=== PATIENT | male | born 1955 | race Caucasian/White ===

== ENCOUNTER 2017-07-26 21:31 | Inpatient (IN) | payer BC, SELFPAY ==
[2017-07-26] VITALS (9 sets, daily range): BP systolic 98–128; BP diastolic 67–104; PULSE 60–82; RESP 15–20; TEMP 36.9; O2SAT 94–97; BMI 33.7
--- NOTE | 2017-07-26 21:38 | EKG12_ITS ---
Test Reason : CP Blood Pressure : / mmHG Vent. Rate : 153 BPM Atrial Rate : 170 BPM P-R Int : 000 ms QRS Dur : 094 ms QT Int : 322 ms P-R-T Axes : 000 034 013 degrees QTc Int : 514 ms Atrial fibrillation Anterior infarct , age undetermined Abnormal ECG Confirmed by VIVIAN HUTCHISON, SHERITA ([id number]), makeup editor KUMAR QUIÑONEZ ([id number]) on 07/31/2017 2:19:59 PM Referred By: DIAZ/YVON Confirmed By:SHERITA PARK MD
[2017-07-26 21:51] LABS: Absolute Lymphocyte Count 3.01 X10^3/ul (0.83-4.51); Absolute Neutrophil Count 4.2 X10^3/uL (2.0-7.7); Basophil# 0.03 X10^3/uL; Basophil% 0.4 % (0-1); Eosinophils% 1.2 % (0-5); Hemoglobin 14.9 g/dl (13.0-16.5); Lymphocyte # 3.01 X10^3/ul (4.0); Lymphocyte % 36.9 % (19-41); Mean Corp Hgb Conc 33.1 g/gl (32-36); Mean Corpuscular Hgb 29.4 pg (27.0-32.0); Mean Corpuscular Volume 88.9 fL (80-94); Mean Platelet Vol. 10.4 fl (6.2-12.0); Monocyte% 9.8 % (0-10); Neutrophil # 4.21 X10^3/uL (2.7-7.7); Neutrophil % 51.6 % (47-70); Platelet Count 145 K/mm3 (150-450); RBC Distribution Width CV 14.5 % (11.6-14.6); RBC Distribution Width SD 46.8 fl (35.1-43.9); Red Blood Count 5.06 M/mm3 (4.6-6.2); White Blood Count 8.2 K/mm3 (4.4-11.0)
[2017-07-26 21:52] LABS: POSITIVE COUNT NO; POSITIVE DIFFERENTIAL NO; POSITIVE MORPHOLOGY NO
--- NOTE | 2017-07-26 22:05 | RAD_ITS ---
XR Chest 1 View INDICATION: CHEST PAIN COMPARISON: May 22, 2017 TECHNIQUE: Portable chest x-ray FINDINGS: The heart size is at the upper limits of normal. Pulmonary vascularity is within normal limits. Sternotomy wires noted. Mild atelectatic changes are seen at the left lung base, lungs are otherwise clear. Osseous structures are grossly unremarkable. RAD/Chest 1 View (Portable) IMPRESSION: Mild left basilar atelectasis, lungs are otherwise clear. at 2237 Reported and signed by: Taniya Brunson MD Electronically Signed: Taniya Brunson MD at 21:36 EST Tel , Service support ,
--- NOTE | 2017-07-26 22:14 | ED.RN ---
DR. SANZ AWARE OF LAB CALLING CRITICAL OF TROPONIN 4.44
[2017-07-26 22:15] LABS: Anion Gap 8 (5-15); BUN 25 mg/dL (7-18); BUN/Creat Ratio 20.2 RATIO (10-20); Calcium,Total 8.9 mg/dL (8.5-10.1); Chloride 110 mmol/L (98-107); Creatinine, Serum 1.24 mg/dL (0.70-1.30); EST Glomerular Filtration Rate 63 mL/min (>60); Est Glom Filt Rate - Afr Amer 76 mL/min (>60); Estimated Creatinine Clearance 69.81 ml/min; Glucose 122 mg/dL (74-106); Potassium 5.2 mmol/L (3.5-5.1); Sodium Level 143 mmol/L (136-145)
--- NOTE | 2017-07-26 22:20 | EKG12_ITS ---
Test Reason : REPEAT, EKG CHANGES Blood Pressure : / mmHG Vent. Rate : 079 BPM Atrial Rate : 079 BPM P-R Int : 140 ms QRS Dur : 086 ms QT Int : 368 ms P-R-T Axes : 034 -14 046 degrees QTc Int : 421 ms Normal sinus rhythm Anterior infarct , age undetermined Abnormal ECG Confirmed by VIVIAN HUTCHISON, SHERITA ([id number]), fashion editor KUMAR QUIÑONEZ ([id number]) on 07/31/2017 2:59:45 PM Referred By: YVON Confirmed By:SHERITA PARK MD
--- NOTE | 2017-07-26 22:30 | NURSING ---
THIS RN CALLED FOR A SECOND EKG BY RESPIRATORY DUE TO NOTICEABLE CHANGE TO NORMAL SINUS ON THE MONITOR.
[2017-07-26] MEDS: Aspirin 81 MG TAB.CHEW 324 MG PO (22:41)
--- NOTE | 2017-07-26 23:08 | ED.VISSUMM ---
- ER Visit Summary Date of Service: 07/26/17 Chief Complaint: Chest pain History of Present Illness: The patient is a 62 M who presents with chest pain that began today. Patient describes his pain as a tightness across his chest. Patient denies any arm pain but does admit to some paresthesias in his upper arms. Patient admits to some shortness of breath that is worse with any exertion. Patient admits to some palpitations where he felt like he can feel his heart beating. Patient also admits to some lightheadedness. Patient denies any nausea or vomiting. Patient denies any diaphoresis. Patient states this feels somewhat similar to his chest pain he had prior to his 6 vessel bypass but he did not break out into a sweat with this like he did before. Physical Examination: Vital signs are stable. Patient is afebrile. Patient is in no acute distress. Heart was regular rate and rhythm. Lungs are clear and equal bilaterally. There is good respiratory effort noted. Abdomen is soft. Bowel sounds are normal. There is no tenderness. Extremities are intact. There is no calf tenderness or edema. Cranial nerves II through XII are intact. There are no focal motor or sensory deficits noted. The remaining physical exam is within normal limits. Test Results: Initial EKG showed atrial fibrillation with a rapid ventricular response at 153. There were no acute ST or T-wave changes noted. The patient was brought into the room he was noted to be in a normal sinus rhythm on the monitor. Repeat EKG showed normal sinus rhythm with a rate of 79. There are no acute ST or T-wave changes. This EKG is unchanged compared to previous EKG dated May 22, 2017. Potassium was slightly elevated at 5.2. Troponin was elevated at 4.44. Creatinine was normal at 1.24. Emergency Department Course and Treatment: Patient was given aspirin and nitroglycerin here in the emergency department. Patient states his pain is improved but not completely resolved. Case was discussed with Dr. Gallegos. He requested that the patient be discussed with cardiology. Case was discussed with Dr. Taveras. He will see the patient tomorrow in consultation. Patient will be admitted to the PCU. Disposition: Admit to PCU Impression: Non-STEMI This note was generated with [employer] dictation software. It may contain incorrect words, spelling, and punctuation that were not noted in review of the chart prior to signing ED Disposition - Plan for ED Patient: Disposition: Acute Care Hospital [facility] Chief Complaint: Chest Pain Diagnosis: Non-STEMI (non-ST elevated myocardial infarction) Referrals: Mikey Michel III, MD [Primary Care Provider] -
--- NOTE | 2017-07-26 23:30 | PCM.HP.STD ---
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 The patient is a 62 year old M with past medical history as mentioned above presented to the emergency room because of chest pain. His symptoms started today around 4:30 PM with central chest pain, started at rest, described as chest tightness, 4-6 out of 10 in severity, radiates to his left arm, associated with numbness of the left upper arm as well as shortness of breath, no aggravating or relieving factors. He mentioned that he has been having chest and bilateral shoulder discomfort over the last 3 days and today, his pain and discomfort worse and started to last longer. He reports associated shortness of breath. Denied dizziness, lightheadedness, syncope or presyncope. He denied nausea or vomiting. In the emergency room, his vital signs were stable. Initially, he was in A. fib with RVR, EKG revealed A. fib with RVR with heart rate of up to 140s. Repeat EKG revealed normal sinus rhythm. At this time, patient is in sinus rhythm and his blood pressure and heart rate are stable. His routine blood work is remarkable for potassium 5.2 and BUN of 25, otherwise normal. His first EKG revealed A. fib with RVR without acute ST elevation. Repeat EKG revealed normal sinus rhythm without acute ischemic changes. Troponin is 4.44. Chest x-ray showed no evidence of acute infiltrate, consolation or effusion. He is being admitted for non-ST elevation NE as well as mild hyperkalemia. Past Medical History Past Medical History (Chronic Problems): Chronic Problems (Last Reviewed 07/11/17 @ 16:05 by Shanthi Gallego) Status post coronary artery bypass graft (Chronic) Coronary artery disease (Chronic) Left ventricular apical thrombus (Chronic) Paroxysmal atrial fibrillation (Chronic) Hyperlipidemia (Chronic) MCC use of drug (Chronic) Allergies Penicillins Adverse Reaction (Intermediate, Verified 07/26/17 21:32) nosebleeds when took it as a child Home Medications: Ambulatory Orders Medication Instructions Recorded Ascorbic Acid [Vitamin C] 500 mg PO DAILY@0800 10/21/15 Aspirin [Adult Low Dose Aspirin EC] 81 mg PO DAILY 10/21/15 Atorvastatin Calcium [Lipitor] 40 mg PO QHS 10/21/15 Brimonidine Tartrate/Timolol 1 drp EACH EYE BID 10/21/15 [Combigan Eye Drops] Clopidogrel Bisulfate [Plavix] 75 mg PO DAILY 10/21/15 Latanoprost 0.005% [Xalatan 1 drp EACH EYE QHS 10/21/15 Opthalmic] Topiramate [Topamax] 25 mg PO QHS 10/21/15 Vitamin E Acetate [Vitamin E] 800 unit PO DAILY 10/21/15 citalopram 10 mg tablet 10 mg PO QDAY 05/12/17 multivitamin tablet 1 tab PO QAM 05/12/17 Metoprolol Tartrate [Lopressor 25 mg PO BID 05/22/17 (beta padmini)] nitroglycerin 0.4 mg sublingual 0.4 mg SUBLINGUAL Q5M PRN 07/05/17 tablet omeprazole 40 mg capsule,delayed 40 mg PO QDAY 07/11/17 release Surgical History: coronary bypass surgery, - Psychiatric History: No pertinent psych hx Lives: Spouse/ Significant Other Smoking Status: Never smoker Alcohol: None Drugs: None - *Family History Maternal History Items: No pertinent history Paternal History Items: No pertinent history Review of Systems Constitutional: Denies: Anorexia, Chills, Fever, Weakness Eyes: Denies: Blurred vision, Double vision, Drainage, Redness HEENT: Denies: Difficulty Hearing, Ear Pain, Eye Pain, Nasal Congestion, Sore Throat Cardiovascular: Reports: Chest Pain, Chest Pressure, Chest Tightness. Denies: Heaviness, Light Headedness, Orthopnea, Paroxysmal Noc. Dyspnea, Syncope Respiratory: Reports: Shortness of Breath. Denies: Cough, Pleuritic Pain, Sputum production, Wheezing Gastrointestinal: Denies: Abdominal Pain, Constipation, Diarrhea, Nausea, Vomiting Genitourinary: Denies: Dysuria, Frequency, Hematuria Musculoskeletal: Denies: Arm Pain, Back Pain, Foot Pain Skin: Denies: Dryness, Rash Neurological: Denies: Balance problems, Double vision, Change in Speech, Slurred speech, Incoordination, Numbness, Tingling Psychiatric: Denies: Anxiety, Depression Endocrine: Denies: Change in Body Habitus, Polydipsia VTE Information - Inpt Only VTE Present on Admission: No VTE Mechan Device Prophylaxis: None VTE Pharm Prophylaxis ordered?: No Patient Problems: Active and Suspected Problems (Last Reviewed 07/11/17 @ 16:05 by Shanthi Gallego) Non-STEMI (non-ST elevated myocardial infarction) (Acute) - Physical Exam General: Alert, Oriented x3, Cooperative, No apparent distress HEENT: Atraumatic, PERRLA, EOMI Oral: Moist Mucosa, No Gingival or Mucosal Lesions/ Ulcerations Neck: Supple, No JVD, Negative Carotid Bruits, Trachea Midline, Thyroid Normal Size and Texture Lungs: Clear to auscultation, Normal air movement, No rhonchi, No wheeze, No rales Cardiovascular: Regular rate, Regular Rhythm, Normal S1, Normal S2, No murmurs, PMI Normal Abdomen: Bowel Sounds Present, Soft, Non Tender, Non-Distended, No Hepato-splenomegaly Extremities: No clubbing, No cyanosis, No edema Skin: No rashes, No breakdown Lymphatic: No Cervical, Supraclavicular, or Inguinal Adenopathy Neurological: Cranial nerves II-XII grossly intact, Motor Exam 5/5 strength throughout Psych/Mental Status: Normal Affect, Appropriate, Alert and oriented to time, place, person, mood and affect Vital Signs Temp Pulse Resp BP Pulse Ox 98.4 F 81 20 H 128/104 H 96 07/26/17 23:09 07/26/17 23:09 07/26/17 23:09 07/26/17 23:09 07/26/17 23:09 Oxygen Flow Rate (L/min) 2 Oxygen Delivery Method Room Air Weight: 255 lb 15.307 oz Body Mass Index (BMI) 33.7 Laboratory Tests Past 24 Hrs 07/26/17 07/26/17 21:45 21:45 WBC 8.2 RBC 5.06 Hgb 14.9 Hct 45.0 MCV 88.9 MCH 29.4 MCHC 33.1 RDW 14.5 RDW Differential 46.8 H Plt Count 145 L MPV 10.4 Immature Gran % (Auto) 0.100 Neut % (Auto) 51.6 Lymph % (Auto) 36.9 [place] % (Auto) 9.8 Eos % (Auto) 1.2 Baso % (Auto) 0.4 Absolute Neuts (auto) 4.2 Absolute Lymphs (auto) 3.01 Total Counted Not Reportable Sodium 143 Potassium 5.2 H Chloride 110 H Carbon Dioxide 25.0 Anion Gap 8 BUN 25 H Creatinine 1.24 Estim Creat Clear Calc 69.81 Est GFR (MDRD) Af Amer 76 Est GFR (MDRD) Non-Af 63 BUN/Creatinine Ratio 20.2 H Glucose 122 H Calcium 8.9 Troponin I 4.44 H* Clinical Impression(s) from Imaging Studies Chest X-Ray 07/26/17 22:05 IMPRESSION: Mild left basilar atelectasis, lungs are otherwise clear. at 2887 Reported and signed by: Taniya Brunson MD Electronically Signed: Taniya Brunson MD at 21:36 EST Tel , Service support , Assessment/Plan Active and Suspected Problems (Last Reviewed 07/11/17 @ 16:05 by Shanthi Gallego) Non-STEMI (non-ST elevated myocardial infarction) (Acute) This is a 62 years old male patient presented to the emergency room because of chest pain/tightness and he was found to have elevated troponin without acute ischemic changes on EKG consistent with acute non-ST elevation NE and mild hyperkalemia. #1 acute non-ST elevation NE: EKG reviewed, revealed no evidence of acute ischemic changes. First EKG revealed A. fib with RVR and repeat EKG revealed normal sinus rhythm. Troponin is elevated. Chest x-ray showed no acute findings. Plan: Admit to PCU, cardiac monitoring, serial cardiac enzymes, repeat EKG tomorrow morning, start therapeutic Lovenox twice daily, cardiology consult, continue aspirin, statins, Plavix and metoprolol. #2 mild hyperkalemia: Without EKG changes. Potassium 5.2. Plan: IV fluids, repeat BMP tomorrow morning. #3 CAD status post CABG: EKG reviewed as above. Troponin is elevated. Plan as above, serial cardiac enzymes, Lovenox twice daily, cardiology consult, continue aspirin, statins, Plavix and metoprolol. #4 paroxysmal A. fib: Initially, patient was in A. fib with RVR. Repeat EKG revealed normal sinus rhythm. At this time, he remained in sinus rhythm, rate is controlled. Blood pressure stable. Plan to continue metoprolol for rate control and he is not on anticoagulation. But he will be on Lovenox twice daily. #5 hyperlipidemia: Continue statins. #6 DVT prophylaxis: He will be on Lovenox twice daily. This note was generated with [employer] dictation software. It may contain incorrect words, spelling, and punctuation that were not noted in checking the note before signing. Code Visit Inpatient E&M: 39521 Init Hosp L3
--- NOTE | 2017-07-26 23:35 | HP.PCM_ITS ---
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 The patient is a 62 year old M with past medical history as mentioned above presented to the emergency room because of chest pain. His symptoms started today around 4:30 PM with central chest pain, started at rest, described as chest tightness, 4-6 out of 10 in severity, radiates to his left arm, associated with numbness of the left upper arm as well as shortness of breath, no aggravating or relieving factors. He mentioned that he has been having chest and bilateral shoulder discomfort over the last 3 days and today, his pain and discomfort worse and started to last longer. He reports associated shortness of breath. Denied dizziness, lightheadedness, syncope or presyncope. He denied nausea or vomiting. In the emergency room, his vital signs were stable. Initially, he was in A. fib with RVR, EKG revealed A. fib with RVR with heart rate of up to 140s. Repeat EKG revealed normal sinus rhythm. At this time, patient is in sinus rhythm and his blood pressure and heart rate are stable. His routine blood work is remarkable for potassium 5.2 and BUN of 25, otherwise normal. His first EKG revealed A. fib with RVR without acute ST elevation. Repeat EKG revealed normal sinus rhythm without acute ischemic changes. Troponin is 4.44. Chest x-ray showed no evidence of acute infiltrate , consolation or effusion. He is being admitted for non-ST elevation GA as well as mild hyperkalemia. Past Medical History Past Medical History (Chronic Problems): Chronic Problems (Last Reviewed 07/11/17 @ 16:05 by Shanthi Gallego) Status post coronary artery bypass graft (Chronic) Coronary artery disease (Chronic) Left ventricular apical thrombus (Chronic) Paroxysmal atrial fibrillation (Chronic) Hyperlipidemia (Chronic) alf use of drug (Chronic) Allergies Penicillins Adverse Reaction (Intermediate, Verified 07/26/17 21:32) nosebleeds when took it as a child Home Medications: Ambulatory Orders Medication Instructions Recorded Ascorbic Acid [Vitamin C] 500 mg PO DAILY@0800 10/21/15 Aspirin [Adult Low Dose Aspirin EC] 81 mg PO DAILY 10/21/15 Atorvastatin Calcium [Lipitor] 40 mg PO QHS 10/21/15 Brimonidine Tartrate/Timolol 1 drp EACH EYE BID 10/21/15 [Combigan Eye Drops] Clopidogrel Bisulfate [Plavix] 75 mg PO DAILY 10/21/15 Latanoprost 0.005% [Xalatan 1 drp EACH EYE QHS 10/21/15 Opthalmic] Topiramate [Topamax] 25 mg PO QHS 10/21/15 Vitamin E Acetate [Vitamin E] 800 unit PO DAILY 10/21/15 citalopram 10 mg tablet 10 mg PO QDAY 05/12/17 multivitamin tablet 1 tab PO QAM 05/12/17 Metoprolol Tartrate [Lopressor 25 mg PO BID 05/22/17 (beta padmini)] nitroglycerin 0.4 mg sublingual 0.4 mg SUBLINGUAL Q5M PRN 07/05/17 tablet omeprazole 40 mg capsule,delayed 40 mg PO QDAY 07/11/17 release Surgical History: coronary bypass surgery, - Psychiatric History: No pertinent psych hx Lives: Spouse/ Significant Other Smoking Status: Never smoker Alcohol: None Drugs: None - *Family History Maternal History Items: No pertinent history Paternal History Items: No pertinent history Review of Systems Constitutional: Denies: Anorexia, Chills, Fever, Weakness Eyes: Denies: Blurred vision, Double vision, Drainage, Redness HEENT: Denies: Difficulty Hearing, Ear Pain, Eye Pain, Nasal Congestion, Sore Throat Cardiovascular: Reports: Chest Pain, Chest Pressure, Chest Tightness. Denies: Heaviness, Light Headedness, Orthopnea, Paroxysmal Noc. Dyspnea, Syncope Respiratory: Reports: Shortness of Breath. Denies: Cough, Pleuritic Pain, Sputum production, Wheezing Gastrointestinal: Denies: Abdominal Pain, Constipation, Diarrhea, Nausea, Vomiting Genitourinary: Denies: Dysuria, Frequency, Hematuria Musculoskeletal: Denies: Arm Pain, Back Pain, Foot Pain Skin: Denies: Dryness, Rash Neurological: Denies: Balance problems, Double vision, Change in Speech, Slurred speech, Incoordination, Numbness, Tingling Psychiatric: Denies: Anxiety, Depression Endocrine: Denies: Change in Body Habitus, Polydipsia VTE Information - Inpt Only VTE Present on Admission: No VTE Mechan Device Prophylaxis: None VTE Pharm Prophylaxis ordered?: No Patient Problems: Active and Suspected Problems (Last Reviewed 07/11/17 @ 16:05 by Shanthi Gallego) Non-STEMI (non-ST elevated myocardial infarction) (Acute) - Physical Exam General: Alert, Oriented x3, Cooperative, No apparent distress HEENT: Atraumatic, PERRLA, EOMI Oral: Moist Mucosa, No Gingival or Mucosal Lesions/ Ulcerations Neck: Supple, No JVD, Negative Carotid Bruits, Trachea Midline, Thyroid Normal Size and Texture Lungs: Clear to auscultation, Normal air movement, No rhonchi, No wheeze, No rales Cardiovascular: Regular rate, Regular Rhythm, Normal S1, Normal S2, No murmurs, PMI Normal Abdomen: Bowel Sounds Present, Soft, Non Tender, Non-Distended, No Hepato- splenomegaly Extremities: No clubbing, No cyanosis, No edema Skin: No rashes, No breakdown Lymphatic: No Cervical, Supraclavicular, or Inguinal Adenopathy Neurological: Cranial nerves II-XII grossly intact, Motor Exam 5/5 strength throughout Psych/Mental Status: Normal Affect, Appropriate, Alert and oriented to time, place, person, mood and affect Vital Signs Temp Pulse Resp BP Pulse Ox 98.4 F 81 20 H 128/104 H 96 07/26/17 23:09 07/26/17 23:09 07/26/17 23:09 07/26/17 23:09 07/26/17 23:09 Oxygen Flow Rate (L/min) 2 Oxygen Delivery Method Room Air Weight: 255 lb 15.307 oz Body Mass Index (BMI) 33.7 Laboratory Tests Past 24 Hrs 07/26/17 07/26/17 21:45 21:45 WBC 8.2 RBC 5.06 Hgb 14.9 Hct 45.0 MCV 88.9 MCH 29.4 MCHC 33.1 RDW 14.5 RDW Differential 46.8 H Plt Count 145 L MPV 10.4 Immature Gran % (Auto) 0.100 Neut % (Auto) 51.6 Lymph % (Auto) 36.9 [place] % (Auto) 9.8 Eos % (Auto) 1.2 Baso % (Auto) 0.4 Absolute Neuts (auto) 4.2 Absolute Lymphs (auto) 3.01 Total Counted Not Reportable Sodium 143 Potassium 5.2 H Chloride 110 H Carbon Dioxide 25.0 Anion Gap 8 BUN 25 H Creatinine 1.24 Estim Creat Clear Calc 69.81 Est GFR (MDRD) Af Amer 76 Est GFR (MDRD) Non-Af 63 BUN/Creatinine Ratio 20.2 H Glucose 122 H Calcium 8.9 Troponin I 4.44 H* Clinical Impression(s) from Imaging Studies Chest X-Ray 07/26/17 22:05 IMPRESSION: Mild left basilar atelectasis, lungs are otherwise clear. at [id number] Reported and signed by: Taniya Brunson MD Electronically Signed: Taniya Brunson MD at 21:36 EST Tel , Service support , Assessment/Plan Active and Suspected Problems (Last Reviewed 07/11/17 @ 16:05 by Shanthi Gallego) Non-STEMI (non-ST elevated myocardial infarction) (Acute) This is a 62 years old male patient presented to the emergency room because of chest pain/tightness and he was found to have elevated troponin without acute ischemic changes on EKG consistent with acute non-ST elevation GA and mild hyperkalemia. #1 acute non-ST elevation GA: EKG reviewed, revealed no evidence of acute ischemic changes. First EKG revealed A. fib with RVR and repeat EKG revealed normal sinus rhythm. Troponin is elevated. Chest x-ray showed no acute findings. Plan: Admit to PCU, cardiac monitoring, serial cardiac enzymes, repeat EKG tomorrow morning, start therapeutic Lovenox twice daily, cardiology consult, continue aspirin, statins, Plavix and metoprolol. #2 mild hyperkalemia: Without EKG changes. Potassium 5.2. Plan: IV fluids, repeat BMP tomorrow morning. #3 CAD status post CABG: EKG reviewed as above. Troponin is elevated. Plan as above, serial cardiac enzymes, Lovenox twice daily, cardiology consult, continue aspirin, statins, Plavix and metoprolol. #4 paroxysmal A. fib: Initially, patient was in A. fib with RVR. Repeat EKG revealed normal sinus rhythm. At this time, he remained in sinus rhythm, rate is controlled. Blood pressure stable. Plan to continue metoprolol for rate control and he is not on anticoagulation. But he will be on Lovenox twice daily. #5 hyperlipidemia: Continue statins. #6 DVT prophylaxis: He will be on Lovenox twice daily. This note was generated with [employer] dictation software. It may contain incorrect words, spelling, and punctuation that were not noted in checking the note before signing. Code Visit Inpatient E&M: 43908 Init Hosp L3
[2017-07-27] VITALS (21 sets, daily range): BP systolic 107–130; BP diastolic 63–84; PULSE 65–81; RESP 16–18; TEMP 36.3–37.2; O2SAT 95–100; BMI 32.9; BMI 33.8
[2017-07-27] MEDS: 0.9% Normal Saline 1,000 ML 100 ML IV ×3 (00:31→22:49)
--- NOTE | 2017-07-27 05:55 | EKG12_ITS ---
Test Reason : AM EKG Blood Pressure : / mmHG Vent. Rate : 066 BPM Atrial Rate : 066 BPM P-R Int : 148 ms QRS Dur : 096 ms QT Int : 410 ms P-R-T Axes : 040 -01 052 degrees QTc Int : 429 ms Normal sinus rhythm Anterior infarct , age undetermined Abnormal ECG When compared with ECG of 26-JUL-2017 22:20, MANUAL COMPARISON REQUIRED, DATA IS UNCONFIRMED Confirmed by VIVIAN HUTCHISON, SHERITA ([id number]), editorial director KUMAR QUIÑONEZ ([id number]) on 07/31/2017 3:27:30 PM Referred By: DR VEGA Confirmed By:SHERITA PARK MD
[2017-07-27 06:05] LABS: Absolute Lymphocyte Count 2.23 X10^3/ul (0.83-4.51); Absolute Neutrophil Count 2.5 X10^3/uL (2.0-7.7); Basophil# 0.01 X10^3/uL; Basophil% 0.2 % (0-1); Eosinophil# 0.07 X10^3/uL; Eosinophils% 1.3 % (0-5); Hematocrit 39.9 % (40-54); Lymphocyte # 2.23 X10^3/ul (4.0); Lymphocyte % 42.2 % (19-41); Mean Corp Hgb Conc 32.6 g/gl (32-36); Mean Corpuscular Volume 89.1 fL (80-94); Mean Platelet Vol. 9.8 fl (6.2-12.0); Monocyte# 0.48 X10^3/uL; Monocyte% 9.1 % (0-10); Neutrophil % 47.2 % (47-70); Platelet Count 112 K/mm3 (150-450); RBC Distribution Width CV 14.4 % (11.6-14.6); RBC Distribution Width SD 46.9 fl (35.1-43.9); Red Blood Count 4.48 M/mm3 (4.6-6.2); White Blood Count 5.3 K/mm3 (4.4-11.0)
[2017-07-27 06:06] LABS: International Normalized Ratio 1.1; Prothrombin Time (Protime)PT. 13.7 SECONDS (11.7-14.9)
[2017-07-27 06:07] LABS: Partial Thromboplast Time 30.6 Seconds (24.1-36.2)
[2017-07-27 06:24] LABS: POSITIVE COUNT NO; POSITIVE DIFFERENTIAL NO; POSITIVE MORPHOLOGY NO
[2017-07-27 06:25] LABS: Anion Gap 9 (5-15); BUN 25 mg/dL (7-18); BUN/Creat Ratio 26.2 RATIO (10-20); Calcium,Total 8.3 mg/dL (8.5-10.1); Chloride 109 mmol/L (98-107); Creatinine, Serum 0.96 mg/dL (0.70-1.30); EST Glomerular Filtration Rate 85 mL/min (>60); Est Glom Filt Rate - Afr Amer 102 mL/min (>60); Estimated Creatinine Clearance 87.57 ml/min; Glucose 96 mg/dL (74-106); Potassium 4.3 mmol/L (3.5-5.1); Sodium Level 143 mmol/L (136-145)
--- NOTE | 2017-07-27 06:55 | PCM.CONS.C ---
Reason for Consult Date of Consultation: 07/27/17 Reason for Consultation: Chest pain. History of Present Illness: The patient is a 62 year old M with past medical history as mentioned above presented to the emergency room because of chest pain. His symptoms started today around 4:30 PM with central chest pain, started at rest, described as chest tightness, 4-6 out of 10 in severity, radiates to his left arm, associated with numbness of the left upper arm as well as shortness of breath, no aggravating or relieving factors. He mentioned that he has been having chest and bilateral shoulder discomfort over the last 3 days and today, his pain and discomfort worse and started to last longer. He reports associated shortness of breath. He says that this discomfort was similar to when he had his previous myocardial infarction. Denied dizziness, lightheadedness, syncope or presyncope. He denied nausea or vomiting. In the emergency room, his vital signs were stable. Initially, he was in A. fib with RVR, EKG revealed A. fib with RVR with heart rate of up to 140s. Repeat EKG revealed normal sinus rhythm. Currently is doing much better. He was admitted to the progressive care unit and ruled in for a non-ST elevation myocardial infarction. He has persistent mild discomfort. [] Past Medical History Allergies/Adverse Reactions: Allergies Penicillins Adverse Reaction (Intermediate, Verified 07/26/17 21:32) nosebleeds when took it as a child Home Medications: Ambulatory Orders Medication Instructions Recorded Ascorbic Acid [Vitamin C] 500 mg PO DAILY@0800 10/21/15 Aspirin [Adult Low Dose Aspirin EC] 81 mg PO DAILY 10/21/15 Atorvastatin Calcium [Lipitor] 40 mg PO QHS 10/21/15 Brimonidine Tartrate/Timolol 1 drp EACH EYE BID 10/21/15 [Combigan Eye Drops] Clopidogrel Bisulfate [Plavix] 75 mg PO DAILY 10/21/15 Latanoprost 0.005% [Xalatan 1 drp EACH EYE QHS 10/21/15 Opthalmic] Topiramate [Topamax] 25 mg PO QHS 10/21/15 Vitamin E Acetate [Vitamin E] 800 unit PO DAILY 10/21/15 citalopram 10 mg tablet 10 mg PO QDAY 05/12/17 multivitamin tablet 1 tab PO QAM 12/22/17 Metoprolol Tartrate [Lopressor 25 mg PO BID 05/22/17 (beta padmini)] nitroglycerin 0.4 mg sublingual 0.4 mg SUBLINGUAL Q5M PRN 07/05/17 tablet omeprazole 40 mg capsule,delayed 40 mg PO QDAY 07/11/17 release Past Medical History (Chronic Problems): Chronic Problems (Last Reviewed 07/11/17 @ 16:05 by Shanthi Gallego) Status post coronary artery bypass graft (Chronic) Coronary artery disease (Chronic) Left ventricular apical thrombus (Chronic) Paroxysmal atrial fibrillation (Chronic) Hyperlipidemia (Chronic) prison use of drug (Chronic) Surgical History: coronary bypass surgery, - Psychiatric History: No pertinent psych hx - *Family History Maternal Family History: Family History (Last Reviewed 07/11/17 @ 16:05 by Shanthi Gallego) Father CAD (coronary artery disease) Myocardial infarction History Items: No pertinent history Paternal Family History: Family History (Last Reviewed 07/11/17 @ 16:05 by Shanthi Gallego) Father CAD (coronary artery disease) Myocardial infarction History Items: No pertinent history Lives: Spouse/ Significant Other Smoking Status: Never smoker Alcohol: None Drugs: None Review of Systems - Review of Systems General: Denies: Fever, Night Sweats, Fatigue Cardiovascular: Reports: Chest Discomfort, Chest Discomfort at Rest. Denies: Shortness of Breath, Orthopnea, PND, Peripheral Edema, Palpitations, Lightheadedness, Dizziness, Near Syncope, Syncope Respiratory: Denies: Cough, Sputum Production, Hemoptysis Gastrointestinal: Denies: Hematemesis, Hematochezia, Melena Genitourinary: Denies: Dysuria, Hematuria Skin: Denies: Rash Subjectve: Pleasant gentleman in no apparent distress Objective: Vital Signs Temp Pulse Resp BP Pulse Ox 98.6 F 65 16 117/71 98 07/27/17 05:06 07/27/17 05:06 07/27/17 05:06 07/27/17 05:06 07/27/17 05:06 Oxygen Delivery Method Room Air Weight: 248 lb 10.903 oz Body Mass Index (BMI) 32.9 Intake and Output for Last 24 Hours 07/25/17 07/26/17 07/27/17 23:59 23:59 23:59 Intake Total 593 / 593 Balance 593 / 593 General: Awake, Alert, Oriented x 3 HEENT: PERRL, EOMI, Sclera Non Icteric Neck: Supple, Good ROM, No Lymph Node Enlargement Lungs: Clear to auscultation Cardiovascular: Regular Rhythm, Normal S1, Normal S2, No Murmurs, No Rubs, No Gallops Vascular: No Carotid Bruits, Normal Femoral Pulses, Normal Radial Pulses, Normal Dorsalis Pedal Pulse, Normal Posterior Tibial Pulses Abdomen: Bowel Sounds Present, Soft, Non Tender, No HSM, No Organomegaly Extremities: No Cyanosis, No Clubbing, No edema Neurological: No Focal Motor or Sensory Deficit 07/27/17 01:31: Troponin I 6.09 H* 07/27/17 05:25: WBC 5.3, RBC 4.48 L, Hgb 13.0, Hct 39.9 L, MCV 89.1, MCH 29.0, MCHC 32.6, RDW 14.4, RDW Differential 46.9 H, Plt Count 112 L, MPV 9.8, Immature Gran % (Auto) 0.000, Neut % (Auto) 47.2, Lymph % (Auto) 42.2 H, [place] % (Auto) 9.1, Eos % (Auto) 1.3, Baso % (Auto) 0.2, Absolute Neuts (auto) 2.5, Total Counted Not Reportable 07/27/17 05:25: Sodium 143, Potassium 4.3, Chloride 109 H, Carbon Dioxide 25.0, Anion Gap 9, BUN 25 H, Creatinine 0.96, Est GFR (MDRD) Af Amer 102, Est GFR (MDRD) Non-Af 85, BUN/Creatinine Ratio 26.2 H, Glucose 96, Calcium 8.3 L, Troponin I 5.98 H* 07/27/17 05:25: PT 13.7, INR 1.1, APTT 30.6 Rhythm: EKG: Atrial fibrillation with rapid ventricular response rate. Subsequent EKG demonstrates normal sinus rhythm with no acute changes. Assessment/Plan 1. Non-ST elevation myocardial infarction Patient presents with chest discomfort and atrial fibrillation and rules in for a non-ST elevation myocardial infarction. The recommendation at this time would be to continue his aspirin clopidogrel and set him up for a left heart catheterization. The risk benefits and alternatives have been explained to him he understands and agrees to proceed. Depending on the findings further recommendations will be made. 2. Status post coronary bypass surgery. His post coronary bypass surgery. At this time with his symptoms it appears that he may have occluded 1 of his grafts or has evidence of disease progression. My recommendation would be to evaluate him with a cardiac catheterization and then further recommendations will be made. 3. Hypertension His blood pressure appears to be under better control at this time and he will be continued on his same medications for now. 4. Hyperlipidemia He will be continued on high intensity statin. 5. 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 We would order the above and act accordingly afterwards. Thank you for allowing me to participate in the care of your patient. Please don't hesitate to call if any issues arise
--- NOTE | 2017-07-27 07:00 | CDU_ITS ---
Reason For Study: TIA Rt. Velocities/BP Lt. Velocities/BP Prox CCA 72.7/15.2 cm/sec. Prox CCA 94.4/20.5 cm/sec. Mid CCA 74.5/21.1 cm/sec. Mid CCA 114/25.8 cm/sec. Dist CCA 89.7/27.6 cm/sec. Dist CCA 104/27.0 cm/sec. Prox ICA 93.2/19.3 cm/sec. Prox ICA 69.2/24.6 cm/sec. Mid ICA 56.3/21.1 cm/sec. Mid ICA 65.7/24.6 cm/sec. Dist ICA 40.7/19.3 cm/sec. Dist ICA 56.9/23.5 cm/sec. Rt. ICA/CCA = 1.3. Lt. ICA/CCA = .6. Prox ECA 101/17.0 cm/sec. Prox ECA 108/12.6 cm/sec. Rt. Vert. 19.3/6.67 cm/sec. Lt. Vert. 44.0/17.6 cm/sec. Right Extracranial There is intimal thickening but no significant atherosclerotic plaque noted in the right common carotid artery. There is heterogeneous, irregular atherosclerotic plaque noted in the right internal carotid artery. There is heterogeneous, irregular atherosclerotic plaque noted in the right external carotid artery. Antegrade flow is noted in the right vertebral artery. There is heterogeneous, irregular atherosclerotic plaque noted in the right bulb. Left Extracranial There is intimal thickening but no significant atherosclerotic plaque noted in the left common carotid artery. There is intimal thickening but no significant atherosclerotic plaque noted in the left internal carotid artery. There is intimal thickening but no significant atherosclerotic plaque noted in the left external carotid artery. Antegrade flow is noted in the left vertebral artery. There is heterogeneous, irregular atherosclerotic plaque noted in the left bulb. Procedure Carotid Duplex [id number]. The exam was diagnostic. Exam performed portable in patient room. Interpretation Summary Irregular plague at the proximal right internal carotid with <50% stenosis. Normal flow right external carotid Intimal thickening left internal carotid with <50% stenosis. Normal flow left external carotid Patent and antegrade flow bilateral vertebrals. Diminished velocity on the right. Ordering Physician: Michael Olsen Performed By: Alexandr Clifton RVT
[2017-07-27] MEDS: Clopidogrel Bisulfate 75 MG Tablet PO (07:02)
[2017-07-27] MEDS: Aspirin E.C. 81 MG Tablet PO (07:02)
[2017-07-27] MEDS: Metoprolol Tartrate 25 MG Tablet PO ×2 (07:02→22:42)
--- NOTE | 2017-07-27 08:34 | CASEMGMT ---
According to [place] website, the following are in-network tertiary facilities: [facility], [facility], [facility], [facility], [facility], [facility], and . Alexsander HESTER CM
--- NOTE | 2017-07-27 08:41 | PCM.PN.BLA ---
Progress Note The patient underwent cardiac catheterization today which demonstrated the following: Left main coronary artery normal. Left anterior descending artery totally occluded. Left circumflex artery with disease noted in the proximal and mid portions. Right coronary artery which is totally occluded. Saphenous vein graft to the right coronary artery which is patent with distal diffuse disease. Saphenous vein graft to the right coronary artery which gives a branch vessel to the diagonal vessel. The above is patent. Saphenous vein graft to the first obtuse marginal branch which is patent with mild diffuse disease. Saphenous vein graft to the second obtuse marginal branch which is patent Left internal mammary artery to the left anterior descending artery which is patent. Preserved left ventricular systolic function with apical akinesis. Estimated EF 50%. Based on the above angiographic findings I would recommend aggressive medical therapy lipid-lowering and the addition of isosorbide 30 mg a day to his regimen. Would suggest the patient stay overnight.
--- NOTE | 2017-07-27 09:02 | CL.D_ITS ---
Patient Name: HARINDER WRIGHT Study Date: 07/27/2017 Performing: Michael Olsen MD Ht: 72.83 inches 185 cm : 1955 Wt: 249.12 lbs 113 kg Age: 62 Gender: male BSA: 2.36 PROCEDURE(S) PERFORMED [id number]-JIN/COR/LV/CABG CLINICAL PROFILE AND INDICATIONS INDICATIONS: 62-year-old man with a history of non-ST elevation myocardial infarction. Stress/Imaging Stress/Image Study Performed: No CONCLUSIONS Coronary artery disease with severe port gam[place] vessel disease. Coronary artery bypass grafts are all ope n. However there is diffuse disease noted of the circumflex artery.. RECOMMENDATIONS Medical therapy Not clear whether the patient would benefit from angioplasty to the circumflex artery distribution. We will therefore try maximum medical therapy. If patient fails would be brought [facility] for angioplasty of this area. DESCRIPTION OF PROCEDURE The patient arrived to the procedure lab. The risks and benefits of the procedure as well as a full d escription of our services here and current unavailability of surgical backup were fully explained to the patient and/or their significant other prior to the catheterization. The Timeout was completed, verifying the correct patient and procedure. The patient's procedural site was prepped and draped in the usual fashion. Local anesthetic was given subcutaneously to right groin region with Lidocaine 2%. Using a modified Seldinger technique, arterial access was obtained via the right femoral artery, a 5 Fr sheath was inserted. Left Coronary Artery selective angiography was performed in multiple views u sing a 5 Fr. JL 5 catheter. Right Coronary Artery selective angiography was then performed in multipl e views using a 5 Fr. 3DRC (Cam) catheter. Saphenous Vein graft to the LPDA selective angiograph y was performed in multiple views using a 5 Fr. 3DRC (Cam) catheter. Saphenous Vein graft to the RPL selective angiography was performed in multiple views using a 5 Fr. 3DRC (Cam) catheter. Sa phenous Vein graft to the DIAG 2 selective angiography was performed in multiple views using a 5 Fr. 3DRC (Cam) catheter. Saphenous Vein graft to the OM 1 selective angiography was performed in mul tiple views using a 5 Fr. 3DRC (Cam) catheter. Saphenous Vein graft to the OM 2 selective angiog robe was performed in multiple views using a 5 Fr. 3DRC (Cam) catheter. Left internal mammary a rtery graft to the LAD selective angiography was performed in multiple views using a 5 Fr. 3DRC (Peter flores) catheter. Left internal mammary artery graft to the LAD selective angiography was performed in multiple views using a 5 Fr. IM catheter. Saphenous Vein graft to the OM 1 selective angiography was performed in multiple views using a 5 Fr. JR 4 catheter. Saphenous Vein graft to the OM 2 selective a ngiography was performed in multiple views using a 5 Fr. JR 4 catheter. Left Ventriculography was per formed in GONG projection using a 5 Fr. Pigtail catheter. LV to AO pullback pressures were then record ed.Contrast was injected through the sheath and the Right Iliac and Femoral artery were assessed for possible closure device.The arterial sheath was pulled and a Mynx closure device was deployed for hem ostasis CORONARY ANGIOGRAPHY DOMINANCE: Right Dominant LEFT HEART ASSESSMENT Left Ventricular Ejection Fraction: by LV Gram 50 % Apical Akinesis Depressed Left Ventricular systolic function LEFT MAIN: Angiographically normal LEFT ANTERIOR DECENDING ARTERY: PROX LAD: is occluded CIRCUMFLEX ARTERY: PROX CIRC: 80 % Stenosis MID CIRC: Diffuse disease with 80% stenosis present. RIGHT CORONARY ARTERY: PROX RCA: is occluded GRAFTS: GARDINER graft to the Mid LAD is patent Saphenous Vein graft to the 1st OM is patent Saphenous Vein graft to the 2nd OM is patent Sequential graft to the Posterior descending artery as well as the posterolateral vessel and a first diagonal vessel is patent with diffuse distal post graft disease COMPLICATIONS No Complications PROCEDURE MEDICATIONS Versed 1 mg IV Oxygen: 2 L/min via nasal cannula SUMMARY OF HEMODYNAMIC DATA Time AIR REST ECG 07:27:29 AO 109/75 (91) SA 07:35:14 LV 95/7, 11 07:55:38 LV 101/10, 16 07:55:45 LV 105/3, 17 07:57:02 LVp 106/3, 18 07:57:05 AOp 107/65 (82) 07:57:10 Signed By Michael Olsen MD On 07/27/2017 09:02:07 Michael Olsen MD
--- NOTE | 2017-07-27 09:31 | PCM.PN.HOSP ---
Patient Problems: Active and Suspected Problems (Last Reviewed 07/11/17 @ 16:05 by Shanthi Gallego) Non-STEMI (non-ST elevated myocardial infarction) (Acute) Subjective: CC: Chest pain He underwent left heart catheterization today but did not require any stenting, he is recommended optimal medical therapy. He denies any chest pain, shortness of breath, palpitations or dizziness. Vitals/I&O's: Vital Signs Temp Pulse Resp BP Pulse Ox 98.1 F 65 16 126/84 H 99 07/27/17 09:05 07/27/17 09:05 07/27/17 09:05 07/27/17 09:05 07/27/17 09:05 Oxygen Delivery Method Room Air Weight: 112.8 kg Body Mass Index (BMI) 32.9 Intake and Output for Last 24 Hours 07/25/17 07/26/17 07/27/17 23:59 23:59 23:59 Intake Total 593 / 593 Balance 593 / 593 General: Alert, Oriented x3 Oral: Moist Mucosa Neck: Supple, No JVD Lungs: Clear to auscultation, No wheeze, No rales Cardiovascular: Regular rate, Normal S1, Normal S2 Abdomen: Bowel Sounds Present, Soft, Non Tender, Non-Distended, No Hepato-splenomegaly Extremities: No edema Neurological: Cranial nerves II-XII grossly intact, Deep Tendon Reflexes 2+/4 and Symmetrical, Motor Exam 5/5 strength throughout Laboratory Results 07/27/17 01:31: Troponin I 6.09 H* 07/27/17 05:25: WBC 5.3, RBC 4.48 L, Hgb 13.0, Hct 39.9 L, MCV 89.1, MCH 29.0, MCHC 32.6, RDW 14.4, RDW Differential 46.9 H, Plt Count 112 L, MPV 9.8, Immature Gran % (Auto) 0.000, Neut % (Auto) 47.2, Lymph % (Auto) 42.2 H, [place] % (Auto) 9.1, Eos % (Auto) 1.3, Baso % (Auto) 0.2, Absolute Neuts (auto) 2.5, Absolute Lymphs (auto) 2.23, Total Counted Not Reportable 07/27/17 05:25: Sodium 143, Potassium 4.3, Chloride 109 H, Carbon Dioxide 25.0, Anion Gap 9, BUN 25 H, Creatinine 0.96, Estim Creat Clear Calc 87.57, Est GFR (MDRD) Af Amer 102, Est GFR (MDRD) Non-Af 85, BUN/Creatinine Ratio 26.2 H, Glucose 96, Calcium 8.3 L, Troponin I 5.98 H* 07/27/17 05:25: PT 13.7, INR 1.1, APTT 30.6 Current Medications Acetaminophen (Tylenol) 650 mg PO Q6H PRN PRN PRN Reason: Fever, headache, pain [facility] Last Admin: 07/27/17 07:02 Dose: 81 mg Atorvastatin Calcium (Lipitor) 40 mg PO QHS [facility] Brimonidine Tartrate (Brimonidine 0.2% 5ml Bottle) 1 drop EACH EYE BID [facility] Citalopram Hydrobromide (Celexa) 10 mg PO DAILY [facility] Clopidogrel Bisulfate (Plavix) 75 mg PO DAILY [facility] Last Admin: 07/27/17 07:02 Dose: 75 mg Enoxaparin Sodium (Lovenox) 120 mg 1 mg/kg (120 mg) SC Q12@0600,1800 [facility] Last Admin: 07/27/17 06:46 Dose: Not Given Sodium Chloride () 1,000 mls @ 100 mls/hr IV .Q10H [facility] Last Admin: 07/27/17 00:31 Dose: 100 mls/hr Sodium Chloride () 1,000 mls @ 15 mls/hr IV .Q48H [facility] PRN Reason: KVO Last Admin: 07/27/17 08:18 Dose: Not Given Isosorbide Mononitrate (Imdur) 30 mg PO DAILY [facility] Latanoprost (Xalatan Opthalmic) 1 drop EACH EYE QHS [facility] Metoprolol Tartrate (Lopressor (Beta Jackson)) 25 mg PO BID [facility] Last Admin: 07/27/17 07:02 Dose: 25 mg Morphine Sulfate (Morphine) 1 mg IV Q3H PRN PRN PRN Reason: SEVERE PAIN (6-10/10) Ondansetron HCl (Zofran) 4 mg IV Q8H PRN PRN PRN Reason: NAUSEA/VOMITING Pantoprazole Sodium (Protonix) 40 mg PO DAILY [facility] Sodium Chloride () 5 - 30 ml IV UD PRN PRN Reason: SALINE FLUSH Timolol Maleate (Timoptic) 1 drop EACH EYE BID [facility] Topiramate (Topamax) 25 mg PO QHS [facility] Assessment/Plan Active and Suspected Problems (Last Reviewed 07/11/17 @ 16:05 by Shanthi Gallego) Non-STEMI (non-ST elevated myocardial infarction) (Acute) 1 NSTEMI; he is status post left heart catheterization with medical therapy recommended. 2. CAD status post CABG; we will continue guideline directed medical therapy. 3. paroxysmal A. fib; he currently remains in sinus rhythm. 4. Dyslipidemia; he is on a statin. 5.DVT prophylaxis with Lovenox . Code Visit Inpatient E&M: 33934 Subs Hosp L2
[2017-07-27] MEDS: Citalopram 10 MG Tablet PO (10:16)
[2017-07-27] MEDS: Isosorbide Mononitrate 30 MG Tablet PO (10:16)
[2017-07-27] MEDS: Pantoprazole Sodium 40 MG Tablet PO (10:16)
[2017-07-27] MEDS: Timolol 0.5% 5ML OPTH.BTL 1 DRP LEFT EYE ×2 (13:44→22:43)
[2017-07-27] MEDS: BRIMONIDINE 0.2% 5ML BOTTLE 1 DRP LEFT EYE ×2 (13:44→22:42)
[2017-07-27] MEDS: Acetaminophen 325 MG Tablet 650 MG PO ×2 (16:40→22:49)
[2017-07-27] MEDS: Atorvastatin Calcium 40 MG Tablet PO (22:42)
[2017-07-27] MEDS: Topiramate 25 MG Tablet PO (22:43)
[2017-07-27] MEDS: Latanoprost 0.005% 1 Bottle 1 DRP RIGHT EYE (22:44)
[2017-07-28 02:53] VITALS: PULSE 73
[2017-07-28 03:31] VITALS: BP 118/70; PULSE 64; RESP 18; TEMP 36.7; O2SAT 94
[2017-07-28] MEDS: BRIMONIDINE 0.2% 5ML BOTTLE 1 DRP LEFT EYE (05:24)
[2017-07-28] MEDS: Timolol 0.5% 5ML OPTH.BTL 1 DRP LEFT EYE (05:24)
[2017-07-28] MEDS: Enoxaparin 120 MG/0.8 ML Syringe SC (05:26)
[2017-07-28 07:10] VITALS: PULSE 68
[2017-07-28] MEDS: Acetaminophen 325 MG Tablet 650 MG PO (07:43)
[2017-07-28] MEDS: 0.9% Normal Saline 1,000 ML 100 ML IV (08:40)
[2017-07-28] MEDS: Aspirin E.C. 81 MG Tablet PO (08:41)
[2017-07-28] MEDS: Clopidogrel Bisulfate 75 MG Tablet PO (08:41)
[2017-07-28] MEDS: Citalopram 10 MG Tablet PO (08:41)
[2017-07-28 08:50] VITALS: BP 107/62; PULSE 66; RESP 18; TEMP 36.6; O2SAT 96
[2017-07-28 08:51] VITALS: PULSE 62
[2017-07-28] MEDS: Pantoprazole Sodium 40 MG Tablet PO (09:49)
[2017-07-28 09:50] VITALS: BP 105/63; PULSE 70
[2017-07-28] MEDS: Metoprolol Tartrate 25 MG Tablet PO (09:50)
[2017-07-28] MEDS: Isosorbide Mononitrate 30 MG Tablet PO (09:50)
--- NOTE | 2017-07-28 10:09 | PCM.DC ---
- Discharge Diagnoses Current Active Problems: Current Active and Chronic Problems (Last Reviewed 07/11/17 @ 16:05 by Shanthi Gallego) Non-STEMI (non-ST elevated myocardial infarction) (Acute) Status post coronary artery bypass graft (Chronic) Coronary artery disease (Chronic) Allergies/Adverse Reactions: Allergies Penicillins Adverse Reaction (Intermediate, Verified 07/26/17 21:32) nosebleeds when took it as a child Medications to take at Discharge Ascorbic Acid [Vitamin C] 500 mg PO DAILY@0800 10/21/15 Aspirin [Adult Low Dose Aspirin EC] 81 mg PO DAILY 10/21/15 Atorvastatin Calcium [Lipitor] 40 mg PO QHS 10/21/15 Brimonidine Tartrate/Timolol [Combigan Eye Drops] 1 drp LEFT EYE TID 10/21/15 Clopidogrel Bisulfate [Plavix] 75 mg PO DAILY 10/21/15 Latanoprost 0.005% [Xalatan Opthalmic] 1 drp RIGHT EYE QHS 10/21/15 Topiramate [Topamax] 25 mg PO QHS 10/21/15 Vitamin E Acetate [Vitamin E] 800 unit PO DAILY 10/21/15 citalopram 10 mg tablet 10 mg PO QDAY 05/12/17 multivitamin tablet 1 tab PO QAM 05/12/17 Metoprolol Tartrate [Lopressor (beta padmini)] 25 mg PO BID 05/22/17 nitroglycerin 0.4 mg sublingual tablet 0.4 mg SUBLINGUAL Q5M PRN 07/05/17 omeprazole 40 mg capsule,delayed release 40 mg PO QDAY 07/11/17 Isosorbide Mononitrate [Imdur] 30 mg PO DAILY #30 tab 07/28/17 The following prescriptions were given: Isosorbide Mononitrate [Imdur] 30 mg PO DAILY #30 tab Primary Care Physician: Mikey Michel III, MD [Primary Care Provider] - In 1 Week Proposed Discharge Date: 07/28/17
--- NOTE | 2017-07-28 10:10 | DS.PCM_ITS ---
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 he described central chest pain, that started at rest, he also described this as chest tightness, 4-6 out of 10 in severity, radiates to his left arm, associated with numbness of the left upper arm as well as shortness of breath, no aggravating or relieving factors. He mentioned that he has been having chest and bilateral shoulder discomfort over the last 3 days and today, his pain and discomfort worse and started to last longer. He reports associated shortness of breath. He said that this discomfort was similar to when he had his previous myocardial infarction. EKG revealed A. fib with RVR with heart rate of up to 140s. Repeat EKG revealed normal sinus rhythm. Currently is doing much better. He was admitted to the progressive care unit and ruled in for a non-ST elevation myocardial infarction. He has persistent mild discomfort. He underwent left heart catheterization after cardiology was consulted, it showed: Left main coronary artery normal. Left anterior descending artery totally occluded. Left circumflex artery with disease noted in the proximal and mid portions. Right coronary artery which is totally occluded. Saphenous vein graft to the right coronary artery which is patent with distal diffuse disease. Saphenous vein graft to the right coronary artery which gives a branch vessel to the diagonal vessel. The above is patent. Saphenous vein graft to the first obtuse marginal branch which is patent with mild diffuse disease. Saphenous vein graft to the second obtuse marginal branch which is patent Left internal mammary artery to the left anterior descending artery which is patent. Preserved left ventricular systolic function with apical akinesis. Estimated EF 50%. Optimal medical therapy was recommended He was discharged home in a stable condition symptom-free. [ Discharge Diet: No Restrictions Home Medications: Medications to take at Discharge Ascorbic Acid [Vitamin C] 500 mg PO DAILY@0800 10/21/15 Aspirin [Adult Low Dose Aspirin EC] 81 mg PO DAILY 10/21/15 Atorvastatin Calcium [Lipitor] 40 mg PO QHS 10/21/15 Brimonidine Tartrate/Timolol [Combigan Eye Drops] 1 drp LEFT EYE TID 10/21/15 Clopidogrel Bisulfate [Plavix] 75 mg PO DAILY 10/21/15 Latanoprost 0.005% [Xalatan Opthalmic] 1 drp RIGHT EYE QHS 10/21/15 Topiramate [Topamax] 25 mg PO QHS 10/21/15 Vitamin E Acetate [Vitamin E] 800 unit PO DAILY 10/21/15 citalopram 10 mg tablet 10 mg PO QDAY 05/12/17 multivitamin tablet 1 tab PO QAM 05/12/17 Metoprolol Tartrate [Lopressor (beta padmini)] 25 mg PO BID 05/22/17 nitroglycerin 0.4 mg sublingual tablet 0.4 mg SUBLINGUAL Q5M PRN 07/05/17 omeprazole 40 mg capsule,delayed release 40 mg PO QDAY 07/11/17 isosorbide mononitrate ER 30 mg tablet,extended release 24 hr 30 mg PO .COMPLEX #30 tab 07/28/17 Primary Care Physician: Mikey Michel III, MD [Primary Care Provider] - In 1 Week Disposition: Home Patient Condition:: Good Meaningful Use Info Meaningful Use Diagnoses (Choose all that apply): None applicable Code Visit Inpatient E&M: 97799 Disch Hosp
--- NOTE | 2017-07-28 10:29 | CASEMGMT ---
Face to Face with patient for initial transition planning/care coordination assessment. MIR SAPP introduced self and role at [facility], pt voices understanding and consents to assessment at this time. Pt is sitting up in bed in no distress at this time. Pt A/O x4 at this time and answers all questions appropriately at this time. Care providers, pharmacy, and demographics verified. See attached link. Pt voices no further concerns/needs at this time. Advised pt to ask for CM if any further questions/concerns/needs arise, voices understanding. PLAN: [place]IR SAPP
== END 2017-07-28 11:38 | disposition home or self-care (01) | DRG 281 ==
LOC: ED 23:14 → PCU 23:21
PROVIDERS: Admitting Provider Hospitalist; Emergency Provider Emergency Medicine; Family Provider Family Medicine; PCP Family Medicine; Visit Provider Internal Medicine
DX: I21.4 Non-ST elevation (NSTEMI) myocardial infarction (principal); I25.810 Atherosclerosis of coronary artery bypass graft(s) without angina pectoris; Z95.1 Presence of aortocoronary bypass graft; E87.5 Hyperkalemia; E78.5 Hyperlipidemia, unspecified; I10 Essential (primary) hypertension; I48.0 Paroxysmal atrial fibrillation; Z79.02 Long term (current) use of antithrombotics/antiplatelets; I25.2 Old myocardial infarction; Z79.82 Long term (current) use of aspirin; Z79.899 Other long term (current) drug therapy
CPT/HCPCS: 36415; 71045; 80048; 84484; 85025; 85610; 85730; 93005; 93459; 93880; 97802; 99152; 99153; 99283; C1760; J7030; Q9967; C1769

== ENCOUNTER → 2017-09-25 08:10 | Outpatient (CLI) | payer BC, SELFPAY ==
[2017-09-25 08:53] LABS: AST(SGOT) 23 U/L (15-37); Alanine Aminotransfer ALT/SGPT 29 U/L (16-61); Albumin, Serum 3.8 g/dL (3.2-5.0); Alkaline Phosphatase 100 U/L (45-117); Bilirubin, Direct 0.16 mg/dL (0.00-0.30); Cholesterol 129 mg/dL (200); Globulin 3.6 g/dL (2.2-4.2); High Density Lipoprotein 34 mg/dL; Protein, Total 7.4 g/dL (6.4-8.2); Triglycerides 186 mg/dL; Very Low Density Lipoprotein 37 mg/dL (5-40)
== END ==
PROVIDERS: Family Provider Family Medicine; PCP Family Medicine; Visit Provider Physician Assistant Medical
DX: E78.5 Hyperlipidemia, unspecified (principal); Z79.899 Other long term (current) drug therapy
CPT/HCPCS: 36415; 80061; 80076

== ENCOUNTER → 2018-04-02 08:49 | Outpatient (CLI) | payer BC, SELFPAY ==
[2018-04-02 10:27] LABS: AST(SGOT) 25 U/L (15-37); Alanine Aminotransfer ALT/SGPT 31 U/L (16-61); Alkaline Phosphatase 114 U/L (45-117); Cholesterol 128 mg/dL (200); Globulin 3.7 g/dL (2.2-4.2); High Density Lipoprotein 30 mg/dL; Protein, Total 7.7 g/dL (6.4-8.2); Triglycerides 242 mg/dL; Very Low Density Lipoprotein 48 mg/dL (5-40)
== END ==
PROVIDERS: Family Provider Family Medicine; PCP Family Medicine; Referring Provider Physician Assistant Medical; Visit Provider Physician Assistant Medical
DX: E78.5 Hyperlipidemia, unspecified (principal)
CPT/HCPCS: 36415; 80061; 80076

== ENCOUNTER → 2018-10-03 09:01 | Outpatient (CLI) | payer BC, SELFPAY ==
[2018-02-08 15:41] VITALS: BMI 35.2
[2018-10-03 10:08] LABS: AST(SGOT) 20 U/L (15-37); Alanine Aminotransfer ALT/SGPT 25 U/L (16-61); Alkaline Phosphatase 109 U/L (45-117); Bilirubin, Direct 0.18 mg/dL (0.00-0.30); Cholesterol 149 mg/dL (200); Globulin 3.4 g/dL (2.2-4.2); High Density Lipoprotein 37 mg/dL; Protein, Total 7.4 g/dL (6.4-8.2); Triglycerides 230 mg/dL; Very Low Density Lipoprotein 46 mg/dL (5-40)
== END ==
PROVIDERS: Family Provider Family Medicine; PCP Family Medicine; Referring Provider Physician Assistant Medical; Visit Provider Physician Assistant Medical
DX: E78.5 Hyperlipidemia, unspecified (principal)
CPT/HCPCS: 36415; 80061; 80076

== ENCOUNTER → 2018-10-31 07:54 | Outpatient (CLI) | payer BC, SELFPAY ==
--- NOTE | 2018-10-31 10:16 | NEURO ---
NCS and/or EMG Patient Report Ordering Doctor: Mikey Michel III DATE OF SERVICE: 10/31/18 This is a left lower extremity EMG and a bilateral lower extremity nerve conduction study performed on this 63-year-old male with history of numbness in his legs for approximately 7 years relatively symmetrically, progressively worse associated with burning and tingling. No diabetes or back pain. There is a history of possible neuropathy in his grandparents. On examination he has mild hammertoe deformities bilaterally. Bilateral lower extremity sensory and motor nerve conduction studies are performed. The common peroneal and tibial motor conduction velocities are slowed bilaterally and the distal latencies are mildly prolonged. The sural sensory responses are normal. F-wave latencies are mildly symmetrically prolonged and H reflex response amplitudes are reduced bilaterally. Left lower extremity needle electromyography was performed. Muscles evaluate included the extensor digitorum brevis, abductor Alysis, medial gastrocnemius, anterior tibialis, vastus lateralis and vastus medialis muscles. Distal muscles demonstrated large motor units with normal insertional activity. More proximal muscles demonstrated normal insertional activity with absence of pathologic spontaneous activity, normal motor unit recruitment pattern and amplitude was noted. 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 Other potential causes could be screened for with B12 levels, serum and protein urine electrophoresis, and liver function tests.
== END ==
PROVIDERS: Family Provider Family Medicine; PCP Family Medicine; Referring Provider Family Medicine; Visit Provider Family Medicine
DX: G62.9 Polyneuropathy, unspecified (principal)
CPT/HCPCS: 95886; 95910

== ENCOUNTER → 2019-04-08 08:58 | Outpatient (CLI) | payer BC, SELFPAY ==
[2019-02-12 08:40] VITALS: BMI 35.4
[2019-04-08 10:18] LABS: AST(SGOT) 20 U/L (15-37); Alanine Aminotransfer ALT/SGPT 27 U/L (16-61); Albumin, Serum 3.7 g/dL (3.2-5.0); Alkaline Phosphatase 120 U/L (45-117); Bilirubin, Direct 0.14 mg/dL (0.00-0.30); Cholesterol 127 mg/dL (200); Globulin 3.7 g/dL (2.2-4.2); High Density Lipoprotein 33 mg/dL; Protein, Total 7.4 g/dL (6.4-8.2); Triglycerides 162 mg/dL; Very Low Density Lipoprotein 32 mg/dL (5-40)
== END ==
PROVIDERS: Family Provider Family Medicine; PCP Family Medicine; Referring Provider Physician Assistant Medical; Visit Provider Physician Assistant Medical
DX: E78.5 Hyperlipidemia, unspecified (principal)
CPT/HCPCS: 36415; 80061; 80076

== ENCOUNTER → 2019-05-05 10:49 | Outpatient (CLI) | payer BC, SELFPAY ==
[2019-05-05 12:44] VITALS: BMI 35.4
== END ==
PROVIDERS: Family Provider Family Medicine; PCP Family Medicine; Referring Provider Physician Assistant Medical; Visit Provider Physician Assistant Medical
DX: J02.9 Acute pharyngitis, unspecified (principal); R50.9 Fever, unspecified
CPT/HCPCS: 87070; 87186

== ENCOUNTER → 2019-10-08 10:34 | Outpatient (CLI) | payer OTHER, SELFPAY ==
[2019-05-09 06:25] VITALS: BMI 35.4
[2019-10-08 11:27] LABS: AST(SGOT) 19 U/L (15-37); Alanine Aminotransfer ALT/SGPT 26 U/L (16-61); Albumin, Serum 3.7 g/dL (3.2-5.0); Alkaline Phosphatase 154 U/L (45-117); Bilirubin, Direct 0.19 mg/dL (0.00-0.30); Cholesterol 139 mg/dL (200); Globulin 3.8 g/dL (2.2-4.2); High Density Lipoprotein 38 mg/dL; Protein, Total 7.5 g/dL (6.4-8.2); Triglycerides 174 mg/dL; Very Low Density Lipoprotein 35 mg/dL (5-40)
== END ==
PROVIDERS: PCP Family Medicine; Referring Provider Physician Assistant Medical; Visit Provider Physician Assistant Medical
DX: E78.5 Hyperlipidemia, unspecified (principal)
CPT/HCPCS: 36415; 80061; 80076

== ENCOUNTER → 2020-04-06 06:53 | Outpatient (CLI) | payer MEDICARE, OTHER, SELFPAY ==
[2020-02-18 09:49] VITALS: BMI 35.5
[2020-04-06 07:56] LABS: AST(SGOT) 21 U/L (15-37); Alanine Aminotransfer ALT/SGPT 27 U/L (16-61); Albumin, Serum 3.6 g/dL (3.2-5.0); Alkaline Phosphatase 114 U/L (45-117); Bilirubin, Direct 0.18 mg/dL (0.00-0.30); Cholesterol 143 mg/dL (200); Globulin 3.6 g/dL (2.2-4.2); High Density Lipoprotein 37 mg/dL; Protein, Total 7.2 g/dL (6.4-8.2); Triglycerides 180 mg/dL; Very Low Density Lipoprotein 36 mg/dL (5-40)
--- NOTE | 2020-04-06 11:58 | STRESSREP ---
Stress Test Report Exercise myocardial perfusion stress test. 65-year-old man with a history of coronary artery disease status post coronary bypass surgery. Stress protocol: Resting EKG demonstrates normal sinus rhythm with a rate of 59 bpm normal intervals are noted resting blood pressure is 122/82 mmHg. The patient exercised according to regular Russ protocol for a total duration of 6 minutes the maximum heart rate attained was 130 bpm which was 83% of max impacted heart rate the maximum workload was 7 metabolic equivalents. At rest there were no ST or T wave changes noted suggest ischemia at peak exercise upsloping ST changes were noted with no meet the criteria for ischemia. Occasional premature ventricular complexes was noted. No clinical angina was present the test was terminated due to dyspnea and attainment of target heart rate. The peak blood pressure was 170/90 mmHg. Myocardial perfusion protocol. 14.8 mCi of technetium 99m sestamibi was injected at rest. The patient exercised for 6 minutes and at peak exercise 44.4 mCi of technetium 99m sestamibi was injected stress images were obtained stress and rest images were reconstructed and compared in the short axis vertical long horizontal long axis. Gated images were also obtained Perfusion SPECT analysis: Review of the stress images demonstrate normal uptake of tracer noted in all areas of myocardium except for small portion of the apex. The resting images demonstrate a similar pattern. There is minimal improvement around the edges suggestive of mild rosa-infarct ischemia. No obvious ischemia of any significant is noted. Gated SPECT analysis: The gated ejection fraction is 63%. Conclusion: Exercise myocardial perfusion stress test with no evidence of ischemia at a moderate workload. Previous apical infarct noted with minimal rosa-infarct ischemia. Preserved ejection fraction.
== END ==
PROVIDERS: Physician Assistant Medical; PCP Internal Medicine Cardiovascular Disease; Referring Provider Internal Medicine Cardiovascular Disease; Visit Provider Internal Medicine Cardiovascular Disease
DX: I25.10 Atherosclerotic heart disease of native coronary artery without angina pectoris (principal); E78.5 Hyperlipidemia, unspecified; Z95.1 Presence of aortocoronary bypass graft
CPT/HCPCS: 36415; 78452; 80061; 80076; 93017; A9500; A4216

== ENCOUNTER 2020-04-26 08:35 | Emergency (ER) | payer MEDICARE, OTHER, SELFPAY ==
[2020-02-18 09:49] VITALS: BMI 35.5
[2020-04-26 08:35] VITALS: PULSE 78; RESP 16; O2SAT 94
[2020-04-26 08:36] VITALS: BP 146/87; PULSE 83; RESP 18; TEMP 37.3; O2SAT 97; BMI 33.9
[2020-04-26 08:47] VITALS: O2SAT 99
--- NOTE | 2020-04-26 08:47 | RAD_ITS ---
STUDY: X-RAY CHEST REASON FOR EXAM: Male, 65 years old. SINUS CONGESTION FOR A WEEK. CP TECHNIQUE: Single AP portable view of the chest. COMPARISON: 07/26/2017 FINDINGS: Status post median sternotomy. The lungs are clear and expanded. There is no demonstrated pleural abnormality. There is moderate cardiac enlargement. Normal mediastinum and yennifer. Normal visualized pulmonary arteries. Normal visualized aortic arch and descending thoracic aorta. Normal visualized thoracic spine. Normal visualized ribs, clavicles, and shoulders. There is no demonstrated abnormality of the visualized soft tissue structures of the upper abdomen. RAD/Chest 1 View (Portable) IMPRESSION: No active disease. Electronically Signed: Salvador Lund MD at 10:26 EST Tel , Service support ,
--- NOTE | 2020-04-26 08:47 | EKG12_ITS ---
Test Reason : COUGH Blood Pressure : / mmHG Vent. Rate : 079 BPM Atrial Rate : 079 BPM P-R Int : 132 ms QRS Dur : 082 ms QT Int : 360 ms P-R-T Axes : 043 002 099 degrees QTc Int : 412 ms Sinus rhythm with occasional Premature ventricular complexes Possible Left atrial enlargement Septal infarct , age undetermined, cannot be excluded Abnormal ECG Confirmed by JUAN HUTCHISON, FRANKY ([id number]), greeting card editor CLAUDIA SPEAR ([id number]) on 04/28/2020 8:42:49 AM Referred By: BEN Confirmed By:FRANKY MARTINEZ MD
--- NOTE | 2020-04-26 09:23 | ED.VIS.GEN ---
History of Present Illness Chief Complaint: Cough Informant: Patient Onset: Weeks Maximum Severity: Mild Narrative: Patient presents complaining of a runny nose and a cough that is been going on for a week or 2, indicates he has a history of chronic sinus infections he has been treated in the past with 20 days of antibiotics most recently 1 year ago, indicates this all began a few weeks ago with copious rhinorrhea, now has a slight cough he is coughing somewhat she is fatigued and tired he has not had any exposures to coronavirus he thought about going to a coronavirus testing center and instead decided to come to the emergency department. He has history of cardiovascular disease CAD CABG stents all of that is stable he recently saw his clinical trials specialist and his stress test and other work-ups were negative he has no cardiovascular symptoms. He has no documented fevers he is eating and drinking, Past Medical History - Allergies and Home Meds Allergies/Adverse Reactions: Allergies Penicillins Adverse Reaction (Intermediate, Verified 04/26/20 08:36) nosebleeds when took it as a child Primary Care Physician: Mikey Michel III, MD [Primary Care Provider] - Past Medical History: - Surgical History: coronary bypass surgery, - Smoking Status: Never smoker - Family History Maternal Family History: Family History (Last Reviewed 02/18/20 @ 10:[address] Michael Olsen MD) Father CAD (coronary artery disease) Myocardial infarction Family History: Reports: No pertinent history Paternal Family History: Family History (Last Reviewed 02/18/20 @ 10:[address] Michael Olsen MD) Father CAD (coronary artery disease) Myocardial infarction Family History: Reports: No pertinent history Review of Systems ROS: - Cardiovascular disease CABG see above General: Denies: Chills, Fever, Sweats Eyes: Denies: Visual changes - bilaterally, Diplopia ENT: Reports: Rhinorrhea. Denies: Sore throat Cardiovascular: Denies: Chest pain, Palpitations Respiratory: Reports: Cough. Denies: Dyspnea, Dyspnea on exertion Gastrointestinal: Denies: Abdominal pain, Nausea, Vomiting, Diarrhea, Melena, Hematochezia Genitourinary: Denies: Dysuria, Hematuria, Frequency Musculoskeletal: Denies: Back pain, Extremity Pain Skin: Denies: Rash, Wounds Neurological: Denies: Headache, Weakness, Numbness Physical Exam Vital Signs/Narrative: Vital Signs Temp Pulse Resp BP Pulse Ox 04/26/20 08:47 99 04/26/20 08:36 99.1 F 83 18 146/87 H 97 04/26/20 08:35 78 16 94 General: Well nourished, Well developed, No Acute Distress Head: Normocephalic, Atraumatic Eyes: Perrl, EOMI ENT: Moist mucous membranes, No rhinorrhea Neck: Supple, Nontender Cardiovascular: Regular rate, Regular rhythm, No murmurs Respiratory: No distress, CTA bilaterally, Chest nontender Abdomen: Soft, Nontender, Nondistended, Normal bowel sounds Back: Nontender, Normal Inspection Extremities: Nontender, No edema Skin: Normal color, No rash Neurological: Alert, Oriented x3, Cranial nerves II-XII grossly intact, Normal Strength, Normal Sensation Psychological: Normal affect, Normal Mood Diagnostic/Tx/Re-eval - Medical Decision Making Patient clinically looks well his vital signs are all unremarkable his pulse ox is 95% on room air The patient's EKG shows a sinus rhythm no acute injury pattern nonspecific changes When all the above ED screening evaluation coronavirus test Patient's ED screening evaluation is generally unremarkable see those reports, 1 view chest x-ray to my review shows nothing acute heart and lungs generally unremarkable radiology generally concur see those reports The patient's EKG shows sinus rhythm no acute injury nonspecific changes rate 80 ED screening labs are all generally unremarkable see those reports Evaluation he remains very stable here his pulse ox remains in the normal range discussed management he wants to go home he feels if he has a sinus infection was triggers all the above he is asking that the coronavirus rapid test be done he understands this is outpatient result in 2 days based on hospital protocol, he will he has allergies to penicillin he will be started on Levaquin Flonase [id number] he will follow-up with ENT and his outpatient providers return for change in symptoms understands to self quarantine until Covid result is available Disposition Home stable Impression final acute URI with cough, COVID-19 screen ED Disposition - Plan for ED Patient: Diagnosis: URI coronavirus 19 Instructions: ED Upper Resp Infec Abx Tx Prescriptions: Levofloxacin [Levaquin] 750 mg PO DAILY #7 tab Prescription Printed Referrals: Mikey Michel III, MD [Primary Care Provider] -
[2020-04-26 09:29] LABS: Absolute Lymphocyte Count 1.39 X10^3/uL (0.83-4.51); Absolute Neutrophil Count 8.6 X10^3/uL (2.0-7.7); Basophil# 0.03 X10^3/uL; Basophil% 0.3 % (0-1); Eosinophil# 0.02 X10^3/uL; Eosinophils% 0.2 % (0-5); Hematocrit 42.7 % (40-54); Lymphocyte # 1.39 X10^3/ul (4.0); Lymphocyte % 12.8 % (19-41); Mean Corp Hgb Conc 32.8 g/dL (32-36); Mean Corpuscular Hgb 29.2 pg (27.0-32.0); Mean Platelet Vol. 10.3 fl (6.2-12.0); Monocyte# 0.76 X10^3/uL; NRBC Flagged by Analyzer 0 % (0-5); Neutrophil # 8.64 X10^3/uL (2.7-7.7); Neutrophil % 79.2 % (47-70); Platelet Count 134 K/mm3 (150-450); RBC Distribution Width SD 45.4 fl (35.1-43.9); White Blood Count 10.9 K/mm3 (4.4-11.0)
[2020-04-26 09:44] LABS: Anion Gap 7 (5-15); BUN 19 mg/dL (7-18); BUN/Creat Ratio 20.9 RATIO (10-20); Calcium,Total 8.9 mg/dL (8.5-10.1); Chloride 108 mmol/L (98-107); Creatinine, Serum 0.91 mg/dL (0.70-1.30); EST Glomerular Filtration Rate 89 mL/min (>60); Est Glom Filt Rate - Afr Amer 108 mL/min (>60); Estimated Creatinine Clearance 88.83 ml/min; Glucose 123 mg/dL (74-106); Potassium 3.6 mmol/L (3.5-5.1); Sodium Level 140 mmol/L (136-145)
[2020-04-26 10:14] LABS: BNP,B-Type NATRIURETIC PEPTIDE 239.3 pg/mL (0-100)
[2020-04-26 11:02] VITALS: BP 139/93; PULSE 78; RESP 20; O2SAT 96
[2020-04-26] MEDS: levoFLOXacin 750 MG Tablet PO (11:29)
[2020-04-26 11:30] VITALS: BP 139/93; PULSE 84; RESP 16; O2SAT 97
== END 2020-04-26 11:30 | disposition home or self-care (01) ==
LOC: ED 10:11
PROVIDERS: Emergency Provider Emergency Medicine; PCP Family Medicine
DX: J06.9 Acute upper respiratory infection, unspecified (principal); Z20.828 Contact with and (suspected) exposure to other viral communicable diseases; I25.10 Atherosclerotic heart disease of native coronary artery without angina pectoris; Z79.82 Long term (current) use of aspirin; Z79.899 Other long term (current) drug therapy; Z95.1 Presence of aortocoronary bypass graft; Z95.5 Presence of coronary angioplasty implant and graft
CPT/HCPCS: 71045; 80048; 83880; 84484; 85025; 87635; 93005; 99285; J7030; U0003

== ENCOUNTER 2020-06-20 13:01 | Emergency (ER) | payer MEDICARE, OTHER, SELFPAY ==
[2020-06-20 13:02] VITALS: BP 145/78; PULSE 64; RESP 18; TEMP 36.8; O2SAT 98; BMI 35.9
--- NOTE | 2020-06-20 13:28 | EKG12_ITS ---
Test Reason : CP Blood Pressure : / mmHG Vent. Rate : 061 BPM Atrial Rate : 061 BPM P-R Int : 140 ms QRS Dur : 086 ms QT Int : 416 ms P-R-T Axes : 035 001 055 degrees QTc Int : 418 ms Normal sinus rhythm Septal infarct , age undetermined Abnormal ECG Confirmed by RADHA HUTCHISON, RASHAWN ([id number]), proposal editor CLAUDIA SPEAR ([id number]) on 06/22/2020 12:21:52 PM Referred By: Confirmed By:ARMIDA GARCIA MD
[2020-06-20 13:30] VITALS: O2SAT 97
--- NOTE | 2020-06-20 13:30 | CT_ITS ---
STUDY: CTA CHEST REASON FOR EXAM: Male, 65 years old. Chest tightness relieved with NITROGLYCERIN, prior cardiac bypass in 2016 RADIATION DOSAGE (If Supplied By Facility): CTDIvol = ( 15.60 ) mGy, DLP = ( 817.16 ) mGycm TECHNIQUE: The examination was performed with the intravenous administration of IV 100mL Isovue-370. Post-processing of the angiographic images was performed, with multiplanar reformation and 3D reconstruction. Individualized dose optimization techniques were used for this CT. COMPARISON: None. FINDINGS: Examination is technically suboptimal and was not focused on the heart or gated. Assessment of bypass graft patency is limited and not reliable. Please refer to dedicated CT of the heart protocol if diagnostic information regarding stated clinical history of NITROGLYCERIN relieved chest pain is desired. GARDINER is patent. SVG to OM1 is patent with nonvisualization of the anastomosis. SVG to distal RCA is patent with nonvisualization of the anastomosis. [place] coronary arteries are severely diseased, likely near occlusive state. There is no acute or chronic pulmonary embolism. Aorta is normal and intact. Left ventricle is normal in size and shape with suboptimally visualized lateral apical wall, possibly related to prior infarct. There is no intracardiac thrombus. Left atrium is moderately enlarged. Right heart is normal. Pericardium is normal. Lungs are clear. There is no pneumothorax, pulmonary edema or pleural effusions. There is a moderate-sized hiatal hernia. Osseous structures are intact. There is severe intra-abdominal adiposity. This is a benign metabolically adverse condition associated with atherosclerosis and diabetes. CT/CTA Chest W/WO Contrast IMPRESSION: 1. No pulmonary embolism 2. Normal aorta. 3. Incomplete partial information regarding bypass vessel patency status. This can be definitively evaluated with cardiac protocol CT. 4. Clear lungs. Electronically Signed: Krystle Bay MD at 14:26 EST Tel , Service support ,
[2020-06-20] MEDS: Aspirin 81 MG TAB.CHEW 324 MG PO (13:33)
[2020-06-20 13:41] LABS: Absolute Lymphocyte Count 2.74 X10^3/uL (0.83-4.51); Absolute Neutrophil Count 3.9 X10^3/uL (2.0-7.7); Basophil# 0.04 X10^3/uL; Basophil% 0.5 % (0-1); Eosinophil# 0.11 X10^3/uL; Eosinophils% 1.5 % (0-5); Hematocrit 47.8 % (40-54); Hemoglobin 15.4 g/dL (13.0-16.5); Lymphocyte # 2.74 X10^3/ul (4.0); Lymphocyte % 36.5 % (19-41); Mean Corp Hgb Conc 32.2 g/dL (32-36); Mean Corpuscular Hgb 29.4 pg (27.0-32.0); Mean Corpuscular Volume 91.2 fL (80-94); Mean Platelet Vol. 10.7 fl (6.2-12.0); Monocyte# 0.68 X10^3/uL; Monocyte% 9.1 % (0-10); NRBC Flagged by Analyzer 0 % (0-5); Neutrophil # 3.91 X10^3/uL (2.7-7.7); Neutrophil % 52.1 % (47-70); Platelet Count 156 K/mm3 (150-450); RBC Distribution Width CV 13.9 % (11.6-14.6); RBC Distribution Width SD 46.6 fl (35.1-43.9); Red Blood Count 5.24 M/mm3 (4.6-6.2); White Blood Count 7.5 K/mm3 (4.4-11.0)
[2020-06-20 13:53] LABS: Anion Gap 5 (5-15); BUN 29 mg/dL (7-18); BUN/Creat Ratio 28.7 RATIO (10-20); Calcium,Total 8.9 mg/dL (8.5-10.1); Chloride 110 mmol/L (98-107); Creatinine, Serum 1.01 mg/dL (0.70-1.30); EST Glomerular Filtration Rate 79 mL/min (>60); Est Glom Filt Rate - Afr Amer 95 mL/min (>60); Estimated Creatinine Clearance 80.03 ml/min; Glucose 99 mg/dL (74-106); Potassium 3.8 mmol/L (3.5-5.1); Sodium Level 142 mmol/L (136-145)
[2020-06-20 14:01] VITALS: BP 139/107; PULSE 59; RESP 19; O2SAT 97
--- NOTE | 2020-06-20 14:08 | ED.DCSUM_ITS ---
- ER Visit Summary Date of Service: 06/20/20 Chief Complaint: Chest pain History of Present Illness: The patient is a 65 M with history of atrial fibrillation, [place], coronary disease, hyperlipidemia. He takes aspirin. He presents for sudden onset of right side chest pain. It felt like a muscle spasm and it brought tears to his eye. This has subsided. He never had this before. He had sweats and arm numbness with his prior MRI. No history of blood clots or aortic disease. Physical Examination: Afebrile and vital signs unremarkable except for blood pressure 145/78. He appears in no acute distress, sitting comfortably. Heart regular. Lungs clear. Abdomen soft. Extremities nontender with no edema. Good pulses, skin. No rash. Test Results: EKG shows sinus rhythm at a rate of 61 with no signs of ischemia or infarction pattern. CBC normal. BUN 29. Troponin normal. Delta troponin pending. CT pending. Emergency Department Course and Treatment: Patient was treated with aspirin. His work-up so far has been unremarkable. Still awaiting results of the CT. I am also waiting on results of a delta troponin. His story is very atypical. He does have some history of coronary disease, but he had a negative stress test in March of last year with a preserved ejection fraction. We will wait for the rest of his results and reassess. Patient's work-up was unremarkable. Repeat troponin unremarkable. CT showed no PE. Normal aorta. Patient was discussed with cardiology. He is appropriate for outpatient follow-up and will be discharged. Treatment Plan: As above Disposition: Discharge Impression: Atypical chest pain This note was generated with [employer] dictation software. It may contain incorrect words, spelling, and punctuation that were not noted in review of the chart prior to signing ED Disposition - Plan for ED Patient: Referrals: Mikye Michel III, MD [Primary Care Provider] -
[2020-06-20 15:00] VITALS: BP 121/77; PULSE 59; RESP 16; O2SAT 96
[2020-06-20 16:00] VITALS: BP 135/87; PULSE 58; RESP 15; O2SAT 98
--- NOTE | 2020-06-20 16:36 | ED.DEP ---
ED Disposition - Plan for ED Patient: Instructions: ED Chest Pain, Uncertain Cause Referrals: Michael Olsen MD [STAFF PHYSICIAN] -
[2020-06-20 16:38] VITALS: PULSE 56; RESP 18; O2SAT 98
== END 2020-06-20 16:41 | disposition home or self-care (01) ==
LOC: ED 13:38
PROVIDERS: Emergency Provider Emergency Medicine; PCP Family Medicine
DX: R07.89 Other chest pain (principal); I48.91 Unspecified atrial fibrillation; I25.10 Atherosclerotic heart disease of native coronary artery without angina pectoris; E78.5 Hyperlipidemia, unspecified; M62.838 Other muscle spasm; R20.0 Anesthesia of skin; I25.2 Old myocardial infarction; Z79.82 Long term (current) use of aspirin; Z79.899 Other long term (current) drug therapy; Z95.1 Presence of aortocoronary bypass graft
CPT/HCPCS: 71275; 80048; 84484; 85025; 93005; 99285; Q9967; A4216

== ENCOUNTER → 2020-07-03 12:54 | Outpatient (CLI) | payer MEDICARE, OTHER, SELFPAY ==
[2020-06-23 09:31] VITALS: BMI 36.3
--- NOTE | 2020-07-03 12:56 | ECHOCS_ITS ---
Reason For Study: S/P CABG Procedure This was a 2D Doppler, Color Flow transthoracic echocardiogram. Technically difficult study due to patients body habitus. Contrast injection performed. Exam performed in department. Left Ventricle Normal LV size. Left ventricular systolic function is lower limits of normal. Stage 1 diastolic dysfunction. [place] : Akinetic. The rest of the wall segments are normal. Right Ventricle Normal RV size. Normal systolic function. Atria The left atrium is mildly enlarged. The right atrium is mildly enlarged. Mitral Valve Normal mitral valve. Tricuspid Valve Normal tricuspid valve. Aortic Valve The aortic valve is not well visualized. Pulmonic Valve The pulmonic valve is not well visualized. Great Vessels Normal aortic root. The pulmonary artery is normal size. Normal inferior vena cava. Pericardium/Pleural No pericardial effusion. Medication 22 gauge I.V. with prn adaptor inserted into right arm. Diluted definity 5ml given slow IV push to enhance endocardial definition. MMode/2D Measurements & Calculations LVIDd: 4.2 cm IVSd: 1.2 cm Ao root diam: 3.9 cm LVIDs: 3.2 cm LVPWd: 1.3 cm FS: 23.7 % LAV(MOD-bp): 63.7 ml LA A4 area: 22.0 cm2 RA A4 area: 24.7 cm2 LAV(MOD-bp) Indexed: 26.4 ml/m2 LAV(MOD-sp2): 57.1 ml LAV(MOD-sp4): 63.0 ml Time Measurements MV dec time: 0.30 sec Doppler Measurements & Calculations MV E max jaleel: 60.0 cm/sec Lat Peak E' Jaleel: 9.7 cm/sec Med Peak E' Jaleel: 5.9 cm/sec MV A max jaleel: 75.1 cm/sec E/E' lat: 6.2 E/E' med: 10.1 MV E/A: 0.80 MV V2 max: 80.9 cm/sec MV P1/2t max jaleel: 68.6 cm/sec Ao V2 max: 94.5 cm/sec MV max P.6 mmHg MV P1/2t: 61.2 msec Ao max P.6 mmHg MV V2 mean: 38.1 cm/sec MV dec slope: 328.5 cm/sec2 MV mean P.73 mmHg MV V2 VTI: 24.9 cm MVA(P1/2t): 3.6 cm2 LV V1 max: 86.8 cm/sec PA V2 max: 100.2 cm/sec LV V1 max P.0 mmHg Interpretation Summary Normal LV size. Left ventricular systolic function is lower limits of normal. [place] : Akinetic. Stage 1 diastolic dysfunction. Contrast injection was performed. Compared to prior study, there is no significant change. Ordering Physician: Michael Olsen Referring Physician: GALILEA Michel M.D. Performed By: Garry Vallejo RCS
== END ==
PROVIDERS: PCP Family Medicine; Referring Provider Internal Medicine Cardiovascular Disease; Visit Provider Internal Medicine Cardiovascular Disease
DX: I25.10 Atherosclerotic heart disease of native coronary artery without angina pectoris (principal); Z95.1 Presence of aortocoronary bypass graft
CPT/HCPCS: 93306; Q9957; A4216; C8929

== ENCOUNTER 2020-07-28 10:00 | Outpatient (RCR) | payer MEDICARE, OTHER, SELFPAY ==
[2020-06-23 09:31] VITALS: BMI 36.3
[2020-07-28] MEDS: COVID-19 VACC, MRNA(PFIZER)/PF 30 MCG/0.3 ML SYRINGE IM (09:15)
[2020-08-18] MEDS: COVID-19 VACC, MRNA(PFIZER)/PF 30 MCG/0.3 ML SYRINGE IM (09:07)
== END 2020-10-27 23:59 ==
LOC: IMMUN 10:00
PROVIDERS: PCP Family Medicine; Referring Provider Family Medicine; Visit Provider Family Medicine
DX: Z23 Encounter for immunization (principal)
CPT/HCPCS: 0001A; 0002A; 91300

== ENCOUNTER → 2020-10-07 08:17 | Outpatient (CLI) | payer MEDICARE, OTHER, SELFPAY ==
[2020-06-23 09:31] VITALS: BMI 36.3
[2020-10-07 09:18] LABS: AST(SGOT) 21 U/L (15-37); Alanine Aminotransfer ALT/SGPT 28 U/L (16-61); Albumin, Serum 3.8 g/dL (3.2-5.0); Alkaline Phosphatase 119 U/L (45-117); Bilirubin, Direct 0.21 mg/dL (0.00-0.30); Cholesterol 143 mg/dL (200); Globulin 3.6 g/dL (2.2-4.2); High Density Lipoprotein 35 mg/dL; Protein, Total 7.4 g/dL (6.4-8.2); Triglycerides 247 mg/dL; Very Low Density Lipoprotein 49 mg/dL (5-40)
== END ==
PROVIDERS: PCP Family Medicine; Visit Provider Physician Assistant Medical
DX: E78.5 Hyperlipidemia, unspecified (principal)
CPT/HCPCS: 36415; 80061; 80076

== ENCOUNTER → 2021-05-12 08:35 | Outpatient (CLI) | payer MEDICARE, OTHER, SELFPAY ==
[2021-05-12 09:45] LABS: AST(SGOT) 18 U/L (15-37); Alanine Aminotransfer ALT/SGPT 24 U/L (16-61); Albumin, Serum 3.8 g/dL (3.2-5.0); Alkaline Phosphatase 125 U/L (45-117); Bilirubin, Direct 0.16 mg/dL (0.00-0.30); Cholesterol 143 mg/dL (200); High Density Lipoprotein 31 mg/dL; Protein, Total 7.8 g/dL (6.4-8.2); Triglycerides 254 mg/dL; Very Low Density Lipoprotein 51 mg/dL (5-40)
== END ==
PROVIDERS: PCP Family Medicine; Visit Provider Physician Assistant Medical
DX: E78.00 Pure hypercholesterolemia, unspecified (principal); E78.5 Hyperlipidemia, unspecified
CPT/HCPCS: 36415; 80061; 80076

== ENCOUNTER → 2021-11-19 | Outpatient (CLI) | payer MEDICARE, OTHER, SELFPAY ==
[2021-11-19 08:56] LABS: AST(SGOT) 26 U/L (15-37); Alanine Aminotransfer ALT/SGPT 24 U/L (16-61); Albumin, Serum 3.9 g/dL (3.2-5.0); Alkaline Phosphatase 124 U/L (45-117); Bilirubin, Direct 0.26 mg/dL (0.00-0.30); Cholesterol 119 mg/dL (200); Globulin 3.6 g/dL (2.2-4.2); High Density Lipoprotein 29 mg/dL; Protein, Total 7.5 g/dL (6.4-8.2); Triglycerides 176 mg/dL; Very Low Density Lipoprotein 35 mg/dL (5-40)
== END | disposition home or self-care (01) ==
LOC: LAB 07:37
PROVIDERS: PCP Family Medicine; Visit Provider Physician Assistant Medical
DX: E78.00 Pure hypercholesterolemia, unspecified (principal); E78.5 Hyperlipidemia, unspecified
CPT/HCPCS: 36415; 80061; 80076

== ENCOUNTER → 2022-06-30 | Outpatient (CLI) | payer MEDICARE, OTHER, SELFPAY ==
[2022-06-30 11:15] LABS: AST(SGOT) 17 U/L (15-37); Alanine Aminotransfer ALT/SGPT 22 U/L (16-61); Albumin, Serum 3.7 g/dL (3.2-5.0); Alkaline Phosphatase 105 U/L (45-117); Anion Gap 6 (5-15); BUN 24 mg/dL (7-18); BUN/Creat Ratio 24.4 RATIO (10-20); Calcium,Total 8.9 mg/dL (8.5-10.1); Chloride 107 mmol/L (98-107); Cholesterol 144 mg/dL (200); Creatinine, Serum 0.98 mg/dL (0.70-1.30); EST Glomerular Filtration Rate 81 mL/min (>60); Est Glom Filt Rate - Afr Amer 98 mL/min (>60); Globulin 3.7 g/dL (2.2-4.2); Glucose 106 mg/dL (74-106); High Density Lipoprotein 39 mg/dL; Potassium 4.1 mmol/L (3.5-5.1); Protein, Total 7.4 g/dL (6.4-8.2); Sodium Level 142 mmol/L (136-145); Triglycerides 197 mg/dL; Very Low Density Lipoprotein 39 mg/dL (5-40)
== END | disposition home or self-care (01) ==
LOC: LAB 10:08
PROVIDERS: PCP Family Medicine; Referring Provider Internal Medicine Cardiovascular Disease; Visit Provider Internal Medicine Cardiovascular Disease
DX: E78.5 Hyperlipidemia, unspecified (principal); Z95.1 Presence of aortocoronary bypass graft
CPT/HCPCS: 36415; 80048; 80061; 80076

== ENCOUNTER → 2022-07-11 | Outpatient (CLI) | payer MEDICARE, OTHER, SELFPAY ==
--- NOTE | 2022-07-11 17:34 | STRESSREP_ITS ---
Stress Test Report Exercise myocardial perfusion stress test. 67-year-old man with a history of coronary artery disease and preoperative evaluation Stress protocol: Resting EKG demonstrates sinus bradycardia with a rate of 55 bpm resting blood pressure is 124/82 mmHg. The patient exercised according to the regular Russ protocol for a total duration of 6 minutes attaining a maximum heart rate of 121 bpm which was 79% of maximum predicted heart rate; the maximum workload was 7 metabolic equivalents. At rest there were no ST or T wave changes noted to sug gest ischemia and at peak exercise upsloping ST changes only were noted which did not meet the criteria for ischemia. No clinical angina was noted the test was terminated due to the target heart rate being achieved/fatigue. The peak blood pressure was 170/90 mmHg. Rate-pressure product was 19,600. Myocardial perfusion protocol. 14.3 mCi of technetium 99m sestamibi was injected at rest. The patient exercised according to regular Russ protocol for total duration of 6 minutes and at peak exercise 44.1 mCi of technetium 99m sestamibi was injected stress images were obtained stress and rest images were reconstructed in comparing the short axis vertical long and horizontal long axis. Gated images were also obtained. Perfusion SPECT analysis: Review of the stress images demonstrate normal uptake of tracer noted in all areas of the myocardium the apex however is noted to have reduced perfusion. The resting images similarly demonstrate normal uptake of tracer noted in all areas of the myocardium except to the apex. No areas of reversibility are noted to suggest ischemia, but a previous apical infarct is suggested. Gated SPECT analysis: The gated ejection fraction is 65%. Conclusion: Normal exercise myocardial perfusion stress test at a moderate workload Preserved ejection fraction. Previous apical infarct is present.
== END | disposition home or self-care (01) ==
LOC: CVS 05:59
PROVIDERS: PCP Family Medicine; Referring Provider Internal Medicine Cardiovascular Disease; Visit Provider Internal Medicine Cardiovascular Disease
DX: Z95.1 Presence of aortocoronary bypass graft (principal)
CPT/HCPCS: 78452; 93017; A9500; A4216

== ENCOUNTER 2022-10-02 03:33 | Emergency (ER) | payer MEDICARE, OTHER, SELFPAY ==
[2022-10-02 03:35] VITALS: BP 139/87; PULSE 59; RESP 14; TEMP 36.3; O2SAT 98; BMI 33.7
--- NOTE | 2022-10-02 03:52 | EDS_ITS ---
HPI HPI - GI History of Present Illness Chief Complaint: Abd Pain Informant: patient Abdominal Pain/Flank Pain Onset: Days Context: Gradual Onset Timing: Intermittent Quality: Aching Location: LLQ Current Severity: Mild Maximum Severity: Moderate Worsened by: - (Standing.) Relieved by: Nothing Nausea/Vomiting/Emesis GI Symptom: Negative for Nausea or Vomiting Diarrhea/Melena/Hematochezia GI Symptom: Negative for Diarrhea, Melena or Hematochezia Associated Symptoms Associated Symptoms: Negative for Dysuria, Frequency, Hematuria or Urgency Narrative Narrative: 67-year-old male significant cardiac past medical history also history of diverticulitis and kidney stones in the past. Prior cholecystectomy no other abdominal surgeries. States for about a week he has had left lower quadrant abdominal pain. Is been intermittent. Its been worse tonight. Denies nausea, vomiting, diarrhea or fever. Denies dysuria or hematuria. Feels worse standing. Denies any abdominal trauma. 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) Paroxysmal atrial fibrillation Postoperative atrial fibrillation (09/13/15) Severe headache Home Medications ascorbic acid (vitamin C) 500 mg tablet 500 mg PO DAILY@0800 10/21/15 [History Last Taken Unknown] aspirin 81 mg tablet,delayed release 81 mg PO DAILY 10/21/15 [History Last Taken Unknown] latanoprost 0.005 % eye drops 1 drp RIGHT EYE QHS drops 10/21/15 [History Last Taken Unknown] topiramate 25 mg tablet 25 mg PO QHS 10/21/15 [History Last Taken Unknown] vitamin E 268 mg (400 unit) capsule 800 unit PO DAILY 10/21/15 [History Last Taken Unknown] omeprazole 40 mg capsule,delayed release 40 mg PO QDAY 07/11/17 [History Last Taken Unknown] brimonidine 0.2 %-timolol 0.5 % eye drops 1 drp ophthalmic (eye) BID drops 02/18/20 [History Last Taken Unknown] dorzolamide 22.3 mg-timolol 6.8 mg/mL eye drops 1 drp ophthalmic (eye) BID 02/18/20 [History Last Taken Unknown] nitroglycerin 0.4 mg sublingual tablet (Nitrostat) 0.4 mg sublingual Q5-15M PRN chst levine #25 tabs 06/23/20 [Rx Last Taken Unknown] allopurinol 100 mg tablet 200 mg PO DAILY 06/22/21 [History Last Taken Unknown] sucralfate 1 gram tablet 1 g PO BID 06/22/21 [History Last Taken Unknown] atorvastatin 40 mg tablet 40 mg PO QHS #90 tabs 12/02/21 [Rx Last Taken Unknown] hydrochlorothiazide 25 mg tablet 25 mg PO DAILY #90 tabs 07/14/22 [Rx Last Taken Unknown] metoprolol tartrate 25 mg tablet 25 mg PO BID #180 tabs 08/29/22 [Rx Last Taken Unknown] amoxicillin 875 mg-potassium clavulanate 125 mg tablet 1 tab PO BID 14 days #28 tabs 10/02/22 [Rx Last Taken Unknown] Allergy/AdvReac Type Severity Reaction Status Date / Time No Known Allergies Allergy Unverified 06/30/22 10:02 Family History Father CAD (coronary artery disease) Myocardial infarction Surgical History H/O coronary artery bypass surgery (09/11/15) History of left heart catheterization (07/27/17) History of total hip arthroplasty (10/2020) Social History Smoking Status: Never smoker alcohol intake: never substance use type: does not use caffeine: Yes Type: coffee Number of servings: 1 ROS ROS ED ROS Narrative Left lower quadrant abdominal pain. Review of Systems ROS Unobtainable: Denies due to encephalopathy Constitutional Constitutional ED: Denies chills or fever(s) ENT ENT ED: Denies ear pain Cardiovascular Cardiovascular: Denies chest pain Respiratory/Chest Respiratory/Chest: Denies cough or dyspnea Gastrointestinal Gastrointestinal: Reports abdominal pain; Denies constipation, diarrhea, melena, nausea or vomiting Genitourinary Genitourinary ED: Denies dysuria or hematuria Musculoskeletal Musculoskeletal: Denies arthralgias Integumentary Denies abscess Neurologic Neurologic: Denies headache(s) Psychiatric Psychiatric: Denies anxiety Endocrine Endocrinology: Denies polydipsia Hematologic/Lymphatic Hematologic/Lymphatic: Denies easy bleeding Allergic/Immunologic Allergic/Immunologic ED: Denies mouth swelling or tongue swelling EXAM Physical Exam Narrative Exam Narrative: Six 7-year-old male vital signs stable afebrile. No acute distress. H EENT exam unremarkable. Neck nontender. Lungs clear to auscultation. Heart regular rhythm rate about 60 no murmur. Abdomen soft, nondistended, normal bowel sounds without peritoneal signs. Tenderness left lower quadrant. Other quadrants are nontender. Right upper and right lower quadrants are unremarkable. No hernia or mass. No signs of obstruction. No pulsatile mass. Moving all 4 extremities. Nontender no edema. Back nontender. Awake and alert. Const Vital Signs: 10/02/22 03:35 Temperature 97.4 F L Temperature Source Oral Pulse Rate 59 L Respiratory Rate 14 Blood Pressure 139/87 H Blood Pressure Mean 104 Pulse Ox 98 Oxygen Delivery Method Room Air Positive well nourished and well developed; Negative for cachectic, contractures or unkempt General Appearance ED: well developed and NAD; Negative for unkempt, cachectic, contractures or pallor Nutritional Appearance: Negative for cachectic HEENT Reports moist mucous membranes normocephalic and atraumatic; Negative for trauma or tenderness Eyes PERRL and EOMs intact bilaterally General Eye ED: Negative for pale conjunctiva or scleral icterus Neck no lymphadenopathy, supple and no JVD General: Negative for tenderness Carotids: Negative for other Resp normal respiratory effort and clear to auscultation bilaterally Effort and Inspection: Negative for respiratory distress Auscultation: Negative for rales or wheezes Cardio regular rate, regular rhythm, S1 normal heart sound, S2 normal heart sound and no murmurs Rhythm: Negative for abnormal rhythm GI non-distended and no masses; Negative for non-tender GI Narrative: Left lower quadrant tenderness only. Inspection: Negative for abdominal distention Auscultation: normoactive bowel sounds Palpation: soft and tender; Negative for guarding, rigid, hepatomegaly, splenomegaly, hernia, mass, pulsatile mass or rebound tenderness present Back/Spine no CVA tenderness Extremity full ROM General Extremety ED: Negative for edema or tenderness General Extremity: Negative for edema Neuro CN's II-XII intact bilaterally and moves all extremities Sensorium / Orientation: alert, oriented to person, oriented to place and oriented to time Motor Exam: strength 5/5 throughout Psych mental status grossly normal and thought process normal Appearance: Negative for unkempt Attitude: No agitated Mood & Affect: Negative for depressed or anxious Skin no wounds General Skin Exam: Negative for jaundice or pallor Lesions: no lesions Rashes: no rashes Trauma: Negative for abrasion Nails: Negative for discolored MDM MDM MDM Narrative Medical decision making narrative: 67-year-old left lower quadrant abdominal pain. Differential diagnosis would include diverticulitis and kidney stone versus other etiologies. CAT scan and labs being obtained. Treated with morphine for pain and Zofran to prevent nausea. Repeat exam patient doing well at 5 AM. Went over his test results. Radiologist did read the CAT scan as acute diverticulitis and I agree with the read. There is no perforation or abscess. All test results were discussed with the patient. He will be discharged home on Augmentin 875 twice daily for 2 weeks. He believes that the antibiotic that he used successfully before for his diverticulitis. He only will use Tylenol Motrin at home for pain. Follow-up with his doctor if not improving. Return if worse. He will be given his first dose of Augmentin here. History & Record Review Discussion w/independent historian: Patient and Family Lab Data Attestation: I reviewed the patient's lab results. Lab results narrative: CBC shows normal white count 7.9. H&H of 13 and 40. Platelets are slightly low at 112. Electrolytes show potassium of 3.0 gap of 6. BUN 27 creatinine 0.9. Liver enzymes unremarkable. Glucose 119. CT abdomen pelvis looks like left lower quadrant diverticulitis awaiting formal radiologist interpretation. Labs: Laboratory Results - last 24 hr 10/02/22 10/02/22 03:58 03:58 WBC 7.9 RBC 4.59 L Hgb 13.5 Hct 40.7 MCV 88.7 MCH 29.4 MCHC 33.2 RDW Std Deviation 46.2 H RDW Coeff of Sol 14.3 Plt Count 112 L MPV 9.7 Immature Gran % (Auto) 0.400 Neut % (Auto) 58.8 Lymph % (Auto) 30.1 Maverick % (Auto) 8.7 Eos % (Auto) 1.5 Baso % (Auto) 0.5 Absolute Neuts (auto) 4.7 Absolute Lymphs (auto) 2.38 Nucleated RBC % 0 Sodium 141 Potassium 3.0 L Chloride 108 H Carbon Dioxide 27.0 Anion Gap 6 BUN 27 H Creatinine 0.97 Estim Creat Clear Calc 81.11 Est GFR (MDRD) Af Amer 99 Est GFR (MDRD) Non-Af 82 BUN/Creatinine Ratio 27.7 H Glucose 119 H Calcium 8.6 Total Bilirubin 0.80 AST 14 L ALT 19 Alkaline Phosphatase 147 H Total Protein 6.7 Albumin 3.4 Globulin 3.3 Albumin/Globulin Ratio 1.0 Radiography Diagnostic Testing: Clinical Impression(s) from Imaging Studies Abdomen/Pelvis CT 10/02/22 04:31 IMPRESSION: 1. Acute diverticulitis involving the distal descending colon. No complications. 2. Ancillary findings as above. Electronically Signed: Orion Navarro MD at 4:49 EDT , Discharge Plan Triage Chief Complaint: Abd Pain ED Provider: Emigdio Penny Dx/Rx/DC Orders Clinical Impression: Abdominal pain, Diverticulitis, History of heart disease Instructions: ED Diverticulitis Prescriptions: New amoxicillin-pot clavulanate 875-125 mg tablet 1 tab PO BID 14 Days Qty: 28 0RF No Action omeprazole 40 mg capsule,delayed release(DR/EC) 40 mg PO QDAY dorzolamide-timolol 22.3-6.8 mg/mL drops 1 drp OPHTHALMIC BID nitroglycerin [Nitrostat] 0.4 mg tablet, sublingual 0.4 mg SUBLINGUAL Q5-15M PRN (Reason: chst levine) Qty: 25 6RF Rx Instructions: do not not exceed 3 doses at one episode allopurinol 100 mg tablet 200 mg PO DAILY sucralfate 1 gram tablet 1 g PO BID topiramate 25 MG tablet 25 mg PO QHS latanoprost 1 DROP bottle 1 drp RIGHT EYE QHS aspirin 81 MG tablet,delayed release (DR/EC) 81 mg PO DAILY ascorbic acid (vitamin C) 500 MG tablet 500 mg PO DAILY@0800 vitamin E 400 UNIT capsule 800 unit PO DAILY brimonidine-timolol 0.2-0.5 % drops 1 drp OPHTHALMIC BID atorvastatin 40 mg tablet 40 mg PO QHS Qty: 90 3RF hydrochlorothiazide 25 mg tablet 25 mg PO DAILY Qty: 90 3RF metoprolol tartrate 25 mg tablet 25 mg PO BID Qty: 180 4RF Primary Care Provider: Manjit Steele Referrals: Manjit Steele MD [Primary Care Provider] - 3-5 Days if not improving Activity Restrictions/Additional Instructions: Tylenol for pain. Antibiotic as prescribed for 14 days for your diverticulitis. Augmentin 1 pill twice a day. Follow-up with your doctor to ensure you are improving return if feeling a lot worse. Disposition Disposition: Home, Self Care
[2022-10-02 04:00] LABS: Absolute Lymphocyte Count 2.38 X10^3/uL (0.83-4.51); Absolute Neutrophil Count 4.7 X10^3/uL (2.0-7.7); Basophil# 0.04 X10^3/uL; Basophil% 0.5 % (0-1); Eosinophil# 0.12 X10^3/uL; Eosinophils% 1.5 % (0-5); Hematocrit 40.7 % (40-54); Hemoglobin 13.5 g/dL (13.0-16.5); Lymphocyte # 2.38 X10^3/ul (0.83-4.51); Lymphocyte % 30.1 % (19-41); Mean Corp Hgb Conc 33.2 g/dL (32-36); Mean Corpuscular Hgb 29.4 pg (27.0-32.0); Mean Corpuscular Volume 88.7 fL (80-94); Mean Platelet Vol. 9.7 fl (6.2-12.0); Monocyte# 0.69 X10^3/uL; Monocyte% 8.7 % (0-10); NRBC Flagged by Analyzer 0 % (0-5); Neutrophil # 4.66 X10^3/uL (2.7-7.7); Neutrophil % 58.8 % (47-70); Platelet Count 112 K/mm3 (150-450); RBC Distribution Width CV 14.3 % (11.6-14.6); RBC Distribution Width SD 46.2 fl (35.1-43.9); Red Blood Count 4.59 M/mm3 (4.6-6.2); White Blood Count 7.9 K/mm3 (4.4-11.0)
[2022-10-02] MEDS: Morphine 4 MG/ML Syringe 6 MG IV (04:02)
[2022-10-02] MEDS: Ondansetron 4 MG/2 ML Vial IV (04:03)
[2022-10-02 04:18] LABS: AST(SGOT) 14 U/L (15-37); Alanine Aminotransfer ALT/SGPT 19 U/L (16-61); Albumin, Serum 3.4 g/dL (3.2-5.0); Alkaline Phosphatase 147 U/L (45-117); Anion Gap 6 (5-15); BUN 27 mg/dL (7-18); BUN/Creat Ratio 27.7 RATIO (10-20); Calcium,Total 8.6 mg/dL (8.5-10.1); Chloride 108 mmol/L (98-107); Creatinine, Serum 0.97 mg/dL (0.70-1.30); EST Glomerular Filtration Rate 82 mL/min (>60); Est Glom Filt Rate - Afr Amer 99 mL/min (>60); Estimated Creatinine Clearance 81.11 ml/min; Globulin 3.3 g/dL (2.2-4.2); Glucose 119 mg/dL (74-106); Protein, Total 6.7 g/dL (6.4-8.2); Sodium Level 141 mmol/L (136-145)
--- NOTE | 2022-10-02 04:31 | CT_ITS ---
EXAM: CT ABDOMEN AND PELVIS WITH INTRAVENOUS CONTRAST CLINICAL INDICATION: Left lower quadrant abdominal pain TECHNIQUE: Helically acquired images were obtained of the abdomen and pelvis with intravenous contrast. CTDIvol = ( 17.85 ) mGy, DLP = ( 1279.93 ) mGycm This CT exam was performed using one or more of the following dose reduction techniques: automated exposure control, adjustment of the mA and/or kV according to patient size, and/or use of iterative reconstruction technique. CONTRAST: IV 100mL [id number] COMPARISON: June 20, 2020 FINDINGS: LOWER THORAX: Moderate size hiatal hernia. Lung bases are clear. No cardiomegaly. No significant pericardial effusion. ABDOMEN: LIVER: Unremarkable. Homogeneous. No focal mass. GALLBLADDER AND BILE DUCTS: Unremarkable. No calcified gallstones. No gallbladder distention or wall edema. No intra- or extrahepatic biliary ductal dilation. PANCREAS: Unremarkable. No focal cystic or solid mass. SPLEEN: Unremarkable. Normal size without focal cystic or solid mass. ADRENALS: Unremarkable. No nodules. KIDNEYS AND URETERS: Unremarkable. Normal renal size and position. No hydronephrosis. STOMACH AND BOWEL: Acute diverticulitis involving the distal descending colon. No stomach or bowel distention. PELVIS: APPENDIX: No evidence of acute appendicitis. BLADDER: Unremarkable. REPRODUCTIVE: Unremarkable as visualized. No mass. ABDOMEN and PELVIS: INTRAPERITONEAL SPACE: Unremarkable. No phlegmon or abscess. No perforation or free air. BONES/JOINTS: Degenerative changes of the spine at multiple levels. No suspicious lytic or blastic abnormality. SOFT TISSUES: Unremarkable. No discrete abdominal or pelvic wall hernia. VASCULATURE: Unremarkable. Abdominal aorta is non-dilated. LYMPH NODES: Unremarkable. No enlarged lymph nodes. CT/Abdomen/Pelvis W IV Cont ONLY IMPRESSION: 1. Acute diverticulitis involving the distal descending colon. No complications. 2. Ancillary findings as above. Electronically Signed: Orion Navarro MD at 4:49 EDT ,
[2022-10-02 05:03] LABS: Mucous, Urine 0 SEEN /hpf (<or=2+); Red Blood Cells-Urine 0 SEEN /hpf (0-5); Squamous Epithelial Cells - UA 0 SEEN /hpf (0-5)
[2022-10-02 05:06] LABS: Color, Urine Yellow (Yellow); Glucose, Dipstick Normal (Normal); Ketone-Dipstick Negative (Negative); Leukocyte Esterase-Dipstick 25 /ul (Negative); Nitrite-Dipstick Negative (Negative); Occult Blood-Urine 10 /ul (Negative); Protein-Dipstick 30 mg/dl (Negative); Urine Bilirubin Dipstick Negative (Negative); Urine Clarity Clear (Clear); Urine Urobilinogen 1 mg/dl (Normal)
[2022-10-02] MEDS: Amox/Clavulanate 875 MG Tablet PO (05:11)
[2022-10-02] MEDS: Pantoprazole Sodium 40 MG Tablet PO (05:11)
[2022-10-02 05:12] VITALS: BP 112/72; PULSE 55; RESP 16; O2SAT 93
[2022-10-02 05:32] LABS: Bacteria 1+ /hpf (None Seen); White Blood Cells 0-5 SEEN /hpf (0-5)
== END 2022-10-02 05:13 | disposition home or self-care (01) ==
LOC: ED 04:46
PROVIDERS: Emergency Provider Emergency Medicine; PCP Family Medicine; Visit Provider Emergency Medicine
DX: K57.32 Diverticulitis of large intestine without perforation or abscess without bleeding (principal); I50.22 Chronic systolic (congestive) heart failure; I48.0 Paroxysmal atrial fibrillation; E78.5 Hyperlipidemia, unspecified; I25.5 Ischemic cardiomyopathy; I25.10 Atherosclerotic heart disease of native coronary artery without angina pectoris; Z79.82 Long term (current) use of aspirin; Z79.899 Other long term (current) drug therapy; I25.2 Old myocardial infarction; Z95.1 Presence of aortocoronary bypass graft
CPT/HCPCS: 74177; 80053; 81001; 85025; 96374; 96375; 99283; Q9967; A4216; J2405

== ENCOUNTER 2023-07-07 09:09 | Emergency (ER) | payer MEDICARE, OTHER, SELFPAY ==
[2023-07-07 09:10] VITALS: BP 153/90; PULSE 69; RESP 18; TEMP 36.4; O2SAT 99; BMI 33.0
--- NOTE | 2023-07-07 10:05 | EKG12_ITS ---
Test Reason : CP Blood Pressure : / mmHG Vent. Rate : 065 BPM Atrial Rate : 065 BPM P-R Int : 146 ms QRS Dur : 084 ms QT Int : 400 ms P-R-T Axes : 046 -04 062 degrees QTc Int : 416 ms Normal sinus rhythm Anterior infarct , age undetermined Abnormal ECG Confirmed by Venancio Scott ([id number]), fan mail editor CLAUDIA SPEAR ([id number]) on 07/10/2023 9:42:00 AM Referred By: Confirmed By:Venancio Scott
--- NOTE | 2023-07-07 10:06 | RAD_ITS ---
STUDY: X-RAY CHEST REASON FOR EXAM: Male, 68 years old. Chest pain TECHNIQUE: PA and lateral views of the chest. COMPARISON: Comparison is made with prior study dated April 26, 2020. FINDINGS: EKG electrodes are seen. The lungs are clear and expanded. There is no demonstrated pleural abnormality. Sternal cerclage wires and vascular clips are present from a prior sternotomy and coronary artery bypass graft procedure (CABG). EKG electrodes are seen. Normal mediastinum and yennifer. Normal visualized pulmonary arteries. Normal visualized aortic arch and descending thoracic aorta. There are diffuse degenerative changes of the visualized thoracic spine. Normal visualized ribs, clavicles, and shoulders. Findings suggestive of a hiatal hernia. RAD/Chest PA and Lateral IMPRESSION: Findings suggestive of a hiatal hernia. No acute abnormality is seen. Electronically Signed: Kevon Cedillo MD at 10:56 EST ,
[2023-07-07 10:21] LABS: Absolute Lymphocyte Count 1.74 X10^3/uL (0.83-4.51); Absolute Neutrophil Count 4.4 X10^3/uL (2.0-7.7); Basophil# 0.03 X10^3/uL; Basophil% 0.4 % (0-1); Eosinophil# 0.13 X10^3/uL; Eosinophils% 1.9 % (0-5); Hematocrit 46.7 % (40-54); Hemoglobin 15.4 g/dL (13.0-16.5); Lymphocyte # 1.74 X10^3/ul (0.83-4.51); Lymphocyte % 25.7 % (19-41); Mean Corpuscular Hgb 29.6 pg (27.0-32.0); Mean Corpuscular Volume 89.8 fL (80-94); Mean Platelet Vol. 10.7 fl (6.2-12.0); Monocyte# 0.39 X10^3/uL; Monocyte% 5.8 % (0-10); NRBC Flagged by Analyzer 0 % (0-5); Neutrophil # 4.43 X10^3/uL (2.7-7.7); Neutrophil % 65.6 % (47-70); Platelet Count 159 K/mm3 (150-450); RBC Distribution Width CV 14.5 % (11.6-14.6); RBC Distribution Width SD 47.7 fl (35.1-43.9); White Blood Count 6.8 K/mm3 (4.4-11.0)
[2023-07-07 10:31] LABS: Anion Gap 4 (5-15); BUN 24 mg/dL (7-18); BUN/Creat Ratio 21.1 RATIO (10-20); Calcium,Total 9.1 mg/dL (8.5-10.1); Chloride 111 mmol/L (98-107); Creatinine, Serum 1.14 mg/dL (0.70-1.30); EST Glomerular Filtration Rate 68 mL/min (>60); Est Glom Filt Rate - Afr Amer 82 mL/min (>60); Estimated Creatinine Clearance 79.56 ml/min; Glucose 154 mg/dL (74-106); Potassium 3.7 mmol/L (3.5-5.1); Sodium Level 141 mmol/L (136-145); Troponin-I HS 9 pg/mL (3.0-78.0)
--- OUTSIDE RECORDS SUMMARY | 2023-07-07 10:52 | XMS RPT_ITS | CCD ---
Author Name Unknown Address [address] [place] [address] Organization [facility] Care Team Providers Care Dot Compliance Manager Name Role Phone Avni Steele MD Primary Care Provider Raúl, Michael S Unavailable Jaziel Lopez MD Unavailable Jaziel Lopez MD Unavailable Saul PT, Gertrude Unavailable [phone] CINDY BAJWA Referring Unavailable AVNI STEELE Primary Care Unavailab SASKIA Dubose Attending Unavailable Avni Steele MD Primary Care Provider Raúl, Michael S Unavailable Jaziel Lopez MD Unavailable Jaziel Lopez MD Unavailable Saul PINEDO, Gertrude Unavailable [phone] LANI JENKINS Admitting Unavailable LANI JENKINS Attending Unavailable AVNI STEELE Primary Care Unavailab le Raúl, [place] S Unavailable Saul PINEDO, Gertrude Unavailable [phone] Raúl HUTCHISON Michael S Unavailable AVNI STEELE Attending Unavailab AVNI Mares Primary Care Unavailab AVNI Mares Referring Unavailab AVNI Mares Primary Care Unavailab AVNI Mares Attending Unavailab AVNI Mares Primary Care Unavailab AVNI Mares Primary Care Unavailab AVNI Mares Referring AVNI Alex Primary Care AVNI Alex Attending AVNI Alex Primary Care AVNI Alex Referring AVNI Alex Primary Care UnavailLANI Ryan Referring Unavailable Cindy Bajwa Attending Unavailable Allergies Allergy Classification Reported Allergen(s) Allergy Type Date of Onset Reaction(s) Facility (5 sources) Penicillins Propensity to adverse reactions 01-26-2005 Intolerance [facility] Work Phone: (3 sources) Penicillins Propensity to adverse reactions 01-26-2005 Intolerance [facility] Work Phone: Medications Current Medications Medication Drug Class(es) Dates Sig (Normalized) Sig (Original) allopurinol 100 mg oral tablet (20 sources) Xanthine Oxidase Inhibitor Start: 01-16-2023 End: 07-15-2023 take 2 tablets by mouth once daily allopurinol (ZYLOPRIM) 100 mg tablet Indications: Chronic gout without tophus, unspecified cause, unspecified site Take 2 tablets by mouth once daily. For gout. 180 tablet 1 01/16/2023 07/15/2023 Active Completed/Discontinued Medications Medication Drug Class(es) Dates Sig (Normalized) Sig (Original) ascorbic acid 500 mg extended release oral capsule (20 sources) Vitamin C Start: 12-28-2007 ascorbic acid(VITAMIN C 500 MG SR CAP) Take one(1) tablet daily. 0 12/28/2007 Active Problems Active Problems Problem Classification Problem Date Documented Date Episodic/Chronic Abdominal pain (11 sources) Right lower quadrant pain; Translations: [Right lower quadrant pain] Onset: 06-02-2022 Episodic Acute myocardial infarction (20 sources) Myocardial infarction; Translations: [Non-ST elevation (NSTEMI) myocardial infarction] Onset: 10-29-2017 12-08-2017 Chronic Cardiac dysrhythmias (20 sources) Paroxysmal atrial fibrillation; Translations: [Paroxysmal atrial fibrillation] Onset: 09-22-2015 11-13-2020 Chronic Congestive heart failure; nonhypertensive (20 sources) Chronic systolic heart failure; Translations: [Chronic systolic (congestive) heart failure] Onset: 10-29-2020 10-29-2020 Chronic Coronary atherosclerosis and other heart disease (20 sources) History of myocardial infarction; Translations: [Old myocardial infarction] Onset: 09-22-2015 09-22-2015 Chronic Disorders of lipid metabolism (20 sources) Pure hypercholesterolemia; Translations: [Pure hypercholesterolemia, unspecified] Onset: 01-26-2005 10-30-2020 Chronic Diverticulosis and diverticulitis (2 sources) Diverticulitis; Translations: [Diverticulitis of intestine, part unspecified, without perforation or abscess without bleeding] Onset: 10-10-2022 Chronic Esophageal disorders (20 sources) Gastroesophageal reflux disease; Translations: [Gastro-esophageal reflux disease without esophagitis] Onset: 05-11-2009 05-11-2009 Chronic Essential hypertension (20 sources) Hypertensive disorder; Translations: [Essential (primary) hypertension] Onset: 11-13-2020 11-13-2020 Chronic Glaucoma (20 sources) Bilateral pigmentary glaucoma of eyes; Translations: [Pigmentary glaucoma, bilateral, severe stage] Onset: 11-09-2017 11-09-2017 Chronic Gout and other crystal arthropathies (4 sources) Chronic gout without tophus; Translations: [Chronic gout, unspecified, without tophus (tophi)] Chronic Headache; including migraine (20 sources) Migraine with aura; Translations: [Migraine with aura, not intractable, without status migrainosus] Onset: 09-22-2015 09-22-2015 Chronic Hyperplasia of prostate (20 sources) Benign prostatic hypertrophy with outflow obstruction; Translations: [Benign prostatic hyperplasia with lower urinary tract symptoms] Onset: 07-20-2016 07-20-2016 Chronic Immunizations and screening for infectious disease (3 sources) Vaccination needed; Translations: [Encounter for immunization] Episodic Osteoarthritis (20 sources) Osteoarthritis of right hip joint; Translations: [Unilateral primary osteoarthritis, right hip] Onset: 10-30-2020 10-30-2020 Chronic Other and unspecified benign neoplasm (5 sources) History of polyp of colon; Translations: [Personal history of colonic polyps] Episodic Other congenital anomalies (20 sources) Congenital hypertrophy of retinal pigment epithelium ; Translations: [Congenital malformation of retina] Onset: 07-21-2017 12-08-2017 Chronic Other congenital anomalies (1 source) Congenital malformation of retina; 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] Onset: 12-08-2017 Chronic Other connective tissue disease (20 sources) History of repair of hip joint; Translations: [Presence of right artificial hip joint] Onset: 11-11-2020 11-13-2020 Chronic Other eye disorders (20 sources) Bilateral posterior vitreous detachment; Translations: [Vitreous degeneration, bilateral] Onset: 07-21-2017 12-08-2017 Chronic Other eye disorders (9 sources) Ocular fistula causing hypotony of eye; Translations: [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] Onset: 12-11-2017 12-11-2017 Chronic Other eye disorders (19 sources) 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; Translations: [Ocular fistula causing hypotony] Onset: 12-11-2017 12-11-2017 Chronic Other eye disorders (1 source) Vitreous degeneration, bilateral; Translations: [PVD (posterior vitreous detachment), both eyes] Onset: 12-08-2017 Chronic Other liver diseases (1 source) Alkaline phosphatase raised; Translations: [Abnormal levels of other serum enzymes] Episodic Other nervous system disorders (20 sources) Polyneuropathy; Translations: [Hereditary and idiopathic neuropathy, unspecified] Onset: 12-11-2018 12-11-2018 Chronic Other nervous system disorders (1 source) Other acute postprocedural pain; Translations: [Postoperative pain] Onset: 07-14-2022 Episodic Other nutritional; endocrine; and metabolic disorders (20 sources) Obese class II; Translations: [Obesity, unspecified] Onset: 03-08-2021 03-08-2021 Chronic Other nutritional; endocrine; and metabolic disorders (1 source) Obese class I; Translations: [Obesity, unspecified] Chronic Other nutritional; endocrine; and metabolic disorders (1 source) Obesity, unspecified; Translations: [Obesity (BMI 30.0-34.9)] Onset: 03-08-2021 Chronic Other nutritional; endocrine; and metabolic disorders (1 source) Hyperuricemia; Translations: [Hyperuricemia without signs of inflammatory arthritis and tophaceous disease] Episodic Other screening for suspected conditions (not mental disorders or infectious disease) (9 sources) Raised prostate specific antigen; Translations: [Elevated prostate specific antigen [PSA]] Onset: 06-02-2022 Episodic Other skin disorders (1 source) Skin lesion; Translations: [Disorder of the skin and subcutaneous tissue, unspecified] Episodic Other upper respiratory infections (1 source) Bacterial sinusitis; Translations: [Chronic sinusitis, unspecified] Chronic Residual codes; unclassified (20 sources) Obstructive sleep apnea syndrome; Translations: [Obstructive sleep apnea (adult) (pediatric)] Onset: 10-09-2017 10-09-2017 Chronic Residual codes; unclassified (1 source) Obstructive sleep apnea (adult) (pediatric); Translations: [PHIL (obstructive sleep apnea)] Onset: 10-09-2017 Chronic Retinal detachments; defects; vascular occlusion; and retinopathy (20 sources) Hemorrhage of right retina; Translations: [Retinal hemorrhage, right eye] Onset: 07-21-2017 08-02-2017 Chronic Sprains and strains (2 sources) Strain of calf muscle; Translations: [Strain of other muscle(s) and tendon(s) at lower leg level, right leg, initial encounter] Episodic Past or Other Problems Problem Classification Problem Date Documented Da te Episodic/Chronic Acute and unspecified renal failure (20 sources) Acute injury of kidney; Translations: [Acute kidney failure, unspecified] Onset: 11-12-2020 11-13-2020 Episodic Aspiration pneumonitis; food/vomitus (20 sources) Aspiration pneumonia; Translations: [Pneumonitis due to inhalation of food and vomit] Onset: 11-13-2020 11-13-2020 Episodic Biliary tract disease (5 sources) Biliary sludge; Translations: [Other specified diseases of gallbladder] Onset: 07-21-2022 Episodic Coronary atherosclerosis and other heart disease (20 sources) Aortocoronary bypass graft present; Translations: [Presence of aortocoronary bypass graft] Onset: 10-05-2015 12-08-2017 Episodic Diabetes mellitus without complication (20 sources) Impaired fasting glycemia; Translations: [Impaired fasting glucose] Onset: 09-22-2015 09-22-2015 Episodic Fluid and electrolyte disorders (1 source) Hypokalemia; Translations: [Hypokalemia] Onset: 10-10-2022 Episodic Other and unspecified benign neoplasm (2 sources) Personal history of colonic polyps; Translations: [History of colonic polyps] Onset: 06-02-2022 Episodic Other diseases of kidney and ureters (1 source) Other obstructive and reflux uropathy; Translations: [BPH with obstruction/lower urinary tract symptoms] Onset: 07-20-2016 Episodic Other skin disorders (7 sources) Actinic keratosis; Translations: [Actinic keratosis] Onset: 11-05-2022 Episodic Other skin disorders (1 source) Actinic keratosis; Translations: [Actinic keratosis] Onset: 11-05-2022 Episodic Other skin disorders (1 source) Disorder of the skin and subcutaneous tissue, unspecified; Translations: [Skin lesion] Onset: 11-04-2022 Episodic Respiratory failure; insufficiency; arrest (adult) (20 sources) Acute respiratory failure; Translations: [Acute respiratory failure with hypoxia] Onset: 11-11-2020 11-13-2020 Episodic Results Test Name Value Interpretation Reference Range Facil ity Vital Signs Date Time Vital Sign Value Performing Clinician Faci lity 11-04-2022 09:33-0400 Body weight 111.31 kg Avni Steele MD Work Phone: [facility] 11-04-2022 09:33-0400 Diastolic blood pressure 66 mm[Hg] Avni Steele MD Work Phone: [facility] 11-04-2022 09:33-0400 Heart rate 59 /min Avni Steele MD Work Phone: [facility] 11-04-2022 09:33-0400 Respiratory rate 16 /min Avni Steele MD Work Phone: [facility] 11-04-2022 09:33-0400 SaO2% (BldA) [Mass fraction] 98 % Avni Steele MD Work Phone: [facility] 11-04-2022 09:33-0400 Systolic blood pressure 122 mm[Hg] Avni Steele MD Work Phone: [facility] 07-21-2022 10:50-0500 Body height 182.9 cm Cindy Bajwa PA-C Work Phone: [facility] 07-21-2022 10:50-0500 Body temperature 97.7 [degF] Cindy Bajwa PA-C Work Phone: [facility] 07-21-2022 10:50-0500 Body weight 110.22 kg Cindy Bajwa PA-C Work Phone: [facility] 07-21-2022 10:50-0500 Diastolic blood pressure 72 mm[Hg] Cindy Vergennes PA-C Work Phone: [facility] 07-21-2022 10:50-0500 Heart rate 74 /min Cindy Garett PA-C Work Phone: [facility] 07-21-2022 10:50-0500 SaO2% (BldA) [Mass fraction] 96 % Cindy Vergennes PA-C Work Phone: [facility] 07-21-2022 10:50-0500 Systolic blood pressure 118 mm[Hg] Cindy Vergennes PA-C Work Phone: [facility] 06-24-2022 14:17-0500 Body height 182.9 cm Pacc 1 Work Phone: [facility] 06-24-2022 14:17-0500 Body temperature 98.2 [degF] Pacc 1 Work Phone: [facility] 06-24-2022 14:17-0500 Body weight 114.76 kg Pacc 1 Work Phone: [facility] 06-24-2022 14:17-0500 Diastolic blood pressure 72 mm[Hg] Pacc 1 Work Phone: [facility] 06-24-2022 14:17-0500 Heart rate 56 /min Pacc 1 Work Phone: [facility] 06-24-2022 14:17-0500 Respiratory rate 14 /min Pacc 1 Work Phone: [facility] 06-24-2022 14:17-0500 SaO2% (BldA) [Mass fraction] 99 % Pacc 1 Work Phone: [facility] 06-24-2022 14:17-0500 Systolic blood pressure 126 mm[Hg] Pacc 1 Work Phone: [facility] 06-13-2022 10:40-0500 Body height 182.9 cm Lani Jenkins MD Work Phone: [facility] 06-13-2022 10:40-0500 Body temperature 97.59 [degF] Lani Jenkins MD Work Phone: [facility] 06-13-2022 10:40-0500 Body weight 113.85 kg Lani Jenkins MD Work Phone: [facility] 06-13-2022 10:40-0500 Diastolic blood pressure 78 mm[Hg] Lani Jenkins MD Work Phone: [facility] 06-13-2022 10:40-0500 Heart rate 65 /min Lani Jenkins MD Work Phone: [facility] 06-13-2022 10:40-0500 SaO2% (BldA) [Mass fraction] 97 % Lani Jenkins MD Work Phone: [facility] 06-13-2022 10:40-0500 Systolic blood pressure 126 mm[Hg] Lani Jenkins MD Work Phone: [facility] 06-02-2022 09:01-0500 Diastolic blood pressure 71 mm[Hg] Lani Jenkins MD Work Phone: [facility] 06-02-2022 09:01-0500 Heart rate 55 /min Lani Jenkins MD Work Phone: [facility] 06-02-2022 09:01-0500 Respiratory rate 17 /min Lani Jenkins MD Work Phone: [facility] 06-02-2022 09:01-0500 SaO2% (BldA) [Mass fraction] 96 % Lani Jenkins MD Work Phone: [facility] 06-02-2022 09:01-0500 Systolic blood pressure 123 mm[Hg] Lani Jenkins MD Work Phone: [facility] 06-02-2022 08:42-0500 Body temperature 97.3 [degF] Lani Jenkins MD Work Phone: [facility] 05-20-2022 08:41-0500 Body height 182.9 cm Cindy Bajwa PA-C Work Phone: [facility] 05-20-2022 08:41-0500 Body temperature 96.49 [degF] Cindy Garett PA-C Work Phone: [facility] 05-20-2022 08:41-0500 Body weight 113.94 kg Cindy Vergennes PA-C Work Phone: [facility] 05-20-2022 08:41-0500 Diastolic blood pressure 74 mm[Hg] Cindy Vergennes PA-C Work Phone: [facility] 05-20-2022 08:41-0500 Heart rate 64 /min Cindy Garett PA-C Work Phone: [facility] 05-20-2022 08:41-0500 SaO2% (BldA) [Mass fraction] 99 % Cindy Vergennes PA-C Work Phone: [facility] 05-20-2022 08:41-0500 Systolic blood pressure 118 mm[Hg] Cindy Vergennes PA-C Work Phone: [facility] 05-06-2022 10:45-0500 Body weight 111.49 kg Avni Steele MD Work Phone: [facility] 05-06-2022 10:45-0500 Diastolic blood pressure 72 mm[Hg] Avni Steele MD Work Phone: [facility] 05-06-2022 10:45-0500 Heart rate 62 /min Avni Steele MD Work Phone: [facility] 05-06-2022 10:45-0500 Respiratory rate 16 /min Avni Steele MD Work Phone: [facility] 05-06-2022 10:45-0500 SaO2% (BldA) [Mass fraction] 96 % Avni Steele MD Work Phone: [facility] 05-06-2022 10:45-0500 Systolic blood pressure 110 mm[Hg] Avni Steele MD Work Phone: [facility] 03-31-2022 14:43-0500 Body temperature 98.2 [degF] Avni Steele MD Work Phone: [facility] 03-31-2022 14:43-0500 Diastolic blood pressure 74 mm[Hg] Avni Steele MD Work Phone: [facility] 03-31-2022 14:43-0500 Heart rate 71 /min Avni Steele MD Work Phone: [facility] 03-31-2022 14:43-0500 Respiratory rate 18 /min Avni Steele MD Work Phone: [facility] 03-31-2022 14:43-0500 SaO2% (BldA) [Mass fraction] 94 % Avni Steele MD Work Phone: [facility] 03-31-2022 14:43-0500 Systolic blood pressure 128 mm[Hg] Avni Steele MD Work Phone: [facility] 11-01-2021 10:50-0400 Body weight 117.3 kg Avni Steele MD Work Phone: [facility] 11-01-2021 10:50-0400 Diastolic blood pressure 76 mm[Hg] Avni Steele MD Work Phone: [facility] 11-01-2021 10:50-0400 Heart rate 64 /min Avni Steele MD Work Phone: [facility] 11-01-2021 10:50-0400 Respiratory rate 16 /min Avni Steele MD Work Phone: [facility] 11-01-2021 10:50-0400 SaO2% (BldA) [Mass fraction] 96 % Avni Steele MD Work Phone: [facility] 11-01-2021 10:50-0400 Systolic blood pressure 122 mm[Hg] Avni Steele MD Work Phone: [facility] 10-04-2021 14:48-0400 Body temperature 98.91 [degF] Max Olivo APRN.CNP Work Phone: [facility] 10-04-2021 14:48-0400 Body weight 117.48 kg Max Olivo PERFUME MAKER.LINE CREW SUPERVISOR Work Phone: [facility] 10-04-2021 14:48-0400 Diastolic blood pressure 76 mm[Hg] Max Olivo PERFUME MAKER.LINE CREW SUPERVISOR Work Phone: [facility] 10-04-2021 14:48-0400 Heart rate 74 /min Max Olivo PERFUME MAKER.LINE CREW SUPERVISOR Work Phone: [facility] 10-04-2021 14:48-0400 Respiratory rate 16 /min Max Olivo PERFUME MAKER.LINE CREW SUPERVISOR Work Phone: [facility] 10-04-2021 14:48-0400 SaO2% (BldA) [Mass fraction] 95 % Max Olivo PERFUME MAKER.LINE CREW SUPERVISOR Work Phone: [facility] 10-04-2021 14:48-0400 Systolic blood pressure 142 mm[Hg] Max Olivo PERFUME MAKER.LINE CREW SUPERVISOR Work Phone: [facility] Encounters Encounter Date Encounter Type Care Provider Facility Start: 06-29-2023 Telephone encounter Jaziel jimenez MD Work Phone: [facility] [place] Start: 05-09-2023 Telephone encounter Manjit Steele MD Work Phone: [facility] [place] Procedures Date Procedure Procedure Detail Performing Clinician Start: 05-08-2023 Lipid 1996 panel - S tay or Plasma Avni Steele MD Work Phone: Start: 06-02-2022 Colonoscopy Lani Jenkins MD Work Phone: Start: 05-09-2022 Us abdominal real ti me w/image limited Avni Steele MD Work Phone: Start: 05-06-2022 PFIZER-BIONTArk COVI D-19 BIVALENT BOOSTER VACCINE, AGE 12+ YR Avni Steele MD Work Phone: Start: 04-28-2022 Lipid 1996 panel - S tay or Plasma Avni Steele MD Work Phone: Start: 03-31-2022 INFLUENZA SEASONAL QUADRIVALENT HIGH DOSE AGE 65+ Avni Steele MD Work Phone: Start: 11-09-2021 Ct abdomen & pelvis w/contrast material Avni Steele MD Work Phone: Start: 11-01-2021 PFIZER-BIONTECH COVI D-19 VACCINE, AGE 12+ YR (CONRAD TOP) Avni Steele MD Work Phone: Start: 08-31-2020 Adult depression screening assessment Max Olivo APRN.LINE CREW SUPERVISOR Work Phone: Start: 07-27-2017 History of coronary artery bypass grafting Status post coronary artery bypass graft Max Olivo APRN.LINE CREW SUPERVISOR Work Phone: Start: 07-10-2017 Colonoscopy Max camacho PERFUME MAKER.LINE CREW SUPERVISOR Work Phone: History of coronary artery bypass grafting Status post coronary artery bypass graft Avni Steele MD Work Phone: Plan of Treatment Date Care Activity Detail Author Start: 05-08-2028 Lipid panel Lipid Screening [facility] Start: 05-08-2028 Prostate specific an tigen measurement Prostate Cancer Screening Discussion [facility] Start: 06-02-2027 Colonoscopy COLONOSCOPY [facility] Start: 06-02-2027 COLORECTAL CANCER SCREENING COLORECTAL CANCER SCREENING [facility] Start: 06-02-2027 Screening for malign ant neoplasm of colon [facility] Start: 05-06-2027 PROSTATE CANCER SCRE ENING DISCUSSION PROSTATE CANCER SCREENING DISCUSSION [facility] Start: 04-28-2027 Lipid 1996 panel - S tay or Plasma Lipid Screening [facility] Start: 04-28-2027 LIPID SCREEN LIPID SCREEN [facility] Start: 11-02-2026 Urine microalbumin profile [facility] Start: 05-12-2026 LIPID SCREEN LIPID SCREEN [facility] Start: 05-08-2026 Diabetes Screening Diabetes Screenin g [facility] Start: 11-04-2025 DIABETES SCREEN DIABETES SCREEN [facility] Start: 11-04-2025 Diabetes Screening Diabetes Screenin g [facility] Start: 09-07-2025 PROSTATE CANCER SCRE ENING DISCUSSION PROSTATE CANCER SCREENING DISCUSSION [facility] Start: 06-24-2025 DIABETES SCREEN DIABETES SCREEN [facility] Start: 04-28-2025 DIABETES SCREEN DIABETES SCREEN [facility] Start: 11-01-2024 DIABETES SCREEN DIABETES SCREEN [facility] Start: 05-08-2024 Annual PCP Team Zoning Engineer antonio Disease Visit Annual PCP Team Chronic Disease Visit [facility] Start: 05-08-2024 BP Controlled (<130/80) BP Controlle d (<130/80) [facility] Start: 05-08-2024 Hepatitis B surface antibody level LDL Cholesterol [facility] Start: 05-08-2024 RSV Vaccine (1 - 1-d ose 60+ series) RSV Vaccine (1 - 1-dose 60+ series) [facility] Immunizations Immunization Date Immunization Notes Care Provider Fa tod 03-28-2023 COVID-19 vaccine, ag e 12+ yr, season (MODERNA) Avni Steele MD Work Phone: [facility] 02-23-2023 influenza (HD-IIV4) vaccine, age 65+ yr, high dose, quadrivalent, PF (FLUZONE HIGH-DOSE) Avni Steele MD Work Phone: [facility] 02-23-2023 influenza virus vaccine, unspecified formulation Avni Steele MD Work Phone: [facility] 12-23-2022 zoster vaccine recombinant Avni Steele MD Work Phone: [facility] 05-06-2022 COVID-19 booster vaccine, age 12+ yr, bivalent (PFIZER-BIONTArk) Avni Steele MD Work Phone: [facility] 05-06-2022 pneumococcal (PCV20) vaccine, 20 valent (PREVNAR 20) Avni Steele MD Work Phone: [facility] 05-06-2022 pneumococcal Conjuga te, unspecified formulation Avni Steele MD Work Phone: [facility] Work Phone: 03-31-2022 influenza, high-dose , quadrivalent vaccine (FLUZONE HIGH DOSE QUADRIVALENT) Avni Steele MD Work Phone: [facility] 11-01-2021 COVID-19 vaccine, ag e 12+ yr (PFIZER-BIONTECH - CONRAD TOP) Avni Steele MD Work Phone: [facility] 03-18-2021 COVID-19 original vaccine, age 12+ yr, monovalent (PFIZER-BIONTECH - PURPLE TOP) Avni Steele MD Work Phone: [facility] 03-03-2021 influenza, high-dose , quadrivalent vaccine (FLUZONE HIGH DOSE QUADRIVALENT) Max Olivo PERFUME MAKER.LINE CREW SUPERVISOR Work Phone: [facility] 10-29-2020 pneumococcal polysaccharide vaccine, 23 valent Max Olivo PERFUME MAKER.LINE CREW SUPERVISOR Work Phone: [facility] 08-18-2020 COVID-19 vaccine, ag e 12+ yr (PFIZER-BIONTECH - PURPLE TOP) Max Olivo PERFUME MAKER.LINE CREW SUPERVISOR Work Phone: [facility] 07-28-2020 COVID-19 vaccine, ag e 12+ yr (PFIZER-BIONTECH - PURPLE TOP) Max Olivo PERFUME MAKER.LINE CREW SUPERVISOR Work Phone: [facility] 03-03-2020 influenza, seasonal, injectable Max Geovani PERFUME MAKER.LINE CREW SUPERVISOR Work Phone: [facility] 03-03-2020 Seasonal, quadrivale nt, recombinant, injectable influenza vaccine, preservative free Max Geovani PERFUME MAKER.LINE CREW SUPERVISOR Work Phone: [facility] Work Phone: 02-16-2019 influenza, injectabl e, quadrivalent, preservative free Max Geovani PERFUME MAKER.LINE CREW SUPERVISOR Work Phone: [facility] Work Phone: 02-16-2019 influenza, seasonal, injectable Max Geovani PERFUME MAKER.LINE CREW SUPERVISOR Work Phone: [facility] 03-21-2018 influenza, injectabl e, quadrivalent, preservative free Max Geovani PERFUME MAKER.LINE CREW SUPERVISOR Work Phone: [facility] Work Phone: 11-02-2016 tetanus toxoid, redu trevon diphtheria toxoid, and acellular pertussis vaccine, adsorbed Max Geovani PERFUME MAKER.LINE CREW SUPERVISOR Work Phone: [facility] 05-26-2016 influenza, injectabl e, quadrivalent, contains preservative Max Geovani PERFUME MAKER.LINE CREW SUPERVISOR Work Phone: [facility] 04-16-2014 influenza, seasonal, injectable Max Geovani PERFUME MAKER.LINE CREW SUPERVISOR Work Phone: [facility] 04-05-2011 influenza virus vaccine, unspecified formulation Max Geovani PERFUME MAKER.LINE CREW SUPERVISOR Work Phone: [facility] Payers Date Payer Category Payer Medicare MEDICARE MEDICAR E A AND B [id number] 2020-Present [phone] [place] [address] Medicare [id number] 2020 Medicare MEDICARE MEDICAR E A AND B [id number] 2020-Present [phone] [place] [address] Medicare [id number] 2020 Medicare [id number] 2020 Medicare [id number] 2020 Unknown MMO MMO MEDICARE SUPPLEMENT [id number] 2020-Present [phone] [address] [place] [address] Indemnity [id number] 2020 Unknown MMO MMO MEDICARE SUPPLEMENT [id number] 2020-Present [phone] [address] [place] [address] Indemnity [id number] Social History Date Type Detail Facility Start: 04-05-2011 End: 03-31-2022 Tobacco smoking status NHIS Never smoked tobacco [facility] Work Phone: Start: 10-04-2021 End: 05-08-2023 Alcohol intake Current non-drinker of alcohol (finding) [facility] Start: 03-05-2018 History SDOH Alcohol Comment rarely [facility] Start: 1955 Sex Assigned At Not on file C [facility] Start: 09-24-2021 End: 03-31-2022 Exposure to SARS-CoV-2 (event) Not sure [facility] Work Phone: Start: 04-05-2011 End: 03-31-2022 Tobacco use and exposure Smokeless tobacco non-user [facility] Start: 10-10-2022 End: 11-04-2022 History of Social function [facility] Start: 10-10-2022 End: 11-04-2022 Tobacco use panel [facility] Adult Depression Scr eening Assessment 0 [facility] Has the [employer], or [employer] threatened to shut off services in your home in past 12Mo No [facility] Do you belong to any clubs or organizations such as alevism groups, unions, fraternal or athletic groups, or school groups? Yes [facility] Are you now , , , , never or living with a partner? [facility] How often to you hav e a drink containing alcohol? Monthly or less [facility] Work Phone: How many standard dr inks containing alcohol do you have on a typical day? 1 or 2 [facility] Work Phone: How often do you hav e 6 or more drinks on 1 occasion? Never [facility] Work Phone: How hard is it for y ou to pay for the very basics like food, housing, medical care, and heating Not very hard [facility] Do you feel stress - tense, restless, nervous, or anxious, or unable to sleep at night because your mind is troubled all the time - these days [OSQ] To some extent [facility] (I/We) worried wheth er (my/our) food would run out before (I/we) got money to buy more. Never true [facility] Medical Equipment Procedure Code Equipment Code Equipment Origin al Text Equipment Identifier Dates Imp Cornea Lamel lar 9mm1/2moon - [id number] Start: 03-08-2018 Imp Cornea Lamel lar 9mm1/2moon - [id number] Start: 04-26-2018 Drain Baerveldt Silicone Glaucoma Imnplant Anterior Chamber - [id number] Start: 03-08-2018 Drain Baerveldt Silicone Glaucoma Imnplant Anterior Chamber - [id number] Start: 04-26-2018 Kgb-Uz-R-Kind Implant - [id number] Start: 11-11-2020 Lens Acrysof Iq +10.5 Diopter Natural 0 D Biconvex Acrylic 13mm Iol 1 Piece - [id number] Start: 03-08-2018 Lens Acrysof Iq +10 Diopter 0 D Biconvex Acrylic 13mm Iol 1 Piece Foldable - [id number] Start: 04-26-2018 Head V40 36mm 0m m Offset Taper Biolox Delta Femoral Hip - [id number] Start: 11-11-2020 Shell Trident Ii 60mm G Tritanium Acetabular 5 Screw Hole Cluster Sterile - [id number] Start: 11-11-2020 Stem Accolade Ii 7 127d Femoral - [id number] Start: 11-11-2020 Screw Trident Ii 6.5mm 20mm Bone Low Profile Hexagonal Sterile - [id number] Start: 11-11-2020 Clinical Notes 11-11-2020 to 06-30-2023 Telephone Encounter - Shayla Yadav RN - 06/30/2023 8:55 AM ESTTelephone Encounter - Sunshine Colin PA-C - 06/29/2023 3:57 PM ESTTelephone Encounter - Chanell Garcia - 06/29/2023 1:26 PM EST Note Date & Type Note Facility 06-30-2023 Miscellaneous Notes Faxed to [facility] Amoxicillin, 2 g, 1 hour prior to dental procedures and/or cleanings. Please fax recommendation for any pre-meds for dental cleanings or procedures to [facility]: [phone]. They would like it to be on fill for the patient. Patient had a DANIEL 11/11/2020. Phone number: [phone] Please send requirements for dental procedure regarding pre-med. Please fax to: [phone] documented in this encounter [facility] 05-09-2023 Miscellaneous Notes TC to patient who verbalized understanding of providers message below. No questions at this time. YOSHI Doe ----- Message from Avni Steele MD sent at 05/09/2023 8:13 AM EST ----- Normal labs aside from PSA slightly above 4. Current level is normal for age and similar to 2 years ago. Without change in urinary symptoms, would not work this up further. documented in this encounter [facility] 05-08-2023 Note HNO ID: [id number] Author: Avni Steele MD Service: ? Author Type: Physician Type: Progress Notes Filed: 05/08/2023 1:49 PM Note Text: Harinder Reaves is a 68 year old male here for a Medicare wellness visit. Has been in good health recently without hospitalizations or ER visits. Medicare Health Risk Assessment General Health Very good Exercise: Minutes/Day 20 min Exercise: Days/Week 7 days Alcohol: Daily Use Monthly or less Alcohol: Drinks/Day 1 or 2 Alcohol: 6 or more drinks Never Feel off balance No Concerns: Teeth/Dentures No Concerns: Sexual function No Troubled by feelings None of the above Frequency: Eating healthy diet Several days ADLs requiring help None of the above Safety precautions in home/vehicle Yes Smoke, vape, chews tobacco No Difficulty hearing No Difficulty seeing No Current Providers Specialists: Current care team: Patient Care Team: Avni Steele MD as PCP - General (Family Medicine) Michael Olsen MD as Physician (Cardiology) [facility]. Medical/Family history review Reviewed and updated problem list, medical/surgical/family/social history, medications, and allergies. Opioid use review Opioid Medications (last 90 days) Some values may be hidden. Unless noted otherwise, only the newest values recorded on each date are displayed. Opioid Medications No data to display. Depression screening Depression Screening PHQ-2 Score PHQ-9 Score 08/31/2020 0 0 PHQ-2 / Depression screen He in the past two weeks denies having felt down, depressed, hopeless or with little interest or pleasure in doing things. Depression screening tool completed and reviewed. Based on score and interview, patient is not at risk for depression. Screening tool discussed with patient, and I recommended no further intervention at this time. Cognitive screening Cognitive screening reviewed and no further action needed (score 3-5) Functional Observation Was the patient's timed Up AND Go test unsteady or ? 12 seconds? No Advance Care Planning Surrogate decision maker and/or advance care plan documented Measurements BP 104/64 Pulse 60 Resp 16 Wt 245 lb (111.1kg) SpO2 97% Additional screenings: Vision Screening Right eye - Without correction: With correction: 20/30 Left eye - Without correction: With correction: 20/30 Both eyes - Without correction: With correction: 20/30 Component Latest Ref Rng AND Units 04/28/2022 05/06/2022 10/12/2022 11/04/2022 WBC 3.70 - 11.00 k/uL 8.56 7.65 RBC 4.20 - 6.00 m/uL 5.21 5.05 Hemoglobin 13.0 - 17.0 g/dL 15.4 15.1 Hematocrit 39.0 - 51.0 % 46.4 45.3 MCV 80.0 - 100.0 fL 89.1 89.7 MCH 26.0 - 34.0 pg 29.6 29.9 MCHC 30.5 - 36.0 g/dL 33.2 33.3 RDW-CV 11.5 - 15.0 % 14.8 14.0 Platelet Count 150 - 400 k/uL 168 271 MPV 9.0 - 12.7 fL 11.1 10.0 Neut% % 55.4 53.1 Abs Neut (ANC) 1.45 - 7.50 k/uL 4.74 4.07 Lymph% % 33.9 37.3 Abs Lymph 1.00 - 4.00 k/uL 2.90 2.85 Lasalle% % 8.2 6.8 Abs Lasalle <0.87 k/uL 0.70 0.52 Eosin% % 1.6 1.6 Abs Eosin <0.46 k/uL 0.14 0.12 Baso% % 0.7 0.8 Abs Baso <0.11 k/uL 0.06 0.06 Immature Gran % % 0.2 0.4 IMMATURE GRANS (ABS) <0.10 k/uL <0.03 0.03 NRBC /100 WBC 0.0 0.0 Absolute nRBC <0.01 k/uL <0.01 <0.01 DTYPE Auto Auto Protein, Total 6.3 - 8.0 g/dL 7.3 7.6 Albumin 3.9 - 4.9 g/dL 4.4 4.2 Calcium 8.5 - 10.2 mg/dL 9.6 9.8 Bilirubin, Total 0.2 - 1.3 mg/dL 0.8 0.4 Alkaline Phosphatase 38 - 113 U/L 118 (H) 141 (H) AST 14 - 40 U/L 22 29 ALT 10 - 54 U/L 17 25 Glucose 74 - 99 mg/dL 131 (H) 119 (H) BUN 9 - 24 mg/dL 22 24 Creatinine 0.73 - 1.22 mg/dL 1.14 1.03 Sodium 136 - 144 mmol/L 140 141 Potassium 3.7 - 5.1 mmol/L 3.5 (L) 3.8 Chloride 97 - 105 mmol/L 104 104 CO2 22 - 30 mmol/L 23 22 Anion Gap 9 - 18 mmol/L 13 15 eGFR >=60 mL/min/1.73mA? 70 80 Total Cholesterol, Nonfasting <200 mg/dL 134 Triglycerides, Nonfasting <150 mg/dL 268 (H) HDL Cholesterol, Nonfasting >39 mg/dL 29 (L) LDL Cholesterol, Nonfasting <100 mg/dL 51 Non HDL Cholesterol, Nonfasting <130 mg/dL 105 VLDL Cholesterol, Nonfasting <30 mg/dL 54 (H) Total Chol/HDL Ratio, Nonfasting <5.10 mg/dL 4.62 LDL/HDL Ratio, Nonfasting <2.54 mg/dL 1.76 Hemoglobin A1C 4.3 - 5.6 % 5.8 (H) 5.5 Estimated Average Glucose mg/dL 120 111 Lipase 16 - 61 U/L 54 PSA <2.60 ng/mL 3.57 (H) Assessment/Plan ASSESSMENT/PLAN: 1. Medicare annual wellness visit, subsequent - ICD9: V70.0, ICD10: Z00.00 (primary diagnosis) - Counseled on healthy diet and regular exercise - Fall avoidance information provided - Personalized prevention plan provided - Discussed need for and benefit of weight loss. BMI 33.23 kg/(m2) - CBC + DIFF - COMP METABOLIC PANEL - LIPID PANEL, NONFASTING - PSA/PROSTSPECAG SCRN 2. Primary hypertension - ICD9: 401.9, ICD10: I10 - Controlled - Continue current medications - Recommend home blood pressure monitoring, to bring res (more content not included)... [facility] 02-23-2023 Miscellaneous Notes Last office visit: 11/04/22 F/u scheduled: 05/08/23 Taryn Pavon Ma Patient has been identified by name and date of : Yes Requested Prescriptions Pending Prescriptions Disp Refills omeprazole (PRILOSEC) 40 mg capsule 30 capsule 5 Sig: Take 1 capsule by mouth once daily. topiramate (TOPAMAX) 25 mg tablet 30 tablet 5 Sig: Take 1 tablet by mouth daily at bedtime. RX INSTRUCTIONS: Patient aware RX will be sent to pharmacy. No need to notify patient. Rekha Randolph documented in this encounter [facility] 01-16-2023 Miscellaneous Notes Rx sent. Pharmacy verified in [address] in [place] Patient has been identified by name and date of : Yes Patient requesting a call when RX is approved and sent to the pharmacy. Please call patient at: [phone] Patient phones for refill(s): Disp Refills Start End allopurinol (ZYLOPRIM) 100 mg tablet 180 tablet 1 07/13/2022 01/09/2023 Sig: Take 2 tablets by mouth once daily. For gout. Sent to pharmacy as: allopurinol (ZYLOPRIM) 100 mg tablet Class: Normal Route: ORAL Date of last office visit : 11/04/2022 Date of next office visit : 05/08/2023 Last 2 Encounter Wt Readings: Date: Wt: 11/04/2022 111.3 kg (245 lb 6.4 oz) 10/10/2022 110 kg (242 lb 9.6 oz) Not applicable Please advise. Tania Randolph documented in this encounter [facility] 11-08-2022 Miscellaneous Notes Pt called and requested to have referral for Derm and last OV from pcp to be faxed to Dr. Merrill's office. FAX: [phone]. Done. Kaitlin Schofield LPN documented in this encounter [facility] 11-04-2022 Note HNO ID: [id number] Author: Avni Steele MD Service: ? Author Type: Physician Type: Progress Notes Filed: 11/05/2022 11:43 AM Note Text: Chief Complaint Patient presents with: Follow Up: 6 month HPI Harinder Reaves is a 67 year old male who presents here today for Above Complaints. Diverticulitis symptoms from last month resolved with Augmentin. No complaints today. Has crusting lesion on his face and dark spot on his right shoulder he would like checked today. Face lesion present for about a year. Shoulder lesion 2 years. Shoulder lesion increasing in size. Has been using hydrocortisone cream on his face which does not improve his spot. BP well controlled. Patient denies recent flare up of gout symptoms on allopurinol. Predibetes: patient states that he attempts to follow low carb diet. Denies polyuria, polyphagia, polydipsia, neuropathy. Due for A1c. GERD: controlled with Prilosec 40 mg daily. Takes OTC famotidine every once in a while when he does get heartburn and symptoms improve. Still refusing CPAP for PHIL due to poor eyesight and difficulty caring for his equipment. Discussed long-term risks of untreated PHIL. Following up with optho every 3 months. Notes nocturia 2 times per night which is his norm. Denies weak stream, straining, dysuria, hematuria, incomplete emptying. PSA <4 on last check. Colonoscopy completed 06/02/2022 with <1 cm tubular adenoma. Repeat colonoscopy in 5 years recommended. CAD: reviewed OV with Dr. Olsen. No changes to regimen. Stress test in June normal. F/u in 1 year. Past medical history, appointments, medications, allergies reviewed. Previous Medical History PAST MEDICAL HISTORY Diagnosis Date ASHD (arteriosclerotic heart disease) 09/18/2015 CABG 6 BPH with obstruction/lower urinary tract symptoms 07/20/2016 Carotid artery disease (HCC) 07/27/2017 [facility] Cataracts, both eyes right>left Central retinal vein occlusion with macular edema of right eye 2018 [facility] Chronic systolic congestive heart failure (HCC) Class 2 severe obesity due to excess calories with serious comorbidity and body mass index (BMI) of 36.0 to 36.9 in adult ([facility]) Combined forms of age-related cataract of both eyes 2018 Congenital hypertrophy of retinal pigment epithelium 2018 [facility] Coronary artery disease 2018 with severe [place] vessel disease Diverticulitis of colon (without mention of hemorrhage)(562.11) Diverticulosis 04/16/2014 GERD (gastroesophageal reflux disease) Gout Hiatal hernia 11/09/2021 High myopia, bilateral Hyperlipidemia Hypertension Impaired fasting glucose 09/22/2015 Ischemic cardiomyopathy Migraine Non-ST elevation myocardial infarction (NSTEMI) (HCC) 07/27/2017 [facility] PHIL (obstructive sleep apnea) Paroxysmal atrial fibrillation (HCC) Pigmentary glaucoma of both eyes, moderate stage 2017 [facility] Posterior vitreous detachment of both eyes PVD (posterior vitreous detachment), both eyes 2018 Situational depression 07/20/2016 Status post coronary artery bypass graft 07/27/2017 [facility] Previous Surgical History PAST SURGICAL HISTORY Procedure Laterality Date CABG (3) VEIN GRAFTS AND ARTERIAL GRAFT(S) 09/18/2015 actually 6 vessel CATARACT EXTRACTION W/ INTRAOCULAR LENS IMPLANT HX Left 04/26/2018 COLONOSCOPY 2018 repeat in 5 years COLONOSCOPY 06/02/2022 repeat in 5 years COLONOSCOPY FLX DX W/COLLJ SPEC WHEN PFRMD 10/20/1999 Colonoscopy EGD 06/02/2022 FSTLJ SCLERA GLAUCOMA TRABECULECT AB EXTERNO 09/05/2007 Trabeculecomy 5FU OD INCISION OF EYE, TRABECULECTOMY 2007 LAPAROSCOPIC CHOLECYSTECTOMY 07/14/2022 LASER TRABECULOPLASTY 03/2017 S BARVELDT GLAUCOMA IMPLANT Left 04/26/2018 TOTAL HIP REPLACEMENT Right 11/11/2020 Right DANIEL TRABECULOPLASTY BY LASER SURGERY 2001,2002,2004 Alt, ou Family History FAMILY HISTORY Problem Relation Age of Onset Heart Father Hypertension Mother Cataract Mother other (Other) Mother spot on lung Cataract Maternal Grandmother Diabetes Paternal Uncle Diabetes Paternal Uncle Patient Allergies ALLERGIES No Known Allergies Current Medications Current Outpatient Medications on File Prior to Visit Medication Sig omeprazole (PRILOSEC) 40 mg capsule Take 1 capsule by mouth once daily. topiramate (TOPAMAX) 25 mg tablet Take 1 tablet by mouth daily at bedtime. allopurinol (ZYLOPRIM) 100 mg tablet Take 2 tablets by mouth once daily. For gout. sucralfate (CARAFATE) 1 gram tablet Take 1 tablet by mouth before meals and at bedtime. atorvastatin (LIPITOR) 40 mg tablet Take 40 mg by mouth once daily. latanoprost (XALATAN) 0.005 % ophthalmic solution 1 Drop daily at bedtime. timoloL maleate (TIMOPTIC) 0.5 % ophthalmic solution Use 1 Drop in both eyes twice daily. hydroCHLOROthiazide (HYDRODIURIL, ESIDRIX) 25 mg tablet Take 25 mg by mouth once daily. nitroglycerin sublingual (NITROQUICK) 0 (more content not included)... [facility] 11-04-2022 History of Present illness Narrative Chief Complaint Patient presents with: Follow Up: 6 month HPI Harinder Reaves is a 67 year old male who presents here today for Above Complaints. Diverticulitis symptoms from last month resolved with Augmentin. No complaints today. Has crusting lesion on his face and dark spot on his right shoulder he would like checked today. Face lesion present for about a year. Shoulder lesion 2 years. Shoulder lesion increasing in size. Has been using hydrocortisone cream on his face which does not improve his spot. BP well controlled. Patient denies recent flare up of gout symptoms on allopurinol. Predibetes: patient states that he attempts to follow low carb diet. Denies polyuria, polyphagia, polydipsia, neuropathy. Due for A1c. GERD: controlled with Prilosec 40 mg daily. Takes OTC famotidine every once in a while when he does get heartburn and symptoms improve. Still refusing CPAP for PHIL due to poor eyesight and difficulty caring for his equipment. Discussed long-term risks of untreated PHIL. Following up with optho every 3 months. Notes nocturia 2 times per night which is his norm. Denies weak stream, straining, dysuria, hematuria, incomplete emptying. PSA <4 on last check. Colonoscopy completed 06/02/2022 with <1 cm tubular adenoma. Repeat colonoscopy in 5 years recommended. CAD: reviewed OV with Dr. Olsen. No changes to regimen. Stress test in June normal. F/u in 1 year. Past medical history, appointments, medications, allergies reviewed. Previous Medical History PAST MEDICAL HISTORY Diagnosis Date ASHD (arteriosclerotic heart disease) 09/18/2015 CABG 6 BPH with obstruction/lower urinary tract symptoms 07/20/2016 Carotid artery disease (HCC) 07/27/2017 [facility] Cataracts, both eyes right>left Central retinal vein occlusion with macular edema of right eye 2018 [facility] Chronic systolic congestive heart failure (HCC) Class 2 severe obesity due to excess calories with serious comorbidity and body mass index (BMI) of 36.0 to 36.9 in adult (HCC) Combined forms of age-related cataract of both eyes 2017 Congenital hypertrophy of retinal pigment epithelium 2017 [facility] Coronary artery disease 2018 with severe [place] vessel disease Diverticulitis of colon (without mention of hemorrhage)(562.11) Diverticulosis 04/16/2014 GERD (gastroesophageal reflux disease) Gout Hiatal hernia 11/09/2021 High myopia, bilateral Hyperlipidemia Hypertension Impaired fasting glucose 09/22/2015 Ischemic cardiomyopathy Migraine Non-ST elevation myocardial infarction (NSTEMI) (HCC) 07/27/2017 [facility] PHIL (obstructive sleep apnea) Paroxysmal atrial fibrillation ([facility]) Pigmentary glaucoma of both eyes, moderate stage 2017 [facility] Posterior vitreous detachment of both eyes PVD (posterior vitreous detachment), both eyes 2018 Situational depression 07/20/2016 Status post coronary artery bypass graft 07/27/2017 [facility] Previous Surgical History PAST SURGICAL HISTORY Procedure Laterality Date CABG (3) VEIN GRAFTS & ARTERIAL GRAFT(S) 09/18/2015 actually 6 vessel CATARACT EXTRACTION W/ INTRAOCULAR LENS IMPLANT HX Left 04/26/2018 COLONOSCOPY 2018 repeat in 5 years COLONOSCOPY 06/02/2022 repeat in 5 years COLONOSCOPY FLX DX W/COLLJ SPEC WHEN PFRMD 10/20/1999 Colonoscopy EGD 06/02/2022 FSTLJ SCLERA GLAUCOMA TRABECULECT AB EXTERNO 09/05/2007 Trabeculecomy 5FU OD INCISION OF EYE, TRABECULECTOMY 2007 LAPAROSCOPIC CHOLECYSTECTOMY 07/14/2022 LASER TRABECULOPLASTY 03/2017 S BARVELDT GLAUCOMA IMPLANT Left 04/26/2018 TOTAL HIP REPLACEMENT Right 11/11/2020 Right DANIEL TRABECULOPLASTY BY LASER SURGERY 2001,2002,2004 Alt, ou Family History FAMILY HISTORY Problem Relation Age of Onset Heart Father Hypertension Mother Cataract Mother other (Other) Mother spot on lung Cataract Maternal Grandmother Diabetes Paternal Uncle Diabetes Paternal Uncle Patient Allergies ALLERGIES No Known Allergies Current Medications Current Outpatient Medications on File Prior to Visit Medication Sig omeprazole (PRILOSEC) 40 mg capsule Take 1 capsule by mouth once daily. topiramate (TOPAMAX) 25 mg tablet Take 1 tablet by mouth daily at bedtime. allopurinol (ZYLOPRIM) 100 mg tablet Take 2 tablets by mouth once daily. For gout. sucralfate (CARAFATE) 1 gram tablet Take 1 tablet by mouth before meals and at bedtime. atorvastatin (LIPITOR) 40 mg tablet Take 40 mg by mouth once daily. latanoprost (XALATAN) 0.005 % ophthalmic solution 1 Drop daily at bedtime. timoloL maleate (TIMOPTIC) 0.5 % ophthalmic solution Use 1 Drop in both eyes twice daily. hydroCHLOROthiazide (HYDRODIURIL, ESIDRIX) 25 mg tablet Take 25 mg by mouth once daily. nitroglycerin sublingual (NITROQUICK) 0.4 mg SL tablet Q5M brimonidine (ALPHAGAN) 0.2 % ophthalmic solution Use 1 Drop in both eyes every 12 hours. aspirin, enteric coated (ASPIRIN, ENTERIC COATED) 81 mg EC tablet Take 1 tablet by mouth once daily. metoprolol tartrate, short acting, (LOPRESSOR) 25 mg tablet Take 1 tablet by mouth twice daily. vitamin e 1,000 unit ORAL capsule Take 1 capsule by mouth once daily. ascorbic acid(VITAMIN C 500 MG SR CAP) Take one(1) tablet daily. No current facility-administered medications on file prior to visit. Social History Social History Tobacco Use Smoking status: Never Smokeless tobacco: Never Vaping Use Vaping Use: Never used Substance Use Topics Alcohol use: No Comment: rarely Drug use: No Review of Symptoms REVIEW OF SYSTEMS GENERAL: No weight loss, malaise or fevers RESPIRATORY: Negative for cough, hemoptysis, wheezing, COPD, dyspnea or shortness of breath CARDIOVASCULAR: Negative for chest pain, leg swelling, hypertension, CHF or palpitations GI: No nausea, vomiting, or diarrhea SKIN: Negative for lesions, rash, and itching EXAM: BP 122/66 Pulse (!) 59 Resp 16 Wt 111.3 kg (245 lb 6.4 oz) SpO2 98% BMI 33.28 kg/m General Appearance: Well appearing, alert, in no acute distress, well-hydrated, well nourished.. Skin: AK lateral to left eyebrow. Atypical mole or flat SK on left shoulder >0.5 cm with irregular border and coloration. Lungs: Lungs clear to auscultation. No wheezing, rhonchi, rales.. Heart: RRR without murmur, gallop, or rubs. No ectopy. Abdomen: Normal abdominal exam, Abdomen soft, non-tender. Bowel sounds normal. No masses, organomegaly. Extremities: No deformities, edema, skin discoloration, clubbing or cyanosis. Good capillary refill. . Health Maintenance List ADVANCE DIRECTIVE DISCUSSION Never done DEPRESSION ASSESSMENT Never done SHINGRIX VACCINE(1 of 2) due on 05/06/2023 LDL CHOLESTEROL due on 04/28/2023 ANNUAL PCP TEAM CHRONIC DISEASE VISIT due on 10/11/2023 BP CONTROLLED (<130/80) due on 10/11/2023 DIABETES SCREEN due on 10/12/2025 DTAP,TDAP,TD(2 - Td or Tdap) due on 11/02/2026 LIPID SCREEN due on 04/28/2027 PROSTATE CANCER SCREENING DISCUSSION due on 05/06/2027 COLORECTAL CANCER SCREENING due on 06/02/2027 INFLUENZA Completed COVID-19 VACCINE Completed PNEUMOCOCCAL: 65+ Completed HEPATITIS C SCREENING Discontinued Data reviewed Component Latest Ref Rng & Units 04/28/2022 05/06/2022 10/12/2022 WBC 3.70 - 11.00 k/uL 8.56 7.65 RBC 4.20 - 6.00 m/uL 5.21 5.05 Hemoglobin 13.0 - 17.0 g/dL 15.4 15.1 Hematocrit 39.0 - 51.0 % 46.4 45.3 MCV 80.0 - 100.0 fL 89.1 89.7 MCH 26.0 - 34.0 pg 29.6 29.9 MCHC 30.5 - 36.0 g/dL 33.2 33.3 RDW-CV 11.5 - 15.0 % 14.8 14.0 Platelet Count 150 - 400 k/uL 168 271 MPV 9.0 - 12.7 fL 11.1 10.0 Neut% % 55.4 53.1 Abs Neut (ANC) 1.45 - 7.50 k/uL 4.74 4.07 Lymph% % 33.9 37.3 Abs Lymph 1.00 - 4.00 k/uL 2.90 2.85 Lasalle% % 8.2 6.8 Abs Lasalle <0.87 k/uL 0.70 0.52 Eosin% % 1.6 1.6 Abs Eosin <0.46 k/uL 0.14 0.12 Baso% % 0.7 0.8 Abs Baso <0.11 k/uL 0.06 0.06 Immature Gran % % 0.2 0.4 IMMATURE GRANS (ABS) <0.10 k/uL <0.03 0.03 NRBC /100 WBC 0.0 0.0 Absolute nRBC <0.01 k/uL <0.01 <0.01 DTYPE Auto Auto Protein, Total 6.3 - 8.0 g/dL 7.3 7.6 Albumin 3.9 - 4.9 g/dL 4.4 4.2 Calcium 8.5 - 10.2 mg/dL 9.6 9.8 Bilirubin, Total 0.2 - 1.3 mg/dL 0.8 0.4 Alkaline Phosphatase 38 - 113 U/L 118 (H) 141 (H) AST 14 - 40 U/L 22 29 ALT 10 - 54 U/L 17 25 Glucose 74 - 99 mg/dL 131 (H) 119 (H) BUN 9 - 24 mg/dL 22 24 Creatinine 0.73 - 1.22 mg/dL 1.14 1.03 Sodium 136 - 144 mmol/L 140 141 Potassium 3.7 - 5.1 mmol/L 3.5 (L) 3.8 Chloride 97 - 105 mmol/L 104 104 CO2 22 - 30 mmol/L 23 22 Anion Gap 9 - 18 mmol/L 13 15 eGFR >=60 mL/min/1.73m 70 80 Total Cholesterol, Nonfasting <200 mg/dL 134 Triglycerides, Nonfasting <150 mg/dL 268 (H) HDL Cholesterol, Nonfasting >39 mg/dL 29 (L) LDL Cholesterol, Nonfasting <100 mg/dL 51 Non HDL Cholesterol, Nonfasting <130 mg/dL 105 VLDL Cholesterol, Nonfasting <30 mg/dL 54 (H) Total Chol/HDL Ratio, Nonfasting <5.10 mg/dL 4.62 LDL/HDL Ratio, Nonfasting <2.54 mg/dL 1.76 Hemoglobin A1C 4.3 - 5.6 % 5.8 (H) Estimated Average Glucose mg/dL 120 Lipase 16 - 61 U/L 54 PSA <2.60 ng/mL 3.57 (H) ASSESSMENT/PLAN: 1. Actinic keratosis - ICD9: 702.0, ICD10: L57.0 (primary diagnosis) Referral to dermatology for treatment. - CONSULT TO DERMATOLOGY 2. Skin lesion - ICD9: 709.9, ICD10: L98.9 Possible atypical mole vs flat SK. Will refer to derm for biopsy. - CONSULT TO DERMATOLOGY 3. Prediabetes - ICD9: 790.29, ICD10: R73.03 Recheck A1c. Discussed low carb diet, exercise, weight loss. - HGB A1C 4. Diverticulitis - ICD9: 562.11, ICD10: K57.92 Resolved. 5. Primary hypertension - ICD9: 401.9, ICD10: I10 - Controlled - Continue current medications - Recommend home blood pressure monitoring, to bring results to next visit - Encouraged sodium restriction, DASH or Mediterranean diet - Recommend regular aerobic exercise 6. Obesity (BMI 30.0-34.9) - ICD9: 278.00, ICD10: E66.9 Stable - Behavioral intervention 7. PHIL (obstructive sleep apnea) - ICD9: 327.23, ICD10: G47.33 Refusing CPAP. Discussed weight loss, side sleeping. 8. Gastroesophageal reflux disease, unspecified whether esophagitis present - ICD9: 530.81, ICD10: K21.9 - Continue treatment with Prilosec 40 mg QD 9. History of colonic polyps - ICD9: V12.72, ICD10: Z86.010 F/u with general surgery for repeat scope as recommended. 10. Paroxysmal atrial fibrillation (HCC) - ICD9: 427.31, ICD10: I48.0 Rate controlled on current regimen. Asympotmatic. F/u cardiology recommendations. 11. Ischemic cardiomyopathy - ICD9: 414.8, ICD10: I25.5 Asymptomatic on medical management. F/u cardiology recommendations. 12. Chronic systolic congestive heart failure (HCC) - ICD9: 428.22, 428.0, ICD10: I50.22 Asymptomatic on medical management. F/u cardiology recommendations. 13. Status post coronary artery bypass graft - ICD9: V45.81, ICD10: Z95.1 Asymptomatic on medical management. F/u cardiology recommendations. 14. BPH with obstruction/lower urinary tract symptoms - ICD9: 600.01, 599.69, ICD10: N40.1, N13.8 Stable nocturia. Refusing rx. Will monitor. 15. Pigmentary glaucoma of both eyes, severe stage - ICD9: 365.13, 365.73, ICD10: H40.1333 Stable. Recommendations per optho 16. PVD (posterior vitreous detachment), both eyes - ICD9: 379.21, ICD10: H43.813 Stable. Recommendations per optho 17. Congenital hypertrophy of retinal pigment epithelium - ICD9: 743.56, ICD10: Q14.1 Stable. Recommendations per optho Avni Steele MD documented in this encounter [facility] 10-10-2022 Note HNO ID: [id number] Author: Avni Steele MD Service: ? Author Type: Physician Type: Progress Notes Filed: 10/10/2022 10:14 AM Note Text: Chief Complaint Patient presents with: ER F/U HPI Harinder Reaves is a 67 year old male who presents here today for ER Follow Up.. Patient evaluated at [facility] ED on 10/02 for c/o abdominal pain which started about a week prior. Denied nausea, vomiting, diarrhea. Workup in the ED showed acute diverticulitis on CT scan and was discharged home with rx for Augmentin for 2 weeks. Recommended f/u with our office. Noted normal CBC. CMP significant for hypokalemia at 3, but otherwise normal. Since discharge, patient has been taking abx as prescribed without side effects. States that he was still having LLQ abdominal pain until yesterday when symptoms started to improve. States that he still does get some abdominal pain after eating. Notes tomato sauce seems to exacerbate his symptoms. Not adhering to soft or low residue diet. Admits to intermittent diarrhea which has been chronic. Denies fever/chills, nausea, vomiting, constipation, hematochezia, melena. Past medical history, appointments, medications, allergies reviewed. Previous Medical History PAST MEDICAL HISTORY Diagnosis Date ASHD (arteriosclerotic heart disease) 09/18/2015 CABG 6 BPH with obstruction/lower urinary tract symptoms 07/20/2016 Carotid artery disease (HCC) 07/27/2017 Ra[place]l Cataracts, both eyes right>left Central retinal vein occlusion with macular edema of right eye 2018 [facility] Chronic systolic congestive heart failure (HCC) Class 2 severe obesity due to excess calories with serious comorbidity and body mass index (BMI) of 36.0 to 36.9 in adult ([facility]) Combined forms of age-related cataract of both eyes 2018 Congenital hypertrophy of retinal pigment epithelium 2018 [facility] Coronary artery disease 2018 with severe [place] vessel disease Diverticulitis of colon (without mention of hemorrhage)(562.11) Diverticulosis 04/16/2014 GERD (gastroesophageal reflux disease) Gout Hiatal hernia 11/09/2021 High myopia, bilateral Hyperlipidemia Hypertension Impaired fasting glucose 09/22/2015 Ischemic cardiomyopathy Migraine Non-ST elevation myocardial infarction (NSTEMI) (HCC) 07/27/2017 [place]ú PHIL (obstructive sleep apnea) Paroxysmal atrial fibrillation (HCC) Pigmentary glaucoma of both eyes, moderate stage 2017 [facility] Posterior vitreous detachment of both eyes PVD (posterior vitreous detachment), both eyes 2018 Situational depression 07/20/2016 Status post coronary artery bypass graft 07/27/2017 Raúl Previous Surgical History PAST SURGICAL HISTORY Procedure Laterality Date CABG (3) VEIN GRAFTS AND ARTERIAL GRAFT(S) 09/18/2015 actually 6 vessel CATARACT EXTRACTION W/ INTRAOCULAR LENS IMPLANT HX Left 04/26/2018 COLONOSCOPY 2018 repeat in 5 years COLONOSCOPY 06/02/2022 repeat in 5 years COLONOSCOPY FLX DX W/COLLJ SPEC WHEN PFRMD 10/20/1999 Colonoscopy EGD 06/02/2022 FSTLJ SCLERA GLAUCOMA TRABECULECT AB EXTERNO 09/05/2007 Trabeculecomy 5FU OD INCISION OF EYE, TRABECULECTOMY 2007 LAPAROSCOPIC CHOLECYSTECTOMY 07/14/2022 LASER TRABECULOPLASTY 03/2017 S BARVELDT GLAUCOMA IMPLANT Left 04/26/2018 TOTAL HIP REPLACEMENT Right 11/11/2020 Right DANIEL TRABECULOPLASTY BY LASER SURGERY 2001,2002,2004 Alt, ou Family History FAMILY HISTORY Problem Relation Age of Onset Heart Father Hypertension Mother Cataract Mother other (Other) Mother spot on lung Cataract Maternal Grandmother Diabetes Paternal Uncle Diabetes Paternal Uncle Patient Allergies ALLERGIES No Known Allergies Current Medications Current Outpatient Medications on File Prior to Visit Medication Sig omeprazole (PRILOSEC) 40 mg capsule Take 1 capsule by mouth once daily. topiramate (TOPAMAX) 25 mg tablet Take 1 tablet by mouth daily at bedtime. allopurinol (ZYLOPRIM) 100 mg tablet Take 2 tablets by mouth once daily. For gout. sucralfate (CARAFATE) 1 gram tablet Take 1 tablet by mouth before meals and at bedtime. atorvastatin (LIPITOR) 40 mg tablet Take 40 mg by mouth once daily. latanoprost (XALATAN) 0.005 % ophthalmic solution 1 Drop daily at bedtime. timoloL maleate (TIMOPTIC) 0.5 % ophthalmic solution Use 1 Drop in both eyes twice daily. hydroCHLOROthiazide (HYDRODIURIL, ESIDRIX) 25 mg tablet Take 25 mg by mouth once daily. nitroglycerin sublingual (NITROQUICK) 0.4 mg SL tablet Q5M brimonidine (ALPHAGAN) 0.2 % ophthalmic solution Use 1 Drop in both eyes every 12 hours. aspirin, enteric coated (ASPIRIN, ENTERIC COATED) 81 mg EC tablet Take 1 tablet by mouth once daily. metoprolol tartrate, short acting, (LOPRESSOR) 25 mg tablet Take 1 tablet by mouth twice daily. vitamin e 1,000 unit ORAL capsule Take 1 capsule by mouth once daily. ascorbic acid(VITAMIN C 500 MG SR CAP) Take one(1) tablet d (more content not included)... [facility] 08-29-2022 Miscellaneous Notes The following approved medication requests have been transmitted electronically. Requested Prescriptions Pending Prescriptions Disp Refills omeprazole (PRILOSEC) 40 mg capsule 30 capsule 5 Sig: Take 1 capsule by mouth once daily. topiramate (TOPAMAX) 25 mg tablet 30 tablet 5 Sig: Take 1 tablet by mouth daily at bedtime. Nimesh Medrano APRN.KANDY Pharmacy verified in [facility] Patient has been identified by name and date of : Yes Patient aware RX will be sent to pharmacy. No need to notify patient. Patient phones for refill(s): Requested Prescriptions Pending Prescriptions Disp Refills omeprazole (PRILOSEC) 40 mg capsule 30 capsule 5 Sig: Take 1 capsule by mouth once daily. topiramate (TOPAMAX) 25 mg tablet 30 tablet 5 Sig: Take 1 tablet by mouth daily at bedtime. Date of last office visit : 05/06/2022 Labs-11/04/21 Date of next office visit : 11/04/2022 med filled 03/01/22 Last 2 Encounter Wt Readings: Date: Wt: 07/21/2022 110.2 kg (243 lb) 06/24/2022 114.8 kg (253 lb) Please advise. Tania Nur Pss documented in this encounter [facility] 07-21-2022 Note HNO ID: [id number] Author: Cindy Bajwa PA-C Service: ? Author Type: Physician Survey And Mapping Technician Type: Progress Notes Filed: 07/29/2022 3:32 PM Note Text: FOLLOW UP VISIT - CHOLECYSTECTOMY NAME: Harinder Reaves [facility] NO.: [id number] DATE OF SERVICE: 07/21/2022 : 1955 REFERRING PHYSICIAN: Avni Steele MD Harinder is a patient I am following for a complaint of right upper quadrant pain. Dr. Jenkins performed a laparoscopic cholecystectomy on 07/14/22. Pathology showed: FINAL DIAGNOSIS A. Gallbladder, cholecystectomy: - Chronic follicular cholecystitis with cholelithiasis. The patient currently notes no major complaints. his appetite has been good. he denies fever, chills or abdominal pain. he does note some mild incisional discomfort. VITALS: Blood pressure 118/72, pulse 74, temperature 36.5 ?C (97.7 ?F), height 182.9 cm (6'), weight 110.2 kg (243 lb), SpO2 96 %. On examination, the abdomen is benign. The incisions are healing well without signs of infection or inflammation. Assessment IMPRESSION: status post laparoscopic cholecystectomy PLAN: If the patient notes any problems, he should contact me immediately. he may return to his regular activities as tolerated, with the exception of no lifting greater than 25 pounds for the next 2 weeks. The patient is to contact me immediately is he experiences any of his preoperative symptoms. We discussed that occasional right up quadrant symptoms similar to the preoperative complaints can occur in the first couple of weeks post operatively. If this persists beyond the first 2-3 weeks, they should contact our office. Diagnoses: (K81.1) Chronic cholecystitis (primary encounter diagnosis) (K80.10) Calculus of gallbladder with chronic cholecystitis without obstruction Return to Clinic: The patient is instructed to follow-up with me as needed. Cindy Bajwa PA-C [facility] 07-21-2022 Instructions Cindy Bajwa PA-C - 07/21/2022 11:08 AM EST The following instructions are important for you related to your office visit today with the [facility] General Surgeons. INSTRUCTIONS FOLLOWING YOU RECENT GALLBLADDER SURGERY You should be returning to your regular diet, If you have having persistent issues with tolerating your diet, please contact our office It is not unusual to have pain similar to your gallbladder symptoms for the first 1-2 weeks following surgery. If this persists beyond 2 weeks, contact the office. It is not unusual to have loose stools following surgery. This is usually self limited and related to the antibiotics that were given during your surgical procedure. Fiber supplementation and yogurt with active cultures may help you return to regular bowel activity. If you note loose stools persisting for over 2 weeks, or significant cramping or loose bloody stools, contact the office immediately. You may remove the steri-strips in 5 days if they have not fallen off by that time. You may return to your regular activities. You may drive if you are no longer taking narcotic pain medication. You should perform no lifting greater than 25lbs for the next 2 weeks. Contact the office immediately if any of your incisions become increasingly tender, red or have drainage. Again, if you have any difficulties or concerns, contact our office immediately. If you note any additional difficulties, questions, or concerns, you should contact our office immediately @ [phone] and ask to be transferred to the General Surgery department. documented in this encounter [facility] 07-21-2022 History of Present illness Narrative FOLLOW UP VISIT - CHOLECYSTECTOMY NAME: Harinder Pinzon [facility] NO.: [id number] DATE OF SERVICE: 07/21/2022 : 1955 REFERRING PHYSICIAN: Avni Steele MD Harinder is a patient I am following for a complaint of right upper quadrant pain. Dr. Jenkins performed a laparoscopic cholecystectomy on 07/14/22. Pathology showed: FINAL DIAGNOSIS A. Gallbladder, cholecystectomy: - Chronic follicular cholecystitis with cholelithiasis. The patient currently notes no major complaints. his appetite has been good. he denies fever, chills or abdominal pain. he does note some mild incisional discomfort. VITALS: Blood pressure 118/72, pulse 74, temperature 36.5 C (97.7 F), height 182.9 cm (6'), weight 110.2 kg (243 lb), SpO2 96 %. On examination, the abdomen is benign. The incisions are healing well without signs of infection or inflammation. Assessment IMPRESSION: status post laparoscopic cholecystectomy PLAN: If the patient notes any problems, he should contact me immediately. he may return to his regular activities as tolerated, with the exception of no lifting greater than 25 pounds for the next 2 weeks. The patient is to contact me immediately is he experiences any of his preoperative symptoms. We discussed that occasional right up quadrant symptoms similar to the preoperative complaints can occur in the first couple of weeks post operatively. If this persists beyond the first 2-3 weeks, they should contact our office. Diagnoses: (K81.1) Chronic cholecystitis (primary encounter diagnosis) (K80.10) Calculus of gallbladder with chronic cholecystitis without obstruction Return to Clinic: The patient is instructed to follow-up with me as needed. Cindy Bajwa PA-C documented in this encounter [facility] 07-14-2022 Note HNO ID: [id number] Author: Feroz Moore APRN.HIGH SCHOOL MUSIC INSTRUCTOR Service: Anesthesiology Author Type: Nurse [employer] Firer Type: Anesthesia Procedure Notes Filed: 07/14/2022 11:51 AM Note Text: ANESTHESIOLOGY PROCEDURE NOTE Airway General Information Procedure Start Time/Medication Administration: 07/14/2022 11:36 AM Procedure End Time: 07/14/2022 11:39 AM Patient location during procedure: OR Timeout Performed Pre-procedure: timeout performed Consent Obtained: Yes Patient identity confirmed: arm band and patient Staffing HIGH SCHOOL MUSIC INSTRUCTOR: Feroz Moore APRN.HIGH SCHOOL MUSIC INSTRUCTOR Indications and Patient Condition Indications for airway management: anesthesia Preoxygenated: yes anesthesia circuit Patient position: sniffing Method: asleep Cricoid Pressure: Yes Manual In-Line Stabilization: Yes Difficult Mask: No Final Airway Details Final airway type: endotracheal airway Final Endotracheal Airway: ETT Cuffed: yes Successful intubation technique: direct laryngoscopy Endotracheal tube insertion site: oral Blade: Alex Blade size: #4 ETT size (mm): 7.5 Measured from: lips Measurement (cm): 24 Placement verified by: capnometry Cormack-Lehane Classification: grade III - view of epiglottis only Number of attempts at approach: 1 Failed airway: no Unrecognized esophageal intubation: no Airway not difficult Comments anterior airway. stylette tube. SIGNATURE: Feroz Moore APRN.HIGH SCHOOL MUSIC INSTRUCTOR PATIENT NAME: Harinder Raeves DATE: July 14, 2022 TIME: 11:50 AM CSN: [id number] [facility] 07-13-2022 Miscellaneous Notes Patient notified, verbalizes understanding of instructions. Sowmya Taylor LPN Rx sent as requested. Patient last visit with PCP 05/06/22 Follow up appointment scheduled 11/04/22 Kiera Gonzalez Ma Harinder Reaves is calling Avni Steele MD today to request Medication Request, medication not on his current list, please send to [facility]: allopurinol (ZYLOPRIM) 100 mg tablet 60 tablet 5 01/10/2022 07/09/2022 Sig: Take 2 tablets by mouth once daily. For gout. Sent to pharmacy as: allopurinol (ZYLOPRIM) 100 mg tablet Class: Normal Route: ORAL Order: [id number] E-Prescribing Status: Receipt confirmed by pharmacy (01/10/2022 11:06 AM EDT) Patient has been identified by name and birthdate. Duration of symptoms: N/A Person calling: self Call patient at: on cell [phone] (home) [phone] (cell) Was an appointment scheduled: No Closing statement: Results or non-symptom based questions: Thank you for calling [facility], your call will be returned within the next business day. Candace Silveira Pss documented in this encounter [facility] 06-24-2022 Instructions Anais Gallardo APRN.LINE CREW SUPERVISOR - 06/24/2022 2:36 PM EST PATIENT PREOPERATIVE INSTRUCTIONS Lani Jenkins MD has scheduled you for your procedure at this surgery center: [facility]: [phone] -- [address] [address]. Please read below carefully for your personalized instructions. Dietary Restrictions: - No solid food after midnight or liquids after midnight except for sips of water with approved medications below Medications: Unless instructed differently below, stay on all of your medications until your surgery. Approved medications to take the morning of surgery with a sip of water: atorvastatin (LIPITOR), metoprolol tartrate, (LOPRESSOR), omeprazole (PRILOSEC), topiramate (TOPAMAX) Do not take Hydrochlorothiazide the morning and/or evening prior surgery If you take any medications for erectile dysfunction-Cialis (Tadalafil), Levitra, Staxyn (Vardenafil) Viagra (Sildenenafil please do not take these for 48 hours before surgery. If you start any new medications after today's visit, please contact the surgeon's office. Blood Thinning Medications: - Stop NSAIDS (Ibuprofen, Advil, Aleve, Motrin, Celebrex, Mobic, etc.) 7 days before surgery, as directed by your surgeon. - Stop Aspirin 7 days before surgery, as directed by your surgeon. - Stop Vitamin E, ALL multi-vitamins, herbals and dietary supplements 7 days before surgery. - You may take Tylenol (Acetaminophen) or any of your pain medications that do not contain aspirin or NSAIDS as needed. Important Reminders: - Candy, mints, and tobacco products are NOT permitted the morning of surgery. - Hearing aids, dentures and glasses may be worn the morning of surgery. - NO jewelry, body piercings, makeup, hairpins or contacts are to be worn the day of surgery. If you develop symptoms such as a fever, cold, or flu, or have other changes to your health within TWO DAYS of scheduled surgery or the morning of surgery, please contact the surgery center above. Personal Belongings: -Please have photo ID and insurance cards. -If you do not have a copy of advance directives on file with us, please bring a copy with you on the day of surgery. - Leave ALL valuables and money at home or with family members. For Outpatient Procedures: - YOU MUST HAVE A RESPONSIBLE BAG MAKING MACHINE TENDER TAKE YOU HOME. A WELT SLASHER OR BASE WAD OPERATOR ADJUSTER CANNOT BE MADE A RESPONSIBLE BAG MAKING MACHINE TENDER. - We recommend that a responsible person stays with you overnight to take care of you. - You cannot stay in a hotel alone after outpatient surgery. You will not be permitted to have your surgery, if you do not have someone to take care of you. Arrival Time for Surgery: - The Surgery Center or hospital where you are having surgery will call the afternoon before surgery (or Monday for Monday surgery) with a scheduled arrival time. - If you have not heard by 4 pm, please contact the surgery center above. Please be aware that emergency situations arise, which may delay or change your surgical time. If this happens, we will notify you as soon as possible and regret any inconvenience. If you already have an Advance Directive, please fax a copy to [phone] or email to for it to be added to your chart. If you do not have an Advance Directive, you can find the appropriate form and more information at [email or web address]. We recommend that you complete the Advance Directive form found on the website and bring it with you the day of your surgery. It can be witnessed and scanned into your chart that day. Anais Gallardo APRN.CNP documented in this encounter [facility] 06-24-2022 History and physical note Images from the original note were not included. HISTORY AND PHYSICAL EXAMINATION SERVICE DATE: 06/24/2022 SERVICE TIME: 3:42 PM PRIMARY CARE PHYSICIAN: Avni Steele MD REASON FOR VISIT: Harinder Reaves is a 67 year old male who is scheduled for Procedure(s): LAPAROSCOPIC CHOLECYSTECTOMY (N/A) at the request of Dr. Lani Jenkins for consultation. My final recommendation will be communicated back to the requesting physician by way of shared medical record or letter. Subjective The patient has the following: ACTIVE PROBLEM LIST Pure Hypercholesterolemia Gerd (Gastroesophageal Reflux Disease) History of Myocardial Infarction Paroxysmal Atrial Fibrillation (Hcc) Impaired Fasting Glucose Migraine With Aura and Without Status Migrainosus, Not Intractable Bph With Obstruction/Lower Urinary Tract Symptoms Retinal Hemorrhage of Right Eye Phil (Obstructive Sleep Apnea) Pigmentary Glaucoma of Both Eyes, Severe Stage Central Retinal Vein Occlusion With Macular Edema of Right Eye Congenital Hypertrophy of Retinal Pigment Epithelium Presence of Aortocoronary Bypass Graft Non-St Elevation (Nstemi) Myocardial Infarction (Hcc) Ischemic Cardiomyopathy Pvd (Posterior Vitreous Detachment), Both Eyes 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, 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, Severe Stage Status Post Coronary Artery Bypass Graft Idiopathic Polyneuropathy Chronic Systolic Congestive Heart Failure (Hcc) Hypertension Primary Osteoarthritis of Right Hip Acute Respiratory Failure With Hypoxia (Hcc) S/P Hip Replacement, Right Charlie (Acute Kidney Injury) (Hcc) Aspiration Pneumonia (Hcc) Obesity, Class II, Bmi 35-39.9 COVID-19 Immunization Status COVID-19 VACCINE (Series Information) Completed 05/06/2022 Imm Admin: COVID-19 booster vaccine, age 12+ yr, bivalent (PFIZER-BIONTECH) 11/01/2021 Imm Admin: COVID-19 original vaccine, age 12+ yr, monovalent (PFIZER-BIONTECH - CONRAD TOP) 03/18/2021 Imm Admin: COVID-19 original vaccine, age 12+ yr, monovalent (PFIZER-BIONTECH - PURPLE TOP) Only the first 3 history entries have been loaded, but more history exists. CHIEF COMPLAINT: Pre-op exam HPI: Harinder Reaves is a 67 year old seen for PAC due to scheduled above surgery because RUQ pain, chronic. 06/13/2022, Dr. Jenkins HPI: The patient is a 67 year old male who notes RUQ abdominal pain for 5 years He states that it has been worsening for the past year Recent US RUQ abdomen 05/09/2022 reveals gallbladder sludge and hepatic steatosis. He recently underwent EGD/colonoscopy 06/02/2022. No major pathology noted on EGD, he was found to have a < 1 cm tubular adenoma of the sigmoid colon. He wishes to undergo laparoscopic cholecystectomy REVIEW OF SYSTEMS: General: No weight loss, malaise or fevers. Neurological: Positive for: headaches (+migraines, on rx) and peripheral neuropathy. Negative for: cerebral palsy, ALLERGY AND IMMUNOLOGY CHIEF tumor, dementia, multiple sclerosis, paraplegia, Parkinson's disease, seizures, TIA and strokes. Respiratory: Positive for: obstructive sleep apnea and CPAP/BiPAP noncompliant. Negative for: asthma, COPD, pneumonia within 6 weeks, tobacco use and URI < 2 weeks. Cardiovascular: Positive for: anticoagulation therapy (ASA), atrial fibrillation (paroxymal post-op knee surgery), CAD, CHF (hx cardiomyopathy), hyperlipidemia (on rx) and hypertension (on rx) Patient's last office visit with hat presser, [facility], was 06/2020. The following tests and/or procedures were not performed: cardiac stents. Negative for: arrhythmia, chest pain, congenital heart defect, DVT/PE, recent PA, murmur/valvular heart disease, open heart surgery and valve surgery. GI: Positive for: GERD (on rx) Negative for: abdominal pain, dysphagia, esophageal stricture, hepatitis, irritable bowel syndrome, inflammatory bowel disease, liver disease, nausea, pancreatitis, vomiting and ETOH >2 drinks/day. : No history of dysuria, frequency or incontinence, stones or chronic kidney disease. No difficulty urinating, nocturia > 1 time per night or hematuria. Endocrine: No history of diabetes. Has not taken steroids within the past 30 days. No history of endocrinological symptoms or problems. Hematology: Positive for: chronic anti-coagulation/platelet meds. Patient is on anti-coagulation/platelet medication(s): Aspirin. Negative for: anemia, bruises/bleeds easily and transfusion of at least 4 units within 72 hours prior to surgery. Oncology: No history of CA metastasis, chemo within 30 days, or radiotherapy within 90 days. No history of oncological symptoms or problems. Psych: No history of psychiatric symptoms or problems. Musculoskeletal: See HPI. Skin: Negative for lesions, rash and itching. PAST MEDICAL HISTORY Diagnosis Date ASHD (arteriosclerotic heart disease) 09/18/2015 CABG 6 BPH with obstruction/lower urinary tract symptoms 07/20/2016 Carotid artery disease (HCC) 07/27/2017 Ra[facility]l Cataracts, both eyes right>left Central retinal vein occlusion with macular edema of right eye 2017 [facility] Chronic systolic congestive heart failure (HCC) Class 2 severe obesity due to excess calories with serious comorbidity and body mass index (BMI) of 36.0 to 36.9 in adult ([facility]) Combined forms of age-related cataract of both eyes 2018 Congenital hypertrophy of retinal pigment epithelium 2017 [facility] Coronary artery disease 2018 with severe [place] vessel disease Diverticulitis of colon (without mention of hemorrhage)(562.11) Diverticulosis 04/16/2014 GERD (gastroesophageal reflux disease) Gout Hiatal hernia 11/09/2021 High myopia, bilateral Hyperlipidemia Hypertension Impaired fasting glucose 09/22/2015 Ischemic cardiomyopathy Migraine Non-ST elevation myocardial infarction (NSTEMI) ([facility]) 07/27/2017 [facility] PHIL (obstructive sleep apnea) Paroxysmal atrial fibrillation ([facility]) Pigmentary glaucoma of both eyes, moderate stage 2018 [facility] Posterior vitreous detachment of both eyes PVD (posterior vitreous detachment), both eyes 2018 Situational depression 07/20/2016 Status post coronary artery bypass graft 07/27/2017 Raúl PAST SURGICAL HISTORY Procedure Laterality Date CABG (3) VEIN GRAFTS & ARTERIAL GRAFT(S) 09/18/2015 actually 6 vessel CATARACT EXTRACTION W/ INTRAOCULAR LENS IMPLANT HX Left 04/26/2018 COLONOSCOPY 2018 repeat in 5 years COLONOSCOPY 06/02/2022 repeat in 5 years COLONOSCOPY FLX DX W/COLLJ SPEC WHEN PFRMD 10/20/1999 Colonoscopy EGD 06/02/2022 FSTLJ SCLERA GLAUCOMA TRABECULECT AB EXTERNO 09/05/2007 Trabeculecomy 5FU OD INCISION OF EYE, TRABECULECTOMY 2007 LASER TRABECULOPLASTY 03/2017 S BARVELDT GLAUCOMA IMPLANT Left 04/26/2018 TOTAL HIP REPLACEMENT Right 11/11/2020 Right DANIEL TRABECULOPLASTY BY LASER SURGERY 2001,2002,2004 Alt, ou FAMILY HISTORY Problem Relation Age of Onset Heart Father Hypertension Mother Cataract Mother other (Other) Mother spot on lung Cataract Maternal Grandmother Diabetes Paternal Uncle Diabetes Paternal Uncle Social History Tobacco Use Smoking status: Never Smokeless tobacco: Never Vaping Use Vaping Use: Never used Substance Use Topics Alcohol use: No Comment: rarely Drug use: No Prior to Admission medications as of 06/24/22 1436 Medication Sig Last Dose Taking topiramate (TOPAMAX) 25 mg tablet Take 1 tablet by mouth daily at bedtime. Taking Yes omeprazole (PRILOSEC) 40 mg capsule Take 1 capsule by mouth once daily. Taking Yes allopurinol (ZYLOPRIM) 100 mg tablet Take 2 tablets by mouth once daily. For gout. Taking Yes sucralfate (CARAFATE) 1 gram tablet Take 1 tablet by mouth before meals and at bedtime. Taking Yes atorvastatin (LIPITOR) 40 mg tablet Take 40 mg by mouth once daily. Taking Yes latanoprost (XALATAN) 0.005 % ophthalmic solution 1 Drop daily at bedtime. Taking Yes timoloL maleate (TIMOPTIC) 0.5 % ophthalmic solution Use 1 Drop in both eyes twice daily. Taking Yes hydroCHLOROthiazide (HYDRODIURIL, ESIDRIX) 25 mg tablet Take 25 mg by mouth once daily. Taking Yes nitroglycerin sublingual (NITROQUICK) 0.4 mg SL tablet Q5M Taking Yes brimonidine (ALPHAGAN) 0.2 % ophthalmic solution Use 1 Drop in both eyes every 12 hours. Taking Yes aspirin, enteric coated (ASPIRIN, ENTERIC COATED) 81 mg EC tablet Take 1 tablet by mouth once daily. Taking Yes metoprolol tartrate, short acting, (LOPRESSOR) 25 mg tablet Take 1 tablet by mouth twice daily. Taking Yes vitamin e 1,000 unit ORAL capsule Take 1 capsule by mouth once daily. Taking Yes ascorbic acid(VITAMIN C 500 MG SR CAP) Take one(1) tablet daily. Taking Yes No medication comments found. ALLERGIES No Known Allergies Objective PHYSICAL EXAM: General: alert and oriented (x3), healthy appearance and obese. Pertinent negatives noted - not distressed. Skin: normal color, no rash or lesions. HEENT: EOM intact and pupils equal round. Pertinent negatives noted - no carotid bruit. Cardiovascular: regular rate and rhythm, normal S1 and S2, no rub, murmurs, or gallop. Respiratory: normal breath sounds, no wheezes or crackles. No chest wall deformity or tenderness. Abdomen: soft. Pertinent negatives noted - not tender. Extremities: no deformity, no edema or tenderness, no joint swelling or clubbing. Neurological: normal cognition and motor skills. Gait normal. No weakness or sensory deficit. PAIN ASSESSMENT: VITALS: BP 126/72 Pulse 56 Temp (Src) 98.2 (Temporal) Resp 14 Ht 6' 0 (1.83m) Wt 253 lb (114.8kg) SpO2 99% BMI 34.31 kg/(m^2). Diagnostic tests reviewed for today's visit: Lab Value Units Date High Low HB 15.4 g/dL 05/06/2022 17.0 13.0 HCT 46.4 % 05/06/2022 51.0 39.0 WBC 8.56 k/uL 05/06/2022 11.00 3.70 PLT 168 k/uL 05/06/2022 400 150 NA 140 mmol/L 04/28/2022 144 136 K 3.5 mmol/L 04/28/2022 5.1 3.7 GLUC 131 mg/dL 04/28/2022 99 74 BUN 22 mg/dL 04/28/2022 24 9 CREAT 1.14 mg/dL 04/28/2022 1.22 0.73 PTSEC No results within date range. INR No results within date range. APTT No results within date range. ALT 17 U/L 04/28/2022 54 10 AST 22 U/L 04/28/2022 40 14 TBILI 0.8 mg/dL 04/28/2022 1.3 0.2 TSH No results within date range. Lab Value Units Date High Low HCGQT No results within date range. UHCG No results within date range. HCG, BODY* No results within date range. Lab Value Units Date High Low ABORHD No results within date range. ABSCREEN No results within date range. Hemoglobin A1C (%) Date Value 04/28/2022 5.8 11/01/2021 5.9 05/03/2021 6.0 08/27/2020 5.8 10/03/2018 5.5 03/28/2016 6.0 09/22/2015 6.1 No results found for this or any previous visit (from the past 8760 hour(s)). No results found for this or any previous visit (from the past 18792 hour(s)). Assessment Aspiration pneumonia (HCC) Assessment: hx of bilious aspiration in surgery 2020 for hip replacement, intubated at the time, ICU stay with acute respiratory failure and acute kidney injury 11/11/2020 Dr. Easton, Anesthesia Post Anesthesia Patient Status Patient Evaluation: ICU. PACU/ICU Patient Condition: stable. Anticipated Disposition: ICU unplanned admission. Neurological Status: sedated. Pulmonary Status: on mechanical ventilation (invasive ventilation) Airway Control: intubated on mechanical ventilation. Cardiovascular Status: stable. Pain Management: clinically adequate Postoperative Hydration: acceptable. Intraoperative Events: (Aspiration) Post Operative Nausea/Vomiting Status: no significant post operative nausea or vomiting Anesthetic Observations: Recommendation: further care per PACU/ICU/floor team. BPH with obstruction/lower urinary tract symptoms Assessment: no tx currently Chronic systolic congestive heart failure (HCC) Assessment: stable, [facility] has upcoming yearly appt next prior to upcoming surgery. Clearance letter faxed GERD (Gastroesophageal Reflux Disease) Assessment: controlled on rx, hx bilious aspiration pneumonia Hypertension Assessment: controlled on rx Last 14 BP Last 14 Encounter BP Readings: Date: BP: 06/24/2022 126/72 06/13/2022 126/78 06/02/2022 97/57 06/02/2022 123/71 05/20/2022 118/74 05/06/2022 110/72 03/31/2022 128/74 11/01/2021 122/76 10/11/2021 132/82 10/04/2021 142/76 05/03/2021 118/78 03/08/2021 140/82 12/09/2020 142/84 12/07/2020 128/82 Idiopathic polyneuropathy Assessment: hx Ischemic cardiomyopathy Assessment: hx 06/2020 Echo scanned into epic Migraine with aura and without status migrainosus, not intractable Assessment: controlled on rx PHIL (obstructive sleep apnea) Assessment: non-compliant with CPAP Paroxysmal atrial fibrillation (HCC) Assessment: post-op hip surgery, remote hx, no recurrence, daily ASA therapy, following [facility] Dr. Raúl Jones Primary open angle glaucoma (POAG) of right eye, severe stage Assessment: on rx Primary osteoarthritis of right hip Assessment: s/p R DANIEL 10/2020 PURE HYPERCHOLESTEROLEM Assessment: c/w statin [place] Activity Status Index: METS: Climb a flight of stairs or walk up a hill (5.50 METs) DASI Score: 5.5 Patient denies any chest pain or undue shortness of breath with the above physical activity. Clinical Frailty Scale: 3. Well, with treated comorbid disease STOP-Bang Score: Snores loudly Has been observed to stop breathing or choking/gasping during sleep Has or is being treated for high blood pressure Patient over 50 years old Has a large neck Male patient Denies feeling tired, fatigued, or sleepy during the daytime BMI less than or equal to 35 kg/m^2 STOP-Bang Score: 6 [id number] Score: Age: 65-74 Sex: male CHF history: No Hypertension history: Yes Stroke/TIA/thromboembolism history: No Vascular disease history: Yes Diabetes history: No [id number] Score: 3 ARISCAT Score: Age: 51-80 Preoperative SpO2: >=96% Respiratory infection in the last month: No Preoperative anemia: No Surgical incision: upper abdominal Duration of surgery: <2 hrs Emergency procedure: No ARISCAT Score: 18 ASA Class: 3 ANESTHESIA FINDINGS: Intubation History: No history of difficult intubation Significant Anesthesia Considerations: hx bilious aspiration pneumonia during 10/2020 hip replacement surgery, ICU/respiratory failture postop Airway History: No history of difficult airway I - PHYSICAL EVALUATION AIRWAY Patient intubated: No. Tracheostomy tube not present Mallampati: II. TM distance: >3 FB. Neck ROM: full ROM without neurological symptoms. Mouth opening: adequate. Short neck: no. Thick neck: yes [place] present: no DENTAL Dental findings: teeth intact. Dentures, upper: partial. II - ANESTHESIA PLAN ASA Score: 3 Anesthetic Plan: other Anesthetic plan additional comments: *PACC/TCI - anesthesia choice. Beta Jackson Monitoring Plan Post Procedure Analgesic Plan Informed Consent Anesthetic risks, benefits, alternatives, personnel and consent discussed: yes. Patient / Responsible Libertarian agrees to proceed: yes Patient / Surrogate agrees to blood products: blood products not planned Prepared for Surgery: optimally prepared for surgery, pending [see comment]. CONSULTS: Patient does not require consults for optimization at this time Planned Anesthetic: other anesthesia choice The Following Tests/Procedures Have Been Initiated: Orders Placed This Encounter >BMP Standing Status: Future Number of Occurrences: 1 Standing Expiration Date: 08/24/2022 Instructions Given to Patient: Instructions located in the after visit summary. Patient given verbal and written preop instructions and voices comprehension and compliance. SIGNATURE: Anais Gallardo APRN.CNP PATIENT NAME: Harinder Reaves DATE: June 24, 2022 TIME: 2:34 PM PAGER/CONTACT #: documented in this encounter [facility] 06-13-2022 History of Present illness Narrative HISTORY AND PHYSICAL Harinder Reaves 1955 REFERRING PHYSICIAN: Lani Jenkins MD CHIEF COMPLAINT: Follow Up (Colon & EGD) HPI: The patient is a 67 year old male who notes RUQ abdominal pain for 5 years He states that it has been worsening for the past year Recent US RUQ abdomen 05/09/2022 reveals gallbladder sludge and hepatic steatosis. He recently underwent EGD/colonoscopy 06/02/2022. No major pathology noted on EGD, he was found to have a < 1 cm tubular adenoma of the sigmoid colon. He wishes to undergo laparoscopic cholecystectomy PAST MEDICAL HISTORY Diagnosis Date ASHD (arteriosclerotic heart disease) 09/18/2015 CABG 6 BPH with obstruction/lower urinary tract symptoms 07/20/2016 Carotid artery disease (HCC) 07/27/2017 Ra[facility]l Cataracts, both eyes right>left Central retinal vein occlusion with macular edema of right eye 2018 [facility] Chronic systolic congestive heart failure (HCC) Class 2 severe obesity due to excess calories with serious comorbidity and body mass index (BMI) of 36.0 to 36.9 in adult ([facility]) Combined forms of age-related cataract of both eyes 2018 Congenital hypertrophy of retinal pigment epithelium 2018 [facility] Coronary artery disease 2018 with severe [place] vessel disease Diverticulitis of colon (without mention of hemorrhage)(562.11) Diverticulosis 04/16/2014 GERD (gastroesophageal reflux disease) Gout Hiatal hernia 11/09/2021 High myopia, bilateral Hyperlipidemia Hypertension Impaired fasting glucose 09/22/2015 Ischemic cardiomyopathy Migraine Non-ST elevation myocardial infarction (NSTEMI) ([facility]) 07/27/2017 [facility] PHIL (obstructive sleep apnea) Paroxysmal atrial fibrillation ([facility]) Pigmentary glaucoma of both eyes, moderate stage 2018 [facility] Posterior vitreous detachment of both eyes PVD (posterior vitreous detachment), both eyes 2018 Situational depression 07/20/2016 Status post coronary artery bypass graft 07/27/2017 Ra[facility]l PAST SURGICAL HISTORY Procedure Laterality Date CABG (3) VEIN GRAFTS & ARTERIAL GRAFT(S) 09/18/2015 actually 6 vessel CATARACT EXTRACTION W/ INTRAOCULAR LENS IMPLANT HX Left 04/26/2018 COLONOSCOPY 2018 repeat in 5 years COLONOSCOPY 06/02/2022 COLONOSCOPY FLX DX W/COLLJ SPEC WHEN PFRMD 10/20/1999 Colonoscopy EGD 06/02/2022 FSTLJ SCLERA GLAUCOMA TRABECULECT AB EXTERNO 09/05/2007 Trabeculecomy 5FU OD INCISION OF EYE, TRABECULECTOMY 2007 LASER TRABECULOPLASTY 03/2017 S BARVELDT GLAUCOMA IMPLANT Left 04/26/2018 TOTAL HIP REPLACEMENT Right 11/11/2020 Right DANIEL TRABECULOPLASTY BY LASER SURGERY 2001,2002,2004 Alt, ou Current Outpatient Medications Medication Sig topiramate (TOPAMAX) 25 mg tablet Take 1 tablet by mouth daily at bedtime. omeprazole (PRILOSEC) 40 mg capsule Take 1 capsule by mouth once daily. allopurinol (ZYLOPRIM) 100 mg tablet Take 2 tablets by mouth once daily. For gout. sucralfate (CARAFATE) 1 gram tablet Take 1 tablet by mouth before meals and at bedtime. atorvastatin (LIPITOR) 40 mg tablet Take 40 mg by mouth once daily. latanoprost (XALATAN) 0.005 % ophthalmic solution 1 Drop daily at bedtime. timoloL maleate (TIMOPTIC) 0.5 % ophthalmic solution Use 1 Drop in both eyes twice daily. hydroCHLOROthiazide (HYDRODIURIL, ESIDRIX) 25 mg tablet Take 25 mg by mouth once daily. nitroglycerin sublingual (NITROQUICK) 0.4 mg SL tablet Q5M brimonidine (ALPHAGAN) 0.2 % ophthalmic solution Use 1 Drop in both eyes every 12 hours. aspirin, enteric coated (ASPIRIN, ENTERIC COATED) 81 mg EC tablet Take 1 tablet by mouth once daily. metoprolol tartrate, short acting, (LOPRESSOR) 25 mg tablet Take 1 tablet by mouth twice daily. vitamin e 1,000 unit ORAL capsule Take 1 capsule by mouth once daily. ascorbic acid(VITAMIN C 500 MG SR CAP) Take one(1) tablet daily. ALLERGIES: Patient has no known allergies. PERSONAL HISTORY: Social History Tobacco Use Smoking status: Never Smokeless tobacco: Never Vaping Use Vaping Use: Never used Substance Use Topics Alcohol use: No Comment: rarely Drug use: No FAMILY HISTORY Problem Relation Age of Onset Heart Father Hypertension Mother Cataract Mother other (Other) Mother spot on lung Cataract Maternal Grandmother Diabetes Paternal Uncle Diabetes Paternal Uncle REVIEW OF SYMPTOMS: The review of systems data was entered by the nurse and reviewed by me There are no exam notes on file for this visit. PHYSICAL EXAMINATION: General: The patient is 67 year old male, well nourished, well hydrated in no acute distress. The patient is oriented to time, place, and person. VITALS: Blood pressure 126/78, pulse 65, temperature 36.4 C (97.6 F), height 182.9 cm (6'), weight 113.9 kg (251 lb), SpO2 97 %. Body mass index is 34.04 kg/m . Head: Normal cephalic, atraumatic Eyes: pupils are equally round, sclera are clear/anicteric Neck is supple with no tracheal deviation Respiratory: Normal respiratory excursion and pattern. Abdominal exam: benign Extremities: no clubbing, cyanosis or edema. Neuro: non focal Psych: normal mood Assessment IMPRESSION: RUQ abdominal pain, abnormal ultrasound of gallbladder, history of colon polyps PLAN: I have discussed the above with the patient. I have offered laparoscopic cholecystectomy, possible cholangiograms. I have explained the procedure to the patient. I have counseled the patient as to the risks of the procedure, including but not limited to: infection, bleeding, injury to any blood vessels/nerves, scar tissue, injury to any intrabdominal organs, injury to bowel/bladder, injury to the common bile duct/biliary tree, bile leakage, intraabdominal abscess/bleeding, hernias at incisional sites, wound infections, complications of anesthesia, etc. - the patient understands. The patient wishes to proceed. I have answered all questions to the patient s satisfaction and the patient has no further questions. I have confirmed and edited as necessary, the PFSH and ROS obtained by others. . Diagnoses: (R10.11) RUQ abdominal pain (primary encounter diagnosis) (R93.2) Abnormal ultrasound of gallbladder (Z86.010) History of colonic polyps Return to Clinic: The patient will be scheduled for laparoscopic cholecystectomy, possible cholangiograms at [facility] and recall letter generated for surveillance colonoscopy in 5 years. I spent a total of 27 minutes on the date of the service which included preparing to see the patient with review of any pertinent laboratory studies/radiological imaging/medical records, [id number] patient care, obtaining oral medical history from the patient in this encounter, performing a medically appropriate examination, counseling and educating the patient/family/caregiver, and ordering and/or scheduling of medications/tests/procedures, and completing appropriate medical documentation. Lani Jenkins MD documented in this encounter [facility] 06-02-2022 Nurse Note Discharge instructions were reviewed patient and daughter Tiki. Patient and daughter verbalized understanding. No questions or concerns were voiced at this ti\hi. Pt received to pacu asleep. Aroused easily. All treatments and procedures were explained. Pt verbalized understanding. No questions or concerns were voiced at this time. documented in this encounter [facility] 06-02-2022 History and physical note UPDATED HISTORY AND PHYSICAL EXAMINATION SERVICE DATE: 06/02/2022 SERVICE TIME: 7:45 PHYSICAL EXAM MUST BE COMPLETED ON ADMISSION The History and Physical (completed in the past 30 days) has been reviewed and the patient has been examined. The contents accurately reflect the patient's condition with the following additions or revisions since the H&P was completed. Examination indicates no changes. This H&P can be found in the Electronic Medical Record . SIGNATURE: Lani Jenkins MD PATIENT NAME: Harinder Reaves DATE: June 02, 2022 TIME: 7:45 AM Source Note - Lani Jenkins MD - 06/02/2022 8:00 AM EST Images from the original note were not included. HISTORY AND PHYSICAL Harinder Reaves 1955 REFERRING PHYSICIAN: Avni Steele,* CHIEF COMPLAINT: Consult (colonoscopy) HPI: The patient is a 67 year old male referred for endoscopy. Harinder notes a history of colon polyps and is due for surveillance colonoscopy. Patient denies any change in bowel habits, weight changes, blood in stools, black tarry stools or abdominal pain. Denies family history of colon issues. Harinder has undergone prior endoscopy. Most recent colonoscopy 07/05/[address] Jenkins under conscious sedation with removal of two adenomatous polyps, 5 year follow-up recommended. Patient concerned about having conscious sedation again as states his glaucoma seemed to flare up after previous procedure done under conscious sedation. Patient states was told by PCP office to also discuss gallbladder removal at this appointment. Has noted complaints of right-sided abdominal pain over the last couple months, first in lower abdomen but more recently under right ribcage. He denies any particular aggravating or alleviating factors including eating. Pain occasionally occurs when first lying down and is sometimes sharp, sometimes cramping in nature, usually lasts briefly. Patient had right upper quadrant ultrasound performed 05/09/22 which showed gallbladder sludge and mild dilation of the common bile duct. PAST MEDICAL HISTORY Diagnosis Date ASHD (arteriosclerotic heart disease) 09/18/2015 CABG 6 BPH with obstruction/lower urinary tract symptoms 07/20/2016 Carotid artery disease (HCC) 07/27/2017 [facility] Cataracts, both eyes right>left Central retinal vein occlusion with macular edema of right eye 2018 [facility] Chronic systolic congestive heart failure ([facility]) Class 2 severe obesity due to excess calories with serious comorbidity and body mass index (BMI) of 36.0 to 36.9 in adult ([facility]) Combined forms of age-related cataract of both eyes 2018 Congenital hypertrophy of retinal pigment epithelium 2018 [facility] Coronary artery disease 2018 with severe [place] vessel disease Diverticulitis of colon (without mention of hemorrhage)(562.11) Diverticulosis 04/16/2014 GERD (gastroesophageal reflux disease) Gout Hiatal hernia 11/09/2021 High myopia, bilateral Hyperlipidemia Hypertension Impaired fasting glucose 09/22/2015 Ischemic cardiomyopathy Migraine Non-ST elevation myocardial infarction (NSTEMI) ([facility]) 07/27/2017 [facility] PHIL (obstructive sleep apnea) Paroxysmal atrial fibrillation ([facility]) Pigmentary glaucoma of both eyes, moderate stage 2018 [facility] Posterior vitreous detachment of both eyes PVD (posterior vitreous detachment), both eyes 2018 Situational depression 07/20/2016 Status post coronary artery bypass graft 07/27/2017 [facility] PAST SURGICAL HISTORY Procedure Laterality Date CABG (3) VEIN GRAFTS & ARTERIAL GRAFT(S) 09/18/2015 actually 6 vessel CATARACT EXTRACTION W/ INTRAOCULAR LENS IMPLANT HX Left 04/26/2018 COLONOSCOPY 2018 repeat in 5 years COLONOSCOPY FLX DX W/COLLJ SPEC WHEN PFRMD 10/20/1999 Colonoscopy FSTLJ SCLERA GLAUCOMA TRABECULECT AB EXTERNO 09/05/2007 Trabeculecomy 5FU OD INCISION OF EYE, TRABECULECTOMY 2007 LASER TRABECULOPLASTY 03/2017 S BARVELDT GLAUCOMA IMPLANT Left 04/26/2018 TOTAL HIP REPLACEMENT Right 11/11/2020 Right DANIEL TRABECULOPLASTY BY LASER SURGERY 2001,2002,2004 Alt, ou Current Outpatient Medications Medication Sig topiramate (TOPAMAX) 25 mg tablet Take 1 tablet by mouth daily at bedtime. omeprazole (PRILOSEC) 40 mg capsule Take 1 capsule by mouth once daily. allopurinol (ZYLOPRIM) 100 mg tablet Take 2 tablets by mouth once daily. For gout. sucralfate (CARAFATE) 1 gram tablet Take 1 tablet by mouth before meals and at bedtime. atorvastatin (LIPITOR) 40 mg tablet Take 40 mg by mouth once daily. latanoprost (XALATAN) 0.005 % ophthalmic solution 1 Drop daily at bedtime. timoloL maleate (TIMOPTIC) 0.5 % ophthalmic solution Use 1 Drop in both eyes twice daily. hydroCHLOROthiazide (HYDRODIURIL, ESIDRIX) 25 mg tablet Take 25 mg by mouth once daily. nitroglycerin sublingual (NITROQUICK) 0.4 mg SL tablet Q5M brimonidine (ALPHAGAN) 0.2 % ophthalmic solution Use 1 Drop in both eyes every 12 hours. aspirin, enteric coated (ASPIRIN, ENTERIC COATED) 81 mg EC tablet Take 1 tablet by mouth once daily. metoprolol tartrate, short acting, (LOPRESSOR) 25 mg tablet Take 1 tablet by mouth twice daily. vitamin e 1,000 unit ORAL capsule Take 1 capsule by mouth once daily. ascorbic acid(VITAMIN C 500 MG SR CAP) Take one(1) tablet daily. No current facility-administered medications for this visit. ALLERGIES: Patient has no active allergies. PERSONAL HISTORY: Social History Tobacco Use Smoking status: Never Smokeless tobacco: Never Vaping Use Vaping Use: Never used Substance Use Topics Alcohol use: No Comment: rarely Drug use: No FAMILY HISTORY: FAMILY HISTORY Problem Relation Age of Onset Heart Father Hypertension Mother Cataract Mother other (Other) Mother spot on lung Cataract Maternal Grandmother Diabetes Paternal Uncle Diabetes Paternal Uncle REVIEW OF SYMPTOMS: The review of systems data was entered by the nurse and reviewed by hi Nursing Notes: Barb Hartmann RN 05/20/2022 8:41 AM Signed REVIEW OF SYSTEMS: General: The patient denies fatigue, denies weight loss, denies weight gain, denies feeling hot, and denies feelings of cold. Eyes: The patient NOTES glaucoma, NOTES eye injury/surgery, wears glasses or contacts. Ear/Nose/Throat: The patient denies allergies, denies hayfever, denies ear infections, and denies bloody noses. Cardiovascular: The patient denies chest pain, NOTES heart disease, NOTES high blood pressure,denies cardiac stent, NOTES prior heart attack, denies irregular heart beat, denies high cholesterol, denies poor circulation, denies heart failure, other cardiac issues, denies claudication, denies cold feet, denies peripheral arterial stent. Respiratory: The patient denies tuberculosis, denies pneumonia, denies frequent cough, denies pulmonary embolism, denies shortness of breath, and denies coughing up blood. Gastrointestinal: The patient denies difficulty swallowing, NOTES acid reflux, denies ulcers, denies vomiting, denies jaundice/hepatitis, denies gallbladder problems, denies black or tarry stools, denies hemorrhoids, denies bleeding from rectum, denies diverticulitis, denies constipation, denies diarrhea, denies loss of stool control, and denies hernias. Kidney/Bladder: The patient denies kidney stones, denies urine infections, and denies bloody urine. Skin: The patient denies a history of skin cancer, denies bleeding/changing moles, and denies a history of skin rash. Neurologic: The patient denies a history of epilepsy/convulsions, denies headaches, denies head/spinal injuries, and denies stroke/TIA. Psychiatric: The patient denies psychiatric medications, denies depression, and denies voices, denies substance abuse. Endocrine: The patient denies thyroid disorders, denies diabetes, and denies hormonal problems. Hematologic: The patient denies a history of bruising, denies bleeding, and denies anemia, denies blood clots. Infections: The patient denies a history of measles and mumps, denies rheumatic fever, and denies sexually transmitted diseases. Musculoskeletal: The patient denies back pain/injury, denies back problems, denies sciatica, denies knee/foot trouble, denies arthritis, or NOTES gout. When was patient's last Mammogram screening? N/A Last Colonoscopy: 06/2017 Barb Hartmann RN I have confirmed and edited as necessary, the PFSH and ROS obtained by others. Cindy Bajwa PA-C PHYSICAL EXAMINATION: General: The patient is 67 year old male, well nourished, well hydrated in no acute distress. The patient is oriented to time, place, and person. VITALS: Blood pressure 118/74, pulse 64, temperature (!) 35.8 C (96.5 F), height 182.9 cm (6'), weight 113.9 kg (251 lb 3.2 oz), SpO2 99 %. There is no height or weight on file to calculate BMI. HEENT: Normal cephalic, ataumatic, pupils are equally round, sclera are anicteric, mucous membranes are moist, oropharynx is clear. Neck has no masses, asymmetry or lymphadenopathy. Respiratory: Clear to auscultation and percussion. Normal respiratory excursion and pattern. Cardiac: Examination is regular rate and rhythm. Normal S1/S2 Abdominal exam: Soft, +mild TTP RUQ without rebound or guarding, with no palpable masses. No hepatosplenomegaly. No palpable hernias. Extremities: no clubbing, cyanosis or edema. No adenopathy. LABORATORY VALUES: As Noted RADIOLOGIC STUDIES: As Noted Assessment IMPRESSION: history of colon polyps. Upper abdominal and RUQ discomfort. Gallbladder sludge on ultrasound PLAN: I have reviewed my findings with the surgeon. Will plan for upper and lower endoscopy. We discussed the risks and benefits of the planned endoscopy. I have informed the patient that complications can occur including failure to complete the endoscopy and perforation. The patient had the opportunity to ask questions concerning the planned endoscopy. My staff has also explained the procedure to the patient in understandable terms and has given the patient printed material concerning the procedure. The patient freely consents to surgery. The patient was offered a surgery/procedure at a [facility] facility. I have counseled the patient regarding the risk of exposure to and/or potential harm posed by the COVID-19 virus with having a surgery/procedure at this time versus the risk of delaying the surgery/procedure. It is not possible to know either the risk of delaying the surgery or procedure or chance of getting an infection with perfect accuracy, but a joint decision was made between the patient and myself to proceed at this time with endoscopy. I plan to use Golytely bowel preparation We will plan for Monitored Anesthetic Care. Will plan for patient to have follow-up visit with surgeon 1 week after endoscopy to review findings/pathology from those procedures as well as to further discuss with surgeon risks and benefits of possible laparoscopic cholecystectomy at that time Patient verbalized understanding of all above and agreed with the plan. Diagnoses: (Z86.010) History of colonic polyps (primary encounter diagnosis) (R10.11) RUQ abdominal pain (Z12.11) Screening for colon cancer (R10.11) Abdominal discomfort in right upper quadrant (K82.8) Gallbladder sludge Consultation requested by Dr. Steele for an opinion regarding colonoscopy and abdominal pain. My final recommendations will be communicated back to the requesting physician by way of shared Medical record or letter to requesting physician via US mail. Cindy Bajwa PA-C Images from the original note were not included. HISTORY AND PHYSICAL Harinder Reaves 1955 REFERRING PHYSICIAN: Avni Steele,* CHIEF COMPLAINT: Consult (colonoscopy) HPI: The patient is a 67 year old male referred for endoscopy. Harinder notes a history of colon polyps and is due for surveillance colonoscopy. Patient denies any change in bowel habits, weight changes, blood in stools, black tarry stools or abdominal pain. Denies family history of colon issues. Harinder has undergone prior endoscopy. Most recent colonoscopy 07/05/[address] Jenkins under conscious sedation with removal of two adenomatous polyps, 5 year follow-up recommended. Patient concerned about having conscious sedation again as states his glaucoma seemed to flare up after previous procedure done under conscious sedation. Patient states was told by PCP office to also discuss gallbladder removal at this appointment. Has noted complaints of right-sided abdominal pain over the last couple months, first in lower abdomen but more recently under right ribcage. He denies any particular aggravating or alleviating factors including eating. Pain occasionally occurs when first lying down and is sometimes sharp, sometimes cramping in nature, usually lasts briefly. Patient had right upper quadrant ultrasound performed 05/09/22 which showed gallbladder sludge and mild dilation of the common bile duct. PAST MEDICAL HISTORY Diagnosis Date ASHD (arteriosclerotic heart disease) 09/18/2015 CABG 6 BPH with obstruction/lower urinary tract symptoms 07/20/2016 Carotid artery disease (HCC) 07/27/2017 [facility] Cataracts, both eyes right>left Central retinal vein occlusion with macular edema of right eye 2018 [facility] Chronic systolic congestive heart failure (HCC) Class 2 severe obesity due to excess calories with serious comorbidity and body mass index (BMI) of 36.0 to 36.9 in adult ([facility]) Combined forms of age-related cataract of both eyes 2018 Congenital hypertrophy of retinal pigment epithelium 2018 [facility] Coronary artery disease 2018 with severe [place] vessel disease Diverticulitis of colon (without mention of hemorrhage)(562.11) Diverticulosis 04/16/2014 GERD (gastroesophageal reflux disease) Gout Hiatal hernia 11/09/2021 High myopia, bilateral Hyperlipidemia Hypertension Impaired fasting glucose 09/22/2015 Ischemic cardiomyopathy Migraine Non-ST elevation myocardial infarction (NSTEMI) ([facility]) 07/27/2017 [facility] PHIL (obstructive sleep apnea) Paroxysmal atrial fibrillation ([facility]) Pigmentary glaucoma of both eyes, moderate stage 2018 [facility] Posterior vitreous detachment of both eyes PVD (posterior vitreous detachment), both eyes 2018 Situational depression 07/20/2016 Status post coronary artery bypass graft 07/27/2017 [facility] PAST SURGICAL HISTORY Procedure Laterality Date CABG (3) VEIN GRAFTS & ARTERIAL GRAFT(S) 09/18/2015 actually 6 vessel CATARACT EXTRACTION W/ INTRAOCULAR LENS IMPLANT HX Left 04/26/2018 COLONOSCOPY 2018 repeat in 5 years COLONOSCOPY FLX DX W/COLLJ SPEC WHEN PFRMD 10/20/1999 Colonoscopy FSTLJ SCLERA GLAUCOMA TRABECULECT AB EXTERNO 09/05/2007 Trabeculecomy 5FU OD INCISION OF EYE, TRABECULECTOMY 2007 LASER TRABECULOPLASTY 03/2017 S BARVELDT GLAUCOMA IMPLANT Left 04/26/2018 TOTAL HIP REPLACEMENT Right 11/11/2020 Right DANIEL TRABECULOPLASTY BY LASER SURGERY 2001,2002,2004 Alt, ou Current Outpatient Medications Medication Sig topiramate (TOPAMAX) 25 mg tablet Take 1 tablet by mouth daily at bedtime. omeprazole (PRILOSEC) 40 mg capsule Take 1 capsule by mouth once daily. allopurinol (ZYLOPRIM) 100 mg tablet Take 2 tablets by mouth once daily. For gout. sucralfate (CARAFATE) 1 gram tablet Take 1 tablet by mouth before meals and at bedtime. atorvastatin (LIPITOR) 40 mg tablet Take 40 mg by mouth once daily. latanoprost (XALATAN) 0.005 % ophthalmic solution 1 Drop daily at bedtime. timoloL maleate (TIMOPTIC) 0.5 % ophthalmic solution Use 1 Drop in both eyes twice daily. hydroCHLOROthiazide (HYDRODIURIL, ESIDRIX) 25 mg tablet Take 25 mg by mouth once daily. nitroglycerin sublingual (NITROQUICK) 0.4 mg SL tablet Q5M brimonidine (ALPHAGAN) 0.2 % ophthalmic solution Use 1 Drop in both eyes every 12 hours. aspirin, enteric coated (ASPIRIN, ENTERIC COATED) 81 mg EC tablet Take 1 tablet by mouth once daily. metoprolol tartrate, short acting, (LOPRESSOR) 25 mg tablet Take 1 tablet by mouth twice daily. vitamin e 1,000 unit ORAL capsule Take 1 capsule by mouth once daily. ascorbic acid(VITAMIN C 500 MG SR CAP) Take one(1) tablet daily. No current facility-administered medications for this visit. ALLERGIES: Patient has no active allergies. PERSONAL HISTORY: Social History Tobacco Use Smoking status: Never Smokeless tobacco: Never Vaping Use Vaping Use: Never used Substance Use Topics Alcohol use: No Comment: rarely Drug use: No FAMILY HISTORY: FAMILY HISTORY Problem Relation Age of Onset Heart Father Hypertension Mother Cataract Mother other (Other) Mother spot on lung Cataract Maternal Grandmother Diabetes Paternal Uncle Diabetes Paternal Uncle REVIEW OF SYMPTOMS: The review of systems data was entered by the nurse and reviewed by hi Nursing Notes: Barb Hartmann RN 05/20/2022 8:41 AM Signed REVIEW OF SYSTEMS: General: The patient denies fatigue, denies weight loss, denies weight gain, denies feeling hot, and denies feelings of cold. Eyes: The patient NOTES glaucoma, NOTES eye injury/surgery, wears glasses or contacts. Ear/Nose/Throat: The patient denies allergies, denies hayfever, denies ear infections, and denies bloody noses. Cardiovascular: The patient denies chest pain, NOTES heart disease, NOTES high blood pressure,denies cardiac stent, NOTES prior heart attack, denies irregular heart beat, denies high cholesterol, denies poor circulation, denies heart failure, other cardiac issues, denies claudication, denies cold feet, denies peripheral arterial stent. Respiratory: The patient denies tuberculosis, denies pneumonia, denies frequent cough, denies pulmonary embolism, denies shortness of breath, and denies coughing up blood. Gastrointestinal: The patient denies difficulty swallowing, NOTES acid reflux, denies ulcers, denies vomiting, denies jaundice/hepatitis, denies gallbladder problems, denies black or tarry stools, denies hemorrhoids, denies bleeding from rectum, denies diverticulitis, denies constipation, denies diarrhea, denies loss of stool control, and denies hernias. Kidney/Bladder: The patient denies kidney stones, denies urine infections, and denies bloody urine. Skin: The patient denies a history of skin cancer, denies bleeding/changing moles, and denies a history of skin rash. Neurologic: The patient denies a history of epilepsy/convulsions, denies headaches, denies head/spinal injuries, and denies stroke/TIA. Psychiatric: The patient denies psychiatric medications, denies depression, and denies voices, denies substance abuse. Endocrine: The patient denies thyroid disorders, denies diabetes, and denies hormonal problems. Hematologic: The patient denies a history of bruising, denies bleeding, and denies anemia, denies blood clots. Infections: The patient denies a history of measles and mumps, denies rheumatic fever, and denies sexually transmitted diseases. Musculoskeletal: The patient denies back pain/injury, denies back problems, denies sciatica, denies knee/foot trouble, denies arthritis, or NOTES gout. When was patient's last Mammogram screening? N/A Last Colonoscopy: 06/2017 Barb Hartmann RN I have confirmed and edited as necessary, the PFSH and ROS obtained by others. Cindy Bajwa PA-C PHYSICAL EXAMINATION: General: The patient is 67 year old male, well nourished, well hydrated in no acute distress. The patient is oriented to time, place, and person. VITALS: Blood pressure 118/74, pulse 64, temperature (!) 35.8 C (96.5 F), height 182.9 cm (6'), weight 113.9 kg (251 lb 3.2 oz), SpO2 99 %. There is no height or weight on file to calculate BMI. HEENT: Normal cephalic, ataumatic, pupils are equally round, sclera are anicteric, mucous membranes are moist, oropharynx is clear. Neck has no masses, asymmetry or lymphadenopathy. Respiratory: Clear to auscultation and percussion. Normal respiratory excursion and pattern. Cardiac: Examination is regular rate and rhythm. Normal S1/S2 Abdominal exam: Soft, +mild TTP RUQ without rebound or guarding, with no palpable masses. No hepatosplenomegaly. No palpable hernias. Extremities: no clubbing, cyanosis or edema. No adenopathy. LABORATORY VALUES: As Noted RADIOLOGIC STUDIES: As Noted Assessment IMPRESSION: history of colon polyps. Upper abdominal and RUQ discomfort. Gallbladder sludge on ultrasound PLAN: I have reviewed my findings with the surgeon. Will plan for upper and lower endoscopy. We discussed the risks and benefits of the planned endoscopy. I have informed the patient that complications can occur including failure to complete the endoscopy and perforation. The patient had the opportunity to ask questions concerning the planned endoscopy. My staff has also explained the procedure to the patient in understandable terms and has given the patient printed material concerning the procedure. The patient freely consents to surgery. The patient was offered a surgery/procedure at a [facility] facility. I have counseled the patient regarding the risk of exposure to and/or potential harm posed by the COVID-19 virus with having a surgery/procedure at this time versus the risk of delaying the surgery/procedure. It is not possible to know either the risk of delaying the surgery or procedure or chance of getting an infection with perfect accuracy, but a joint decision was made between the patient and myself to proceed at this time with endoscopy. I plan to use Golytely bowel preparation We will plan for Monitored Anesthetic Care. Will plan for patient to have follow-up visit with surgeon 1 week after endoscopy to review findings/pathology from those procedures as well as to further discuss with surgeon risks and benefits of possible laparoscopic cholecystectomy at that time Patient verbalized understanding of all above and agreed with the plan. Diagnoses: (Z86.010) History of colonic polyps (primary encounter diagnosis) (R10.11) RUQ abdominal pain (Z12.11) Screening for colon cancer (R10.11) Abdominal discomfort in right upper quadrant (K82.8) Gallbladder sludge Consultation requested by Dr. Steele for an opinion regarding colonoscopy and abdominal pain. My final recommendations will be communicated back to the requesting physician by way of shared Medical record or letter to requesting physician via [place] mail. Cindy Bajwa PA-C documented in this encounter [facility] 06-02-2022 Surgical operation note BRIEF OPERATIVE NOTE SURGERY DATE: 06/02/2022 Incision/Procedure Start Time: 7:54 cecal intubation time: 8:10 Incision Close/Procedure End Time: 8:38 Surgeon(s)/Proceduralist(s) and Survey And Mapping Technician(s): Gregory Procedures: EGD with biopsies Colonoscopy with cold snare polypectomies Anesthesia: MAC Findings: diverticulosis, hemorrhoids, three sessile colon polyps - < 1 cm - sigmoid colon, poor colon cleansing preparation, hiatal hernia small to medium with sliding component Estimated Blood Loss: minimal Specimens: antral mucosal biopsies of stomach, GE junction biopsy of mucosa, sigmoid polypx Complications: None Preop Diagnosis: history of colon polyps, upper abdominal pain, last colonoscopy 2018 Postop Diagnosis: see findings aboveA SIGNATURE: Lani Jenkins MD PATIENT NAME: Harinder Reaves DATE: June 02, 2022 TIME: 8:40 AM Axcct: [id number] documented in this encounter [facility] 05-20-2022 Miscellaneous Notes 06/02/22 colon/egd lodi Per Cindy schedule patient for 1 week follow up in office with Dr. Jenkins to discuss results and go over possible Lap Rosi. Desiree Antunez Software Project Engineer documented in this encounter [facility] 05-20-2022 History of Present illness Narrative HISTORY AND PHYSICAL Harinder Reaves 1955 REFERRING PHYSICIAN: Avni Steele,* CHIEF COMPLAINT: Consult (colonoscopy) HPI: The patient is a 67 year old male referred for endoscopy. Harinder notes a history of colon polyps and is due for surveillance colonoscopy. Patient denies any change in bowel habits, weight changes, blood in stools, black tarry stools or abdominal pain. Denies family history of colon issues. Harinder has undergone prior endoscopy. Most recent colonoscopy 07/05/[address] Jenkins under conscious sedation with removal of two adenomatous polyps, 5 year follow-up recommended. Patient concerned about having conscious sedation again as states his glaucoma seemed to flare up after previous procedure done under conscious sedation. Patient states was told by PCP office to also discuss gallbladder removal at this appointment. Has noted complaints of right-sided abdominal pain over the last couple months, first in lower abdomen but more recently under right ribcage. He denies any particular aggravating or alleviating factors including eating. Pain occasionally occurs when first lying down and is sometimes sharp, sometimes cramping in nature, usually lasts briefly. Patient had right upper quadrant ultrasound performed 05/09/22 which showed gallbladder sludge and mild dilation of the common bile duct. PAST MEDICAL HISTORY Diagnosis Date ASHD (arteriosclerotic heart disease) 09/18/2015 CABG 6 BPH with obstruction/lower urinary tract symptoms 07/20/2016 Carotid artery disease (HCC) 07/27/2017 [facility] Cataracts, both eyes right>left Central retinal vein occlusion with macular edema of right eye 2018 [facility] Chronic systolic congestive heart failure (HCC) Class 2 severe obesity due to excess calories with serious comorbidity and body mass index (BMI) of 36.0 to 36.9 in adult (HCC) Combined forms of age-related cataract of both eyes 2018 Congenital hypertrophy of retinal pigment epithelium 2018 [facility] Coronary artery disease 2018 with severe [place] vessel disease Diverticulitis of colon (without mention of hemorrhage)(562.11) Diverticulosis 04/16/2014 GERD (gastroesophageal reflux disease) Gout Hiatal hernia 11/09/2021 High myopia, bilateral Hyperlipidemia Hypertension Impaired fasting glucose 09/22/2015 Ischemic cardiomyopathy Migraine Non-ST elevation myocardial infarction (NSTEMI) ([facility]) 07/27/2017 [facility] PHIL (obstructive sleep apnea) Paroxysmal atrial fibrillation ([facility]) Pigmentary glaucoma of both eyes, moderate stage 2017 [facility] Posterior vitreous detachment of both eyes PVD (posterior vitreous detachment), both eyes 2018 Situational depression 07/20/2016 Status post coronary artery bypass graft 07/27/2017 [facility] PAST SURGICAL HISTORY Procedure Laterality Date CABG (3) VEIN GRAFTS & ARTERIAL GRAFT(S) 09/18/2015 actually 6 vessel CATARACT EXTRACTION W/ INTRAOCULAR LENS IMPLANT HX Left 04/26/2018 COLONOSCOPY 2018 repeat in 5 years COLONOSCOPY FLX DX W/COLLJ SPEC WHEN PFRMD 10/20/1999 Colonoscopy FSTLJ SCLERA GLAUCOMA TRABECULECT AB EXTERNO 09/05/2007 Trabeculecomy 5FU OD INCISION OF EYE, TRABECULECTOMY 2007 LASER TRABECULOPLASTY 03/2017 S BARVELDT GLAUCOMA IMPLANT Left 04/26/2018 TOTAL HIP REPLACEMENT Right 11/11/2020 Right DANIEL TRABECULOPLASTY BY LASER SURGERY 2001,2002,2004 Alt, ou Current Outpatient Medications Medication Sig topiramate (TOPAMAX) 25 mg tablet Take 1 tablet by mouth daily at bedtime. omeprazole (PRILOSEC) 40 mg capsule Take 1 capsule by mouth once daily. allopurinol (ZYLOPRIM) 100 mg tablet Take 2 tablets by mouth once daily. For gout. sucralfate (CARAFATE) 1 gram tablet Take 1 tablet by mouth before meals and at bedtime. atorvastatin (LIPITOR) 40 mg tablet Take 40 mg by mouth once daily. latanoprost (XALATAN) 0.005 % ophthalmic solution 1 Drop daily at bedtime. timoloL maleate (TIMOPTIC) 0.5 % ophthalmic solution Use 1 Drop in both eyes twice daily. hydroCHLOROthiazide (HYDRODIURIL, ESIDRIX) 25 mg tablet Take 25 mg by mouth once daily. nitroglycerin sublingual (NITROQUICK) 0.4 mg SL tablet Q5M brimonidine (ALPHAGAN) 0.2 % ophthalmic solution Use 1 Drop in both eyes every 12 hours. aspirin, enteric coated (ASPIRIN, ENTERIC COATED) 81 mg EC tablet Take 1 tablet by mouth once daily. metoprolol tartrate, short acting, (LOPRESSOR) 25 mg tablet Take 1 tablet by mouth twice daily. vitamin e 1,000 unit ORAL capsule Take 1 capsule by mouth once daily. ascorbic acid(VITAMIN C 500 MG SR CAP) Take one(1) tablet daily. No current facility-administered medications for this visit. ALLERGIES: Patient has no active allergies. PERSONAL HISTORY: Social History Tobacco Use Smoking status: Never Smokeless tobacco: Never Vaping Use Vaping Use: Never used Substance Use Topics Alcohol use: No Comment: rarely Drug use: No FAMILY HISTORY: FAMILY HISTORY Problem Relation Age of Onset Heart Father Hypertension Mother Cataract Mother other (Other) Mother spot on lung Cataract Maternal Grandmother Diabetes Paternal Uncle Diabetes Paternal Uncle REVIEW OF SYMPTOMS: The review of systems data was entered by the nurse and reviewed by hi Nursing Notes: Barb Hartmann RN 05/20/2022 8:41 AM Signed REVIEW OF SYSTEMS: General: The patient denies fatigue, denies weight loss, denies weight gain, denies feeling hot, and denies feelings of cold. Eyes: The patient NOTES glaucoma, NOTES eye injury/surgery, wears glasses or contacts. Ear/Nose/Throat: The patient denies allergies, denies hayfever, denies ear infections, and denies bloody noses. Cardiovascular: The patient denies chest pain, NOTES heart disease, NOTES high blood pressure,denies cardiac stent, NOTES prior heart attack, denies irregular heart beat, denies high cholesterol, denies poor circulation, denies heart failure, other cardiac issues, denies claudication, denies cold feet, denies peripheral arterial stent. Respiratory: The patient denies tuberculosis, denies pneumonia, denies frequent cough, denies pulmonary embolism, denies shortness of breath, and denies coughing up blood. Gastrointestinal: The patient denies difficulty swallowing, NOTES acid reflux, denies ulcers, denies vomiting, denies jaundice/hepatitis, denies gallbladder problems, denies black or tarry stools, denies hemorrhoids, denies bleeding from rectum, denies diverticulitis, denies constipation, denies diarrhea, denies loss of stool control, and denies hernias. Kidney/Bladder: The patient denies kidney stones, denies urine infections, and denies bloody urine. Skin: The patient denies a history of skin cancer, denies bleeding/changing moles, and denies a history of skin rash. Neurologic: The patient denies a history of epilepsy/convulsions, denies headaches, denies head/spinal injuries, and denies stroke/TIA. Psychiatric: The patient denies psychiatric medications, denies depression, and denies voices, denies substance abuse. Endocrine: The patient denies thyroid disorders, denies diabetes, and denies hormonal problems. Hematologic: The patient denies a history of bruising, denies bleeding, and denies anemia, denies blood clots. Infections: The patient denies a history of measles and mumps, denies rheumatic fever, and denies sexually transmitted diseases. Musculoskeletal: The patient denies back pain/injury, denies back problems, denies sciatica, denies knee/foot trouble, denies arthritis, or NOTES gout. When was patient's last Mammogram screening? N/A Last Colonoscopy: 06/2017 Barb Hartmann RN I have confirmed and edited as necessary, the PFSH and ROS obtained by others. Cindy Bajwa PA-C PHYSICAL EXAMINATION: General: The patient is 67 year old male, well nourished, well hydrated in no acute distress. The patient is oriented to time, place, and person. VITALS: Blood pressure 118/74, pulse 64, temperature (!) 35.8 C (96.5 F), height 182.9 cm (6'), weight 113.9 kg (251 lb 3.2 oz), SpO2 99 %. There is no height or weight on file to calculate BMI. HEENT: Normal cephalic, ataumatic, pupils are equally round, sclera are anicteric, mucous membranes are moist, oropharynx is clear. Neck has no masses, asymmetry or lymphadenopathy. Respiratory: Clear to auscultation and percussion. Normal respiratory excursion and pattern. Cardiac: Examination is regular rate and rhythm. Normal S1/S2 Abdominal exam: Soft, +mild TTP RUQ without rebound or guarding, with no palpable masses. No hepatosplenomegaly. No palpable hernias. Extremities: no clubbing, cyanosis or edema. No adenopathy. LABORATORY VALUES: As Noted RADIOLOGIC STUDIES: As Noted Assessment IMPRESSION: history of colon polyps. Upper abdominal and RUQ discomfort. Gallbladder sludge on ultrasound PLAN: I have reviewed my findings with the surgeon. Will plan for upper and lower endoscopy. We discussed the risks and benefits of the planned endoscopy. I have informed the patient that complications can occur including failure to complete the endoscopy and perforation. The patient had the opportunity to ask questions concerning the planned endoscopy. My staff has also explained the procedure to the patient in understandable terms and has given the patient printed material concerning the procedure. The patient freely consents to surgery. The patient was offered a surgery/procedure at a [facility] facility. I have counseled the patient regarding the risk of exposure to and/or potential harm posed by the COVID-19 virus with having a surgery/procedure at this time versus the risk of delaying the surgery/procedure. It is not possible to know either the risk of delaying the surgery or procedure or chance of getting an infection with perfect accuracy, but a joint decision was made between the patient and myself to proceed at this time with endoscopy. I plan to use Golytely bowel preparation We will plan for Monitored Anesthetic Care. Will plan for patient to have follow-up visit with surgeon 1 week after endoscopy to review findings/pathology from those procedures as well as to further discuss with surgeon risks and benefits of possible laparoscopic cholecystectomy at that time Patient verbalized understanding of all above and agreed with the plan. Diagnoses: (Z86.010) History of colonic polyps (primary encounter diagnosis) (R10.11) RUQ abdominal pain (Z12.11) Screening for colon cancer (R10.11) Abdominal discomfort in right upper quadrant (K82.8) Gallbladder sludge Consultation requested by Dr. Steele for an opinion regarding colonoscopy and abdominal pain. My final recommendations will be communicated back to the requesting physician by way of shared Medical record or letter to requesting physician via US mail. Cindy Bajwa PA-C documented in this encounter [facility] 05-20-2022 Nurse Note REVIEW OF SYSTEMS: General: The patient denies fatigue, denies weight loss, denies weight gain, denies feeling hot, and denies feelings of cold. Eyes: The patient NOTES glaucoma, NOTES eye injury/surgery, wears glasses or contacts. Ear/Nose/Throat: The patient denies allergies, denies hayfever, denies ear infections, and denies bloody noses. Cardiovascular: The patient denies chest pain, NOTES heart disease, NOTES high blood pressure,denies cardiac stent, NOTES prior heart attack, denies irregular heart beat, denies high cholesterol, denies poor circulation, denies heart failure, other cardiac issues, denies claudication, denies cold feet, denies peripheral arterial stent. Respiratory: The patient denies tuberculosis, denies pneumonia, denies frequent cough, denies pulmonary embolism, denies shortness of breath, and denies coughing up blood. Gastrointestinal: The patient denies difficulty swallowing, NOTES acid reflux, denies ulcers, denies vomiting, denies jaundice/hepatitis, denies gallbladder problems, denies black or tarry stools, denies hemorrhoids, denies bleeding from rectum, denies diverticulitis, denies constipation, denies diarrhea, denies loss of stool control, and denies hernias. Kidney/Bladder: The patient denies kidney stones, denies urine infections, and denies bloody urine. Skin: The patient denies a history of skin cancer, denies bleeding/changing moles, and denies a history of skin rash. Neurologic: The patient denies a history of epilepsy/convulsions, denies headaches, denies head/spinal injuries, and denies stroke/TIA. Psychiatric: The patient denies psychiatric medications, denies depression, and denies voices, denies substance abuse. Endocrine: The patient denies thyroid disorders, denies diabetes, and denies hormonal problems. Hematologic: The patient denies a history of bruising, denies bleeding, and denies anemia, denies blood clots. Infections: The patient denies a history of measles and mumps, denies rheumatic fever, and denies sexually transmitted diseases. Musculoskeletal: The patient denies back pain/injury, denies back problems, denies sciatica, denies knee/foot trouble, denies arthritis, or NOTES gout. When was patient's last Mammogram screening? N/A Last Colonoscopy: 06/2017 Barb Hartmann RN documented in this encounter [facility] 05-09-2022 Miscellaneous Notes Phoned patient and updated him that he should be able to get referral scheduled now. Patient voiced understanding and will call scheduling. Updated. Patient calls and states referral was placed for general surgery. Appointment was unable to be scheduled due to order not having a diagnosis. Patient asking provider to update referral so that he can get this scheduled. Massiel Aguilar RN documented in this encounter [facility] 05-09-2022 History of Present illness Narrative Radiology Service Progress Note PATIENT NAME: Harinder Reaves DATE OF SERVICE: May 09, 2022 TIME: 1:53 PM PATIENT IDENTITY VERIFICATION COMPLETED USING TWO (2) IDENTIFIERS: Name and Date of confirmed by patient verbally. FALL SCREENING: Has the patient had 2 falls in the last year or 1 fall with injury or currently using an Ambulatory Assistive Device (Walker, Cane, Wheelchair, Crutches, etc.)? No PATIENT GENDER DATA: Male PATIENT RELEVANT IMPLANT DATA REVIEWED: Not Applicable RADIOLOGY DEPARTMENT: Ultrasound PERIPHERAL IV DATA: Not applicable SIGNED BY: Sybil Castaneda RDMS RVT May 09, 2022 1:53 PM documented in this encounter [facility] 05-06-2022 History of Present illness Narrative Chief Complaint Patient presents with: Follow Up: 6 month HPI Harinder Reaves is a 67 year old male who presents here today for Above Complaints. Patient still complaining of intermittent RLQ abdominal pain which we discussed in October. From last HPI: Complaining of pain in his RLQ abdomen which started about 6 weeks ago. Described as intermittent sharp pain without radiation, currently 3/10. Exacerbated with lying flat and palpation. Treating with OTC tylenol which reduces his pain. Denies fever/chills, nausea, vomiting, diarrhea, constipation, hematochezia, melena, fall/injury, urinary symptoms. Still has his appendix. Symptoms have not changed since last OV, but states pain is now in RUQ, just below his ribcage. CT scan in October negative for acute cause of his pain. Recommended f/u with surgery for colonoscopy which he is due for in June anyway. Still improved with tylenol. Had Xray at an UC in March which showed constipation. Does not have increased pain with eating fatty foods or fried foods. Does not drink much alcohol. BP well controlled. Patient denies recent flare up of gout symptoms on allopurinol. GERD: controlled with Prilosec 40 mg daily. Takes OTC famotidine every once in a while when he does get heartburn and symptoms improve. Still refusing CPAP for PHIL due to poor eyesight and difficulty caring for his equipment. Notes nocturia 2 times per night which is his norm. Denies weak stream, straining, dysuria, hematuria, incomplete emptying. PSA 1 year ago was 4.5. requesting recheck. Due for colon cancer screening in 2022 Past medical history, appointments, medications, allergies reviewed. Previous Medical History PAST MEDICAL HISTORY Diagnosis Date ASHD (arteriosclerotic heart disease) 09/18/2015 CABG 6 BPH with obstruction/lower urinary tract symptoms 07/20/2016 Carotid artery disease (HCC) 07/27/2017 [facility] Cataracts, both eyes right>left Central retinal vein occlusion with macular edema of right eye 2017 [facility] Chronic systolic congestive heart failure (HCC) Class 2 severe obesity due to excess calories with serious comorbidity and body mass index (BMI) of 36.0 to 36.9 in adult ([facility]) Combined forms of age-related cataract of both eyes 2018 Congenital hypertrophy of retinal pigment epithelium 2018 [facility] Coronary artery disease 2018 with severe [place] vessel disease Diverticulitis of colon (without mention of hemorrhage)(562.11) Diverticulosis 04/16/2014 GERD (gastroesophageal reflux disease) Gout Hiatal hernia 11/09/2021 High myopia, bilateral Hyperlipidemia Hypertension Impaired fasting glucose 09/22/2015 Ischemic cardiomyopathy Migraine Non-ST elevation myocardial infarction (NSTEMI) ([facility]) 07/27/2017 [facility] PHIL (obstructive sleep apnea) Paroxysmal atrial fibrillation ([facility]) Pigmentary glaucoma of both eyes, moderate stage 2017 [facility] Posterior vitreous detachment of both eyes PVD (posterior vitreous detachment), both eyes 2017 Situational depression 07/20/2016 Status post coronary artery bypass graft 07/27/2017 [facility] Previous Surgical History PAST SURGICAL HISTORY Procedure Laterality Date CABG (3) VEIN GRAFTS & ARTERIAL GRAFT(S) 09/18/2015 actually 6 vessel CATARACT EXTRACTION W/ INTRAOCULAR LENS IMPLANT HX Left 04/26/2018 COLONOSCOPY 2018 repeat in 5 years COLONOSCOPY FLX DX W/COLLJ SPEC WHEN PFRMD 10/20/1999 Colonoscopy FSTLJ SCLERA GLAUCOMA TRABECULECT AB EXTERNO 09/05/2007 Trabeculecomy 5FU OD INCISION OF EYE, TRABECULECTOMY 2007 LASER TRABECULOPLASTY 03/2017 S BARVELDT GLAUCOMA IMPLANT Left 04/26/2018 TOTAL HIP REPLACEMENT Right 11/11/2020 Right DANIEL TRABECULOPLASTY BY LASER SURGERY 2001,2002,2004 [place] Family History FAMILY HISTORY Problem Relation Age of Onset Heart Father Hypertension Mother Cataract Mother other (Other) Mother spot on lung Cataract Maternal Grandmother Diabetes Paternal Uncle Diabetes Paternal Uncle Patient Allergies ALLERGIES No Active Allergies Current Medications Current Outpatient Medications on File Prior to Visit Medication Sig topiramate (TOPAMAX) 25 mg tablet Take 1 tablet by mouth daily at bedtime. omeprazole (PRILOSEC) 40 mg capsule Take 1 capsule by mouth once daily. allopurinol (ZYLOPRIM) 100 mg tablet Take 2 tablets by mouth once daily. For gout. sucralfate (CARAFATE) 1 gram tablet Take 1 tablet by mouth before meals and at bedtime. atorvastatin (LIPITOR) 40 mg tablet Take 40 mg by mouth once daily. latanoprost (XALATAN) 0.005 % ophthalmic solution 1 Drop daily at bedtime. timoloL maleate (TIMOPTIC) 0.5 % ophthalmic solution Use 1 Drop in both eyes twice daily. hydroCHLOROthiazide (HYDRODIURIL, ESIDRIX) 25 mg tablet Take 25 mg by mouth once daily. nitroglycerin sublingual (NITROQUICK) 0.4 mg SL tablet Q5M brimonidine (ALPHAGAN) 0.2 % ophthalmic solution Use 1 Drop in both eyes every 12 hours. aspirin, enteric coated (ASPIRIN, ENTERIC COATED) 81 mg EC tablet Take 1 tablet by mouth once daily. metoprolol tartrate, short acting, (LOPRESSOR) 25 mg tablet Take 1 tablet by mouth twice daily. vitamin e 1,000 unit ORAL capsule Take 1 capsule by mouth once daily. ascorbic acid(VITAMIN C 500 MG SR CAP) Take one(1) tablet daily. Benzonatate 200 mg capsule Take 1 capsule by mouth three times daily as needed. No current facility-administered medications on file prior to visit. Social History Social History Tobacco Use Smoking status: Never Smokeless tobacco: Never Vaping Use Vaping Use: Never used Substance Use Topics Alcohol use: No Comment: rarely Drug use: No Review of Symptoms REVIEW OF SYSTEMS GENERAL: No weight loss, malaise or fevers RESPIRATORY: Negative for cough, hemoptysis, wheezing, COPD, dyspnea or shortness of breath CARDIOVASCULAR: Negative for chest pain, leg swelling, hypertension, CHF or palpitations GI: See HPI SKIN: Negative for lesions, rash, and itching EXAM: BP 110/72 Pulse 62 Resp 16 Wt 111.5 kg (245 lb 12.8 oz) SpO2 96% BMI 34.28 kg/m General Appearance: Well appearing, alert, in no acute distress, well-hydrated, well nourished.. Skin: Skin color, texture, turgor normal, no suspicious rashes or lesions. Lungs: Lungs clear to auscultation. No wheezing, rhonchi, rales.. Heart: RRR without murmur, gallop, or rubs. No ectopy. Abdomen: Abdomen soft. Bowel sounds normal. No masses, organomegaly, Negative CVA tenderness, Positive findings: tenderness mild RUQ. Extremities: No deformities, edema, skin discoloration, clubbing or cyanosis. Good capillary refill. . Health Maintenance List SHINGRIX VACCINE(1 of 2) Never done ADVANCE DIRECTIVE DISCUSSION Never done DEPRESSION ASSESSMENT Never done PNEUMOCOCCAL: 65+(2 - PCV) due on 10/29/2021 COVID-19 VACCINE(5 - Booster for Pfizer series) due on 12/27/2021 COLORECTAL CANCER SCREENING due on 07/10/2022 ANNUAL PCP TEAM CHRONIC DISEASE VISIT due on 03/31/2023 BP CONTROLLED (<130/80) due on 03/31/2023 LDL CHOLESTEROL due on 04/28/2023 DIABETES SCREEN due on 04/28/2025 PROSTATE CANCER SCREENING DISCUSSION due on 09/07/2025 DTAP,TDAP,TD(2 - Td or Tdap) due on 11/02/2026 LIPID SCREEN due on 04/28/2027 INFLUENZA Completed HEPATITIS C SCREENING Discontinued Data reviewed Component Latest Ref Rng & Units 04/28/2022 Protein, Total 6.3 - 8.0 g/dL 7.3 Albumin 3.9 - 4.9 g/dL 4.4 Calcium 8.5 - 10.2 mg/dL 9.6 Bilirubin, Total 0.2 - 1.3 mg/dL 0.8 Alkaline Phosphatase 38 - 113 U/L 118 (H) AST 14 - 40 U/L 22 ALT 10 - 54 U/L 17 Glucose 74 - 99 mg/dL 131 (H) BUN 9 - 24 mg/dL 22 Creatinine 0.73 - 1.22 mg/dL 1.14 Sodium 136 - 144 mmol/L 140 Potassium 3.7 - 5.1 mmol/L 3.5 (L) Chloride 97 - 105 mmol/L 104 CO2 22 - 30 mmol/L 23 Anion Gap 9 - 18 mmol/L 13 eGFR >=60 mL/min/1.73m 70 Total Cholesterol, Nonfasting <200 mg/dL 134 Triglycerides, Nonfasting <150 mg/dL 268 (H) HDL Cholesterol, Nonfasting >39 mg/dL 29 (L) LDL Cholesterol, Nonfasting <100 mg/dL 51 Non HDL Cholesterol, Nonfasting <130 mg/dL 105 VLDL Cholesterol, Nonfasting <30 mg/dL 54 (H) Total Chol/HDL Ratio, Nonfasting <5.10 mg/dL 4.62 LDL/HDL Ratio, Nonfasting <2.54 mg/dL 1.76 Hemoglobin A1C 4.3 - 5.6 % 5.8 (H) Estimated Average Glucose mg/dL 120 ASSESSMENT/PLAN: 1. RUQ abdominal pain - ICD9: 789.01, ICD10: R10.11 (primary diagnosis) Patient with persistent pain which is now in RUQ instead of RLQ. Obtain labs and imaging and will refer for colonoscopy for persistent pain. - CONSULT TO GENERAL SURGERY - CBC + DIFF - LIPASE BLD - US ABD RT UPPER QUADRANT 2. Essential hypertension - ICD9: 401.9, ICD10: I10 - good control - Continue current medication(s) - Encouraged dietary sodium restriction/DASH diet - Recommended regular aerobic exercise. - Reviewed risks of HTN and principles of treatment - Goal of BP <130/80 3. Pure hypercholesterolemia - ICD9: 272.0, ICD10: E78.00 Good control 4. Chronic gout without tophus, unspecified cause, unspecified site - ICD9: 274.02, ICD10: [id number].9XX0 Controlled. 5. PHIL (obstructive sleep apnea) - ICD9: 327.23, ICD10: G47.33 Refusing CPAP. Discussed risks and benefits. 6. Prediabetes - ICD9: 790.29, ICD10: R73.03 Improving. Continue to work on low carb diet and exercise. 7. Gastroesophageal reflux disease, unspecified whether esophagitis present - ICD9: 530.81, ICD10: K21.9 - Continue treatment with [id number] mg QD 8. Encounter for immunization - ICD9: V03.89, ICD10: Z23 - PFIZER[employer] COVID-19 BIVALENT BOOSTER VACCINE, AGE 12+ YR - PNEUMOCOCCAL VACCINE (PREVNAR 20) 9. Elevated PSA - ICD9: 790.93, ICD10: R97.20 - PSA/PROSTSPECAG DIAG 10. Screening for colon cancer - ICD9: V76.51, ICD10: Z12.11 - CONSULT TO GENERAL SURGERY Avni Steele MD documented in this encounter [facility] 04-28-2022 Miscellaneous Notes Patient notified of lab orders, verbalizes understanding of instructions. Laura Ibarra LPN Non fasting labs ordered. Pt came in to get lab work done. Said he spoke about doing them before his next appointment when he was seen in March. Orders are not in. If he could be called regarding lab orders at [phone]. documented in this encounter [facility] 03-31-2022 History of Present illness Narrative Chief Complaint Patient presents with: Nasal Congestion: With drainage occasional cough x 10days HPI Harinder Reaves is a 67 year old male who presents here today for Above Complaints. Patient complaining of sinus infection symptoms which started about 10 days ago with productive cough, post nasal drip, nasal congestion, rhinorrhea, frontal sinus pressure bilaterally. In the last couple of days has had some blood with blowing his nose. Treating with tylenol, vicks, OTC cold and flu medication before bed which helps him fall asleep. Denies fever/chills, SOB, wheezing, chest pain, chest congestion, sore throat, ear pain, lymphadenopathy, new loss of taste/smell, nausea, vomiting, myalgias, fatigue. Admits to recent sick contacts. Past medical history, appointments, medications, allergies reviewed. Previous Medical History PAST MEDICAL HISTORY Diagnosis Date ASHD (arteriosclerotic heart disease) 09/18/2015 CABG 6 BPH with obstruction/lower urinary tract symptoms 07/20/2016 Carotid artery disease (HCC) 07/27/2017 [facility] Cataracts, both eyes right>left Central retinal vein occlusion with macular edema of right eye 2018 [facility] Chronic systolic congestive heart failure (HCC) Class 2 severe obesity due to excess calories with serious comorbidity and body mass index (BMI) of 36.0 to 36.9 in adult ([facility]) Combined forms of age-related cataract of both eyes 2018 Congenital hypertrophy of retinal pigment epithelium 2018 [facility] Coronary artery disease 2018 with severe [place] vessel disease Diverticulitis of colon (without mention of hemorrhage)(562.11) Diverticulosis 04/16/2014 GERD (gastroesophageal reflux disease) Gout Hiatal hernia 11/09/2021 High myopia, bilateral Hyperlipidemia Hypertension Impaired fasting glucose 09/22/2015 Ischemic cardiomyopathy Migraine Non-ST elevation myocardial infarction (NSTEMI) ([facility]) 07/27/2017 [facility] PHIL (obstructive sleep apnea) Paroxysmal atrial fibrillation ([facility]) Pigmentary glaucoma of both eyes, moderate stage 2018 [facility] Posterior vitreous detachment of both eyes PVD (posterior vitreous detachment), both eyes 2018 Situational depression 07/20/2016 Status post coronary artery bypass graft 07/27/2017 [facility] Previous Surgical History PAST SURGICAL HISTORY Procedure Laterality Date CABG (3) VEIN GRAFTS & ARTERIAL GRAFT(S) 09/18/2015 actually 6 vessel CATARACT EXTRACTION W/ INTRAOCULAR LENS IMPLANT HX Left 04/26/2018 COLONOSCOPY 2018 repeat in 5 years COLONOSCOPY FLX DX W/COLLJ SPEC WHEN PFRMD 10/20/1999 Colonoscopy FSTLJ SCLERA GLAUCOMA TRABECULECT AB EXTERNO 09/05/2007 Trabeculecomy 5FU OD INCISION OF EYE, TRABECULECTOMY 2007 LASER TRABECULOPLASTY 03/2017 S BARVELDT GLAUCOMA IMPLANT Left 04/26/2018 TOTAL HIP REPLACEMENT Right 11/11/2020 Right DANIEL TRABECULOPLASTY BY LASER SURGERY 2001,2002,2004 [place] Family History FAMILY HISTORY Problem Relation Age of Onset Heart Father Hypertension Mother Cataract Mother other (Other) Mother spot on lung Cataract Maternal Grandmother Diabetes Paternal Uncle Diabetes Paternal Uncle Patient Allergies ALLERGIES Allergen Reactions Penicillins Intolerance PT HAD NOSEBLEED WITH IT CHILD. HAS TAKEN SINCE WITHOUT PROBLEM. Current Medications Current Outpatient Medications on File Prior to Visit Medication Sig topiramate (TOPAMAX) 25 mg tablet Take 1 tablet by mouth daily at bedtime. omeprazole (PRILOSEC) 40 mg capsule Take 1 capsule by mouth once daily. allopurinol (ZYLOPRIM) 100 mg tablet Take 2 tablets by mouth once daily. For gout. sucralfate (CARAFATE) 1 gram tablet Take 1 tablet by mouth before meals and at bedtime. Benzonatate 200 mg capsule Take 1 capsule by mouth three times daily as needed. atorvastatin (LIPITOR) 40 mg tablet Take 40 mg by mouth once daily. latanoprost (XALATAN) 0.005 % ophthalmic solution 1 Drop daily at bedtime. timoloL maleate (TIMOPTIC) 0.5 % ophthalmic solution Use 1 Drop in both eyes twice daily. hydroCHLOROthiazide (HYDRODIURIL, ESIDRIX) 25 mg tablet Take 25 mg by mouth once daily. nitroglycerin sublingual (NITROQUICK) 0.4 mg SL tablet Q5M brimonidine (ALPHAGAN) 0.2 % ophthalmic solution Use 1 Drop in both eyes every 12 hours. aspirin, enteric coated (ASPIRIN, ENTERIC COATED) 81 mg EC tablet Take 1 tablet by mouth once daily. metoprolol tartrate, short acting, (LOPRESSOR) 25 mg tablet Take 1 tablet by mouth twice daily. vitamin e 1,000 unit ORAL capsule Take 1 capsule by mouth once daily. ascorbic acid(VITAMIN C 500 MG SR CAP) Take one(1) tablet daily. No current facility-administered medications on file prior to visit. Social History Social History Tobacco Use Smoking status: Never Smokeless tobacco: Never Vaping Use Vaping Use: Never used Substance Use Topics Alcohol use: No Comment: rarely Drug use: No Review of Symptoms REVIEW OF SYSTEMS See HPI EXAM: BP 128/74 Pulse 71 Temp 36.8 C (98.2 F) Resp 18 SpO2 94% General Appearance: Well appearing, alert, in no acute distress, well-hydrated, well nourished.. Skin: Skin color, texture, turgor normal, no suspicious rashes or lesions. Head: Normocephalic, no masses, lesions, tenderness or abnormalities. Eyes: Anicteric sclera. Pupils are equally round and reactive to light. Extraocular movements are intact. . Ears: External ears normal, canals clear. Nose/Sinuses: Positive findings: sinuses TTP. Neck: Supple, no adenopathy; thyroid symmetric, normal size, no bruits. Lungs: Lungs clear to auscultation. No wheezing, rhonchi, rales.. Heart: RRR without murmur, gallop, or rubs. No ectopy. Health Maintenance List SHINGRIX VACCINE(1 of 2) Never done ADVANCE DIRECTIVE DISCUSSION Never done DEPRESSION ASSESSMENT Never done LDL CHOLESTEROL due on 08/27/2021 PNEUMOCOCCAL: 65+(2 - PCV) due on 10/29/2021 COVID-19 VACCINE(5 - Booster for Pfizer series) due on 12/27/2021 INFLUENZA(1) due on 01/20/2022 COLORECTAL CANCER SCREENING due on 07/10/2022 ANNUAL PCP TEAM CHRONIC DISEASE VISIT due on 11/01/2022 BP CONTROLLED (<130/80) due on 11/01/2022 DIABETES SCREEN due on 11/01/2024 PROSTATE CANCER SCREENING DISCUSSION due on 09/07/2025 LIPID SCREEN due on 05/12/2026 DTAP,TDAP,TD(2 - Td or Tdap) due on 11/02/2026 HEPATITIS C SCREENING Discontinued ASSESSMENT/PLAN: 1. Bacterial sinusitis - ICD9: 473.9, 041.9, ICD10: J32.9, B96.89 (primary diagnosis) - Will begin treatment with Augmentin 875 mg PO BID for 10 days - Supportive care with plenty of fluids, rest, and analgesia prn. - Follow up in one week if symptoms persist or worsen. - AMOXICILLIN 875 MG-POTASSIUM CLAVULANATE 125 MG TABLET 2. Need for influenza vaccination - ICD9: V04.81, ICD10: Z23 - INFLUENZA SEASONAL QUADRIVALENT HIGH DOSE AGE 65+ Avni Steele MD documented in this encounter [facility] 03-31-2022 Miscellaneous Notes Keep appointment today. Patient contacted for further triage. Pt reports his cold symptoms began about a week and a half ago. He had nasal congestion and a cough. He reports his cold symptoms have improved and his cough has lessened and is sparse , but his sinuses have pressure and there is some blood in his nasal drainage when he blows his nose. Some pressure around eyes at times. Does bring up some mucus with his cough at times. States throat feels irritated at times due to sinus drainage. Denies fever, SOB, chest discomfort, body aches, nausea vomiting or diarrhea. He reports he has not been tested for covid. States he is unable to do VV due to poor eye sight and difficulty seeing the buttons on his phone. Appt still scheduled for in-office today-please advise. Informed patient that PCP office would contact him if other advise is recommended, otherwise no call back needed to pt. Thank you. Patient has appointment at 2:40 today with possible COVID symptoms. Needs triaged and if may need switched to virtual if he has not tested for COVID or with symptoms <10 days. documented in this encounter [facility] 03-01-2022 Miscellaneous Notes Patient has been identified by name and date of : Yes Patient phones for refill(s): Requested Prescriptions Pending Prescriptions Disp Refills topiramate (TOPAMAX) 25 mg tablet 30 tablet 5 Sig: Take 1 tablet by mouth daily at bedtime. omeprazole (PRILOSEC) 40 mg capsule 30 capsule 5 Sig: Take 1 capsule by mouth once daily. Date of last office visit in primary care: Last 2 Encounter Wt Readings: Date: Wt: 11/01/2021 117.3 kg (258 lb 9.6 oz) 10/11/2021 118 kg (260 lb 3.2 oz) Previous labs/tests for medication: Not applicable Please advise. Patient only needs called if problem with refilling medication Thank you. Fransisca Mata RN documented in this encounter [facility] 01-10-2022 Miscellaneous Notes Phoned patient and advised RX sent to [facility] sent as requested. Harinder Reaves is calling Avni Steele MD today he is calling because the Allopurinol medication was increased to: Take 2 tablets daily. However, the prescription was not updated and he needs this tomorrow. Please correct and submit the new prescription to [facility]. Patient has been identified by name and birthdate. Duration of symptoms: N/A Person calling: self Call patient at: on cell [phone] (home) [phone] (cell) Was an appointment scheduled: No Closing statement: Results or non-symptom based questions: Thank you for calling [facility], your call will be returned within the next business day. Candace Randolph documented in this encounter [facility] 12-02-2021 Miscellaneous Notes Patient has been identified by name and date of : Yes Pending Prescriptions Disp Refills SUCRALFATE 1 GRAM TABLET 120 tablet 11 Sig: Take 1 tablet by mouth before meals and at bedtime. FRANSICO: No ELENI-11/01/21 Labs-11/01/21 NOV-05/06/22 Med filled 08/31/20 RX INSTRUCTIONS: Please send today, has one left. Patient aware RX will be sent to pharmacy. No need to notify patient. Candace Silveira Pss documented in this encounter [facility] 11-09-2021 History of Present illness Narrative Radiology Service Progress Note DATE OF SERVICE: November 09, 2021 TIME: 1:27 PM PATIENT IDENTITY VERIFICATION COMPLETED USING TWO (2) STANDARD IDENTIFIERS: Name and Date of confirmed by patient verbally. FALL SCREENING: Has the patient had 2 falls in the last year or 1 fall with injury or currently using an Ambulatory Assistive Device (Walker, Cane, Wheelchair, Crutches, etc.)? No PATIENT GENDER DATA: Male PATIENT RELEVANT IMPLANT DATA REVIEWED: Yes ALLERGIES: Reviewed and unchanged CONTRAST ALLERGY: NO. EXAM: CT -CONTRAST INDUCED NEPHROPATHY RISK FACTORS: Patient age > 60 years CREATININE: Creatinine Date Value Ref Range Status 11/01/2021 1.03 0.73 - 1.22 mg/dL Final 05/03/2021 0.99 0.73 - 1.22 mg/dL Final 11/15/2020 0.95 0.73 - 1.22 mg/dL Final Estimated Glomerular Filtration Rate Date Value Ref Range Status 11/01/2021 80 >=60 mL/min/1.73m Final Comment: Estimated Glomerular Filtration Rate (eGFR) is calculated using the 2020 CKD-EPI creatinine equation. This equation utilizes serum creatinine, sex, and age as parameters. The creatinine assay has traceable calibration to isotope dilution-mass spectrometry. Refer to KDIGO guidelines for clinical interpretation. In patients with unstable renal function, e.g. those with acute kidney injury, the eGFR may not accurately reflect actual GFR. eGFR- Date Value Ref Range Status 05/03/2021 >60 Final P.O.C.T. RESULTS: POC done: Yes, See Lab Tab November 09, 2021 TREATMENT: N/A PERIPHERAL IV DATA: Ambulatory: A peripheral IV was started in the Left antecubital site with a Angio cath: 22 gauge. RADIOLOGY DEPARTMENT: CT; Exam(s) Completed: Abdomen/Pelvis SIGNATURE: RT Mirella(R) PATIENT NAME: Harinder Reaves DATE: November 09, 2021 TIME: 1:27 PM documented in this encounter [facility] 11-03-2021 Miscellaneous Notes Patient active MyChart. Patient notified via Kony message. Jelly Kaiser MA Recommend recheck in 3 months and should fast prior. Chantale Miller APRN.KANDY Patient telephoned and made aware of message below. States he was fasting for 15 hours. Fransisca Marsh LPN Please call patient and let him know his A1c has decreased to 5.9% which is good. Continue healthy balanced diet and exercise. Platelets improved but remain decreased and are stable. Alkaline phos mildly elevated- please check and see if patient was fasting. Uric acid in good range- continue the allopurinol. Thanks, Chantale Miller APRN.KANDY documented in this encounter [facility] 11-01-2021 History of Present illness Narrative Chief Complaint Patient presents with: Follow Up: 6 month HPI Harinder Reaves is a 66 year old male who presents here today for Above Complaints. Complaining of pain in his RLQ abdomen which started about 6 weeks ago. Described as intermittent sharp pain without radiation, currently 3/10. Exacerbated with lying flat and palpation. Treating with OTC tylenol which reduces his pain. Denies fever/chills, nausea, vomiting, diarrhea, constipation, hematochezia, melena, fall/injury, urinary symptoms. Still has his appendix. Patient notes that his right calf strain has been waxing and waning since his appointment with David on 10/11. Notes that it flares up after walking long distances or using stairs frequently. Flared up again from stairs this weekend. Has follow up appointment with cardiology in June for history of CAD, a fib, and chronic CHF. Remains asymptomatic on medical management. Has not required nitro since his last OV. Cardiology will consider stress testing at their next OV in 1 year. BP well controlled. Patient denies recent flare up of gout symptoms. Still refusing CPAP for PHIL due to poor eyesight and difficulty caring for his equipment. Past medical history, appointments, medications, allergies reviewed. Previous Medical History PAST MEDICAL HISTORY Diagnosis Date ASHD (arteriosclerotic heart disease) 09/18/2015 CABG 6 BPH with obstruction/lower urinary tract symptoms 07/20/2016 Carotid artery disease (HCC) 07/27/2017 [facility] Cataracts, both eyes right>left Central retinal vein occlusion with macular edema of right eye 2018 [facility] Chronic systolic congestive heart failure (HCC) Class 2 severe obesity due to excess calories with serious comorbidity and body mass index (BMI) of 36.0 to 36.9 in adult ([facility]) Combined forms of age-related cataract of both eyes 2018 Congenital hypertrophy of retinal pigment epithelium 2018 [facility] Coronary artery disease 2018 with severe [place] vessel disease Diverticulitis of colon (without mention of hemorrhage)(562.11) Diverticulosis 04/16/2014 GERD (gastroesophageal reflux disease) Gout High myopia, bilateral Hyperlipidemia Hypertension Impaired fasting glucose 09/22/2015 Ischemic cardiomyopathy Migraine Non-ST elevation myocardial infarction (NSTEMI) ([facility]) 07/27/2017 [facility] PHIL (obstructive sleep apnea) Paroxysmal atrial fibrillation ([facility]) Pigmentary glaucoma of both eyes, moderate stage 2018 [facility] Posterior vitreous detachment of both eyes PVD (posterior vitreous detachment), both eyes 2018 Situational depression 07/20/2016 Status post coronary artery bypass graft 07/27/2017 [facility] Previous Surgical History PAST SURGICAL HISTORY Procedure Laterality Date CABG (3) VEIN GRAFTS & ARTERIAL GRAFT(S) 09/18/2015 actually 6 vessel CATARACT EXTRACTION W/ INTRAOCULAR LENS IMPLANT HX Left 04/26/2018 COLONOSCOPY 2018 repeat in 5 years COLONOSCOPY FLX DX W/COLLJ SPEC WHEN PFRMD 10/20/1999 Colonoscopy FSTLJ SCLERA GLAUCOMA TRABECULECT AB EXTERNO 09/05/2007 Trabeculecomy 5FU OD INCISION OF EYE, TRABECULECTOMY 2007 LASER TRABECULOPLASTY 03/2017 S PIPPAVELDT GLAUCOMA IMPLANT Left 04/26/2018 TOTAL HIP REPLACEMENT Right 11/11/2020 Right DANIEL TRABECULOPLASTY BY LASER SURGERY 2001,2002,2004 Alt, ou Family History FAMILY HISTORY Problem Relation Age of Onset Heart Father Hypertension Mother Cataract Mother other (Other) Mother spot on lung Cataract Maternal Grandmother Diabetes Paternal Uncle Diabetes Paternal Uncle Patient Allergies ALLERGIES Allergen Reactions Penicillins Intolerance PT HAD NOSEBLEED WITH IT CHILD. HAS TAKEN SINCE WITHOUT PROBLEM. Current Medications Current Outpatient Medications on File Prior to Visit Medication Sig Benzonatate 200 mg capsule Take 1 capsule by mouth three times daily as needed. topiramate (TOPAMAX) 25 mg tablet Take 1 tablet by mouth daily at bedtime. omeprazole (PRILOSEC) 40 mg capsule Take 1 capsule by mouth once daily. allopurinol (ZYLOPRIM) 100 mg tablet Take 2 tablets by mouth once daily. For gout. atorvastatin (LIPITOR) 40 mg tablet Take 40 mg by mouth once daily. latanoprost (XALATAN) 0.005 % ophthalmic solution 1 Drop daily at bedtime. timoloL maleate (TIMOPTIC) 0.5 % ophthalmic solution Use 1 Drop in both eyes twice daily. hydroCHLOROthiazide (HYDRODIURIL, ESIDRIX) 25 mg tablet Take 25 mg by mouth once daily. sucralfate (CARAFATE) 1 gram tablet Take 1 tablet by mouth before meals and at bedtime. (Patient taking differently: Take 1 g by mouth before meals and at bedtime. Taking one only at bedtime ) nitroglycerin sublingual (NITROQUICK) 0.4 mg SL tablet Q5M brimonidine (ALPHAGAN) 0.2 % ophthalmic solution Use 1 Drop in both eyes every 12 hours. aspirin, enteric coated (ADULT LOW DOSE ASPIRIN) 81 mg EC tablet Take 1 tablet by mouth once daily. metoprolol tartrate, short acting, (LOPRESSOR) 25 mg tablet Take 1 tablet by mouth twice daily. vitamin e 1,000 unit ORAL capsule Take 1 capsule by mouth once daily. ascorbic acid(VITAMIN C 500 MG SR CAP) Take one(1) tablet daily. No current facility-administered medications on file prior to visit. Social History Social History Tobacco Use Smoking status: Never Smoker Smokeless tobacco: Never Used Vaping Use Vaping Use: Never used Substance Use Topics Alcohol use: No Comment: rarely Drug use: No Review of Symptoms REVIEW OF SYSTEMS GENERAL: No weight loss, malaise or fevers RESPIRATORY: Negative for cough, hemoptysis, wheezing, COPD, dyspnea or shortness of breath CARDIOVASCULAR: Negative for chest pain, leg swelling, hypertension, CHF or palpitations GI: See HPI SKIN: Negative for lesions, rash, and itching EXAM: BP 122/76 Pulse 64 Resp 16 Wt 117.3 kg (258 lb 9.6 oz) SpO2 96% BMI 36.07 kg/m General Appearance: Well appearing, alert, in no acute distress, well-hydrated, well nourished.. Skin: Skin color, texture, turgor normal, no suspicious rashes or lesions. Lungs: Lungs clear to auscultation. No wheezing, rhonchi, rales.. Heart: RRR without murmur, gallop, or rubs. No ectopy. Abdomen: Abdomen soft. Bowel sounds normal. No masses, organomegaly, Negative CVA tenderness, Positive findings: tenderness mild RLQ without guarding or rebound. Extremities: No deformities, edema, skin discoloration, clubbing or cyanosis. Good capillary refill. Musculoskeletal: no TTP over calves bilaterally. Health Maintenance List SHINGRIX VACCINE(1 of 2) Never done BP CONTROLLED (<130/80) due on 10/17/2019 ADVANCE DIRECTIVE DISCUSSION Never done COVID-19 VACCINE(4 - Booster for Pfizer series) due on 07/19/2021 LDL CHOLESTEROL due on 08/27/2021 DEPRESSION SCREENING due on 08/31/2021 PNEUMOCOCCAL: 65+(2 - PCV) due on 10/29/2021 COLORECTAL CANCER SCREENING due on 07/10/2022 ANNUAL PCP TEAM CHRONIC DISEASE VISIT due on 10/11/2022 DIABETES SCREEN due on 05/03/2024 PROSTATE CANCER SCREENING DISCUSSION due on 09/07/2025 LIPID SCREEN due on 05/12/2026 DTAP,TDAP,TD(2 - Td or Tdap) due on 11/02/2026 INFLUENZA Completed HEPATITIS C SCREENING Discontinued Data reviewed Component Latest Ref Rng & Units 05/03/2021 05/12/2021 05/20/2021 WBC 3.70 - 11.00 k/uL 5.65 RBC 4.20 - 6.00 m/uL 5.42 Hemoglobin 13.0 - 17.0 g/dL 15.1 Hematocrit 39.0 - 51.0 % 45.9 MCV 80.0 - 100.0 fL 84.7 MCH 26.0 - 34.0 pG 27.9 MCHC 30.5 - 36.0 g/dL 32.9 RDW-CV 11.5 - 15.0 % 15.8 (H) Platelet Count 150 - 400 k/uL 132 (L) MPV 9.0 - 12.7 fL 11.1 Neut% % 51.7 Abs Neut (ANC) 1.45 - 7.50 k/uL 2.91 Lymph% % 38.6 Abs Lymph 1.00 - 4.00 k/uL 2.18 [place]% % 7.3 Abs [place] <0.87 k/uL 0.41 Eosin% % 1.9 Abs Eosin <0.46 k/uL 0.11 Baso% % 0.5 Abs Baso <0.11 k/uL 0.03 Nucleated Reds 0 /100 WBC 0.0 Absolute nRBC <0.01 k/uL <0.01 Diff Type Auto Diff Protein, Total 6.3 - 8.0 g/dL 7.5 Albumin 3.9 - 4.9 g/dL 4.4 Calcium 8.5 - 10.2 mg/dL 9.6 Bilirubin, Total 0.2 - 1.3 mg/dL 0.8 Alkaline Phosphatase 38 - 113 U/L 126 (H) AST 14 - 40 U/L 20 Glucose 74 - 99 mg/dL 125 (H) BUN 9 - 24 mg/dL 23 Creatinine 0.73 - 1.22 mg/dL 0.99 Sodium 136 - 144 mmol/L 138 Potassium 3.7 - 5.1 mmol/L 3.5 (L) Chloride 97 - 105 mmol/L 102 CO2 22 - 30 mmol/L 23 Anion Gap 9 - 18 mmol/L 13 ALT 10 - 54 U/L 14 eGFR- >60 eGFR-All Other Races . >60 Triglyceride 149 mg/dL 254 (A) Cholesterol, Total 0 - 200 MG/DL 143 HDC-L 41 mg/dL 31 LDL Chol, calculated 130 MG/DL 61 Hemoglobin A1C 4.3 - 5.6 % 6.0 (H) Estimated Average Glucose mg/dL 126 Uric Acid 4.0 - 8.1 mg/dL 7.2 6.5 ASSESSMENT/PLAN: 1. Right lower quadrant abdominal pain - ICD9: 789.03, ICD10: R10.31 (primary diagnosis) Obtain labs and imaging for further workup. Discussed use of OTC analgesics for pain and bland diet. Red flags for re-assessment reviewed with patient in detail. - CBC + DIFF - COMP METABOLIC PANEL - CT ABD/PEL W IVCON - IV CONTRAST (RADIOLOGY PROCEDURE) - ENTERIC CONTRAST (RADIOLOGY PROCEDURE) 2. Strain of calf muscle, right, subsequent encounter - ICD9: V58.89, 844.8, ICD10: S86.811D Intermittent pain persists. Discussed resting leg for 1-2 weeks along with OTC analgesics, ice/heat. If persistent or worsening, will have him call to schedule OV. 3. ASHD (arteriosclerotic heart disease) - ICD9: 414.00, ICD10: I25.10 Asymptomatic on current regimen. Continue recommendations per cardiology and f/u in 1 year. 4. Paroxysmal atrial fibrillation (HCC) - ICD9: 427.31, ICD10: I48.0 Rate controlled. Continue ASA. F/u with cardiology. 5. Essential hypertension - ICD9: 401.9, ICD10: I10 - good control - Continue current medication(s) - Encouraged dietary sodium restriction/DASH diet - Recommended regular aerobic exercise. - Reviewed risks of HTN and principles of treatment - Goal of BP <140/90 6. Pure hypercholesterolemia - ICD9: 272.0, ICD10: E78.00 In good range with LDL <70. Continue current regimen. 7. PHIL (obstructive sleep apnea) - ICD9: 327.23, ICD10: G47.33 Refusing CPAP. Work on weight loss. 8. Prediabetes - ICD9: 790.29, ICD10: R73.03 Recheck labs and continue work on healthy diet and exercise. - HGB A1C 9. Hyperuricemia - ICD9: 790.6, ICD10: E79.0 No recent gout flares. Recheck uric acid level. - URIC ACID BLOOD 10. Need for COVID-19 vaccine - ICD9: V04.89, ICD10: Z23 - [employer] COVID-19 VACCINE, AGE 12+ YR ([facility]) Avni Steele MD documented in this encounter [facility] 10-04-2021 History of Present illness Narrative Images from the original note were not included. 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 Has tried nothing for relief. Symptoms are worsened by walking. Denies numbness/tingling of right lower extremity. Denies cp/sob. .Patient presents with: Calf Pain: right, tightness and swelling x couple days, snapped today going down steps PAST MEDICAL HISTORY Diagnosis Date ASHD (arteriosclerotic heart disease) 09/18/2015 CABG 6 BPH with obstruction/lower urinary tract symptoms 07/20/2016 Carotid artery disease (HCC) 07/27/2017 [facility] Cataracts, both eyes right>left Central retinal vein occlusion with macular edema of right eye 2018 [facility] Chronic systolic congestive heart failure (HCC) Class 2 severe obesity due to excess calories with serious comorbidity and body mass index (BMI) of 36.0 to 36.9 in adult ([facility]) Combined forms of age-related cataract of both eyes 2018 Congenital hypertrophy of retinal pigment epithelium 2018 [facility] Coronary artery disease 2018 with severe [place] vessel disease Diverticulitis of colon (without mention of hemorrhage)(562.11) Diverticulosis 04/16/2014 GERD (gastroesophageal reflux disease) Gout High myopia, bilateral Hyperlipidemia Hypertension Impaired fasting glucose 09/22/2015 Ischemic cardiomyopathy Migraine Non-ST elevation myocardial infarction (NSTEMI) ([facility]) 07/27/2017 [facility] PHIL (obstructive sleep apnea) Paroxysmal atrial fibrillation ([facility]) Pigmentary glaucoma of both eyes, moderate stage 2018 [facility] Posterior vitreous detachment of both eyes PVD (posterior vitreous detachment), both eyes 2018 Situational depression 07/20/2016 Status post coronary artery bypass graft 07/27/2017 [facility] PAST SURGICAL HISTORY Procedure Laterality Date CABG (3) VEIN GRAFTS & ARTERIAL GRAFT(S) 09/18/2015 actually 6 vessel CATARACT EXTRACTION W/ INTRAOCULAR LENS IMPLANT HX Left 04/26/2018 COLONOSCOPY 2018 repeat in 5 years COLONOSCOPY FLX DX W/COLLJ SPEC WHEN PFRMD 10/20/1999 Colonoscopy FSTLJ SCLERA GLAUCOMA TRABECULECT AB EXTERNO 09/05/2007 Trabeculecomy 5FU OD INCISION OF EYE, TRABECULECTOMY 2007 LASER TRABECULOPLASTY 03/2017 S ALFREDODT GLAUCOMA IMPLANT Left 04/26/2018 TOTAL HIP REPLACEMENT Right 11/11/2020 Right DANIEL TRABECULOPLASTY BY LASER SURGERY 2001,2002,2004 Alt, ou ALLERGIES Penicillins MEDICATIONS topiramate (TOPAMAX) 25 mg tablet Take 1 tablet by mouth daily at bedtime. omeprazole (PRILOSEC) 40 mg capsule Take 1 capsule by mouth once daily. allopurinol (ZYLOPRIM) 100 mg tablet Take 2 tablets by mouth once daily. For gout. Benzonatate 200 mg capsule Take 200 mg by mouth three times daily as needed. atorvastatin (LIPITOR) 40 mg tablet Take 40 mg by mouth once daily. latanoprost (XALATAN) 0.005 % ophthalmic solution 1 Drop daily at bedtime. timoloL maleate (TIMOPTIC) 0.5 % ophthalmic solution Use 1 Drop in both eyes twice daily. hydroCHLOROthiazide (HYDRODIURIL, ESIDRIX) 25 mg tablet Take 25 mg by mouth once daily. sucralfate (CARAFATE) 1 gram tablet Take 1 tablet by mouth before meals and at bedtime. nitroglycerin sublingual (NITROQUICK) 0.4 mg SL tablet Q5M brimonidine (ALPHAGAN) 0.2 % ophthalmic solution Use 1 Drop in both eyes every 12 hours. aspirin, enteric coated (ADULT LOW DOSE ASPIRIN) 81 mg EC tablet Take 1 tablet by mouth once daily. metoprolol tartrate, short acting, (LOPRESSOR) 25 mg tablet Take 1 tablet by mouth twice daily. vitamin e 1,000 unit ORAL capsule Take 1 capsule by mouth once daily. ascorbic acid(VITAMIN C 500 MG SR CAP) Take one(1) tablet daily. FAMILY HISTORY Problem Relation Age of Onset Heart Father Hypertension Mother Cataract Mother other (Other) Mother spot on lung Cataract Maternal Grandmother Diabetes Paternal Uncle Diabetes Paternal Uncle Social History Tobacco Use Smoking status: Never Smoker Smokeless tobacco: Never Used Vaping Use Vaping Use: Never used Substance Use Topics Alcohol use: No Comment: rarely Drug use: No ROS Objective Blood pressure 142/76, pulse 74, temperature 37.2 C (98.9 F), resp. rate 16, weight 117.5 kg (259 lb), SpO2 95 %. Physical Exam Constitutional: General: He is not in acute distress. Appearance: He is not toxic-appearing or diaphoretic. HENT: Head: Normocephalic and atraumatic. Cardiovascular: Pulses: Dorsalis pedis pulses are 2+ on the right side. Posterior tibial pulses are 2+ on the right side. Pulmonary: Effort: Pulmonary effort is normal. No accessory muscle usage or respiratory distress. Musculoskeletal: Right knee: Normal. Right lower leg: Tenderness present. No swelling, deformity, lacerations or bony tenderness. No edema. Right ankle: Normal. Legs: Neurological: Mental Status: He is alert and oriented to person, place, and time. ASSESSMENT/PLAN: 1. Strain of calf muscle, right, initial encounter - ICD9: 844.8, ICD10: S86.811A Compression applied Discussed use of tinoco or crutches Will schedule recheck with pcp. Urgent f/u for worsening s/s. Agrees to plan Max Olivo APRN.[employer] documented in this encounter [facility] documented as of this encounter (statuses as of 10/04/2021) [facility]06-23-2021 History of Past illness Narrative* Problem Noted Date Resolved Date Aspiration into airway 11/11/2020 1 Non-compliant patient 10/29/2020 10/29/2020 Medication monitoring encounter 05/18/2018 10/30/2020 Primary open angle glaucoma (POAG) of left eye, severe stage 2018 04/26/2018 Overview: Added automatically from request for surgery [id number] Senile nuclear cataract, left 2018 Overview: Added automatically from request for surgery [id number] Nuclear sclerosis, right 02/14/2018 018 Overview: Added automatically from request for surgery [id number] Left ventricular thrombus 12/08/20172017 Combined forms of age-related cataract of both e yes 07/21/2017 07/04/2018 Bronchitis 05/22/2017 12/08/2017 Situational depression 07/20/2016 8 Thrombus 01/06/2016 12/08/2017 Coronary artery disease invo lving coronary bypass graft of [place] heart without angina pectoris 09/22/2015 11/13/2020 Last Assessment & Plan: Assessment: - History of CABG 2016 -Home atorvastatin 40 mg tablet, ASA 81 mg Plan: - Continue home atorvastatin and ASA 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 12/08/2017 Other specified gastritis 01/26/20052013 documented as of this encounter (statuses as of 11/01/2021) [facility]21 History of Past illness Narrative* Problem Noted Date Resolved Date Aspiration into airway 11/11/2020 Non-compliant patient 10/29/2020 10/29/2020 Medication monitoring encounter 05/18/2018 10/30/2020 Primary open angle glaucoma (POAG) of left eye, severe stage 2018 04/26/2018 Overview: Added automatically from request for surgery [id number] Senile nuclear cataract, left 2018 Overview: Added automatically from request for surgery [id number] Nuclear sclerosis, right 02/14/2018 018 Overview: Added automatically from request for surgery [id number] Left ventricular thrombus 12/08/20172017 Combined forms of age-related cataract of both e yes 07/21/2017 07/04/2018 Bronchitis 05/22/2017 12/08/2017 Situational depression 07/20/2016 8 Thrombus 01/06/2016 12/08/2017 Coronary artery disease invo lving coronary bypass graft of [place] without angina pectoris 09/22/2015 11/13/2020 Last Assessment & Plan: Assessment: - History of CABG 2016 -Home atorvastatin 40 mg tablet, ASA 81 mg Plan: - Continue home atorvastatin and ASA 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 12/08/2017 Other specified gastritis 01/26/20052013 documented as of this encounter (statuses as of 11/03/2021) [facility] History of Past illness Narrative* Problem Noted Date Resolved Date Aspiration into airway 11/11/2020 1 Non-compliant patient 10/29/2020 10/29/2020 Medication monitoring encounter 05/18/2018 10/30/2020 Primary open angle glaucoma (POAG) of left eye, severe stage 2018 04/26/2018 Overview: Added automatically from request for surgery [id number] Senile nuclear cataract, left 2018 Overview: Added automatically from request for surgery [id number] Nuclear sclerosis, right 02/14/201803/08/ 018 Overview: Added automatically from request for surgery [id number] Left ventricular thrombus 12/08/20172017 Combined forms of age-related cataract of both e yes 07/21/2017 07/04/2018 Bronchitis 05/22/2017 12/08/2017 Situational depression 07/20/2016 8 Thrombus 01/06/2016 12/08/2017 Coronary artery disease invo lving coronary bypass graft of [place] without angina pectoris 09/22/2015 11/13/2020 Last Assessment & Plan: Assessment: - History of CABG 2016 -Home atorvastatin 40 mg tablet, ASA 81 mg Plan: - Continue home atorvastatin and ASA 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 12/08/2017 Other specified gastritis 01/26/20052013 documented as of this encounter (statuses as of 11/10/2021) [facility] History of Past illness Narrative* Problem Noted Date Resolved Date Aspiration into airway 11/11/2020 1 Non-compliant patient 10/29/2020 10/29/2020 Medication monitoring encounter 05/18/2018 10/30/2020 Primary open angle glaucoma (POAG) of left eye, severe stage 2018 04/26/2018 Overview: Added automatically from request for surgery [id number] Senile nuclear cataract, left 2018 Overview: Added automatically from request for surgery [id number] Nuclear sclerosis, right 02/14/2018 018 Overview: Added automatically from request for surgery [id number] Left ventricular thrombus 12/08/20172017 Combined forms of age-related cataract of both e yes 07/21/2017 07/04/2018 Bronchitis 05/22/2017 12/08/2017 Situational depression 07/20/2016 8 Thrombus 01/06/2016 12/08/2017 Coronary artery disease invo lving coronary bypass graft of [place] without angina pectoris 09/22/2015 11/13/2020 Last Assessment & Plan: Assessment: - History of CABG 2016 -Home atorvastatin 40 mg tablet, ASA 81 mg Plan: - Continue home atorvastatin and ASA 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 12/08/2017 Other specified gastritis 01/26/20052013 documented as of this encounter (statuses as of 11/10/2021) [facility] History of Past illness Narrative* Problem Noted Date Resolved Date Aspiration into airway 11/11/2020 Non-compliant patient 10/29/2020 10/29/2020 Medication monitoring encounter 05/18/2018 10/30/2020 Primary open angle glaucoma (POAG) of left eye, severe stage 2018 04/26/2018 Overview: Added automatically from request for surgery [id number] Senile nuclear cataract, left 2018 Overview: Added automatically from request for surgery [id number] Nuclear sclerosis, right 02/14/2018 018 Overview: Added automatically from request for surgery [id number] Left ventricular thrombus 12/08/20172017 Combined forms of age-related cataract of both e yes 07/21/2017 07/04/2018 Bronchitis 05/22/2017 12/08/2017 Situational depression 07/20/2016 8 Thrombus 01/06/2016 12/08/2017 Coronary artery disease invo lving coronary bypass graft of [place] without angina pectoris 09/22/2015 11/13/2020 Last Assessment & Plan: Assessment: - History of CABG 2016 -Home atorvastatin 40 mg tablet, ASA 81 mg Plan: - Continue home atorvastatin and ASA 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 12/08/2017 Other specified gastritis 01/26/20052013 documented as of this encounter (statuses as of 12/30/2021) [facility] History of Past illness Narrative* Problem Noted Date Resolved Date Aspiration into airway 11/11/2020 Non-compliant patient 10/29/2020 10/29/2020 Medication monitoring encounter 05/18/2018 10/30/2020 Primary open angle glaucoma (POAG) of left eye, severe stage 2018 04/26/2018 Overview: Added automatically from request for surgery [id number] Senile nuclear cataract, left 2018 Overview: Added automatically from request for surgery [id number] Nuclear sclerosis, right 02/14/201803/08/ 018 Overview: Added automatically from request for surgery [id number] Left ventricular thrombus 12/08/20172017 Combined forms of age-related cataract of both e yes 07/21/2017 07/04/2018 Bronchitis 05/22/2017 12/08/2017 Situational depression 07/20/2016 03/201 8 Thrombus 01/06/2016 12/08/2017 Coronary artery disease invo lving coronary bypass graft of [place] without angina pectoris 09/22/2015 11/13/2020 Last Assessment & Plan: Assessment: - History of CABG 2016 -Home atorvastatin 40 mg tablet, ASA 81 mg Plan: - Continue home atorvastatin and ASA 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 12/08/2017 Other specified gastritis 01/26/20052013 documented as of this encounter (statuses as of 01/29/2022) [facility] History of Past illness Narrative* Problem Noted Date Resolved Date Aspiration into airway 11/11/2020 1 Non-compliant patient 10/29/2020 10/29/2020 Medication monitoring encounter 05/18/2018 10/30/2020 Primary open angle glaucoma (POAG) of left eye, severe stage 2018 04/26/2018 Overview: Added automatically from request for surgery [id number] Senile nuclear cataract, left 2018 Overview: Added automatically from request for surgery [id number] Nuclear sclerosis, right 02/14/2018 018 Overview: Added automatically from request for surgery [id number] Left ventricular thrombus 12/08/20172017 Combined forms of age-related cataract of both e yes 07/21/2017 07/04/2018 Bronchitis 05/22/2017 12/08/2017 Situational depression 07/20/2016 8 Thrombus 01/06/2016 12/08/2017 Coronary artery disease invo lving coronary bypass graft of [place] without angina pectoris 09/22/2015 11/13/2020 Last Assessment & Plan: Assessment: - History of CABG 2015 -Home atorvastatin 40 mg tablet, ASA 81 mg Plan: - Continue home atorvastatin and ASA 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 12/08/2017 Other specified gastritis 01/26/20052013 documented as of this encounter (statuses as of 03/01/2022) [facility] History of Past illness Narrative* Problem Noted Date Resolved Date Aspiration into airway 11/11/2020 1 Non-compliant patient 10/29/2020 10/29/2020 Medication monitoring encounter 05/18/2018 10/30/2020 Primary open angle glaucoma (POAG) of left eye, severe stage 2018 04/26/2018 Overview: Added automatically from request for surgery [id number] Senile nuclear cataract, left 2018 Overview: Added automatically from request for surgery [id number] Nuclear sclerosis, right 02/14/2018 018 Overview: Added automatically from request for surgery [id number] Left ventricular thrombus 12/08/20172017 Combined forms of age-related cataract of both e yes 07/21/2017 07/04/2018 Bronchitis 05/22/2017 12/08/2017 Situational depression 07/20/2016 8 Thrombus 01/06/2016 12/08/2017 Coronary artery disease invo lving coronary bypass graft of [place] without angina pectoris 09/22/2015 11/13/2020 Last Assessment & Plan: Assessment: - History of CABG 2016 -Home atorvastatin 40 mg tablet, ASA 81 mg Plan: - Continue home atorvastatin and ASA 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 12/08/2017 Other specified gastritis 01/26/20052013 documented as of this encounter (statuses as of 04/02/2022) [facility] History of Past illness Narrative* Problem Noted Date Resolved Date Aspiration into airway 11/11/2020 1 Non-compliant patient 10/29/2020 10/29/2020 Medication monitoring encounter 05/18/2018 10/30/2020 Primary open angle glaucoma (POAG) of left eye, severe stage 2018 04/26/2018 Overview: Added automatically from request for surgery [id number] Senile nuclear cataract, left 2018 Overview: Added automatically from request for surgery [id number] Nuclear sclerosis, right 02/14/2018 018 Overview: Added automatically from request for surgery [id number] Left ventricular thrombus 12/08/20172017 Combined forms of age-related cataract of both e yes 07/21/2017 07/04/2018 Bronchitis 05/22/2017 12/08/2017 Situational depression 07/20/2016 8 Thrombus 01/06/2016 12/08/2017 Coronary artery disease invo lving coronary bypass graft of [place] without angina pectoris 09/22/2015 11/13/2020 Last Assessment & Plan: Assessment: - History of CABG 2016 -Home atorvastatin 40 mg tablet, ASA 81 mg Plan: - Continue home atorvastatin and ASA 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 12/08/2017 Other specified gastritis 01/26/20052013 documented as of this encounter (statuses as of 05/07/2022) [facility] History of Past illness Narrative* Problem Noted Date Resolved Date Aspiration into airway 11/11/2020 1 Non-compliant patient 10/29/2020 10/29/2020 Medication monitoring encounter 05/18/2018 10/30/2020 Primary open angle glaucoma (POAG) of left eye, severe stage 2018 04/26/2018 Overview: Added automatically from request for surgery [id number] Senile nuclear cataract, left 2018 Overview: Added automatically from request for surgery [id number] Nuclear sclerosis, right 02/14/2018 018 Overview: Added automatically from request for surgery [id number] Left ventricular thrombus 12/08/20172017 Combined forms of age-related cataract of both e yes 07/21/2017 07/04/2018 Bronchitis 05/22/2017 12/08/2017 Situational depression 07/20/2016 8 Thrombus 01/06/2016 12/08/2017 Coronary artery disease invo lving coronary bypass graft of [place] without angina pectoris 09/22/2015 11/13/2020 Last Assessment & Plan: Assessment: - History of CABG 2016 -Home atorvastatin 40 mg tablet, ASA 81 mg Plan: - Continue home atorvastatin and ASA 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 12/08/2017 Other specified gastritis 01/26/20052013 documented as of this encounter (statuses as of 05/09/2022) [facility] History of Past illness Narrative* Problem Noted Date Resolved Date Aspiration into airway 11/11/2020 1 Non-compliant patient 10/29/2020 10/29/2020 Medication monitoring encounter 05/18/2018 10/30/2020 Primary open angle glaucoma (POAG) of left eye, severe stage 2018 04/26/2018 Overview: Added automatically from request for surgery [id number] Senile nuclear cataract, left 2018 Overview: Added automatically from request for surgery [id number] Nuclear sclerosis, right 02/14/2018 018 Overview: Added automatically from request for surgery [id number] Left ventricular thrombus 12/08/20172017 Combined forms of age-related cataract of both e yes 07/21/2017 07/04/2018 Bronchitis 05/22/2017 12/08/2017 Situational depression 07/20/2016 8 Thrombus 01/06/2016 12/08/2017 Coronary artery disease invo lving coronary bypass graft of [place] without angina pectoris 09/22/2015 11/13/2020 Last Assessment & Plan: Assessment: - History of CABG 2016 -Home atorvastatin 40 mg tablet, ASA 81 mg Plan: - Continue home atorvastatin and ASA 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 12/08/2017 Other specified gastritis 01/26/20052013 documented as of this encounter (statuses as of 05/09/2022) [facility] History of Past illness Narrative* Problem Noted Date Resolved Date Aspiration into airway 11/11/2020 1 Non-compliant patient 10/29/2020 10/29/2020 Medication monitoring encounter 05/18/2018 10/30/2020 Primary open angle glaucoma (POAG) of left eye, severe stage 2018 04/26/2018 Overview: Added automatically from request for surgery [id number] Senile nuclear cataract, left 2018 Overview: Added automatically from request for surgery [id number] Nuclear sclerosis, right 02/14/2018 018 Overview: Added automatically from request for surgery [id number] Left ventricular thrombus 12/08/20172017 Combined forms of age-related cataract of both e yes 07/21/2017 07/04/2018 Bronchitis 05/22/2017 12/08/2017 Situational depression 07/20/2016 8 Thrombus 01/06/2016 12/08/2017 Coronary artery disease invo lving coronary bypass graft of [place] without angina pectoris 09/22/2015 11/13/2020 Last Assessment & Plan: Assessment: - History of CABG 2016 -Home atorvastatin 40 mg tablet, ASA 81 mg Plan: - Continue home atorvastatin and ASA 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 12/08/2017 Other specified gastritis 01/26/20052013 documented as of this encounter (statuses as of 05/25/2022) [facility] History of Past illness Narrative* Problem Noted Date Resolved Date Aspiration into airway 11/11/2020 1 Non-compliant patient 10/29/2020 10/29/2020 Medication monitoring encounter 05/18/2018 10/30/2020 Primary open angle glaucoma (POAG) of left eye, severe stage 2018 04/26/2018 Overview: Added automatically from request for surgery [id number] Senile nuclear cataract, left 2018 Overview: Added automatically from request for surgery [id number] Nuclear sclerosis, right 02/14/2018 018 Overview: Added automatically from request for surgery [id number] Left ventricular thrombus 12/08/20172017 Combined forms of age-related cataract of both e yes 07/21/2017 07/04/2018 Bronchitis 05/22/2017 12/08/2017 Situational depression 07/20/2016 8 Thrombus 01/06/2016 12/08/2017 Coronary artery disease invo lving coronary bypass graft of [place] without angina pectoris 09/22/2015 11/13/2020 Last Assessment & Plan: Assessment: - History of CABG 2016 -Home atorvastatin 40 mg tablet, ASA 81 mg Plan: - Continue home atorvastatin and ASA 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 12/08/2017 Other specified gastritis 01/26/20052013 documented as of this encounter (statuses as of 06/03/2022) [facility] History of Past illness Narrative* Problem Noted Date Resolved Date Aspiration into airway 11/11/2020 1 Non-compliant patient 10/29/2020 10/29/2020 Medication monitoring encounter 05/18/2018 10/30/2020 Primary open angle glaucoma (POAG) of left eye, severe stage 2018 04/26/2018 Overview: Added automatically from request for surgery [id number] Senile nuclear cataract, left 2018 Overview: Added automatically from request for surgery [id number] Nuclear sclerosis, right 02/14/2018 018 Overview: Added automatically from request for surgery [id number] Left ventricular thrombus 12/08/20172017 Combined forms of age-related cataract of both e yes 07/21/2017 07/04/2018 Bronchitis 05/22/2017 12/08/2017 Situational depression 07/20/2016 03/ 8 Thrombus 01/06/2016 12/08/2017 Coronary artery disease invo lving coronary bypass graft of [place] without angina pectoris 09/22/2015 11/13/2020 Last Assessment & Plan: Assessment: - History of CABG 2016 -Home atorvastatin 40 mg tablet, ASA 81 mg Plan: - Continue home atorvastatin and ASA 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 12/08/2017 Other specified gastritis 01/26/20052013 documented as of this encounter (statuses as of 06/13/2022) [facility] History of Past illness Narrative* Problem Noted Date Resolved Date Aspiration into airway 11/11/2020 1 Non-compliant patient 10/29/2020 10/29/2020 Medication monitoring encounter 05/18/2018 10/30/2020 Primary open angle glaucoma (POAG) of left eye, severe stage 2018 04/26/2018 Overview: Added automatically from request for surgery [id number] Senile nuclear cataract, left 2018 Overview: Added automatically from request for surgery [id number] Nuclear sclerosis, right 02/14/2018 018 Overview: Added automatically from request for surgery [id number] Left ventricular thrombus 12/08/20172017 Combined forms of age-related cataract of both e yes 07/21/2017 07/04/2018 Bronchitis 05/22/2017 12/08/2017 Situational depression 07/20/2016 8 Thrombus 01/06/2016 12/08/2017 Coronary artery disease invo lving coronary bypass graft of [place] without angina pectoris 09/22/2015 11/13/2020 Last Assessment & Plan: Assessment: - History of CABG 2016 -Home atorvastatin 40 mg tablet, ASA 81 mg Plan: - Continue home atorvastatin and ASA 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 12/08/2017 Other specified gastritis 01/26/20052013 documented as of this encounter (statuses as of 06/14/2022) [facility] History of Past illness Narrative* Problem Noted Date Resolved Date Aspiration into airway 11/11/2020 Non-compliant patient 10/29/2020 10/29/2020 Medication monitoring encounter 05/18/2018 10/30/2020 Primary open angle glaucoma (POAG) of left eye, severe stage 2018 04/26/2018 Overview: Added automatically from request for surgery [id number] Senile nuclear cataract, left 2018 Overview: Added automatically from request for surgery [id number] Nuclear sclerosis, right 02/14/2018 018 Overview: Added automatically from request for surgery [id number] Left ventricular thrombus 12/08/20172017 Combined forms of age-related cataract of both e yes 07/21/2017 07/04/2018 Bronchitis 05/22/2017 12/08/2017 Situational depression 07/20/2016 8 Thrombus 01/06/2016 12/08/2017 Coronary artery disease invo lving coronary bypass graft of [place] without angina pectoris 09/22/2015 11/13/2020 Last Assessment & Plan: Assessment: - History of CABG 2016 -Home atorvastatin 40 mg tablet, ASA 81 mg Plan: - Continue home atorvastatin and ASA 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 12/08/2017 Other specified gastritis 01/26/20052013 documented as of this encounter (statuses as of 06/15/2022) [facility] History of Past illness Narrative* Problem Noted Date Resolved Date Aspiration into airway 11/11/2020 Non-compliant patient 10/29/2020 10/29/2020 Medication monitoring encounter 05/18/2018 10/30/2020 Primary open angle glaucoma (POAG) of left eye, severe stage 2018 04/26/2018 Overview: Added automatically from request for surgery [id number] Senile nuclear cataract, left 2018 Overview: Added automatically from request for surgery [id number] Nuclear sclerosis, right 02/14/2018 018 Overview: Added automatically from request for surgery [id number] Left ventricular thrombus 12/08/20172017 Combined forms of age-related cataract of both e yes 07/21/2017 07/04/2018 Bronchitis 05/22/2017 12/08/2017 Situational depression 07/20/2016 8 Thrombus 01/06/2016 12/08/2017 Coronary artery disease invo lving coronary bypass graft of [place] without angina pectoris 09/22/2015 11/13/2020 Last Assessment & Plan: Assessment: - History of CABG 2016 -Home atorvastatin 40 mg tablet, ASA 81 mg Plan: - Continue home atorvastatin and ASA 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 12/08/2017 Other specified gastritis 01/26/20052013 documented as of this encounter (statuses as of 06/24/2022) [facility] History of Past illness Narrative* Problem Noted Date Resolved Date Aspiration into airway 11/11/2020 1 Non-compliant patient 10/29/2020 10/29/2020 Medication monitoring encounter 05/18/2018 10/30/2020 Primary open angle glaucoma (POAG) of left eye, severe stage 2018 04/26/2018 Overview: Added automatically from request for surgery [id number] Senile nuclear cataract, left 2018 Overview: Added automatically from request for surgery [id number] Nuclear sclerosis, right 02/14/2018 018 Overview: Added automatically from request for surgery [id number] Left ventricular thrombus 12/08/20172017 Combined forms of age-related cataract of both e yes 07/21/2017 07/04/2018 Bronchitis 05/22/2017 12/08/2017 Situational depression 07/20/2016 8 Thrombus 01/06/2016 12/08/2017 Coronary artery disease invo lving coronary bypass graft of [place] without angina pectoris 09/22/2015 11/13/2020 Last Assessment & Plan: Assessment: - History of CABG 2016 -Home atorvastatin 40 mg tablet, ASA 81 mg Plan: - Continue home atorvastatin and ASA 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 12/08/2017 Other specified gastritis 01/26/20052013 documented as of this encounter (statuses as of 07/13/2022) [facility] History of Past illness Narrative* Problem Noted Date Resolved Date Aspiration into airway 11/11/2020 1 Non-compliant patient 10/29/2020 10/29/2020 Medication monitoring encounter 05/18/2018 10/30/2020 Primary open angle glaucoma (POAG) of left eye, severe stage 2018 04/26/2018 Overview: Added automatically from request for surgery [id number] Senile nuclear cataract, left 2018 Overview: Added automatically from request for surgery [id number] Nuclear sclerosis, right 02/14/2018 018 Overview: Added automatically from request for surgery [id number] Left ventricular thrombus 12/08/20172017 Combined forms of age-related cataract of both e yes 07/21/2017 07/04/2018 Bronchitis 05/22/2017 12/08/2017 Situational depression 07/20/2016 8 Thrombus 01/06/2016 12/08/2017 Coronary artery disease invo lving coronary bypass graft of [place] without angina pectoris 09/22/2015 11/13/2020 Last Assessment & Plan: Assessment: - History of CABG 2015 -Home atorvastatin 40 mg tablet, ASA 81 mg Plan: - Continue home atorvastatin and ASA 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 12/08/2017 Other specified gastritis 01/26/20052013 documented as of this encounter (statuses as of 07/29/2022) [facility] History of Past illness Narrative* Problem Noted Date Resolved Date Aspiration into airway 11/11/2020 Non-compliant patient 10/29/2020 10/29/2020 Medication monitoring encounter 05/18/2018 10/30/2020 Primary open angle glaucoma (POAG) of left eye, severe stage 2018 04/26/2018 Overview: Added automatically from request for surgery [id number] Senile nuclear cataract, left 2018 Overview: Added automatically from request for surgery [id number] Nuclear sclerosis, right 02/14/2018 018 Overview: Added automatically from request for surgery [id number] Left ventricular thrombus 12/08/20172017 Combined forms of age-related cataract of both e yes 07/21/2017 07/04/2018 Bronchitis 05/22/2017 12/08/2017 Situational depression 07/20/2016 8 Thrombus 01/06/2016 12/08/2017 Coronary artery disease invo lving coronary bypass graft of [place] without angina pectoris 09/22/2015 11/13/2020 Last Assessment & Plan: Assessment: - History of CABG 2016 -Home atorvastatin 40 mg tablet, ASA 81 mg Plan: - Continue home atorvastatin and ASA 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 Intubated at that time -Extubated yesterday 11/12 -CXR 11/11 Multifocal airspace opacities throughout the LEFT lung likely secondary to combination of pneumonia/aspiration and atelectasis -CXR 11/12 showed improvement. -WBC trending down, currently 8.25 - Procalcitonin 0.21 - Afebrile - Denies SOB, endorses dry cough -Currently maintaining saturations on RA - Left Upper and lower lobe rhonchi throughout Plan: -Continue Unasyn for Aspiration PNA - Incentive Spirometry ordered -Yfnon Connie PRN TID -Trend labs - Continuous SpO2 monitoring - Supplemental O2 PRN Non-compliant patient 10/29/2020 10/29/2020 Medication monitoring encounter 05/18/2018 10/30/2020 Primary open angle glaucoma (POAG) of left eye, severe stage 2018 04/26/2018 Overview: Added automatically from request for surgery [id number] Senile nuclear cataract, left 2018 Overview: Added automatically from request for surgery [id number] Nuclear sclerosis, right 02/14/2018 018 Overview: Added automatically from request for surgery [id number] Left ventricular thrombus 12/08/20172017 Combined forms of age-related cataract of both e yes 07/21/2017 07/04/2018 Bronchitis 05/22/2017 12/08/2017 Situational depression 07/20/2016 8 Thrombus 01/06/2016 12/08/2017 Coronary artery disease invo lving coronary bypass graft of [place] heart without angina pectoris 09/22/2015 11/13/2020 Last Assessment & Plan: Assessment: - History of CABG 2015 -Home atorvastatin 40 mg tablet, ASA 81 mg Plan: - Continue home atorvastatin and ASA 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 Intubated at that time -Extubated yesterday 11/12 -CXR 11/11 Multifocal airspace opacities throughout the LEFT lung likely secondary to combination of pneumonia/aspiration and atelectasis -CXR 11/12 showed improvement. -WBC trending down, currently 8.25 - Procalcitonin 0.21 - Afebrile - Denies SOB, endorses dry cough -Currently maintaining saturations on RA - Left Upper and lower lobe rhonchi throughout Plan: -Continue Unasyn for Aspiration PNA - Incentive Spirometry ordered -Tessalon Perles PRN TID -Trend labs - Continuous SpO2 monitoring - Supplemental O2 PRN Non-compliant patient 10/29/2020 10/29/2020 Medication monitoring encounter 05/18/2018 10/30/2020 Primary open angle glaucoma (POAG) of left eye, severe stage 2018 04/26/2018 Overview: Added automatically from request for surgery [id number] Senile nuclear cataract, left 2018 Overview: Added automatically from request for surgery [id number] Nuclear sclerosis, right 02/14/201803/08/ 018 Overview: Added automatically from request for surgery [id number] Left ventricular thrombus 12/08/20172017 Combined forms of age-related cataract of both e yes 07/21/2017 07/04/2018 Bronchitis 05/22/2017 12/08/2017 Situational depression 07/20/2016 8 Thrombus 01/06/2016 12/08/2017 Coronary artery disease invo lving coronary bypass graft of [place] heart without angina pectoris 09/22/2015 11/13/2020 Last Assessment & Plan: Assessment: - History of CABG 2015 -Home atorvastatin 40 mg tablet, ASA 81 mg Plan: - Continue home atorvastatin and ASA 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 Intubated at that time -Extubated yesterday 11/12 -CXR 11/11 Multifocal airspace opacities throughout the LEFT lung likely secondary to combination of pneumonia/aspiration and atelectasis -CXR 11/12 showed improvement. -WBC trending down, currently 8.25 - Procalcitonin 0.21 - Afebrile - Denies SOB, endorses dry cough -Currently maintaining saturations on RA - Left Upper and lower lobe rhonchi throughout Plan: -Continue Unasyn for Aspiration PNA - Incentive Spirometry ordered -Yfnon [place] PRN TID -Trend labs - Continuous SpO2 monitoring - Supplemental O2 PRN Non-compliant patient 10/29/20202020 Medication monitoring encounter 05/18/2018 10/30/2020 Primary open angle glaucoma (POAG) of left eye, severe stage 2018 04/26/2018 Overview: Added automatically from request for surgery [id number] Senile nuclear cataract, left 2018 04/26/2018 Overview: Added automatically from request for surgery [id number] Nuclear sclerosis, right 02/14/2018 Overview: Added automatically from request for surgery [id number] Left ventricular thrombus 12/08/2017 Combined forms of age-relate d cataract of both eyes 07/21/2017 07/04/2018 Bronchitis 05/22/2017 12/08/2017 Situational depression 07/20/201608/02 Thrombus 01/06/2016 12/08/2017 Coronary artery disease invo lving coronary bypass graft of [place] heart without angina pectoris 09/22/2015 11/13/2020 Last Assessment & Plan: Assessment: - History of CABG 2015 -Home atorvastatin 40 mg tablet, ASA 81 mg Plan: - Continue home atorvastatin and ASA 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 Intubated at that time -Extubated yesterday 11/12 -CXR 11/11 Multifocal airspace opacities throughout the LEFT lung likely secondary to combination of pneumonia/aspiration and atelectasis -CXR 11/12 showed improvement. -WBC trending down, currently 8.25 - Procalcitonin 0.21 - Afebrile - Denies SOB, endorses dry cough -Currently maintaining saturations on RA - Left Upper and lower lobe rhonchi throughout Plan: -Continue Unasyn for Aspiration PNA - Incentive Spirometry ordered -Donald Rosales PRN TID -Trend labs - Continuous SpO2 monitoring - Supplemental O2 PRN Non-compliant patient 10/29/20202020 Medication monitoring encounter 05/18/2018 10/30/2020 Primary open angle glaucoma (POAG) of left eye, severe stage 2018 04/26/2018 Overview: Added automatically from request for surgery [id number] Senile nuclear cataract, left 2018 04/26/2018 Overview: Added automatically from request for surgery [id number] Nuclear sclerosis, right 02/14/2018 Overview: Added automatically from request for surgery [id number] Left ventricular thrombus 12/08/2017 Combined forms of age-relate d cataract of both eyes 07/21/2017 07/04/2018 Bronchitis 05/22/2017 12/08/2017 Situational depression 07/20/201608/02 Thrombus 01/06/2016 12/08/2017 Coronary artery disease invo lving coronary bypass graft of [place] heart without angina pectoris 09/22/2015 11/13/2020 Last Assessment & Plan: Assessment: - History of CABG 2015 -Home atorvastatin 40 mg tablet, ASA 81 mg Plan: - Continue home atorvastatin and ASA 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 Intubated at that time -Extubated yesterday 6/24 -CXR 11/11 Multifocal airspace opacities throughout the LEFT lung likely secondary to combination of pneumonia/aspiration and atelectasis -CXR 11/12 showed improvement. -WBC trending down, currently 8.25 - Procalcitonin 0.21 - Afebrile - Denies SOB, endorses dry cough -Currently maintaining saturations on RA - Left Upper and lower lobe rhonchi throughout Plan: -Continue Unasyn for Aspiration PNA - Incentive Spirometry ordered -Tessalon Per[place] PRN TID -Trend labs - Continuous SpO2 monitoring - Supplemental O2 PRN Non-compliant patient 10/29/20202020 Medication monitoring encounter 05/18/2018 10/30/2020 Primary open angle glaucoma (POAG) of left eye, severe stage 2018 04/26/2018 Overview: Added automatically from request for surgery [id number] Senile nuclear cataract, left 2018 04/26/2018 Overview: Added automatically from request for surgery [id number] Nuclear sclerosis, right 02/14/2018 Overview: Added automatically from request for surgery [id number] Left ventricular thrombus 12/08/2017 Combined forms of age-relate d cataract of both eyes 07/21/2017 07/04/2018 Bronchitis 05/22/2017 12/08/2017 Situational depression 07/20/201608/02 Thrombus 01/06/2016 12/08/2017 Coronary artery disease invo lving coronary bypass graft of [place] heart without angina pectoris 09/22/2015 11/13/2020 Last Assessment & Plan: Assessment: - History of CABG 2016 -Home atorvastatin 40 mg tablet, ASA 81 mg Plan: - Continue home atorvastatin and ASA 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 Intubated at that time -Extubated yesterday 11/12 -CXR 11/11 Multifocal airspace opacities throughout the LEFT lung likely secondary to combination of pneumonia/aspiration and atelectasis -CXR 11/12 showed improvement. -WBC trending down, currently 8.25 - Procalcitonin 0.21 - Afebrile - Denies SOB, endorses dry cough -Currently maintaining saturations on RA - Left Upper and lower lobe rhonchi throughout Plan: -Continue Unasyn for Aspiration PNA - Incentive Spirometry ordered -Tessalon Perles PRN TID -Trend labs - Continuous SpO2 monitoring - Supplemental O2 PRN Non-compliant patient 10/29/20202020 Medication monitoring encounter 05/18/2018 10/30/2020 Primary open angle glaucoma (POAG) of left eye, severe stage 2018 04/26/2018 Overview: Added automatically from request for surgery [id number] Senile nuclear cataract, left 2018 04/26/2018 Overview: Added automatically from request for surgery [id number] Nuclear sclerosis, right 02/14/2018 Overview: Added automatically from request for surgery [id number] Left ventricular thrombus 12/08/2017 Combined forms of age-relate d cataract of both eyes 07/21/2017 07/04/2018 Bronchitis 05/22/2017 12/08/2017 Situational depression 07/20/201608/02 Thrombus 01/06/2016 12/08/2017 Coronary artery disease invo lving coronary bypass graft of [place] heart without angina pectoris 09/22/2015 11/13/2020 Last Assessment & Plan: Assessment: - History of CABG 2016 -Home atorvastatin 40 mg tablet, ASA 81 mg Plan: - Continue home atorvastatin and ASA 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 Intubated at that time -Extubated yesterday 11/12 -CXR 11/11 Multifocal airspace opacities throughout the LEFT lung likely secondary to combination of pneumonia/aspiration and atelectasis -CXR 11/12 showed improvement. -WBC trending down, currently 8.25 - Procalcitonin 0.21 - Afebrile - Denies SOB, endorses dry cough -Currently maintaining saturations on RA - Left Upper and lower lobe rhonchi throughout Plan: -Continue Unasyn for Aspiration PNA - Incentive Spirometry ordered -Tessalon Perles PRN TID -Trend labs - Continuous SpO2 monitoring - Supplemental O2 PRN Non-compliant patient 10/29/20202020 Medication monitoring encounter 05/18/2018 10/30/2020 Primary open angle glaucoma (POAG) of left eye, severe stage 2018 04/26/2018 Overview: Added automatically from request for surgery [id number] Senile nuclear cataract, left 2018 04/26/2018 Overview: Added automatically from request for surgery [id number] Nuclear sclerosis, right 02/14/2018 Overview: Added automatically from request for surgery [id number] Left ventricular thrombus 12/08/2017 Combined forms of age-relate d cataract of both eyes 07/21/2017 07/04/2018 Bronchitis 05/22/2017 12/08/2017 Situational depression 07/20/201608/02 Thrombus 01/06/2016 12/08/2017 Coronary artery disease invo lving coronary bypass graft of [place] heart without angina pectoris 09/22/2015 11/13/2020 Last Assessment & Plan: Assessment: - History of CABG 2016 -Home atorvastatin 40 mg tablet, ASA 81 mg Plan: - Continue home atorvastatin and ASA 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 8 Other specified gastritis 01/26/2005 documented as of this encounter (statuses as of 06/30/2023) [facility] Diagnosis Strain of calf muscle, right, initial encounter- Primary documented in this encounter [facility]* Diagnosis Right lower quadrant abdominal pain- Primary Abdominal pain, right lower quadrant Strain of calf muscle, right, subsequent encounter ASHD (arteriosclerotic heart disease) Coronary atherosclerosis of unspecified type of vessel, [place] or graft Paroxysmal atrial fibrillation (HCC) Atrial fibrillation Essential hypertension Unspecified essential hypertension Pure hypercholesterolemia PHIL (obstructive sleep apnea) Obstructive sleep apnea (adult) (pediatric) Prediabetes Other abnormal glucose Hyperuricemia Other abnormal blood chemistry Need for COVID-19 vaccine documented in this encounter [facility]* Diagnosis Elevated alkaline phosphatase level- Primary Other nonspecific abnormal serum enzyme levels documented in this encounter [facility]* Diagnosis Right lower quadrant abdominal pain Abdominal pain, right lower quadrant documented in this encounter [facility]* Diagnosis Chronic gout without tophus, unspecified cause, unspecified site documented in this encounter [facility]* Diagnosis Migraine with aura and without status migrainosus, not intractable Migraine with aura, without mention of intractable migraine without mention of status migrainosus [facility]* Diagnosis Bacterial sinusitis- Primary Unspecified sinusitis (chronic) Need for influenza vaccination Need for prophylactic vaccination and inoculation against influenza documented in this encounter [facility]* Diagnosis RUQ abdominal pain- Primary Abdominal pain, right upper quadrant Essential hypertension Unspecified essential hypertension Pure hypercholesterolemia Chronic gout without tophus, unspecified cause, unspecified site PHIL (obstructive sleep apnea) Obstructive sleep apnea (adult) (pediatric) Prediabetes Other abnormal glucose Gastroesophageal reflux disease, unspecified whether esophagitis present Encounter for immunization Need for other specified prophylactic vaccination against single bacterial disease Elevated PSA Elevated prostate specific antigen (PSA) Screening for colon cancer Special screening for malignant neoplasms, colon documented in this encounter [facility]* Diagnosis Impaired fasting glucose- Primary Pure hypercholesterolemia documented in this encounter [facility]* Diagnosis History of colonic polyps- Primary Personal history of colonic polyps RUQ abdominal pain Abdominal pain, right upper quadrant Screening for colon cancer Special screening for malignant neoplasms, colon Abdominal discomfort in right upper quadrant Abdominal pain, right upper quadrant Gallbladder sludge Other specified disorder of gallbladder documented [facility] this encounter [facility] Diagnosis Screening for colon cancer- Primary Special screening for malignant neoplasms, colon History of colonic polyps Personal history of colonic polyps Upper abdominal pain Abdominal pain, other specified site documented in this encounter [facility] Diagnosis History of colonic polyps- Primary Personal history of colonic polyps Upper abdominal pain Abdominal pain, other specified site RUQ abdominal pain Abdominal pain, right upper quadrant Abnormal ultrasound of gallbladder Nonspecific (abnormal) findings on radiological and other examination of biliary tract documented in this encounter [facility] Diagnosis RUQ abdominal pain- Primary Abdominal pain, right upper quadrant Abnormal ultrasound of gallbladder Nonspecific (abnormal) findings on radiological and other examination of biliary tract History of colonic polyps Personal history of colonic polyps RUQ abdominal pain Abdominal pain, right upper quadrant Abnormal ultrasound of gallbladder Nonspecific (abnormal) findings on radiological and other examination of biliary tract documented [facility] this encounter [facility]* Diagnosis Pre-operative examination- Primary Preoperative examination, unspecified Aspiration pneumonia, unspecified aspiration pneumonia type, unspecified laterality, unspecified part of lung (HCC) BPH with obstruction/lower urinary tract symptoms Hypertrophy of prostate with urinary obstruction and other lower urinary tract symptoms (LUTS) Chronic systolic congestive heart failure (HCC) Chronic systolic heart failure Gastroesophageal reflux disease, unspecified whether esophagitis present Primary hypertension Unspecified essential hypertension Idiopathic polyneuropathy Unspecified hereditary and idiopathic peripheral neuropathy Ischemic cardiomyopathy Other specified forms of chronic ischemic heart disease Migraine with aura and without status migrainosus, not intractable Migraine with aura, without mention of intractable migraine without mention of status migrainosus PHIL (obstructive sleep apnea) Obstructive sleep apnea (adult) (pediatric) Paroxysmal atrial fibrillation (HCC) Atrial fibrillation Primary open angle glaucoma (POAG) of right eye, severe stage Primary osteoarthritis of right hip Primary localized osteoarthrosis, pelvic region and thigh Pure hypercholesterolemia RUQ abdominal pain Abdominal pain, right upper quadrant Abnormal ultrasound of gallbladder Nonspecific (abnormal) findings on radiological and other examination of biliary tract documented in this encounter [facility] Diagnosis Chronic gout without tophus, unspecified cause, unspecified site RUQ abdominal pain Abdominal pain, right upper quadrant Abnormal ultrasound of gallbladder Nonspecific (abnormal) findings on radiological and other examination of biliary tract documented in this encounter [facility]* Diagnosis Chronic cholecystitis- Primary Calculus of gallbladder with chronic cholecystitis without obstruction Calculus of gallbladder with other cholecystitis, without mention of obstruction documented in this encounter [facility]* Diagnosis Migraine with aura and without status migrainosus, not intractable Migraine with aura, without mention of intractable migraine without mention of status migrainosus documented in this encounter [facility]* Diagnosis Actinic keratosis- Primary Skin lesion Unspecified disorder of skin and subcutaneous tissue Prediabetes Other abnormal glucose Diverticulitis Diverticulitis of colon (without mention of hemorrhage) Primary hypertension Unspecified essential hypertension Obesity (BMI 30.0-34.9) Obesity, unspecified PHIL (obstructive sleep apnea) Obstructive sleep apnea (adult) (pediatric) Gastroesophageal reflux disease, unspecified whether esophagitis present History of colonic polyps Personal history of colonic polyps Paroxysmal atrial fibrillation (HCC) Atrial fibrillation Ischemic cardiomyopathy Other specified forms of chronic ischemic heart disease Chronic systolic congestive heart failure (HCC) Chronic systolic heart failure Status post coronary artery bypass graft Postsurgical aortocoronary bypass status BPH with obstruction/lower urinary tract symptoms Hypertrophy of prostate with urinary obstruction and other lower urinary tract symptoms (LUTS) Pigmentary glaucoma of both eyes, severe stage Pigmentary open-angle glaucoma PVD (posterior vitreous detachment), both eyes Vitreous degeneration Congenital hypertrophy of retinal pigment epithelium Other congenital retinal changes documented in this encounter [facility]* Diagnosis Chronic gout without tophus, unspecified cause, unspecified site [facility] Diagnosis Migraine with aura and without status migrainosus, not intractable Migraine with aura, without mention of intractable migraine without mention of status migrainosus documented [facility] this encounter [facility] Diagnosis RUQ abdominal pain Abdominal pain, right upper quadrant documented in this encounter [facility] for referral (narrative)* Diagnostic Procedure Only (Urgent) - Authorized Specialty Diagnoses / Procedures Referred By Dorian rodriguez Referred To Contact [facility] Diagnoses RUQ abdominal pain Procedures US ABD RT UPPER QUADRANT US ABDOMINAL REAL TIME W/IMAGE LIMITED Avni Steele MD [address] [place] [address] [facility] Referral ID Status Reason Start Date Expiration Date Visits Requested Visits Authorized [id number] Authorized Auto-Generat ed Referral 2 06/05/2023 1 1 * Consult, Test, Treat (Routine) - Authorized Specialty Diagnoses / Procedures Referred By Contac t Referred To Contact General Surgery Diagnoses RUQ abdominal pain Screening for colon cancer Procedures CONSULT TO GENERAL SURGERY OFFICE/OUTPATIENT [facility] HIGH MDM [id number] MINUTES Avni Steele MD [address] [place] [address] Referral ID Status Reason Start Date Expiration Date Visits Requested Visits Authorized [id number] Authorized PCP Requested Referral 2 05/06/2023 1 1 [facility] for referral (narrative)* Outpatient Procedure (Routine) - Closed Specialty Diagnoses / Procedures Referred By Contac t Referred To Contact [facility] Diagnoses History of colonic polyps Upper abdominal pain Procedures EGD DIAGNOSTIC EGD DIAGNOSTIC ESOPHAGOGASTRODUODENOSC OPY TRANSORAL DIAGNOSTIC Cindy Bajwa PA-C [address] [place] [address] [facility] [address] [address] Referral ID Status Reason Start Date Expiration Date V isits Requested Visits Authorized [id number] Closed Auto-Generate d Referral 05/20/2022 05/20/2023 1 1 * Outpatient Procedure (Routine) - Closed Specialty Diagnoses / Procedures Referred By Contac t Referred To Contact [facility] Diagnoses History of colonic polyps Upper abdominal pain Procedures COLONOSCOPY SCREENING COLONOSCOPY SCREENING COLONOSCOPY FLX DX W/COLLJ SPEC WHEN PFRMD Cindy Bajwa PA-C [address] [place] [address] [facility] Disease [address] [address] Referral ID Status Reason Start Date Expiration Date V isits Requested Visits Authorized [id number] Closed Auto-Generate d Referral 05/20/2022 05/20/2023 1 1 [facility] for referral (narrative)* Outpatient Procedure (Routine) - Closed Specialty Diagnoses / Procedures Referred By Dorian rodriguez Referred To Contact [facility] Diagnoses History of colonic polyps Upper abdominal pain Procedures EGD DIAGNOSTIC EGD DIAGNOSTIC ESOPHAGOGASTRODUODENOSC OPY TRANSORAL DIAGNOSTIC Cindy Bajwa PA-C [address] [place] [address] [address] Referral ID Status Reason Start Date Expiration Date V isits Requested Visits Authorized [id number] Closed Auto-Generate d Referral 05/20/2022 05/20/2023 1 1 * Outpatient Procedure (Routine) - Closed Specialty Diagnoses / Procedures Referred By Dorian rodriguez Referred To Contact [facility] Diagnoses History of colonic polyps Upper abdominal pain Procedures COLONOSCOPY SCREENING COLONOSCOPY SCREENING COLONOSCOPY FLX DX W/COLLJ SPEC WHEN PFRMD Cindy Bajwa PA-C [address] [place] [address] [address] Referral ID Status Reason Start Date Expiration Date V isits Requested Visits Authorized [id number] Closed Auto-Generate d Referral 05/20/2022 05/20/2023 1 1 [facility] for referral (narrative)* Diagnostic Procedure Only (Urgent) - Closed Specialty Diagnoses / Procedures Referred By Dorian rodriguez Referred To Contact [facility] IMAGING Diagnoses RUQ abdominal pain Procedures US ABD RT UPPER QUADRANT US ABDOMINAL REAL TIME W/IMAGE LIMITED Avni Steele MD [address] [place] [address] [place] [address] Referral ID Status Reason Start Date Expiration Date V isits Requested Visits Authorized [id number] Closed Auto-Generate d Referral 05/06/2022 06/05/2023 1 1 [facility] for visit Narrative* Outpatient Procedure (Routine) - Closed Specialty Diagnoses / Procedures Referred By Dorian t Referred To Contact [facility] Diagnoses History of colonic polyps Upper abdominal pain Procedures COLONOSCOPY SCREENING COLONOSCOPY SCREENING COLONOSCOPY FLX DX W/COLLJ SPEC WHEN PFRMD Cindy Bajwa PA-C [address] [place], [place] [address] [address] [facility] [place] [address] [place] [address] Referral ID Status Reason Start Date Expiration Date V isits Requested Visits Authorized [id number] Closed Auto-Generate d Referral 05/20/2022 05/20/2023 1 1 [facility] Advance Directives No Advanced Directives Records FoundDocuments on File Type Date 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 Advance Directive(s) 11/02/2020 4:39 PM Latest Code Status on File Code Status Date Activated Date Inactivated Comments Full Code 11/16/2020 4:44 PM Full Code 11/11/2020 11:02 AM 11/15/2020 4:02 PM Full Code Order Discussed With: Patient Documents on File Type Date 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 Advance Directive(s) 11/11/2020 6:42 AM Advance Directive(s) 11/02/2020 4:39 PM Advance Directive(s) 10/22/2020 11:30 AM Advance Directive(s) 04/18/2018 1:55 PM Advance Directive(s) 04/09/2018 8:33 AM Advance Directive(s) 03/05/2018 7:25 AM Advance Directive(s) 11/23/2017 10:04 AM Advance Directive(s) 08/08/2017 12:20 PM Advance Directive(s) 07/05/2017 8:23 AM Advance Directive(s) 06/28/2017 2:03 PM Documents on File Type Date 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 Advance Directive(s) 11/11/2020 6:42 AM Advance Directive(s) 11/02/2020 4:39 PM Advance Directive(s) 10/22/2020 11:30 AM Advance Directive(s) 04/18/2018 1:55 PM Advance Directive(s) 04/09/2018 8:33 AM Advance Directive(s) 03/05/2018 7:25 AM Advance Directive(s) 11/23/2017 10:04 AM Advance Directive(s) 08/08/2017 12:20 PM Advance Directive(s) 07/05/2017 8:23 AM Advance Directive(s) 06/28/2017 2:03 PM Latest Code Status on File Code Status Date Activated Date Inactivated Comments Full Code 11/16/2020 4:44 PM Full Code 11/11/2020 11:02 AM 11/15/2020 4:02 PM Documents on File Type Date 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 Advance Directive(s) 11/02/2020 4:39 PM Latest Code Status on File Code Status Date Activated Date Inactivated Comments Full Code 11/16/2020 4:44 PM 07/14/2022 9:50 AM Latest Code Status on File Code Status Date Activated Date Inactivated Comments Full Code 11/16/2020 4:44 PM 07/14/2022 9:50 AM Latest Code Status on File Code Status Date Activated Date Inactivated Comments Full Code 11/16/2020 4:44 PM 07/14/2022 9:50 AM Code Status History Code Status Date Activated Date Inactivated Comments Full Code 11/11/2020 11:02 AM 11/15/2020 4:02 PM Question Answer Comments Full Code Order Discussed With: Patient Latest Code Status on File Code Status Date Activated Date Inactivated Comments Full Code 11/16/2020 4:44 PM 07/14/2022 9:50 AM Code Status History Code Status Date Activated Date Inactivated Comments Full Code 11/11/2020 11:02 AM 11/15/2020 4:02 PM Question Answer Comments Full Code Order Discussed With: Patient Reason for Referral Specialty Diagnoses / Procedures Referred By Contac t Referred To Contact CT IMAGING Diagnoses Right lower quadrant abdominal pain Procedures CT ABD/PEL W IVCON CT ABD & PELVIS W/CONTRAST Avni Steele MD [address] [place] [address] Ct Imaging Referral ID Status Reason Start Date Expiration Date Visits Requested Visits Authorized [id number] Authorized Auto-Generat ed Referral 11/01/2021 12/01/2022 1 1 Referral ID Status Reason Start Date Expiration Date V isits Requested Visits Authorized [id number] Closed Auto-Generate d Referral 11/01/2021 12/01/2022 1 1 Specialty Diagnoses / Procedures Referred By Dorian rodriguez Referred To Contact Dermatology Diagnoses Actinic keratosis Skin lesion Procedures CONSULT TO DERMATOLOGY Avni Steele MD [address] [facility] [place] [address] Referral ID Status Reason Start Date Expiration Date Visits Requested Visits Authorized [id number] Ref Not Required PCP Requested Referral 11/04/2022 11/04/2023 1 1 Medications Administered Section Inactive Administered Medications - up to 3 most recent administrations Medication Order MAR Action Action Date Dose Rate Site benzocaine 20 % mucosal spray (HURRICAINE ONE) MUCOUS MEMBRANE (TOPICAL MOUTH & THROAT), ONCE, 1 dose, On Zaynab 06/02/22 at 0800, Intraprocedure Given 06/02/2022 7:45 AM EST 1 application Oral Summary Purpose Family History No Family History Records FoundNo Family History Records FoundNo Family History Records Found Additional Source Comments Source Comments (unrecognize d section and content) In the event this informatio n is protected by the Federal Confidentiality of Alcohol and Drug Abuse Patient Records regulations: The Federal rules restrict any use of the information to criminally investigate or prosecute any alcohol or drug abuse patient.[facility] the event this information is protected by the Federal Confidentiality of Alcohol and Drug Abuse Patient Records regulations: The Federal rules restrict any use of the information to criminally investigate or prosecute any alcohol or drug abuse patient.[facility] HealthIn the event this information is protected by the Federal Confidentiality of Alcohol and Drug Abuse Patient Records regulations: The Federal rules restrict any use of the information to criminally investigate or prosecute any alcohol or drug abuse patient.[facility] HealthIn the event this information is protected by the Federal Confidentiality of Alcohol and Drug Abuse Patient Records regulations: The Federal rules restrict any use of the information to criminally investigate or prosecute any alcohol or drug abuse patient.[facility] HealthIn the event this information is protected by the Federal Confidentiality of Alcohol and Drug Abuse Patient Records regulations: The Federal rules restrict any use of the information to criminally investigate or prosecute any alcohol or drug abuse patient.[facility] HealthIn the event this information is protected by the Federal Confidentiality of Alcohol and Drug Abuse Patient Records regulations: The Federal rules restrict any use of the information to criminally investigate or prosecute any alcohol or drug abuse patient.[facility] HealthIn the event this information is protected by the Federal Confidentiality of Alcohol and Drug Abuse Patient Records regulations: The Federal rules restrict any use of the information to criminally investigate or prosecute any alcohol or drug abuse patient.[facility] HealthIn the event this information is protected by the Federal Confidentiality of Alcohol and Drug Abuse Patient Records regulations: The Federal rules restrict any use of the information to criminally investigate or prosecute any alcohol or drug abuse patient.[facility] HealthIn the event this information is protected by the Federal Confidentiality of Alcohol and Drug Abuse Patient Records regulations: The Federal rules restrict any use of the information to criminally investigate or prosecute any alcohol or drug abuse patient.[facility] HealthIn the event this information is protected by the Federal Confidentiality of Alcohol and Drug Abuse Patient Records regulations: The Federal rules restrict any use of the information to criminally investigate or prosecute any alcohol or drug abuse patient.[facility] HealthIn the event this information is protected by the Federal Confidentiality of Alcohol and Drug Abuse Patient Records regulations: The Federal rules restrict any use of the information to criminally investigate or prosecute any alcohol or drug abuse patient.[facility] HealthIn the event this information is protected by the Federal Confidentiality of Alcohol and Drug Abuse Patient Records regulations: The Federal rules restrict any use of the information to criminally investigate or prosecute any alcohol or drug abuse patient.[facility] HealthIn the event this information is protected by the Federal Confidentiality of Alcohol and Drug Abuse Patient Records regulations: The Federal rules restrict any use of the information to criminally investigate or prosecute any alcohol or drug abuse patient.[facility] HealthIn the event this information is protected by the Federal Confidentiality of Alcohol and Drug Abuse Patient Records regulations: The Federal rules restrict any use of the information to criminally investigate or prosecute any alcohol or drug abuse patient.[facility] HealthIn the event this information is protected by the Federal Confidentiality of Alcohol and Drug Abuse Patient Records regulations: The Federal rules restrict any use of the information to criminally investigate or prosecute any alcohol or drug abuse patient.[facility] HealthIn the event this information is protected by the Federal Confidentiality of Alcohol and Drug Abuse Patient Records regulations: The Federal rules restrict any use of the information to criminally investigate or prosecute any alcohol or drug abuse patient.[facility] HealthIn the event this information is protected by the Federal Confidentiality of Alcohol and Drug Abuse Patient Records regulations: The Federal rules restrict any use of the information to criminally investigate or prosecute any alcohol or drug abuse patient.[facility] HealthIn the event this information is protected by the Federal Confidentiality of Alcohol and Drug Abuse Patient Records regulations: The Federal rules restrict any use of the information to criminally investigate or prosecute any alcohol or drug abuse patient.[facility] HealthIn the event this information is protected by the Federal Confidentiality of Alcohol and Drug Abuse Patient Records regulations: The Federal rules restrict any use of the information to criminally investigate or prosecute any alcohol or drug abuse patient.[facility] HealthIn the event this information is protected by the Federal Confidentiality of Alcohol and Drug Abuse Patient Records regulations: The Federal rules restrict any use of the information to criminally investigate or prosecute any alcohol or drug abuse patient.[facility] HealthIn the event this information is protected by the Federal Confidentiality of Alcohol and Drug Abuse Patient Records regulations: The Federal rules restrict any use of the information to criminally investigate or prosecute any alcohol or drug abuse patient.[facility] HealthIn the event this information is protected by the Federal Confidentiality of Alcohol and Drug Abuse Patient Records regulations: The Federal rules restrict any use of the information to criminally investigate or prosecute any alcohol or drug abuse patient.[facility] HealthIn the event this information is protected by the Federal Confidentiality of Alcohol and Drug Abuse Patient Records regulations: The Federal rules restrict any use of the information to criminally investigate or prosecute any alcohol or drug abuse patient.[facility] HealthIn the event this information is protected by the Federal Confidentiality of Alcohol and Drug Abuse Patient Records regulations: The Federal rules restrict any use of the information to criminally investigate or prosecute any alcohol or drug abuse patient.[facility] HealthIn the event this information is protected by the Federal Confidentiality of Alcohol and Drug Abuse Patient Records regulations: The Federal rules restrict any use of the information to criminally investigate or prosecute any alcohol or drug abuse patient.[facility] HealthIn the event this information is protected by the Federal Confidentiality of Alcohol and Drug Abuse Patient Records regulations: The Federal rules restrict any use of the information to criminally investigate or prosecute any alcohol or drug abuse patient.[facility] HealthIn the event this information is protected by the Federal Confidentiality of Alcohol and Drug Abuse Patient Records regulations: The Federal rules restrict any use of the information to criminally investigate or prosecute any alcohol or drug abuse patient.[facility] HealthIn the event this information is protected by the Federal Confidentiality of Alcohol and Drug Abuse Patient Records regulations: The Federal rules restrict any use of the information to criminally investigate or prosecute any alcohol or drug abuse patient.[facility] Reason for Visit (unrecogniz ed section and content) Reason Comments Follow Up 6 month Reason Comments Results Reason Comments Radiology CT Specialty Diagnoses / Procedures Referred By Kenyonac t Referred To Contact CT IMAGING Diagnoses Right lower quadrant abdominal pain Procedures CT ABD/PEL W IVCON CT ABD & PELVIS W/CONTRAST Avni Steele MD [address] [place] [address] Ct Imaging Referral ID Status Reason Start Date Expiration Date V isits Requested Visits Authorized [id number] Closed Auto-Generate d Referral 11/01/2021 12/01/2022 1 1 Reason Onset Date Comments Refill Request 12/02/2021 Please send toda y Reason Comments Medication Problem Allopurinol Reason Onset Date Comments Refill Request 03/01/2022 Reason Onset Date Comments Nasal Congestion With drainage o ccasional cough x 10days Immunizations 03/31/2022 Flu vaccination Reason Comments Follow Up 6 month Reason Comments Orders Lab Orders Reason Comments Patient Question Reason Comments Consult colonoscopy Specialty Diagnoses / Procedures Referred By Contac t Referred To Contact General Surgery Diagnoses RUQ abdominal pain Screening for colon cancer Procedures CONSULT TO GENERAL SURGERY OFFICE/OUTPATIENT [facility] MDM 60-74 MINUTES Avni Steele MD [address] [place] [address] Referral ID Status Reason Start Date Expiration Date V isits Requested Visits Authorized [id number] Closed PCP Requested Referral 05/06/2022 05/06/2023 1 1 Reason Comments 06/02/22 colon/egd lodi Reason Comments Appointment Reason Comments Follow Up Colon & EGD Reason Comments Consult Reason Comments Medication Request Allopurinol Reason Comments Post Op Lap rosi Reason Onset Date Comments Refill Request 08/29/2022 Reason Comments fax referral to outside provider Derm Reason Onset Date Comments Refill Request 01/16/2023 Reason Comments Refill Request Reason Comments Radiology US Specialty Diagnoses / Procedures Referred By Kenyonac t Referred To Contact US IMAGING Diagnoses RUQ abdominal pain Procedures US ABD RT UPPER QUADRANT US ABDOMINAL REAL TIME W/IMAGE LIMITED Avni Steele MD [address] [place] [address] [place] [address] Referral ID Status Reason Start Date Expiration Date V isits Requested Visits Authorized [id number] Closed Auto-Generate d Referral 05/06/2022 06/05/2023 1 1 Care Teams (unrecognized sec tion and content) Dot Compliance Manager Relationship Specialty Start Date End Date Avni Steele MD [address] [place] [address] PCP - General Family Practice 10/22/20 Raúl, [place] S [address] [facility] [address] Physician Cardiology 10/30/20 Jaziel Lopez MD [address] [place] [facility] [place] [address] Home Care Physician Orthopedics 11/13/20 Jaziel Lopez MD [address] [facility] [address] Referring Orthopedics 11/13/20 Gertrude Hughes, PT [address] [place] [address] Rehabilitation Director Post Acute Care 11/15/20 Dot Compliance Manager Relationship Specialty Start Date End Date Avni Steele MD [address] [place] [address] PCP - General Family Practice 10/22/20 Raúl, [place] S [address] [place] [facility] [place] [address] Physician Cardiology 10/30/20 Jaziel Lopez MD [address] [facility] [address] Home Care Physician Orthopedics 11/13/20 Jaziel Lopez MD [address] [facility] [address] Referring Orthopedics 11/13/20 Gertrude Hughes, PT [address] [place] [address] Rehabilitation Director Post Acute Care 11/15/20 Dot Compliance Manager Relationship Specialty Start Date End Date Avni Steele MD [address] [place] [address] PCP - General Family Practice 10/22/20 Raúl, [place] S [address] [place] [address] Physician Cardiology 10/30/20 Jaziel Lopez MD [address] [facility] [place] [address] Home Care Physician Orthopedics 11/13/20 Jaziel Lopez MD [address] [facility] [place] [address] Referring Orthopedics 11/13/20 Gertrude Hughes, PT [address] [place] [address] Rehabilitation Director Post Acute Care 11/15/20 Dot Compliance Manager Relationship Specialty Start Date End Date Avni Steele MD [address] [place] [address] PCP - General Family Practice 10/22/20 Raúl, Michael S [address] [place] [address] Physician Cardiology 10/30/20 Jaziel Lopez MD [address] [facility] [place] [address] Home Care Physician Orthopedics 11/13/20 Jaziel Lopez MD [address] [facility] [place] [address] Referring Orthopedics 11/13/20 Gertrude Hughes, PT [address] [place] [address] Rehabilitation Director Post Acute Care 11/15/20 Dot Compliance Manager Relationship Specialty Start Date End Date Avni Steele MD [address] [place] [address] PCP - General Family Practice 10/22/20 Raúl, Michael S [address] [facility] [place] [address] Physician Cardiology 10/30/20 Jaziel Lopez MD [address] [facility] [place] [address] Home Care Physician Orthopedics 11/13/20 Jaziel Lopez MD [address] [facility] [place] [address] Referring Orthopedics 11/13/20 Gertrude Hughes, PT [address] [place] [address] Rehabilitation Director Post Acute Care 11/15/20 Dot Compliance Manager Relationship Specialty Start Date End Date Avni Steele MD [address] [place] [address] PCP - General Family Practice 10/22/20 Raúl, [place] S [address] [place] [address] Physician Cardiology 10/30/20 Jaziel Lopez MD [address] [facility] [place] [address] Home Care Physician Orthopedics 11/13/20 Jaziel Lopez MD [address] [facility] [place] [address] Referring Orthopedics 11/13/20 Gertrude Hughes, PT [address] [place] [address] Rehabilitation Director Post Acute Care 11/15/20 Dot Compliance Manager Relationship Specialty Start Date End Date Avni Steele MD [address] [place] [address] PCP - General Family Medicine 10/22/20 Raúl, [place] S [address] [place] [address] Physician Cardiology 10/30/20 Jaziel Lopez MD [address] [facility] [place] [address] Home Care Provider Orthopedics 11/13/20 Jaziel Lopez MD [address] [facility] [place] [address] Referring Orthopedics 11/13/20 Gertrude Hughes, PT [address] [place] [address] Rehabilitation Director Post Acute Care 11/15/20 Dot Compliance Manager Relationship Specialty Start Date End Date Avni Steele MD [address] [place] [address] PCP - General Family Medicine 10/22/20 Raúl, [place] S [address] [place] [address] Physician Cardiology 10/30/20 Jaziel Lopez MD [address] [facility] [place] [address] Home Care Provider Orthopedics 11/13/20 Jaziel Lopez MD [address] [facility] [place] [place] [address] Referring Orthopedics 11/13/20 [place] [address] [place] [address] Rehabilitation Director Post Acute Care 11/15/20 Dot Compliance Manager Relationship Specialty Start Date End Date Avni Steele MD [address] [place] [address] PCP - General Family Medicine 10/22/20 Raúl, Snoh[place] S [address] [place] [address] Physician Cardiology 10/30/20 Jaziel Lopez MD [address] [facility] [place] [address] Home Care Provider Orthopedics 11/13/20 Jaziel Lopez MD [address] [facility] [place] [address] Referring Orthopedics 11/13/20 Gertrude Hughes, PT [address] [place], [place] [address] Rehabilitation Director Post Acute Care 11/15/20 Dot Compliance Manager Relationship Specialty Start Date End Date Avni Steele MD [address] [place] [address] PCP - General Family Medicine 10/22/20 Raúl, Michael S [address] [place] [address] Physician Cardiology 10/30/20 Jaziel Lopez MD [address] [facility] [place] [address] Home Care Provider Orthopedics 11/13/20 Jaziel Lopez MD [address] [facility] [place] [address] Referring Orthopedics 11/13/20 Gertrude Hughes, PT [address] [place], [place] [address] Rehabilitation Director Post Acute Care 11/15/20 Dot Compliance Manager Relationship Specialty Start Date End Date Avni Steele MD [address] [place] [address] PCP - General Family Medicine 10/22/20 Raúl, [place]oh[place] S [address] [place] [address] Physician Cardiology 10/30/20 Jaziel Lopez MD [address] [facility] [place] [address] Home Care Provider Orthopedics 11/13/20 Jaziel Lopez MD [address] [facility] [place] [address] Referring Orthopedics 11/13/20 Gertrude Hughes, PT [address] [place] [address] Rehabilitation Director Post Acute Care 11/15/20 Dot Compliance Manager Relationship Specialty Start Date End Date Avni Steele MD [address] [place] [address] PCP - General Family Medicine 10/22/20 Raúl, Michael S [address] [place] [address] Physician Cardiology 10/30/20 Jaziel Lopez MD [address] [facility] [place] [address] Home Care Provider Orthopedics 11/13/20 Jaziel Lopez MD [address] [place] [address] Referring Orthopedics 11/13/20 Gertrude Hughes, PT [address] [place] [address] Rehabilitation Director Post Acute Care 11/15/20 Dot Compliance Manager Relationship Specialty Start Date End Date Avni Steele MD [address] [place] [address] PCP - General Family Medicine 10/22/20 Raúl [place]oh[place] S [address] [place] [address] Physician Cardiology 10/30/20 Jaziel Lopez MD [address] [facility] [place] [address] Home Care Provider Orthopedics 11/13/20 Jaziel Lopez MD [address] [place] [address] Referring Orthopedics 11/13/20 Gertrude Hughes, PT [address] [place], [place] [address] Rehabilitation Director Post Acute Care 11/15/20 Dot Compliance Manager Relationship Specialty Start Date End Date Avni Steele MD [address] [place] [address] PCP - General Family Medicine 10/22/20 RaúlBishop verdinril S [address] [place] [address] Physician Cardiology 10/30/20 Jaziel Lopez MD [address] [place] [address] Home Care Provider Orthopedics 11/13/20 Jaziel Lopez MD [address] [place] [address] Referring Orthopedics 11/13/20 Gertrude Hughes, PT [address] [place] [address] Rehabilitation Director Post Acute Care 11/15/20 Dot Compliance Manager Relationship Specialty Start Date End Date Avni Steele MD [address] [place] [address] PCP - General Family Medicine 10/22/20 RaúlMariola verdinl S [address] [place] [address] Physician Cardiology 10/30/20 Jaziel Lopez MD [address] [place] [address] Home Care Provider Orthopedics 11/13/20 Jaziel Lopez MD [address] [place] [address] Referring Orthopedics 11/13/20 Gertrude Hughes, PT [address] [place], [place] [address] Rehabilitation Director Post Acute Care 11/15/20 Dot Compliance Manager Relationship Specialty Start Date End Date Avni Steele MD [address] [place] [address] PCP - General Family Medicine 10/22/20 Bishop Olsenril S [address] [place] [address] Physician Cardiology 10/30/20 Jaziel Lopez MD [address] [place] [address] Home Care Provider Orthopedics 11/13/20 Jaziel Lopez MD [address] [place] [address] Referring Orthopedics 11/13/20 Gertrude Hughes, PT [address] [place] [address] Rehabilitation Director Post Acute Care 11/15/20 Dot Compliance Manager Relationship Specialty Start Date End Date Avni Steele MD [address] [place] [address] PCP - General Family Medicine 10/22/20 Michael Olsen S [address] [place] [address] Physician Cardiology 10/30/20 Jaziel Lopez MD [address] [facility] [place] [address] Home Care Provider Orthopedics 11/13/20 Jaziel Lopez MD [address] [place] [address] Referring Orthopedics 11/13/20 Gertrude Hughes, PT [address] [place] [address] Rehabilitation Director Post Acute Care 11/15/20 Dot Compliance Manager Relationship Specialty Start Date End Date Avni Steele MD [address] [place] [address] PCP - General Family Medicine 10/22/20 Bishop Olsenril S [address] [address] Physician Cardiology 10/30/20 Jaziel Lopez MD [address] [place] [address] Home Care Provider Orthopedics 11/13/20 Jaziel Lopez MD [address] [place] [place] [address] Referring Orthopedics 11/13/20 Gertrude Hughes, PT [address] [place] [address] Rehabilitation Director Post Acute Care 11/15/20 Dot Compliance Manager Relationship Specialty Start Date End Date Avni Steele MD [address] [place] [address] PCP - General Family Medicine 10/22/20 Michael Olsen S [address] [place] [address] Physician Cardiology 10/30/20 Jaziel Lopze MD [address] [place] [address] Home Care Provider Orthopedics 11/13/20 Jaziel Lopez MD [address] [facility] [place] [address] Referring Orthopedics 11/13/20 Gertrude Hughes, PT [address] [place] [address] Rehabilitation Director Post Acute Care 11/15/20 Dot Compliance Manager Relationship Specialty Start Date End Date Avni Steele MD [address] [place] [address] PCP - General Family Medicine 10/22/20 Michael Olsen S [address] [address] Physician Cardiology 10/30/20 Jaziel Lopez MD [address] [facility] [place] [place] [address] Home Care Provider Orthopedics 11/13/20 Jaziel Lopez MD [address] [facility] [place] [place] [address] Referring Orthopedics 11/13/20 Gertrude Hughes, PT [address] [place] [address] Rehabilitation Director Post Acute Care 11/15/20 Dot Compliance Manager Relationship Specialty Start Date End Date Avni Steele MD [address] [place] [address] PCP - General Family Medicine 10/22/20 Michael Olsen [address] [place] [address] Physician Cardiology 10/30/20 Jaziel Lopez MD [address] [facility] [place] [address] Home Care Provider Orthopedics 11/13/20 Jaziel Lopez MD [address] [facility] [place] [address] Referring Orthopedics 11/13/20 Gertrude Hughes, PT [address] [place], [place] [phone] Rehabilitation Director Post Acute Care 11/15/20 Dot Compliance Manager Relationship Specialty Start Date End Date Avni Steele MD [address] [place] [address] PCP - General Family Medicine 10/22/20 Michael Olsen [address] [place] [address] Physician Cardiology 10/30/20 Jaziel Lopez MD [address] [place] [address] Home Care Provider Orthopedics 11/13/20 Jaziel Lopez MD [address] [place] [address] Referring Orthopedics 11/13/20 Gertrude Hughes, PT [address] [place], [place] [phone] Rehabilitation Director Post Acute Care 11/15/20 Dot Compliance Manager Relationship Specialty Start Date End Date Avni Steele MD [address] [place] [address] PCP - General Family Medicine 10/22/20 Michael Olsen MD [address] [place] [address] Physician Cardiology 10/30/20 Jaziel Lopez MD [address] [facility] [place] [place] [address] Home Care Provider Orthopedics 11/13/20 Jaziel Lopez MD [address] [facility] [place] [place] [address] Referring Orthopedics 11/13/20 Gertrude Hughes, PT [address] [place] [address] Rehabilitation Director Post Acute Care 11/15/20 Dot Compliance Manager Relationship Specialty Start Date End Date Avni Steele MD [address] [place] [address] PCP - General Family Medicine 10/22/20 Michael Olsen MD [address] [place] [place] [address] Physician Cardiology 10/30/20 Jaziel Lopez MD [address] [facility] [place] [place] [address] Home Care Provider Orthopedics 11/13/20 Jaziel Lopez MD [address] [place] [address] Referring Orthopedics 11/13/20 Gertrude Hughes, PT [address] [place] [address] Rehabilitation Director Post Acute Care 11/15/20 Dot Compliance Manager Relationship Specialty Start Date End Date Avni Steele MD [address] [place], [place] [id number] PCP - General Family Medicine 10/22/20 Michael Olsen MD [address] [place] [phone] Physician Cardiology 10/30/20 Jaziel Lopez MD [address] [place] [address] Home Care Provider Orthopedics 11/13/20 Jaziel Lopez MD [address] [place], [place] [id number] Referring Orthopedics 11/13/20 (unrecognized sect ion and content) No Status Records FoundNo Status Records FoundNo Status Records Found INFORMATION SOURCE (unrecogn ized section and content) DATE CREATED AUTHOR AUTHOR'S ORGANIZ ATION 07/18/2022 [facility] DATE CREATED AUTHOR AUTHOR'S ORGANIZ ATION 07/01/2023 [facility] FOR RECORDS PERTAINING TO PATIENTS WHO ARE OR HAVE BEEN ENROLLED IN A CHEMICAL DEPENDENCY/SUBSTANCEABUSE PROGRAM, SOME INFORMATION MAY BE OMITTED. This clinical summary was aggregated from multiple sources. Caution should be exercised in using it in the provision of clinical care. This summary normalizes information from multiple sources, and as a consequence, information in this document may materially change the coding, format and clinical context of patient data. In addition, data may be omitted in some cases. CLINICAL DECISIONS SHOULD BE BASED ON THE PRIMARY CLINICAL RECORDS. [facility] provides no warranty or guarantee of the accuracy or completeness of information in this document.
--- NOTE | 2023-07-07 10:53 | ED.VIS.CHEST ---
HPI History of Present Illness Chief Complaint: Chest Pain Informant: patient Narrative Narrative: Patient is a 68-year-old male with history of proximal atrial fibrillation, coronary artery disease status post bypass in 2016, hyperlipidemia and GERD presenting with chest pain. Patient states few weeks ago he noticed some mild pain that seems to be in his right chest around the level of the nipple that starts on the outside and then radiates towards his sternum. It is only happening about once a day and would resolve on its own. It is started become more persistent and started last night. He states has been constant since last night. He states within 30 seconds of the pain that radiates from the lateral chest into the center and it repeats every 5 minutes or so. He notes he also had some nausea and heaves last night and then again this morning when he took his medicines. He did take an [place] and an extra antacid last night. He notes he had taco soup which did not change the discomfort in his chest but did worsen his heartburn. He notes that movement does seem to make it worse. Patient is when he was driving here today he had some tingling in both of his fingers. He also notes over the past few weeks he has had some vague discomfort at the base of his right shoulder blade. 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) Paroxysmal atrial fibrillation Postoperative atrial fibrillation (09/13/15) Severe headache Home Medications ascorbic acid (vitamin C) 500 mg tablet 500 mg PO DAILY@0800 10/21/15 [History Last Taken Unknown] aspirin 81 mg tablet,delayed release 81 mg PO DAILY 10/21/15 [History Last Taken Unknown] latanoprost 0.005 % eye drops 1 drp RIGHT EYE QHS drops 10/21/15 [History Last Taken Unknown] topiramate 25 mg tablet 25 mg PO QHS 10/21/15 [History Last Taken Unknown] vitamin E 268 mg (400 unit) capsule 800 unit PO DAILY 10/21/15 [History Last Taken Unknown] omeprazole 40 mg capsule,delayed release 40 mg PO QDAY 07/11/17 [History Last Taken Unknown] brimonidine 0.2 %-timolol 0.5 % eye drops 1 drp ophthalmic (eye) BID drops 02/18/20 [History Last Taken Unknown] nitroglycerin 0.4 mg sublingual tablet (Nitrostat) 0.4 mg sublingual Q5-15M PRN chst levine #25 tabs 06/23/20 [Rx Last Taken Unknown] hydrochlorothiazide 25 mg tablet 25 mg PO DAILY #90 tabs 07/14/22 [Rx Last Taken Unknown] metoprolol tartrate 25 mg tablet 25 mg PO BID #180 tabs 08/29/22 [Rx Last Taken Unknown] atorvastatin 40 mg tablet 40 mg PO QHS #90 tabs 11/28/22 [Rx Last Taken Unknown] allopurinol 100 mg tablet 100 mg PO BID 06/29/23 [History Last Taken Unknown] Allergy/AdvReac Type Severity Reaction Status Date / Time No Known Allergies Allergy Verified 07/07/23 09:09 Family History Father CAD (coronary artery disease) Myocardial infarction Surgical History H/O coronary artery bypass surgery (09/11/15) History of left heart catheterization (07/27/17) History of total hip arthroplasty (10/2020) Social History Smoking Status: Never smoker alcohol intake: never substance use type: does not use caffeine: Yes Type: coffee Number of servings: 1 ROS ROS ED Cardiovascular Cardiovascular: Reports as per HPI and chest pain Respiratory/Chest Respiratory/Chest: Denies cough or dyspnea Gastrointestinal Gastrointestinal: Reports nausea; Denies abdominal pain or vomiting Musculoskeletal Musculoskeletal: Denies arthralgias or myalgias Neurologic Neurologic: Reports paresthesias; Denies headache(s) or weakness Psychiatric Psychiatric: Denies anxiety Hematologic/Lymphatic Hematologic/Lymphatic: Denies easy bleeding or easy bruising EXAM Physical Exam Const Vital Signs: 07/07/23 09:10 07/07/23 09:17 07/07/23 10:05 Temperature 97.5 F L Temperature Source Temporal Pulse Rate 69 Respiratory Rate 18 Respiratory Effort Normal Non-Labored Blood Pressure 153/90 H Blood Pressure Mean 111 Pulse Ox 99 Oxygen Delivery Method Room Air Room Air 07/07/23 11:09 Temperature Temperature Source Pulse Rate 57 L Respiratory Rate 16 Respiratory Effort Blood Pressure 113/75 Blood Pressure Mean 87 Pulse Ox 97 Oxygen Delivery Method Room Air Positive well nourished and well developed General Appearance ED: well developed and NAD HEENT Reports moist mucous membranes Eyes PERRL Neck supple and no JVD Chest Wall inspection of chest normal and palpation of chest normal Resp normal respiratory effort and clear to auscultation bilaterally Cardio regular rate, regular rhythm and no murmurs Peripheral Pulses: pulses 2+ throughout GI normal to inspection, nondistended, normoactive bowel sounds, soft to palpation and non-tender Back/Spine no CVA tenderness Back/Spine Narrative: Mild tenderness to palpation of the thoracic region of the base of the right scapula Extremity normal to inspection Neuro oriented x3 Sensorium / Orientation: awake and alert Motor Exam: Negative for general weakness Psych mental status grossly normal Skin no rashes or lesions noted and no wounds MDM MDM MDM Narrative Medical decision making narrative: Patient is evaluated for atraumatic chest pain of the right chest well-appearing the level approximately the fifth rib. Appears nontoxic no acute distress. Upon arrival patient is mildly hypertensive with a blood pressure 153/90 but vital signs otherwise normal. He is quite well-appearing. The pain is been pretty constant since last night I feel that a single high-sensitivity troponin is sufficient to rule out ACS. Differential also includes pulmonary emboli, pneumonia, referred GI pain, choledocholithiasis or pancreatitis. Workup including CBC, CMP, lipase, D-dimer and troponin is largely normal. EKG does not show acute ischemic changes. Patient is given morphine and Toradol with improvement of the pain. Counseled that he could still have some type of muscle skeletal pain, referred thoracic radicular pain or prodrome of shingles causing the pain. At this time I do not think he has an acute cardiopulmonary process and I believe that he stable for outpatient follow-up. It does not sound like this is his reflux. Is counseled to use NSAIDs for short course and also counseled he can try [id number] topical analgesia such as Lidoderm. Encouraged to follow-up with his primary care doctor next week. Given return precautions. Patient verbalized agreement understands plan. Discharged home in stable condition. Lab Data Attestation: I reviewed the patient's lab results. Labs: Laboratory Results - last 24 hr 07/07/23 09:20 WBC 6.8 RBC 5.20 Hgb 15.4 Hct 46.7 MCV 89.8 MCH 29.6 MCHC 33.0 RDW Std Deviation 47.7 H RDW Coeff of Sol 14.5 Plt Count 159 MPV 10.7 Immature Gran % (Auto) 0.600 Neut % (Auto) 65.6 Lymph % (Auto) 25.7 Stark % (Auto) 5.8 Eos % (Auto) 1.9 Baso % (Auto) 0.4 Absolute Neuts (auto) 4.4 Absolute Lymphs (auto) 1.74 Nucleated RBC % 0 D-Dimer Quant (PE/DVT) < 0.27 L Sodium 141 Potassium 3.7 Chloride 111 H Carbon Dioxide 26.0 Anion Gap 4 L BUN 24 H Creatinine 1.14 Estim Creat Clear Calc 79.56 Est GFR (MDRD) Af Amer 82 Est GFR (MDRD) Non-Af 68 BUN/Creatinine Ratio 21.1 H Glucose 154 H Calcium 9.1 Total Bilirubin 0.90 Direct Bilirubin 0.26 AST 16 ALT 23 Alkaline Phosphatase 139 H Troponin I High Sens 9 Total Protein 7.6 Albumin 3.8 Globulin 3.8 Lipase 58 Radiography Chest X-Ray - ED: 2 View, Read by ED Physician, Read by Radiologist and No Acute Disease Diagnostic Testing: Clinical Impression(s) from Imaging Studies Chest X-Ray 07/07/23 10:06 IMPRESSION: Findings suggestive of a hiatal hernia. No acute abnormality is seen. Electronically Signed: Kevon Cedillo MD at 10:56 EST , Rhythm Strip Rhythm Strip: Sinus Rhythm Rate: 65 Ectopy: None EKG Initial EKG: Attestation: I personally reviewed and interpreted this EKG as follows: Interpretation: Sinus Rhythm Comments: Normal sinus rhythm at a rate of 65 bpm Normal axis Normal intervals Normal ST segments Discharge Plan Triage Chief Complaint: Chest Pain ED Provider: Génesis Diaz Dx/Rx/DC Orders Clinical Impression: Chest pain of uncertain etiology Instructions: ED Chest Pain, Uncertain Cause Prescriptions: No Action omeprazole 40 mg capsule,delayed release(DR/EC) 40 mg PO QDAY nitroglycerin [Nitrostat] 0.4 mg tablet, sublingual 0.4 mg SUBLINGUAL Q5-15M PRN (Reason: chst levine) Qty: 25 6RF Rx Instructions: do not not exceed 3 doses at one episode allopurinol 100 mg tablet 100 mg PO BID topiramate 25 MG tablet 25 mg PO QHS latanoprost 1 DROP bottle 1 drp RIGHT EYE QHS aspirin 81 MG tablet,delayed release (DR/EC) 81 mg PO DAILY ascorbic acid (vitamin C) 500 MG tablet 500 mg PO DAILY@0800 vitamin E 400 UNIT capsule 800 unit PO DAILY brimonidine-timolol 0.2-0.5 % drops 1 drp OPHTHALMIC BID hydrochlorothiazide 25 mg tablet 25 mg PO DAILY Qty: 90 3RF metoprolol tartrate 25 mg tablet 25 mg PO BID Qty: 180 4RF atorvastatin 40 mg tablet 40 mg PO QHS Qty: 90 3RF Primary Care Provider: Manjit Steele Referrals: Manjit Steele MD [Primary Care Provider] - Activity Restrictions/Additional Instructions: The cause of your pain is not clear however your workup was largely normal today. You may try short course of anti-inflammatory such as Aleve and [id number] Lidoderm patches. If your symptoms change or progress please return to the emergency room otherwise please follow-up with your primary care doctor next week. Disposition Disposition: Home, Self Care
[2023-07-07 10:54] LABS: D-Dimer Quantitative (DVT/PE) < 0.27 FEU/ug/m (0.27-0.49)
[2023-07-07 11:09] VITALS: BP 113/75; PULSE 57; RESP 16; O2SAT 97
[2023-07-07 11:31] LABS: AST(SGOT) 16 U/L (15-37); Alanine Aminotransfer ALT/SGPT 23 U/L (16-61); Albumin, Serum 3.8 g/dL (3.2-5.0); Alkaline Phosphatase 139 U/L (45-117); Bilirubin, Direct 0.26 mg/dL (0.00-0.30); Globulin 3.8 g/dL (2.2-4.2); Lipase 58 U/L (13-75); Protein, Total 7.6 g/dL (6.4-8.2)
[2023-07-07] MEDS: Morphine 4 MG/ML Syringe IV (11:53)
[2023-07-07] MEDS: Ketorolac 15 MG/ML Vial IV (11:53)
[2023-07-07 12:00] VITALS: RESP 18
[2023-07-07 13:00] VITALS: BP 122/84
[2023-07-07 13:30] VITALS: BP 122/84; PULSE 74; RESP 18; TEMP 36.1; O2SAT 95
== END 2023-07-07 13:32 | disposition home or self-care (01) ==
PROVIDERS: Emergency Provider Emergency Medicine; PCP Family Medicine; Visit Provider Emergency Medicine
DX: R07.9 Chest pain, unspecified (principal); I50.22 Chronic systolic (congestive) heart failure; I48.0 Paroxysmal atrial fibrillation; E78.5 Hyperlipidemia, unspecified; I25.10 Atherosclerotic heart disease of native coronary artery without angina pectoris; K21.9 Gastro-esophageal reflux disease without esophagitis; Z79.82 Long term (current) use of aspirin; Z79.899 Other long term (current) drug therapy; Z95.1 Presence of aortocoronary bypass graft; I25.5 Ischemic cardiomyopathy; I25.2 Old myocardial infarction
CPT/HCPCS: 71046; 80048; 80076; 83690; 84484; 85025; 85379; 93005; 96374; 96375; 99284; A4216

== ENCOUNTER 2024-01-22 12:26 | Observation (INO) | payer MEDICARE, OTHER, SELFPAY ==
[2024-01-22 12:26] VITALS: BP 120/77; PULSE 68; RESP 18; TEMP 36.6; O2SAT 96; BMI 31.4
--- NOTE | 2024-01-22 12:59 | EKG12_ITS ---
Test Reason : CP Blood Pressure : / mmHG Vent. Rate : 064 BPM Atrial Rate : 064 BPM P-R Int : 140 ms QRS Dur : 088 ms QT Int : 458 ms P-R-T Axes : 043 002 043 degrees QTc Int : 472 ms Normal sinus rhythm with sinus arrhythmia Septal infarct , age undetermined Abnormal ECG Confirmed by VIVIAN HUTCHISON, SHERITA ([id number]), photo editor CLAUDIA SPEAR ([id number]) on 01/23/2024 1:13:59 PM Referred By: BB/TB Confirmed By:SHERITA PARK MD
--- NOTE | 2024-01-22 12:59 | CT_ITS ---
STUDY: CTA HEAD AND NECK WITH CONTRAST REASON FOR EXAM: Male, 68 years old. Dysequilibrium, chest pain RADIATION DOSAGE (If Supplied By Facility): CTDIvol = ( 30.98 ) mGy, DLP = ( 1710.16 ) mGycm TECHNIQUE: CT angiography was performed with a multi-detector CT scanner. Data acquisition was obtained from the skull base through the vertex following intravenous administration of IV 100mL [id number]-[id number]. MIP images were reconstructed from the axial data set. Post-processing of the angiographic images was performed, with multiplanar reformation and 3D reconstruction. Individualized dose optimization techniques were used for this CT. The protocol utilizes one or more of the following dose reduction techniques: automated exposure control, adjustment of mA and/or kV according to patient size, and/or use of iterative reconstruction technique. COMPARISON: No relevant priors. FINDINGS: Normal bilateral petrous carotid arteries. Normal right cavernous carotid artery with a normal supraclinoid bifurcation. Normal left cavernous carotid artery with a normal supraclinoid bifurcation. Normal hypoplastic right A1 segment of the anterior cerebral artery. Normal left A1 segment of the anterior cerebral artery. Normal intact anterior communicating artery (ACOM). Normal bilateral A2 segments of the anterior cerebral arteries. Normal right M1 and M2 segments of the middle cerebral arteries, with a normal M1 bifurcation. Normal left M1 and M2 segments of the middle cerebral arteries, with a normal M1 bifurcation. Normal right posterior communicating artery (PCOM). Normal left posterior communicating artery (PCOM). Normal bilateral vertebral arteries. The right vertebral artery terminates directly into the right PICA (posterior inferior cerebellar artery). Normal basilar artery with a normal basilar bifurcation. The visualized bilateral superior cerebellar (SCA) arteries are normal. Normal hypoplastic right P1 segment. Normal bilateral P1, P2 and visualized P3 segments of the posterior cerebral arteries. There is no demonstrated aneurysm of the [place] of [place]. There is no demonstrated abnormality of the visualized brain. AORTIC ARCH: Normal visualized aortic arch. Normal origins of the brachiocephalic, left common carotid, and left subclavian arteries. RIGHT CAROTID ARTERIES: Normal right common carotid artery (CCA). Minimal nonocclusive calcified plaques in the right carotid bulb. Minimal calcified plaques at the origin of the right internal carotid artery corresponding to the right carotid bulb. Normal and widely patent cervical portion of the right internal carotid artery. Normal origin of the right external carotid artery (ECA). LEFT CAROTID ARTERIES: Normal left common carotid artery (CCA). Nonocclusive calcified plaques in the posterior wall of the left carotid bulb. Widely patent left cervical internal carotid artery. Normal origin of the left external carotid artery (ECA). VERTEBRAL ARTERIES: Normal bilateral vertebral arteries. The right vertebral artery is hypoplastic and terminates directly into the right posterior inferior cerebellar artery. CT/CTA Head AND Neck W/ Contrast IMPRESSION: 1. No CTA evidence of vaso-occlusive disease of the anterior end posterior intracranial circulation. 2. No CTA evidence of intracranial aneurysm, saccular or fusiform type. 3. Widely patent bilateral cervical carotid arteries and vertebral arteries. The right vertebral artery is hypoplastic and terminates directly into the right PICA. 4. Normal aortic arch and origins of the great vessels. 5. Incidental 1.307 x 0.81 cm low-attenuation lesion in the left thyroid lobe with CT number of -0.43 Hounsfield units. This is benign colloid cyst. No follow-up is necessary. Electronically Signed: Castro Ham MD at 14:44 EDT ,
--- NOTE | 2024-01-22 13:01 | EDS_ITS ---
HPI History of Present Illness Chief Complaint: Chest Pain Informant: patient Narrative Narrative: 68-year-old male states he is having left-sided nonpleuritic chest discomfort feels like tightness and disequilibrium when he walks. He states initially last night he had what he is calling a gastric reflux episode in which he had bad chest burning central substernal that he eventually was able to take care of by drinking cold water and taking an acids and an omeprazole. He states just after this, he started having left-sided chest tightness that has not let up ever since, as well as disequilibrium. When he got up this morning he was still having a disequilibrium. He only has the symptoms when he is up and trying to walk. He feels like he is off balance and bouncing off of vogel because of it without any nausea, vomiting, tinnitus, earache, vision changes. He does not feel like there is dizziness or spinning in his head. When he lies down he not feel any of the symptoms and even when he turns his head he does not feel it. He has never had any of this before. He does have a history of CAD with a 6 way bypass and states that all the EKGs were normal when he got diagnosed with heart problems. Denies any ear symptoms now, sinus symptoms, or recent URI or concurrent URI symptoms. 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) Severe headache Obesity (BMI 35.0-39.9 without comorbidity) Atherosclerosis of coronary artery without angina pectoris Non-STEMI (non-ST elevated myocardial infarction) (07/27/17) Paroxysmal atrial fibrillation Hyperlipidemia Ischemic cardiomyopathy Left ventricular apical thrombus following [place] Home Medications ?Medication ?Instructions ?Recorded ?Last Taken ?Type ascorbic acid (vitamin C) 500 mg 500 mg PO DAILY@0800 10/21/15 Unknown History tablet aspirin 81 mg tablet,delayed 81 mg PO DAILY 10/21/15 Unknown History release latanoprost 0.005 % eye drops 1 drp RIGHT EYE QHS drops 10/21/15 Unknown History topiramate 25 mg tablet 25 mg PO QHS 10/21/15 Unknown History vitamin E 268 mg (400 unit) capsule 800 unit PO DAILY 10/21/15 Unknown History omeprazole 40 mg capsule,delayed 40 mg PO QDAY 07/11/17 Unknown History release brimonidine 0.2 %-timolol 0.5 % 1 drp ophthalmic (eye) BID drops 02/18/20 Unknown History eye drops nitroglycerin 0.4 mg sublingual 0.4 mg sublingual Q5-15M PRN chst 06/23/20 Unknown Rx tablet (Nitrostat) levine #25 tabs allopurinol 100 mg tablet 100 mg PO BID 06/29/23 Unknown History hydrochlorothiazide 25 mg tablet 25 mg PO DAILY #90 tabs 07/17/23 Unknown Rx atorvastatin 40 mg tablet 40 mg PO QHS #90 tabs 11/24/23 Unknown Rx metoprolol tartrate 25 mg tablet 25 mg PO BID #180 tabs 11/24/23 Unknown Rx Allergy/AdvReac Type Severity Reaction Status Date / Time No Known Allergies Allergy Verified 01/22/24 12:27 Family History Father CAD (coronary artery disease) Myocardial infarction Surgical History History of total hip arthroplasty (10/2020) History of left heart catheterization (07/27/17) H/O coronary artery bypass surgery (09/11/15) Social History Smoking Status: Never smoker alcohol intake: never substance use type: does not use caffeine: Yes Type: coffee Number of servings: 1 ROS ROS ED Constitutional Constitutional ED: Denies chills or fever(s) Eyes Eyes: Denies change in vision or diplopia ENT ENT ED: Denies rhinorrhea or sore throat Cardiovascular Cardiovascular: Reports chest pain; Denies palpitations Respiratory/Chest Respiratory/Chest: Denies cough or dyspnea Gastrointestinal Gastrointestinal: Denies abdominal pain, diarrhea, nausea or vomiting Genitourinary Genitourinary ED: Denies dysuria or hematuria Musculoskeletal Musculoskeletal: Denies back pain or neck pain Integumentary Denies abscess or rash Neurologic Neurologic: Reports as per HPI, disequilibrium and lack of coordination; Denies headache(s), paresthesias or weakness Psychiatric Psychiatric: Denies anxiety or suicidal thoughts EXAM Physical Exam Const Vital Signs: 01/22/24 12:26 01/22/24 13:06 01/22/24 13:07 Temperature 98 F Temperature Source Temporal Pulse Rate 68 Respiratory Rate 18 Respiratory Effort Normal Non-Labored Blood Pressure 120/77 Blood Pressure Mean 91 Pulse Ox 96 Oxygen Delivery Method Room Air Room Air 01/22/24 14:26 Temperature Temperature Source Pulse Rate 57 L Respiratory Rate 16 Respiratory Effort Blood Pressure 113/74 Blood Pressure Mean 87 Pulse Ox 98 Oxygen Delivery Method Room Air Positive well nourished and well developed General Appearance ED: well developed and NAD HEENT Reports moist mucous membranes normocephalic and atraumatic Eyes PERRL and EOMs intact bilaterally Neck full ROM and supple Resp normal respiratory effort and clear to auscultation bilaterally Cardio regular rate, regular rhythm and no murmurs GI non-tender and non-distended Auscultation: normoactive bowel sounds Palpation: soft Back/Spine no CVA tenderness General Back: other FROM Extremity normal to inspection General Extremety ED: Negative for edema, pulses abnormal or tenderness General Extremity: Negative for edema or pulses abnormal Neuro oriented x3, CN's II-XII intact bilaterally and no sensory deficits noted Neuro Narrative: Normal speech no aphasia or dysarthria. When performing [id number] and [id number], his movements are very slow and intentional saying that it is hard to concentrate on the movement but technically he is not ataxic and everything is symmetric. Sensorium / Orientation: awake and alert Motor Exam: strength 5/5 throughout Psych mental status grossly normal Skin no rashes or lesions noted and no wounds NIHSS NIHSS Initial: 1a Level of Consciousness: 0 1b LOC Questions (Score 2 if aphasic/stupor): 0 1c LOC Commands (Only score 1st attempt): 0 2 Best Gaze (If aphasic, use reflexive mvmts.): 0 3 Visual: 0 4 Facial Palsy: 0 5 Motor Arm Right (UN = amputation/fusion): 0 5 Motor Arm Left: 0 6 Motor Leg Right: 0 6 Motor Leg Left: 0 7 Limb ataxia (Only + if out of proportion): 0 8 Sensory (Aphasia/stupor=0 or 1, coma=2): 0 9 Best Language: 0 10 Dysarthria (mute, coma=2, intubated=UN): 0 11 Extinction and Inattention (only scored if +): 0 Total Score: 0 MDM MDM MDM Narrative Medical decision making narrative: Patient is ataxic with walking but does not have vertigo that he can trigger with head or position changes. This is more concerning for central etiology. He is outside of the window for thrombolytics, I did do CT/CTA of the head and neck all the way down to the aortic arch also evaluating for aortic dissection that can cause jokes symptoms along with chest discomfort; he does not have a dissection I reviewed the images and the report which I agree with. There is no LVO or aneurysm. He had some anatomic variants that are noted but none that w ould cause this. His vital signs have been normal and stable. Very unlikely to be having acute stroke with blood pressures that are not significantly elevated but that does not rule it out, and since this is all acute, plan will be for admission and further testing such as MRI and possibly echocardiogram given his history of ischemic cardiomyopathy; it is also noted that he has a history of paroxysmal atrial fibrillation and is not anticoagulated. At this time his troponin is well within normal limits in the single digits and his EKG is unchanged compared with his old one, fairly normal-appearing. His potassium is little low so after he passes a dysphagia screen we will start replacing that. History & Record Review Additional record(s) reviewed:: Prior outpatient record (Echocardiogram 2020 akinetic apex diastolic dysfunction with LVSF lower limit of normal.) Lab Data Attestation: I reviewed the patient's lab results. Labs: Laboratory Results - last 24 hr 01/22/24 13:25 WBC 11.0 RBC 4.76 Hgb 14.1 Hct 42.5 MCV 89.3 MCH 29.6 MCHC 33.2 RDW Std Deviation 46.6 H RDW Coeff of Sol 14.4 Plt Count 138 L MPV 10.3 Immature Gran % (Auto) 0.300 Neut % (Auto) 73.7 H Lymph % (Auto) 18.3 L [place] % (Auto) 6.7 Eos % (Auto) 0.5 Baso % (Auto) 0.5 Absolute Neuts (auto) 8.1 H Absolute Lymphs (auto) 2.00 Nucleated RBC % 0 PT 13.5 INR 1.0 APTT 29.1 Sodium 139 Potassium 3.0 L Chloride 104 Carbon Dioxide 26.0 Anion Gap 9 BUN 23 H Creatinine 1.10 Estim Creat Clear Calc 80.51 Est GFR (MDRD) Af Amer 85 Est GFR (MDRD) Non-Af 71 BUN/Creatinine Ratio 20.9 H Glucose 99 Calcium 9.1 Troponin I High Sens 9 Radiography Diagnostic Testing: Clinical Impression(s) from Imaging Studies Head/Neck CTA 01/22/24 12:59 IMPRESSION: 1. No CTA evidence of vaso-occlusive disease of the anterior end posterior intracranial circulation. 2. No CTA evidence of intracranial aneurysm, saccular or fusiform type. 3. Widely patent bilateral cervical carotid arteries and vertebral arteries. The right vertebral artery is hypoplastic and terminates directly into the right PICA. 4. Normal aortic arch and origins of the great vessels. 5. Incidental 1.307 x 0.81 cm low-attenuation lesion in the left thyroid lobe with CT number of -0.43 Hounsfield units. This is benign colloid cyst. No follow-up is necessary. Electronically Signed: Castro Ham MD at 14:44 EDT , Rhythm Strip Rhythm Strip: Sinus Rhythm Rate: 65 Ectopy: None EKG Initial EKG: Attestation: I personally reviewed and interpreted this EKG as follows: Interpretation: Sinus Rhythm and No Acute Injury Pattern Prior EKG tracings: available for review Prior: Unchanged Management Discussion w/another healthcare provider: Hospitalist Discharge Plan Dx/Rx/DC Orders Clinical Impression: Ataxia, Left-sided chest pain, Hypokalemia, Ischemic cardiomyopathy Disposition Disposition: Acute Care Hospital [facility] Stroke Documentation Questions Stroke Team Activated: No (out of thrombolytic window, NIHSS 0, unlikely LVO) Was Patient considered for Endovascular Intervention?: No-CTA negative, determined not to be an endovascular candidate IV Thrombolytic Administered: No (timing)
[2024-01-22 13:44] LABS: Absolute Neutrophil Count 8.1 X10^3/uL (2.0-7.7); Basophil# 0.05 X10^3/uL; Basophil% 0.5 % (0-1); Eosinophil# 0.06 X10^3/uL; Eosinophils% 0.5 % (0-5); Hematocrit 42.5 % (40-54); Hemoglobin 14.1 g/dL (13.0-16.5); Lymphocyte % 18.3 % (19-41); Mean Corp Hgb Conc 33.2 g/dL (32-36); Mean Corpuscular Hgb 29.6 pg (27.0-32.0); Mean Corpuscular Volume 89.3 fL (80-94); Mean Platelet Vol. 10.3 fl (6.2-12.0); Monocyte# 0.73 X10^3/uL; Monocyte% 6.7 % (0-10); NRBC Flagged by Analyzer 0 % (0-5); Neutrophil # 8.08 X10^3/uL (2.7-7.7); Neutrophil % 73.7 % (47-70); Platelet Count 138 K/mm3 (150-450); RBC Distribution Width CV 14.4 % (11.6-14.6); RBC Distribution Width SD 46.6 fl (35.1-43.9); Red Blood Count 4.76 M/mm3 (4.6-6.2)
[2024-01-22 13:51] LABS: Anion Gap 9 (5-15); BUN 23 mg/dL (7-18); BUN/Creat Ratio 20.9 RATIO (10-20); Calcium,Total 9.1 mg/dL (8.5-10.1); Chloride 104 mmol/L (98-107); EST Glomerular Filtration Rate 71 mL/min (>60); Est Glom Filt Rate - Afr Amer 85 mL/min (>60); Estimated Creatinine Clearance 80.51 ml/min; Glucose 99 mg/dL (74-106); Sodium Level 139 mmol/L (136-145); Troponin-I HS (w/2H Reflex) 9 pg/mL (3.0-78.0)
[2024-01-22 13:53] LABS: Prothrombin Time (Protime)PT. 13.5 SECONDS (11.7-14.9)
[2024-01-22 13:54] LABS: Partial Thromboplast Time 29.1 Seconds (24.1-36.2)
--- NOTE | 2024-01-22 14:09 | RAD_ITS ---
EXAM: XR CHEST, 1 VIEW CLINICAL INDICATION: chest pain TECHNIQUE: Frontal view of the chest. COMPARISON: 07/07/2023. FINDINGS: LUNGS AND PLEURAL SPACES: Unremarkable. No consolidation or edema. No pneumothorax. No effusion. HEART: Cardiomegaly is unchanged. MEDIASTINUM: Central airways and mediastinal contour are unremarkable. BONES/JOINTS: Intact sternal wires. No acute fracture. SOFT TISSUES: Unremarkable. RAD/Chest 1 View (Portable) IMPRESSION: No acute cardiopulmonary pathology and no interval change. Electronically Signed: Castro Ham MD at 15:55 EDT ,
[2024-01-22 14:26] VITALS: BP 113/74; PULSE 57; RESP 16; O2SAT 98
[2024-01-22] MEDS: Potassium Chloride Oral Tablet 20 MEQ PO (15:08)
[2024-01-22 15:28] LABS: Reflex Troponin-HS? (from REC) Y
[2024-01-22 15:29] VITALS: BP 131/87; PULSE 63; RESP 14; TEMP 36.8; O2SAT 97
[2024-01-22 15:54] VITALS: BMI 31.3
--- NOTE | 2024-01-22 16:07 | HP.PCM.HOS_ITS ---
HPI - General General Date of Admission: 01/22/24 Date of Service: 01/22/24 Chief Complaint: Dizziness HPI Narrative HARINDER WRIGHT, is a 68 M with a significant history of hypertension; atrial fibrillation now off Eliquis; a 6 vessel CABG in August 2059 who presents to the emergency department with dizziness that started the day before presentation. He describes the dizziness as feeling off balance when he tries to walk. He reports that he is unable to stand and walk because of the dizziness. Associated with symptoms is left-sided chest pain. He described the chest pain as a discomfort feeling and tightness. The chest pain is intermittent. The chest pain comes on when he moves in bed. Further he reports diaphoresis and chills. He denies any nausea, vomiting and shortness of breath. 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) Severe headache Obesity (BMI 35.0-39.9 without comorbidity) Atherosclerosis of coronary artery without angina pectoris Non-STEMI (non-ST elevated myocardial infarction) (07/27/17) Paroxysmal atrial fibrillation Hyperlipidemia Ischemic cardiomyopathy Left ventricular apical thrombus following [place] Home Medications ?Medication ?Instructions ?Recorded ?Last Taken ?Type ascorbic acid (vitamin C) 500 mg 500 mg PO DAILY@0800 10/21/15 Unknown History tablet aspirin 81 mg tablet,delayed 81 mg PO DAILY 10/21/15 Unknown History release latanoprost 0.005 % eye drops 1 drp RIGHT EYE QHS drops 10/21/15 Unknown History topiramate 25 mg tablet 25 mg PO QHS 10/21/15 Unknown History vitamin E 268 mg (400 unit) capsule 800 unit PO DAILY 10/21/15 Unknown History omeprazole 40 mg capsule,delayed 40 mg PO QDAY 07/11/17 Unknown History release nitroglycerin 0.4 mg sublingual 0.4 mg sublingual Q5-15M PRN chst 06/23/20 Unknown Rx tablet (Nitrostat) levine #25 tabs allopurinol 100 mg tablet 100 mg PO BID 06/29/23 Unknown History hydrochlorothiazide 25 mg tablet 25 mg PO DAILY #90 tabs 07/17/23 Unknown Rx atorvastatin 40 mg tablet 40 mg PO QHS #90 tabs 11/24/23 Unknown Rx metoprolol tartrate 25 mg tablet 25 mg PO BID #180 tabs 11/24/23 Unknown Rx brimonidine 0.2 % eye drops 1 drp ophthalmic (eye) BID 01/22/24 Unknown History sildenafil 50 mg tablet 25 mg PO DAILY PRN erectile 01/22/24 Unknown History dysfunction Allergy/AdvReac Type Severity Reaction Status Date / Time No Known Allergies Allergy Verified 01/22/24 12:27 Family History Father CAD (coronary artery disease) Myocardial infarction Surgical History History of total hip arthroplasty (10/2020) History of left heart catheterization (07/27/17) H/O coronary artery bypass surgery (09/11/15) Social History housing: house Smoking Status: Never smoker alcohol intake: never substance use type: does not use caffeine: Yes Type: coffee Number of servings: 1 ROS ROS Narrative Pertinent positives and pertinent negatives as noted in HPI. All other systems were reviewed and are negative Vital Signs Vital Signs Vital Signs: 01/22/24 12:26 01/22/24 13:06 01/22/24 13:07 Temperature 98 F Temperature Source Temporal Pulse Rate 68 Respiratory Rate 18 Respiratory Effort Normal Non-Labored Blood Pressure 120/77 Blood Pressure Mean 91 Pulse Ox 96 Oxygen Delivery Method Room Air Room Air 01/22/24 14:26 01/22/24 15:29 Temperature 98.2 F Temperature Source Pulse Rate 57 L 63 Respiratory Rate 16 14 Respiratory Effort Blood Pressure 113/74 131/87 H Blood Pressure Mean 87 101 Pulse Ox 98 97 Oxygen Delivery Method Room Air Weight Weight: 104.7 kg Body Mass Index (BMI) 31.3 Physical Exam Narrative Physical exam: General: Well-nourished, well-developed. Head: Normocephalic, atraumatic, no tenderness Eyes: Vision is grossly intact. EOMI ENT, no trauma, moist mucous membranes, no rhinorrhea Neck: Nontender, No thyromegaly. CVS: Regular rate and rhythm. S1-S2 present. No murmur, gallop or rub. Respiratory : clear to auscultation bilaterally, chest wall nontender Abdomen: Soft, nontender, nondistended, normal bowel sounds, no masses : Deferred Back: Nontender, no CVA tenderness, no midline spinal tenderness, deformities, step-offs Extremities: Nontender full range of motion, no trauma Skin: Normal color, no trauma, abrasions Neuro: Alert, oriented, cranial nerves II through XII grossly intact.. Patient has no dysmetria with [id number]-[id number]-powd test and lylr-dp-[id number] test. Strength in all 4 extremities 5 out of 5. No hyperreflexia at elbow reflex and knee reflexes. Psychiatry: Normal mood. Normal affect. Not depressed. Not anxious. Results Lab / Micro Data 01/22/24 13:25 01/22/24 13:25 Labs: Laboratory Results - last 24 hr 01/22/24 13:25: WBC 11.0, RBC 4.76, Hgb 14.1, Hct 42.5, MCV 89.3, MCH 29.6, MCHC 33.2, RDW Std Deviation 46.6 H, RDW Coeff of Sol 14.4, Plt Count 138 L, MPV 10.3, Immature Gran % (Auto) 0.300, Neut % (Auto) 73.7 H, Lymph % (Auto) 18.3 L, [place] % (Auto) 6.7, Eos % (Auto) 0.5, Baso % (Auto) 0.5, Absolute Neuts (auto) 8.1 H, Absolute Lymphs (auto) 2.00, Nucleated RBC % 0, PT 13.5, INR 1.0, APTT 29.1, Sodium 139, Potassium 3.0 L, Chloride 104, Carbon Dioxide 26.0, Anion Gap 9, BUN 23 H, Creatinine 1.10, Estim Creat Clear Calc 80.51, Est GFR (MDRD) Af Amer 85, Est GFR (MDRD) Non-Af 71, BUN/Creatinine Ratio 20.9 H, Glucose 99, Calcium 9.1, Troponin I High Sens 9 Rhythm Strip Rhythm Strip: Sinus Rhythm Rate: 65 Ectopy: None Imaging Radiology Impression Head/Neck CTA 01/22/24 12:59 IMPRESSION: 1. No CTA evidence of vaso-occlusive disease of the anterior end posterior intracranial circulation. 2. No CTA evidence of intracranial aneurysm, saccular or fusiform type. 3. Widely patent bilateral cervical carotid arteries and vertebral arteries. The right vertebral artery is hypoplastic and terminates directly into the right PICA. 4. Normal aortic arch and origins of the great vessels. 5. Incidental 1.307 x 0.81 cm low-attenuation lesion in the left thyroid lobe with CT number of -0.43 Hounsfield units. This is benign colloid cyst. No follow-up is necessary. Electronically Signed: Castro Ham MD at 14:44 EDT , Chest X-Ray 01/22/24 14:09 IMPRESSION: No acute cardiopulmonary pathology and no interval change. Electronically Signed: Castro Ham MD at 15:55 EDT , Assessment & Plan Assessment/Plan (1) Hypokalemia: (2) Left-sided chest pain: (3) Ataxia: (4) H/O coronary artery bypass surgery: (5) Paroxysmal atrial fibrillation: (6) Hyperlipidemia: QUALIFIERS: Hyperlipidemia type: mixed hyperlipidemia Qualified Code(s): E78.2 - Mixed hyperlipidemia PLAN: Plan Serial NINDS NIH Scale ordered EKG independently by myself showed sinus rhythm with sinus arrhythmia. Interpretation of head CT/CTA head and neck by myself: No bleed. No significant stenosis of vessels. Incidental lesion found in left thyroid likely colloidal cyst for which no follow-up was recommended by radiologist. Lipid profile and A1c ordered. Physical therapy, occupational therapy and speech therapy to work with patient. N.p.o. until bedside swallow eval. Daily aspirin continued. High intensity statin continued. Permissive hypertension. Control blood pressure with labetalol for systolic blood pressure of more than 220 or diastolic blood pressure of more than 120. MRI of head Echocardiogram ordered. Advance care planning: Discussed with patient and family advanced directives as well as CODE STATUS. Explained various CODE STATUS: FULL CODE, DNR CCA, DNR CCA with no intubation, and DNR CC- and what each meant. Patient elected to be a DNR CCA with intubation if warranted. Order was placed. Surrogate decision maker is her daughter Tiki who was at the bedside. Time spent on discussion 16 minutes. Time spent in the patient's overall evaluation,decision-making process, review of diagnostic data, adjustment of management, discussion with other providers, nursing and ancillary staff involved in patient's care documentation, 72 minutes. Charges/Coding Visit Charges Inpatient E&M: 55678 Init Hosp L3 Procedures Hospitalists Procedures: 75190 Advncd Care Plan 30 Min
--- NOTE | 2024-01-22 16:08 | ECHOCS_ITS ---
Reason For Study: TIA/CVA Procedure This was a 2D Doppler, Color Flow transthoracic echocardiogram. The study was technically difficult. Contrast injection was performed. Exam performed portable in patient room. Left Ventricle Normal LV size. The left ventricular ejection fraction is 50 %. Mild segmental systolic dysfunction (see wall motion). [place] : Akinetic. Right Ventricle Normal RV size. Normal systolic function. Atria The left atrium is moderately enlarged. Normal right atrium. Mitral Valve Normal mitral valve. Tricuspid Valve Normal tricuspid valve. Mild tricuspid valve insufficiency. Pulmonary artery systolic pressure is 26 mmHg. Aortic Valve Trisinus/trileaflet aortic valve. Pulmonic Valve Normal pulmonic valve. Great Vessels Mild to moderately dilated aortic root. The pulmonary artery is normal size. Normal inferior vena cava. Pericardium/Pleural No pericardial effusion. Medication Diluted definity 4ml given slow IV push to enhance endocardial definition. MMode/2D Measurements & Calculations RVDd: 4.2 cm LVOT diam: 2.4 cm Ao root diam: 3.7 cm LVOT area: 4.5 cm2 LAV(MOD-bp): 80.5 ml LVAd ap4: 39.0 cm2 LVAd ap2: 34.1 cm2 LAV(MOD-bp) Indexed: 35.4 ml/m2 LVLd ap4: 9.1 cm LVLd ap2: 8.9 cm LAV(MOD-sp2): 71.3 ml EDV(MOD-sp4): 140.5 ml EDV(MOD-sp2): 107.7 ml LAV(MOD-sp4): 86.9 ml EDV(sp4-el): 142.0 ml EDV(sp2-el): 110.8 ml LVAs ap4: 28.6 cm2 LVAs ap2: 23.7 cm2 LVLs ap4: 8.8 cm LVLs ap2: 7.9 cm ESV(MOD-sp4): 78.2 ml ESV(MOD-sp2): 60.1 ml ESV(sp4-el): 78.8 ml ESV(sp2-el): 60.3 ml EF(MOD-sp4): 44.3 % EF(MOD-sp2): 44.2 % EF(sp4-el): 44.5 % SV(MOD-sp4): 62.2 ml SV(MOD-sp2): 47.6 ml SV(sp4-el): 63.2 ml LA A4 area: 25.7 cm2 LA dimension(2D): 5.7 cm RA A4 area: 16.3 cm2 TAPSE: 1.9 cm Time Measurements MV dec time: 0.22 sec Doppler Measurements & Calculations MV E max jaleel: 73.4 cm/sec Lat Peak E' Jaleel: 10.4 cm/sec Med Peak E' Jaleel: 7.1 cm/sec MV A max jaleel: 66.4 cm/sec E/E' lat: 7.1 E/E' med: 10.4 MV E/A: 1.1 MV dec slope: 337.2 cm/sec2 Ao V2 max: 118.0 cm/sec LV V1 max: 97.0 cm/sec Ao max P.6 mmHg LV V1 max P.8 mmHg Ao V2 mean: 85.6 cm/sec LV V1 mean P.4 mmHg Ao mean P.1 mmHg LV V1 mean: 76.0 cm/sec Ao V2 VTI: 24.7 cm LV V1 VTI: 23.0 cm AV (velocity ratio): 0.93 ALONDRA(I,D): 4.2 cm2 ALONDRA(V,D): 3.7 cm2 SV(LVOT): 102.6 ml PA V2 max: 108.1 cm/sec TR max jaleel: 238.7 cm/sec PA max PG (full): 2.2 mmHg TR max P.8 mmHg ECHO/Echo Complete W/ Contrast Interpretation Summary Normal LV size. The left ventricular ejection fraction is 50 %. Mild segmental systolic dysfunction (see wall motion). [place] : Akinetic. Contrast injection was performed. Ordering Physician: Darrick Barrera Performed By: Tena Albrecht RDCS and Student
[2024-01-22 16:09] VITALS: BP 119/66; PULSE 57; RESP 14; TEMP 37.3; O2SAT 98
[2024-01-22 16:31] LABS: Troponin-I HS 11 pg/mL (3.0-78.0)
[2024-01-22] MEDS: Acetaminophen 325 MG Tablet 650 MG PO (16:49)
[2024-01-22 18:54] VITALS: BMI 31.3
[2024-01-22 19:30] VITALS: BP 126/80; PULSE 66; RESP 16; TEMP 36.9; O2SAT 98
[2024-01-22 20:09] VITALS: BMI 31.3
[2024-01-22] MEDS: Topiramate 25 MG Tablet PO (21:05)
[2024-01-22] MEDS: Allopurinol 100 MG Tablet PO (21:05)
[2024-01-22] MEDS: Atorvastatin Calcium 40 MG Tablet PO (21:05)
[2024-01-22] MEDS: BRIMONIDINE 0.2% 5ML BOTTLE 1 DRP OPHTHALMIC (21:06)
[2024-01-22] MEDS: Latanoprost 0.005% 1 Bottle 1 DRP RIGHT EYE (21:07)
[2024-01-22] MEDS: Pantoprazole Sodium 40 MG Tablet PO (21:15)
[2024-01-22] MEDS: Dorzolamide HCL/Timolol 10 ml Bottle 1 DRP EACH EYE (22:26)
[2024-01-22 23:30] VITALS: BP 109/59; PULSE 56; RESP 16; TEMP 37.2; O2SAT 99
[2024-01-23 03:30] VITALS: BP 104/53; PULSE 64; RESP 16; TEMP 37; O2SAT 96
[2024-01-23] MEDS: Acetaminophen 325 MG Tablet 650 MG PO ×2 (03:43→15:51)
[2024-01-23 05:39] LABS: Absolute Neutrophil Count 4.8 X10^3/uL (2.0-7.7); Basophil# 0.03 X10^3/uL; Basophil% 0.4 % (0-1); Eosinophil# 0.14 X10^3/uL; Eosinophils% 1.8 % (0-5); Hematocrit 40.8 % (40-54); Hemoglobin 13.9 g/dL (13.0-16.5); Lymphocyte % 26.3 % (19-41); Mean Corp Hgb Conc 34.1 g/dL (32-36); Mean Corpuscular Hgb 30.1 pg (27.0-32.0); Mean Corpuscular Volume 88.3 fL (80-94); Mean Platelet Vol. 10.1 fl (6.2-12.0); Monocyte# 0.56 X10^3/uL; Monocyte% 7.4 % (0-10); NRBC Flagged by Analyzer 0 % (0-5); Neutrophil # 4.84 X10^3/uL (2.7-7.7); Neutrophil % 63.7 % (47-70); Platelet Count 122 K/mm3 (150-450); RBC Distribution Width CV 14.5 % (11.6-14.6); RBC Distribution Width SD 46.5 fl (35.1-43.9); Red Blood Count 4.62 M/mm3 (4.6-6.2); White Blood Count 7.6 K/mm3 (4.4-11.0)
[2024-01-23 06:04] LABS: Anion Gap 8 (5-15); BUN 17 mg/dL (7-18); BUN/Creat Ratio 16.8 RATIO (10-20); Calcium,Total 8.9 mg/dL (8.5-10.1); Chloride 106 mmol/L (98-107); Cholesterol 98 mg/dL (200); Creatinine, Serum 1.01 mg/dL (0.70-1.30); EST Glomerular Filtration Rate 78 mL/min (>60); Est Glom Filt Rate - Afr Amer 94 mL/min (>60); Estimated Creatinine Clearance 87.56 ml/min; Glucose 99 mg/dL (74-106); High Density Lipoprotein 36 mg/dL; Potassium 3.1 mmol/L (3.5-5.1); Sodium Level 138 mmol/L (136-145); Triglycerides 123 mg/dL; Very Low Density Lipoprotein 25 mg/dL (5-40)
[2024-01-23 07:30] VITALS: BP 108/65; PULSE 53; RESP 18; TEMP 36.6; O2SAT 97
[2024-01-23 07:47] LABS: Hemoglobin A1c 5.5 % (3.8-5.6)
[2024-01-23] MEDS: Enoxaparin 40 MG/0.4 ML Syringe SC (08:57)
[2024-01-23] MEDS: Dorzolamide HCL/Timolol 10 ml Bottle 1 DRP EACH EYE (08:57)
[2024-01-23] MEDS: BRIMONIDINE 0.2% 5ML BOTTLE 1 DRP OPHTHALMIC (08:57)
[2024-01-23] MEDS: Vitamin E 400 UNITS Capsule 800 UNITS PO (08:58)
[2024-01-23] MEDS: Aspirin E.C. 81 MG Tablet PO (08:58)
[2024-01-23] MEDS: Ascorbic Acid 500 MG Tablet PO (08:58)
[2024-01-23] MEDS: Allopurinol 100 MG Tablet PO (08:58)
[2024-01-23] MEDS: Pantoprazole Sodium 40 MG Tablet PO (09:01)
[2024-01-23 11:30] VITALS: BP 126/75; PULSE 66; RESP 18; TEMP 36.8; O2SAT 96
--- NOTE | 2024-01-23 14:00 | MRI_ITS ---
HISTORY: stroke. TECHNIQUE: Multiplanar and multisequence MR images of the brain were obtained without contrast. 305 images. COMPARISON: CT prior day. FINDINGS: BRAIN PARENCHYMA: Very mild periventricular white matter changes. No abnormal focus of restricted diffusion. No acute intracranial hemorrhage identified. CSF SPACES: Cerebral ventricles, cortical sulci, and other extra-axial CSF spaces within normal limits in size for age. No significant midline shift or other mass effect.No extra-axial fluid collection. VASCULAR SYSTEM: Major intracranial flow voids are maintained. PARANASAL SINUSES AND MASTOID AIR CELLS: No significant air fluid levels. ORBITS: Bilateral lens resections. MRI/Brain without Contrast IMPRESSION: No evidence for acute infarct. Very mild chronic small vessel ischemic gliosis. Electronically Signed: Lis Obrien MD at 15:56 EDT ,
[2024-01-23 14:23] VITALS: BMI 31.3
[2024-01-23 15:30] VITALS: BP 136/86; PULSE 65; RESP 18; TEMP 37.1; O2SAT 96
--- NOTE | 2024-01-23 15:47 | NEURO.CONS ---
Assessment and Plan: Neuro Assessment/Plan HARINDER WRIGHT is a 68 M with a past medical history of afib, being evaluated by Teleneurology for transient dizziness and ataxia. Based on history, difficult to tell if could be related to peripheral vertigo or TIA. Exam unremarkable. Given his risk factors, recommend treating for TIA. Previously his [id number] score was 1 when last evaluated for AC but now his score is much higher at 4. Diagnosis: TIA vs peripheral vertigo Plan: - recommend starting Eliquis 5mg BID as [id number] score is 4 - Occupational/ Physical therapy consults - DVT prophylaxis with SCDs or heparin SQ - Vascular risk factor modification. The following are the recommended guidelines: LDL Goal < 70 Smoking Cessation Diabetes Management technician terminal and repeater blood pressure control should achieve <130/80 mmHg. BP management should aim to achieve custodial contorl in a reasonable amount of time, taking into consideration the individual patient's requirements and characteristics. Weight Management: Goal for BMI is 18.5 -24.9 kg/m2 Alcohol: No more than 2 drinks/day for men or 1 drink/day for non- women - Promote lifestyle modification: weight control, physical activity, moderation of alcohol intake, moderate sodium intake. Followup with PCP in 1-2 weeks, and in Neurology clinic in 6-12 weeks I personally attended this patient and spent a total time of 45minutes evaluating this patient including clinical assessment, review of chart, medical history imaging, and determining appropriate treatment and workup. HPI Consult Data Date of Consult: 01/23/24 HPI Narrative HPI Narrative: HARINDER WRIGHT, is a 68 M with a significant history of hypertension; atrial fibrillation now off Eliquis; a 6 vessel CABG in August 2059 who presents to the emergency department with dizziness that started the day before presentation. He describes the dizziness as feeling off balance when he tries to walk. He reports that he is unable to stand and walk because of the dizziness. Associated with symptoms is left-sided chest pain. He described the chest pain as a discomfort feeling and tightness. The chest pain is intermittent. The chest pain comes on when he moves in bed. Further he reports diaphoresis and chills. He denies any nausea, vomiting and shortness of breath. Neurologic History Pt had an acide reflux attack and suddently stood up to take extra medicine for it. It stayed difficult to walk for aobut 10 min. He was laying flat and stood up from bed for this. Pt states dizziness felt like he had dysequilibrium and felt like he was on a boat. He was having severe diaphoresis. He has never had anything like this before. After 10 min, he wasn't back to normal but was able to walk again. Currently feels back to normal now. No weakness, no numbness, no slurred speech. 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 He did have a blood clot in his heart at one point and he describes it maybe as in the atrium. Never had bleeding with it. 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) Severe headache Obesity (BMI 35.0-39.9 without comorbidity) Atherosclerosis of coronary artery without angina pectoris Non-STEMI (non-ST elevated myocardial infarction) (07/27/17) Paroxysmal atrial fibrillation Hyperlipidemia Ischemic cardiomyopathy Left ventricular apical thrombus following MT Home Medications ?Medication ?Instructions ?Recorded ?Last Taken ?Type ascorbic acid (vitamin C) 500 mg 500 mg PO DAILY@0800 suppliment 10/21/15 Unknown History tablet aspirin 81 mg tablet,delayed 81 mg PO DAILY prevention 10/21/15 Unknown History release latanoprost 0.005 % eye drops 1 drp RIGHT EYE QHS drops 10/21/15 Unknown History topiramate 25 mg tablet 25 mg PO QHS migraine prevention 10/21/15 Unknown History vitamin E 268 mg (400 unit) capsule 800 unit PO DAILY suppliment 10/21/15 Unknown History omeprazole 40 mg capsule,delayed 40 mg PO QDAY reflux 07/11/17 Unknown History release nitroglycerin 0.4 mg sublingual 0.4 mg sublingual Q5-15M PRN chst 06/23/20 Unknown Rx tablet (Nitrostat) levine #25 tabs allopurinol 100 mg tablet 100 mg PO BID gout 06/29/23 Unknown History hydrochlorothiazide 25 mg tablet 25 mg PO DAILY bp #90 tabs 07/17/23 Unknown Rx atorvastatin 40 mg tablet 40 mg PO QHS cholesterol #90 tabs 11/24/23 Unknown Rx metoprolol tartrate 25 mg tablet 25 mg PO BID heart #180 tabs 11/24/23 Unknown Rx brimonidine 0.2 % 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 01/22/24 Unknown History dorzolamide 22.3 mg-timolol 6.8 1 drp ophthalmic (eye) BID eye 01/22/24 Unknown History mg/mL eye drops health sildenafil 50 mg tablet 25 mg PO DAILY PRN erectile 01/22/24 Unknown History dysfunction apixaban 5 mg tablet (Eliquis) 5 mg PO BID #60 tabs 01/23/24 Unknown Rx Allergy/AdvReac Type Severity Reaction Status Date / Time No Known Allergies Allergy Verified 01/22/24 12:27 Family History Father CAD (coronary artery disease) Myocardial infarction Surgical History History of total hip arthroplasty (10/2020) History of left heart catheterization (07/27/17) H/O coronary artery bypass surgery (09/11/15) Social History housing: house Smoking Status: Never smoker alcohol intake: never substance use type: does not use caffeine: Yes Type: coffee Number of servings: 1 Vital Signs Vital Signs Vital Signs: 01/22/24 16:09 01/22/24 16:35 01/22/24 19:30 Temperature 99.2 F H 98.4 F Temperature Source Oral Oral Pulse Rate 57 L 66 Pulse Strength Respiratory Rate 14 16 Respiratory Effort Normal Non-Labored Respiratory Depth Normal Respiratory Pattern Normal Blood Pressure 119/66 126/80 H Blood Pressure Mean 83 95 Blood Pressure Source Monitor Monitor Blood Pressure Position Semi-Fowlers Semi-Fowlers Blood Pressure Location Right Arm Right Arm Pulse Ox 98 98 Oxygen Delivery Method Room Air Room Air Room Air 01/22/24 19:56 01/22/24 23:30 01/23/24 03:30 Temperature 98.9 F 98.6 F Temperature Source Oral Oral Pulse Rate 56 L 64 Pulse Strength Respiratory Rate 16 16 Respiratory Effort Normal Non-Labored Respiratory Depth Normal Respiratory Pattern Normal Blood Pressure 109/59 L 104/53 L Blood Pressure Mean 75 70 Blood Pressure Source Monitor Monitor Blood Pressure Position Semi-Fowlers Semi-Fowlers Blood Pressure Location Right Forearm Right Forearm Pulse Ox 99 96 Oxygen Delivery Method Room Air Room Air Room Air 01/23/24 06:04 01/23/24 07:30 01/23/24 07:30 Temperature 97.8 F Temperature Source Oral Pulse Rate 53 L Pulse Strength Normal (2+) Respiratory Rate 18 Respiratory Effort Normal Non-Labored Respiratory Depth Normal Respiratory Pattern Normal Blood Pressure 108/65 Blood Pressure Mean 79 Blood Pressure Source Monitor Blood Pressure Position Semi-Fowlers Blood Pressure Location Right Arm Pulse Ox 97 Oxygen Delivery Method Room Air Room Air 01/23/24 07:30 01/23/24 11:30 01/23/24 14:00 Temperature 98.2 F Temperature Source Oral Pulse Rate 66 Pulse Strength Respiratory Rate 18 Respiratory Effort Respiratory Depth Respiratory Pattern Blood Pressure 126/75 H Blood Pressure Mean 92 Blood Pressure Source Monitor Blood Pressure Position Sitting Blood Pressure Location Right Arm Pulse Ox 96 Oxygen Delivery Method Room Air Room Air Room Air Weight Weight: 104.7 kg Body Mass Index (BMI) 31.3 EEG Results Procedure Details EEG Procedure Details: HARINDER WRIGHT is a 68 year old M with a past medical history of , who presents for evaluation of Electroencephalogram on DATE at TIME NIHSS NIHSS Nursing Documentation NIHSS Nursing Documentation: NIH Stroke Scale Start: 01/22/24 13:24 Freq: Status: Discharge Protocol: Activity Type Activity Date Activity User E-sign Co-sign Detail Recorded Client Recorded Date Recorded By Document 01/22/24 13:10 DMT [id number] 01/22/24 13:24 DMT 01/22/24 13:10 NIH Stroke Scale [NIHSS] A score of 0 is normal or asymptomatic . Total possible score is 42. Inpatient: RN or Physician to activate a stroke alert for onset of new stroke symptoms or with NIHSS increase >/= 3 points. Following change in neurological status, NIHSS will be performed per physician order or more frequently PRN. -1a. Level of Consciousness Alert; keenly responsive -1b. LOC Questions Answers BOTH questions correctly. -1c. LOC Commands Performs both tasks correctly . -2. Best Gaze Normal -3. Visual No visual loss -4. Facial Palsy Normal symmetrical movements -5a. Left Arm No drift; arm holds 90 (or 45 ) degrees for full 10 seconds -5b. Right Arm No drift; arm holds 90 (or 45 ) degrees for full 10 seconds -6a. Left Leg No drift; leg holds 30-degree position for full 5 seconds -6b. Right Leg No drift; leg holds 30-degree position for full 5 seconds -7. Limb Ataxia Absent -8. Sensory Normal; no sensory loss -9. Best Language No aphasia; normal -10. Dysarthria Normal -11. Extinction and Inattention No abnormality -Total 0 Query Text:A score of 0 is normal or asymptomatic. Total possible score is 42 . ED: Notify Physician for NIHSS increase by > / = 3 points. Inpatient: RN or Physician to activate a stroke alert for NIHSS increase of > / = 3 points. NIHSS: Ischemic Stroke/TIA Start: 01/22/24 16:08 Text: For PCU Patients: NIH and Neuro Check every 4 Status: Active hours, PRN and with change in RN caregiver. Freq: [id number] Protocol: Activity Type Activity Date Activity User E-sign Co-sign Detail Recorded Client Recorded Date Recorded By Document 01/23/24 11:30 AMG desktop 01/23/24 11:52 AMG 01/23/24 11:30 -1a. Level of Consciousness Alert; keenly responsive -1b. LOC Questions Answers BOTH questions correctly. -1c. LOC Commands Performs both tasks correctly . -2. Best Gaze Normal -3. Visual Partial hemianopia -4. Facial Palsy Normal symmetrical movements -5a. Left Arm No drift; arm holds 90 (or 45 ) degrees for full 10 seconds -5b. Right Arm No drift; arm holds 90 (or 45 ) degrees for full 10 seconds -6a. Left Leg No drift; leg holds 30-degree position for full 5 seconds -6b. Right Leg No drift; leg holds 30-degree position for full 5 seconds -7. Limb Ataxia Absent -8. Sensory Normal; no sensory loss -9. Best Language No aphasia; normal -10. Dysarthria Normal -11. Extinction and Inattention No abnormality -Total 1 Query Text:A score of 0 is normal or asymptomatic. Total possible score is 42 . ED: Notify Physician for NIHSS increase by > / = 3 points. Inpatient: RN or Physician to activate a stroke alert for NIHSS increase of > / = 3 points. Coma Scale [Assess] -Eye Opening Spontaneous -Motor Obeys Commands -Verbal Oriented [Total] -Coma Scale Total 15 NIHSS 1a. Level of Consciousness: Alert; keenly responsive 1b. LOC Questions: Answers BOTH questions correctly. 1c. LOC Commands: Performs both tasks correctly. 2. Best Gaze: Normal 3. Visual: No visual loss 4. Facial Palsy: Normal symmetrical movements 5a. Left Arm: No drift; arm holds 90 (or 45) degrees for full 10 seconds 5b. Right Arm: No drift; arm holds 90 (or 45) degrees for full 10 seconds 6a. Left Leg: No drift; leg holds 30-degree position for full 5 seconds 6b. Right Leg: No drift; leg holds 30-degree position for full 5 seconds 7. Limb Ataxia: Absent 8. Sensory: Normal; no sensory loss 9. Best Language: No aphasia; normal 10. Dysarthria: Normal 11. Extinction and Inattention: No abnormality Total: 0 Physical Exam Narrative -? General: Laying comfortably in bed; in no acute distress. -? HENT: Normal oropharynx and mucosa. Normal external appearance of ears and nose. Exophthalmos. -? Neck: Supple, no pain or tenderness -? CV:? No peripheral edema. -? Pulmonary:? Normal respiratory effort. -? Ext: No cyanosis, edema, or deformity -? Skin: No rash. Normal palpation of skin.? -? Musculoskeletal: full range of motion; no joint tenderness. Normal digits and nails by inspection. No clubbing. -? NEURO: -? Mental Status: The patient was alert and oriented to time, place, and person. Normal recent/remote memory, concentration, and general fund of knowledge. -? Language: speech is clear.? Naming, repetition, fluency, and comprehension intact. -? Cranial Nerves: EOMI, no nystagmus, visual robins full, no facial asymmetry, facial sensation intact, hearing intact, tongue midline, no evidence of atrophy or fibrillations. -? Motor: normal bulk, tone, and strength throughout. No pronator drift or satelliting. Upper and lower extremities equal bilaterally. -? Tone: is normal and bulk is normal -? Sensation- Intact to light touch bilaterally -? Coordination: No dysmetria on [id number], finger follow finger or [id number]. -? Gait- Gait initiation was normal. Narrow base with good heel strike and stride length was observed during ambulation. Turns were in stride. Patient was able to walk normally in tandem. Lab / Micro Data 01/23/24 05:28 01/23/24 05:28 Labs: Laboratory Results - last 24 hr 01/22/24 15:56: Troponin I High Sens 11 01/23/24 05:28: WBC 7.6, RBC 4.62, Hgb 13.9, Hct 40.8, MCV 88.3, MCH 30.1, MCHC 34.1, RDW Std Deviation 46.5 H, RDW Coeff of Sol 14.5, Plt Count 122 L, MPV 10.1, Immature Gran % (Auto) 0.400, Neut % (Auto) 63.7, Lymph % (Auto) 26.3, [place] % (Auto) 7.4, Eos % (Auto) 1.8, Baso % (Auto) 0.4, Absolute Neuts (auto) 4.8, Absolute Lymphs (auto) 2.00, Nucleated RBC % 0, Sodium 138, Potassium 3.1 L, Chloride 106, Carbon Dioxide 24.0, Anion Gap 8, BUN 17, Creatinine 1.01, Estim Creat Clear Calc 87.56, Est GFR (MDRD) Af Amer 94, Est GFR (MDRD) Non-Af 78, BUN/Creatinine Ratio 16.8, Glucose 99, Hemoglobin A1c 5.5, Calcium 8.9, Triglycerides 123, Cholesterol 98, LDL Cholesterol 37, VLDL Cholesterol 25, HDL Cholesterol 36 L Rhythm Strip Rhythm Strip: Sinus Rhythm Rate: 65 Ectopy: None Imaging Radiology Impression Chest X-Ray 01/22/24 14:09 IMPRESSION: No acute cardiopulmonary pathology and no interval change. Electronically Signed: Castro Ham MD at 15:55 EDT Reading Location ID and State: [facility] / [place] , Service support , Echocardiogram 01/22/24 16:08 Interpretation Summary Normal LV size. The left ventricular ejection fraction is 50 %. Mild segmental systolic dysfunction (see wall motion). [place] : Akinetic. Contrast injection was performed. Ordering Physician: Darrick Barrera Performed By: Tena Albrecht RDCS and Student Active Medications Active Medications Active Medications: Current Medications Generic Name Dose Route Start Last Admin Trade Name Freq PRN Reason Stop Dose Admin Acetaminophen 650 mg 01/22/24 16:08 01/23/24 03:43 Acetaminophen 325 Mg Tablet PO 650 mg Q4H PRN PRN Administration Pain 1-10 Or Fever>99.6 Allopurinol 100 mg 01/22/24 22:00 01/23/24 08:58 Allopurinol 100 Mg Tablet PO 100 mg BID ALBA Administration Ascorbic Acid 500 mg 01/23/24 08:00 01/23/24 08:58 Ascorbic Acid 500 Mg Tablet PO 500 mg DAILYCM ALBA Administration Aspirin 81 mg 01/23/24 08:00 01/23/24 08:58 Aspirin E.C. 81 Mg Tablet PO 81 mg DAILYCM ALBA Administration Atorvastatin Calcium 40 mg 01/22/24 22:00 01/22/24 21:05 Atorvastatin Calcium 40 Mg Tablet PO 40 mg QHS ALBA Administration Brimonidine Tartrate 1 drp 01/22/24 22:00 01/23/24 08:57 Brimonidine 0.2% 5ml Bottle OPHTHALMIC 1 drp BID ALBA Administration Dorzolamide/Timolol 1 drp 01/22/24 22:00 01/23/24 08:57 Dorzolamide Hcl/Timolol 10 Ml Bottle EACH EYE 1 drp BID ALBA Administration Enoxaparin Sodium 40 mg 01/23/24 10:00 01/23/24 08:57 Enoxaparin 40 Mg/0.4 Ml Syringe SC 40 mg DAILY ALBA Administration Hydralazine HCl 5 mg 01/22/24 16:08 Hydralazine 20 Mg/Ml Vial IV 01/23/24 16:08 Q30M PRN maintain BP parameters with HR <60 Sodium Chloride 250 mls @ 15 mls/hr 01/22/24 15:39 IV .[id number] PRN Additional IVPB Infusion Sodium Chloride 250 mls @ 15 mls/hr 01/22/24 15:39 IV .[id number] PRN Saline Flush Labetalol HCl 10 - 20 mg 01/22/24 16:08 Labetalol (Prefilled) 20 Mg/4 Ml IV 01/23/24 16:08 Q10M PRN PRN maintain BP parameters with HR >/=60 Latanoprost 1 drp 01/22/24 22:00 01/22/24 21:07 Latanoprost 0.005% 1 Bottle RIGHT EYE 1 drp QHS ALBA Administration Melatonin 3 mg 01/22/24 16:08 Melatonin 3 Mg Tablet PO QHS PRN PRN INSOMNIA Nitroglycerin 0.4 mg 01/22/24 16:31 Nitroglycerin (Inpatient Use) 0.4 Mg Tab.Subl SL Q5M PRN CARDIAC/CHEST PAIN Ondansetron HCl 4 mg 01/22/24 16:08 Ondansetron 4 Mg/2 Ml Vial IV Q8H PRN PRN NAUSEA/VOMITING Pantoprazole Sodium 40 mg 01/23/24 10:00 01/23/24 09:01 Pantoprazole Sodium 40 Mg Tablet PO 40 mg DAILY ALBA Administration Senna/Docusate Sodium 2 tablet 01/22/24 16:08 Senna/Docusate Sodium 1 Tablet PO BID PRN PRN Constipation Sodium Chloride 10 - 40 ml 01/22/24 15:39 0.9% Saline Lock 10 Ml Syringe IV UD PRN SALINE FLUSH Topiramate 25 mg 01/22/24 22:00 01/22/24 21:05 Topiramate 25 Mg Tablet PO 25 mg QHS ALBA Administration Vitamin E 800 units 01/23/24 08:00 01/23/24 08:58 Vitamin E 400 Units Capsule PO 800 units DAILYCM ALBA Administration
--- NOTE | 2024-01-23 16:31 | CASEMGMT ---
Met with patient to complete ORTA form. ORTA form explained to patient who voiced understanding and signed form. Original form placed in pt?s chart and copy provided to patient. Shanthi Rhodes, Discharge Planning Asst
--- NOTE | 2024-01-23 16:33 | PCM.DC.SUM ---
Providers Date of Admission: 01/22/24 Date of Discharge: 01/23/24 Primary Care Physician: Dr. Manjit Steele MD Consultations 01/23/24 08:39 Consult: Tele-Neurology Routine Consulting Provider: [facility] Reason for Consult: stroke EMERGENT Consult: No MD Notified: Yes Date Notified: 01/23/24 Time Notified: 08:39 Method of Notification: [facility]sw[facility] Service Nursing Unit Staff Notify [facility] of Tele-Neurology Consult: Yes Reason For Visit: DISEQUILIBRIUM Diagnosis Discharge Diagnosis (1) Hypokalemia: Status: Acute Code(s): E87.6 - Hypokalemia (2) Left-sided chest pain: Status: Acute Code(s): R07.9 - Chest pain, unspecified (3) Ataxia: Status: Acute Code(s): R27.0 - Ataxia, unspecified (4) H/O coronary artery bypass surgery: Status: Resolved Code(s): Z95.1 - Presence of aortocoronary bypass graft (5) Paroxysmal atrial fibrillation: Status: Chronic Code(s): I48.0 - Paroxysmal atrial fibrillation (6) Hyperlipidemia: Status: Chronic Code(s): E78.5 - Hyperlipidemia, unspecified Qualifiers: Hyperlipidemia type: mixed hyperlipidemia Qualified Code(s): E78.2 - Mixed hyperlipidemia Medications at Discharge Home Medications ascorbic acid (vitamin C) 500 mg tablet 500 mg PO DAILY@0800 suppliment 10/21/15 aspirin 81 mg tablet,delayed release 81 mg PO DAILY prevention 10/21/15 latanoprost 0.005 % eye drops 1 drp RIGHT EYE QHS drops 10/21/15 topiramate 25 mg tablet 25 mg PO QHS migraine prevention 10/21/15 vitamin E 268 mg (400 unit) capsule 800 unit PO DAILY suppliment 10/21/15 omeprazole 40 mg capsule,delayed release 40 mg PO QDAY reflux 07/11/17 nitroglycerin 0.4 mg sublingual tablet (Nitrostat) 0.4 mg sublingual Q5-15M PRN chst levine #25 tabs 06/23/20 allopurinol 100 mg tablet 100 mg PO BID gout 06/29/23 hydrochlorothiazide 25 mg tablet 25 mg PO DAILY bp #90 tabs 07/17/23 atorvastatin 40 mg tablet 40 mg PO QHS cholesterol #90 tabs 11/24/23 metoprolol tartrate 25 mg tablet 25 mg PO BID heart #180 tabs 11/24/23 brimonidine 0.2 % 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 01/22/24 dorzolamide 22.3 mg-timolol 6.8 mg/mL eye drops 1 drp ophthalmic (eye) BID eye health 01/22/24 sildenafil 50 mg tablet 25 mg PO DAILY PRN erectile dysfunction 01/22/24 apixaban 5 mg tablet (Eliquis) 5 mg PO BID #60 tabs 01/23/24 Hospital Course Procedures 2-D Echocardiogram, EKG and - (Chest x-ray/CTA head and neck/MRI brain) Summary of Care Provided Minutes Spent on Discharge: 38 Hospital Course: Mr. Reaves is a 68-year-old white male with a history of paroxysmal atrial fibrillation off Eliquis who presented to the emergency department at [facility] on 01/23/2024 with a chief complaint of altered equilibrium. He had previously been anticoagulated after his coronary bypass graft as he had postoperative atrial fibrillation. He states that he does intermittently feel like he gets some fluttering in his chest and has been told he is in A-fib but anticoagulation had not been read initiated at this time. The patient reported that yesterday morning the patient was lying down and had a acid reflux attack at which point he stated to take some extra medication for it which she has issues with periodically. He reported when he got up it was difficult for him to walk for about 10 minutes. He then decided to lie in bed heat. He felt like he was lying on a boat and then began having some severe diaphoresis. He had never had anything like this previously. After about 10 minutes, he indicated he was not back to his baseline but was able to walk again. He felt like he was bouncing off the vogel and unable to maintain upright position. His symptoms are only present when he was up trying to walk. NIH in the emergency department was 0. Vital signs on presentation showed temperature of 98, heart rate 68, respiratory rate 18, blood pressure was 120/77 and oxygen saturation was 96% on room air. His CBC was unremarkable other than some mild thrombocytopenia which has been present previously. Coags were normal. Electrolytes were normal except for mild hypokalemia with potassium of 3.1 which was replaced. Renal function was normal. Glucose was 99 and hemoglobin A1c was obtained and found to be 5.5. Troponin was normal x 2. We did obtain a cholesterol panel which showed his total cholesterol 98, LDL 37, HDL 36, and triglycerides of 123. Chest x-ray is unremarkable. CT of the brain showed no abnormalities. CTA of the head and neck showed no vaso-occlusive disease, no aneurysms and widely patent bilateral cervical carotid arteries and vertebral arteries with a normal aortic arch. An incidental low-attenuation left thyroid nodule was found and was consistent with a colloid cyst with no follow-up required. He was admitted and stroke protocol was initiated. Neurology was consulted. He was maintained on his home atorvastatin and will maintain this at discharge as his cholesterol control seems to be good. Echocardiogram was unchanged from previous and shows a normal EF with no PFO and apical akinesis which was noted on his last echocardiogram from 2020. MRI of the brain showed very mild chronic small vessel ischemic gliosis but no evidence of acute infarct. [facility] evaluated the patient and with his history of paroxysmal atrial fibrillation they recommended initiation of Eliquis 5 mg p.o. twice daily due to a QEDWN1DLBP score of 4 and no changes to any other medications with a goal blood pressure less than 140/80. Upon questioning the patient did note that he has had some intermittent paroxysmal atrial fibrillation as an outpatient but seemingly quickly resolves back to normal sinus rhythm without any intervention. We discussed the importance of anticoagulation in the setting of paroxysmal atrial fibrillation and the patient voiced understanding. We went over risks of being fully anticoagulated and the patient and his daughter who was at the bedside voiced understanding. Blood pressures have been at goal for the most part during his hospitalization. Prescription for Eliquis was sent to his local pharmacy and he was given a prescription assistance card at the time of discharge. 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 Discharge diagnoses: TIA Hypokalemia-treated Disequilibrium-resolved History of paroxysmal atrial fibrillation Coronary artery disease status post CABG History of ischemic cardiomyopathy Essential hypertension Hyperlipidemia Glaucoma History of gout GERD History of migraine headaches ED Obesity History of left ventricular apical thrombus Mild thrombocytopenia Physical Exam Const alert, oriented x3, no apparent distress, average body habitus, no limitations, healthy appearing and well nourished Constitutional Narrative: Upper middle-aged, white male, sitting up in bed, appears comfortable, nontoxic General Appearance: cooperative, comfortable, well kempt and well developed HEENT normocephalic, head/scalp atraumatic and hearing grossly normal bilaterally Eyes PERRL, EOMs intact bilaterally and conjunctivae normal Eyes Narrative: No scleral icterus Neck no lymphadenopathy, supple, no JVD and no carotid bruits Resp normal respiratory effort, no retractions, no use of accessory muscles and clear to auscultation bilaterally Auscultation: Negative for rales, rhonchi or wheezes Cardio regular rate, regular rhythm, S1 normal heart sound, S2 normal heart sound, no murmurs, no rub, no gallops and no clicks Cardio Narrative: Few intermittent ectopy GI normal to inspection, nondistended, normoactive bowel sounds, soft to palpation and non-tender Extremity no clubbing, cyanosis or edema Extremity Narrative: 2+ pedal pulses Skin no rashes or lesions noted, no wounds, skin turgor normal and no jaundice Neuro oriented x3, CN's II-XII intact bilaterally, moves all extremities and no focal motor deficits Speech: speech normal Psych affect normal Psych Narrative: Eye contact is good, patient very pleasant, interacts appropriately Weight / BMI Weight Weight: 104.7 kg Body Mass Index (BMI) 31.3 ABG / Lab / Microbiology Data 01/23/24 05:28 01/23/24 05:28 Laboratory: Laboratory Results - last 24 hr 01/23/24 05:28: WBC 7.6, RBC 4.62, Hgb 13.9, Hct 40.8, MCV 88.3, MCH 30.1, MCHC 34.1, RDW Std Deviation 46.5 H, RDW Coeff of Sol 14.5, Plt Count 122 L, MPV 10.1, Immature Gran % (Auto) 0.400, Neut % (Auto) 63.7, Lymph % (Auto) 26.3, [place] % (Auto) 7.4, Eos % (Auto) 1.8, Baso % (Auto) 0.4, Absolute Neuts (auto) 4.8, Absolute Lymphs (auto) 2.00, Nucleated RBC % 0, Sodium 138, Potassium 3.1 L, Chloride 106, Carbon Dioxide 24.0, Anion Gap 8, BUN 17, Creatinine 1.01, Estim Creat Clear Calc 87.56, Est GFR (MDRD) Af Amer 94, Est GFR (MDRD) Non-Af 78, BUN/Creatinine Ratio 16.8, Glucose 99, Hemoglobin A1c 5.5, Calcium 8.9, Triglycerides 123, Cholesterol 98, LDL Cholesterol 37, VLDL Cholesterol 25, HDL Cholesterol 36 L Radiography Diagnostic Testing: Radiology Impression Echocardiogram 01/22/24 16:08 Interpretation Summary Normal LV size. The left ventricular ejection fraction is 50 %. Mild segmental systolic dysfunction (see wall motion). Goodwin : Akinetic. Contrast injection was performed. Ordering Physician: Darrick Barrera Performed By: Tena Albrecht RDCS and Student Brain MRI 01/23/24 14:00 IMPRESSION: No evidence for acute infarct. Very mild chronic small vessel ischemic gliosis. Electronically Signed: Lis Obrien MD at 15:56 EDT , D/C Instructions Discharge Diet: Low fat / Low cholesterol Discharge Activity: Return to Normal Activity Return to work on: 01/25/24 Meaningful Use Info Meaningful Use Meaningful Use Diagnoses (Choose all that apply): None applicable Ischemic Stroke Statin Dosing Therapy Reference: STATIN DOSE THERAPY REFERENCE: * Patients > 75 years receive moderate or high dose statin therapy. * Patients 75 years or YOUNGER should receive HIGH intensity statin dose unless contraindicated. You will be required to document reason for non-treatment if statin daily dose does not meet guidelines. HIGH DOSE STATIN THERAPY DAILY Atorvastatin > than or = to 40 mg Rosuvastatin > than or = to 20 mg Amlodipine + Atorvastatin > than or = to 2.5/40 mg Ezetimibe + Simvastatin 10/80 mg Simvastatin 80mg Discharge Plan Admission Admit Date/Time: 01/22/24 15:57 Primary Reason for Your Visit: Disequilibrium Attending Provider: Taryn Mejía Primary Care Provider: Manjit Steele Consulting Providers: Darrick Barrera; Marc Matias; Hilario Boyle; Carley Flores; Kim Hadley; Virgie Martinez; Martínez Alvarez; Gavi Cedillo; Magdiel Tejeda; Lance Soto; Gino Flores; Mini Mccallum; Mundo Putnam; Laya Isaac; El Abdul; Danielle Wade; Paolo Spencer; Enma Hollis; Tee Vazquez; Park Mejía; Rogelio Wang Discharge Orders/Prescriptions Prescriptions: New Eliquis 5 mg Tablet 5 mg PO BID Qty: 60 2RF Continued omeprazole 40 mg capsule,delayed release(DR/EC) 40 mg PO QDAY nitroglycerin [Nitrostat] 0.4 mg tablet, sublingual 0.4 mg SUBLINGUAL Q5-15M PRN (Reason: chst levine) Qty: 25 6RF Rx Instructions: do not not exceed 3 doses at one episode allopurinol 100 mg tablet 100 mg PO BID topiramate 25 MG tablet 25 mg PO QHS latanoprost 1 DROP bottle 1 drp RIGHT EYE QHS aspirin 81 MG tablet,delayed release (DR/EC) 81 mg PO DAILY ascorbic acid (vitamin C) 500 MG tablet 500 mg PO DAILY@0800 vitamin E 400 UNIT capsule 800 unit PO DAILY sildenafil 50 mg tablet 25 mg PO DAILY PRN (Reason: erectile dysfunction) brimonidine 0.2 % drops 1 drp ophthalmic (eye) BID dorzolamide-timolol 22.3-6.8 mg/mL drops 1 drp ophthalmic (eye) BID hydrochlorothiazide 25 mg tablet 25 mg PO DAILY Qty: 90 3RF metoprolol tartrate 25 mg tablet 25 mg PO BID Qty: 180 4RF atorvastatin 40 mg tablet 40 mg PO QHS Qty: 90 3RF Referrals / Follow Up: Manjit Steele MD [Primary Care Provider] - Within 1 Week Michael Olsen MD [Med Staff - Active Staff] - Within 3 Months Disposition Disposition (needs filled in before D/C Order can be placed): Home, Self Care Charges/Coding Visit Charges Inpatient E&M: 44014 Disch Hosp >30min
--- NOTE | 2024-01-23 17:08 | CASEMGMT ---
MIR SAPP updated by hospitalist that patient will need Eliquis at discharge. No script sent to patient's pharmacy at this time. MIR CM in to discuss needs at discharge with patient. RN SENAIT advised patient to check copay for Eliquis when he fills prescription, patient voiced understanding. RN CM provided Eliquis savings card to patient. MIR SAPP updated patient to follow-up with PCP or commercial appraiser if Elquis is too expensive for patient, patient voiced understanding. Patient had no further questions or concerns at this time.
[2024-01-23] MEDS: APIXABAN 5 MG TABLET PO (17:16)
[2024-01-23] MEDS: Potassium Chloride Oral Tablet 20 MEQ 60 MEQ PO (17:16)
== END 2024-01-23 17:12 | disposition home or self-care (01) ==
LOC: ED 15:24 → PCU 15:31
PROVIDERS: Admitting Provider Hospitalist; Emergency Provider Emergency Medicine; PCP Family Medicine; Visit Provider Internal Medicine
DX: G45.9 Transient cerebral ischemic attack, unspecified (principal); I50.22 Chronic systolic (congestive) heart failure; I11.0 Hypertensive heart disease with heart failure; I48.0 Paroxysmal atrial fibrillation; R07.89 Other chest pain; E87.6 Hypokalemia; R27.0 Ataxia, unspecified; I25.10 Atherosclerotic heart disease of native coronary artery without angina pectoris; I25.5 Ischemic cardiomyopathy; E78.2 Mixed hyperlipidemia; Z79.82 Long term (current) use of aspirin; Z79.899 Other long term (current) drug therapy; Z95.1 Presence of aortocoronary bypass graft; D69.6 Thrombocytopenia, unspecified; E66.9 Obesity, unspecified; Z68.31 Body mass index [BMI] 31.0-31.9, adult
CPT/HCPCS: 36415; 70496; 70498; 70551; 71045; 80048; 80061; 83036; 84484; 85025; 85610; 85730; 93005; 93306; 94762; 96372; 97161; 97166; 97802; 99221; 99285; J7030; Q9957; Q9967; A4216; C8929; G0378

== ENCOUNTER 2024-02-10 18:06 | Emergency (ER) | payer MEDICARE, OTHER, SELFPAY ==
[2024-02-10 18:07] VITALS: BP 137/93; PULSE 88; RESP 16; TEMP 36.6; O2SAT 96; BMI 31.7
--- NOTE | 2024-02-10 18:40 | EDS_ITS ---
HPI History of Present Illness HPI Narrative: 68-year-old male history of A-fib, [place], cardiomyopathy, prior TIA on Eliquis. Was hospitalized earlier this month overnight for rule out TIA. States that he has had redness discomfort to his right lower extremity for the last several days has noticed the redness in the last 24 hours. No fever or systemic symptoms otherwise. He is never had a DVT or PE and again he is on Eliquis currently and has been for the last 3 weeks. Chief Complaint: Lower Extremity Injury Informant: patient and spouse/S.O. Occured/Mechanism Mechanism/Context: No injury and No blunt trauma Onset/Context/Timing Onset: Days Context: Gradual Onset Timing: Continuous Quality of Pain: Dull Current Severity: Mild Maximum Severity: Mild Narrative Narrative: 68-year-old male with redness to his right lateral lower leg. Denies any trauma. No systemic symptoms. No fever. 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) Severe headache Obesity (BMI 35.0-39.9 without comorbidity) Atherosclerosis of coronary artery without angina pectoris Non-STEMI (non-ST elevated myocardial infarction) (07/27/17) Paroxysmal atrial fibrillation Hyperlipidemia Ischemic cardiomyopathy Left ventricular apical thrombus following [place] Home Medications ?Medication ?Instructions ?Recorded ?Last Taken ?Type ascorbic acid (vitamin C) 500 mg 500 mg PO DAILY@0800 suppliment 10/21/15 Unknown History tablet aspirin 81 mg tablet,delayed 81 mg PO DAILY prevention 10/21/15 Unknown History release latanoprost 0.005 % eye drops 1 drp RIGHT EYE QHS drops 10/21/15 Unknown History topiramate 25 mg tablet 25 mg PO QHS migraine prevention 10/21/15 Unknown History vitamin E 268 mg (400 unit) capsule 800 unit PO DAILY suppliment 10/21/15 Unknown History omeprazole 40 mg capsule,delayed 40 mg PO QDAY reflux 07/11/17 Unknown History release nitroglycerin 0.4 mg sublingual 0.4 mg sublingual Q5-15M PRN chst 06/23/20 Unknown Rx tablet (Nitrostat) levine #25 tabs allopurinol 100 mg tablet 100 mg PO BID gout 06/29/23 Unknown History hydrochlorothiazide 25 mg tablet 25 mg PO DAILY bp #90 tabs 07/17/23 Unknown Rx atorvastatin 40 mg tablet 40 mg PO QHS cholesterol #90 tabs 11/24/23 Unknown Rx metoprolol tartrate 25 mg tablet 25 mg PO BID heart #180 tabs 11/24/23 Unknown Rx brimonidine 0.2 % 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 01/22/24 Unknown History dorzolamide 22.3 mg-timolol 6.8 1 drp ophthalmic (eye) BID eye 01/22/24 Unknown History mg/mL eye drops health sildenafil 50 mg tablet 25 mg PO DAILY PRN erectile 01/22/24 Unknown History dysfunction apixaban 5 mg tablet (Eliquis) 5 mg PO BID #60 tabs 01/23/24 Unknown Rx cephalexin 500 mg capsule 500 mg PO Q6 #40 CAPSULES 02/10/24 Unknown Rx Allergy/AdvReac Type Severity Reaction Status Date / Time No Known Allergies Allergy Verified 02/10/24 18:09 Family History Father CAD (coronary artery disease) Myocardial infarction Surgical History History of total hip arthroplasty (10/2020) History of left heart catheterization (07/27/17) H/O coronary artery bypass surgery (09/11/15) Social History housing: house Smoking Status: Never smoker alcohol intake: never substance use type: does not use caffeine: Yes Type: coffee Number of servings: 1 ROS ROS ED ROS Narrative Denies recent illness. Constitutional Constitutional ED: Denies chills or fever(s) Eyes Eyes: Denies blurry vision ENT ENT ED: Denies ear pain Cardiovascular Cardiovascular: Denies chest pain Respiratory/Chest Respiratory/Chest: Denies cough or dyspnea Gastrointestinal Gastrointestinal: Denies abdominal pain Genitourinary Genitourinary ED: Denies dysuria or hematuria Musculoskeletal Musculoskeletal: Denies arthralgias Integumentary Denies abscess Neurologic Neurologic: Denies headache(s) Psychiatric Psychiatric: Denies anxiety Endocrine Endocrinology: Denies polydipsia Hematologic/Lymphatic Hematologic/Lymphatic: Denies easy bleeding Allergic/Immunologic Allergic/Immunologic ED: Denies mouth swelling EXAM Physical Exam Narrative Exam Narrative: 68-year-old Yenni male no acute distress. Vital signs stable afebrile. H EENT exam unremarkable. Neck nontender. Lungs clear to auscultation bilaterally. Heart regular rhythm no murmur. Abdomen soft nontender. Moving all 4 extremities. Right lower leg lateral right calf from the ankle to about the distal third of the calf on the right side only he has about a 6 to 10 inch area in length by about 4 inches wide no cellulitis. Tender red warm. No abscess. Noncircumferential. No lymphangitic streaking. No inguinal lymphadenopathy. No involvement of the joint. Both lower extremities are neurovascularly intact. Const Vital Signs: 02/10/24 18:07 Temperature 98 F Temperature Source Oral Pulse Rate 88 Respiratory Rate 16 Blood Pressure 137/93 H Blood Pressure Mean 107 Pulse Ox 96 Oxygen Delivery Method Room Air Positive well nourished and well developed; Negative for cachectic, contractures or unkempt General Appearance ED: well developed and NAD; Negative for unkempt, cachectic or contractures Nutritional Appearance: Negative for cachectic HEENT Reports moist mucous membranes normocephalic and atraumatic; Negative for trauma or tenderness Eyes PERRL Neck full ROM and supple Thyroid: Negative for tender Lymph Lymphatic: Negative for other Chest Wall inspection of chest normal and palpation of chest normal Chest: Negative for other Resp normal respiratory effort, no retractions and clear to auscultation bilaterally Effort and Inspection: Negative for pain with movement Auscultation: Negative for rales, rhonchi, wheezes or diminished lung sounds Cardio regular rate, regular rhythm, S1 normal heart sound, S2 normal heart sound and no murmurs Rate: Negative for bradycardia or tachycardic Rhythm: Negative for abnormal rhythm Bruits: Negative for other GI non-tender, non-distended and no masses Inspection: Negative for abdominal distention Palpation: soft; Negative for tender, guarding or rebound tenderness present Back/Spine no CVA tenderness General Back: Negative for CVA tenderness Cervical Spine: Negative for cervical spine tenderness Thoracic Spine / Upper Back: Negative for thoracic spinal tenderness Lumbar Spine / Lower Back: Negative for lumbar spinal tenderness Extremity normal to inspection and full ROM Extremity Narrative: Except cellulitis right lateral lower leg. No streaking. No inguinal lymphadenopathy. No abscess. No sloughing of skin. Warm and tender to touch. General Extremety ED: Negative for cyanosis or weight-bearing difficulty General Extremity: Negative for cyanosis or weight-bearing difficulty Neuro oriented x3 and CN's II-XII intact bilaterally Sensorium / Orientation: alert, oriented to person, oriented to place and oriented to time Motor Exam: strength 5/5 throughout Psych mental status grossly normal Appearance: Negative for unkempt Speech: No other Mood & Affect: Negative for anxious Skin no wounds Skin Narrative: Cellulitis right lower leg. Lesions: no lesions Rashes: No no rashes MDM MDM MDM Narrative Medical decision making narrative: 68-year-old male with cellulitis right lower leg. Started on Keflex. 500 4 times daily for 10 days. I traced the area out for him. Explained him if this gets significantly worse or he is feeling worse return. Otherwise follow-up with his primary care physician or insurance improving. He is on Eliquis he has never had a blood clot I do not think this is a blood clot I do not think needs any labs or imaging. Discharge Plan Triage Chief Complaint: Lower Extremity Injury Other Complaint: Rash ED Provider: Emigdio Penny Dx/Rx/DC Orders Clinical Impression: Cellulitis Instructions: ED Cellulitis Prescriptions: New cephalexin 500 mg capsule 500 mg PO Q6 Qty: 40 0RF No Action omeprazole 40 mg capsule,delayed release(DR/EC) 40 mg PO QDAY nitroglycerin [Nitrostat] 0.4 mg tablet, sublingual 0.4 mg SUBLINGUAL Q5-15M PRN (Reason: chst levine) Qty: 25 6RF Rx Instructions: do not not exceed 3 doses at one episode allopurinol 100 mg tablet 100 mg PO BID topiramate 25 MG tablet 25 mg PO QHS latanoprost 1 DROP bottle 1 drp RIGHT EYE QHS aspirin 81 MG tablet,delayed release (DR/EC) 81 mg PO DAILY ascorbic acid (vitamin C) 500 MG tablet 500 mg PO DAILY@0800 vitamin E 400 UNIT capsule 800 unit PO DAILY sildenafil 50 mg tablet 25 mg PO DAILY PRN (Reason: erectile dysfunction) brimonidine 0.2 % drops 1 drp ophthalmic (eye) BID dorzolamide-timolol 22.3-6.8 mg/mL drops 1 drp ophthalmic (eye) BID Eliquis 5 mg Tablet 5 mg PO BID Qty: 60 2RF hydrochlorothiazide 25 mg tablet 25 mg PO DAILY Qty: 90 3RF metoprolol tartrate 25 mg tablet 25 mg PO BID Qty: 180 4RF atorvastatin 40 mg tablet 40 mg PO QHS Qty: 90 3RF Primary Care Provider: Manjit Steele Referrals: Manjit Steele MD [Primary Care Provider] - 3-5 Days if not improving Activity Restrictions/Additional Instructions: You have a soft tissue infection of your right lower leg called cellulitis. Antibiotic Keflex 1 pill 4 times a day for the next 10 days. Follow-up with not improving. Return to emergency department gets a lot worse and goes outside the areas and I traced. If you get a fever you are feeling a lot worse. Tylenol for pain. Continue your other medications. Print Language: Kinyarwanda Disposition Disposition: Home, Self Care
[2024-02-10] MEDS: Cephalexin 500 MG Capsule 1000 MG PO (19:37)
[2024-02-10 19:38] VITALS: BP 163/86; PULSE 79; RESP 18; TEMP 36.7; O2SAT 97
== END 2024-02-10 19:38 | disposition home or self-care (01) ==
PROVIDERS: Emergency Provider Emergency Medicine; PCP Family Medicine; Visit Provider Emergency Medicine
DX: L03.115 Cellulitis of right lower limb (principal); I50.22 Chronic systolic (congestive) heart failure; I48.0 Paroxysmal atrial fibrillation; I25.10 Atherosclerotic heart disease of native coronary artery without angina pectoris; I25.2 Old myocardial infarction; Z79.01 Long term (current) use of anticoagulants; Z79.82 Long term (current) use of aspirin; Z79.899 Other long term (current) drug therapy; Z86.73 Personal history of transient ischemic attack (TIA), and cerebral infarction without residual deficits
CPT/HCPCS: 99283

== ENCOUNTER 2024-02-14 12:14 | Inpatient (IN) | payer MEDICARE, OTHER, SELFPAY ==
[2024-02-14] VITALS (10 sets, daily range): BP systolic 113–123; BP diastolic 66–80; PULSE 57–104; RESP 16–19; TEMP 36.6–37.4; O2SAT 94–99; BMI 31.6
--- NOTE | 2024-02-14 13:37 | EDS_ITS ---
HPI History of Present Illness Chief Complaint: Cellulitis Informant: patient Narrative Narrative: Patient is a 68-year-old male with history of coronary artery disease, CHF and recently starting Eliquis presenting for worsening cellulitis of his right lower leg. Patient was seen in our ER on Monday night and diagnosed with cellulitis. He is placed on Keflex. He states he has been taking his antibiotics as prescribed. He notes over the past 24 hours the redness has doubled in size. He still a lot of tightness and discomfort in his leg. He denies any fever or chills. Denies any trauma or injury to the area. Denies associated drainage. He came in because of the worsening of the redness and swelling. He states he has been compliant with his Eliquis as well. 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) Severe headache Obesity (BMI 35.0-39.9 without comorbidity) Atherosclerosis of coronary artery without angina pectoris Non-STEMI (non-ST elevated myocardial infarction) (07/27/17) Paroxysmal atrial fibrillation Hyperlipidemia Ischemic cardiomyopathy Left ventricular apical thrombus following [place] Home Medications ?Medication ?Instructions ?Recorded ?Last Taken ?Type ascorbic acid (vitamin C) 500 mg 500 mg PO DAILY@0800 suppliment 10/21/15 Unknown History tablet aspirin 81 mg tablet,delayed 81 mg PO DAILY prevention 10/21/15 Unknown History release latanoprost 0.005 % eye drops 1 drp RIGHT EYE QHS drops 10/21/15 Unknown History topiramate 25 mg tablet 25 mg PO QHS migraine prevention 10/21/15 Unknown History vitamin E 268 mg (400 unit) capsule 800 unit PO DAILY suppliment 10/21/15 Unknown History omeprazole 40 mg capsule,delayed 40 mg PO QDAY reflux 07/11/17 Unknown History release nitroglycerin 0.4 mg sublingual 0.4 mg sublingual Q5-15M PRN chst 06/23/20 Unknown Rx tablet (Nitrostat) levine #25 tabs allopurinol 100 mg tablet 100 mg PO BID gout 06/29/23 Unknown History hydrochlorothiazide 25 mg tablet 25 mg PO DAILY bp #90 tabs 07/17/23 Unknown Rx atorvastatin 40 mg tablet 40 mg PO QHS cholesterol #90 tabs 11/24/23 Unknown Rx metoprolol tartrate 25 mg tablet 25 mg PO BID heart #180 tabs 11/24/23 Unknown Rx brimonidine 0.2 % 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 01/22/24 Unknown History dorzolamide 22.3 mg-timolol 6.8 1 drp ophthalmic (eye) BID eye 01/22/24 Unknown History mg/mL eye drops health sildenafil 50 mg tablet 25 mg PO DAILY PRN erectile 01/22/24 Unknown History dysfunction apixaban 5 mg tablet (Eliquis) 5 mg PO BID #60 tabs 01/23/24 Unknown Rx cephalexin 500 mg capsule 500 mg PO Q6 #40 CAPSULES 02/10/24 Unknown Rx Allergy/AdvReac Type Severity Reaction Status Date / Time No Known Allergies Allergy Verified 02/14/24 12:16 Family History Father CAD (coronary artery disease) Myocardial infarction Surgical History History of total hip arthroplasty (10/2020) History of left heart catheterization (07/27/17) H/O coronary artery bypass surgery (09/11/15) Social History housing: house Smoking Status: Never smoker alcohol intake: never substance use type: does not use caffeine: Yes Type: coffee Number of servings: 1 ROS ROS ED Constitutional Constitutional ED: Denies chills or fever(s) Cardiovascular Cardiovascular: Denies chest pain Respiratory/Chest Respiratory/Chest: Denies cough or dyspnea Gastrointestinal Gastrointestinal: Denies abdominal pain, nausea or vomiting Musculoskeletal Musculoskeletal: Reports other Details: RLE pain Integumentary Reports rash Neurologic Neurologic: Denies paresthesias or weakness Hematologic/Lymphatic Hematologic/Lymphatic: Reports easy bleeding and easy bruising EXAM Physical Exam Const Vital Signs: 02/14/24 12:14 02/14/24 12:16 Temperature 99.3 F H 99.3 F H Temperature Source Oral Oral Pulse Rate 103 H 104 H Respiratory Rate 16 16 Blood Pressure 119/80 119/66 Blood Pressure Mean 93 83 Pulse Ox 99 Oxygen Delivery Method Room Air Room Air Positive well nourished and well developed General Appearance ED: well developed and NAD HEENT Reports moist mucous membranes Neck supple Chest Wall inspection of chest normal and palpation of chest normal Resp normal respiratory effort and clear to auscultation bilaterally Cardio regular rate, regular rhythm and no murmurs GI normal to inspection, nondistended, normoactive bowel sounds Extremity Extremity Narrative: Nonpitting edema of the right lower extremity compared to the left. Compartments are soft. No palpable cords. Neuro oriented x3 Sensorium / Orientation: alert Motor Exam: Negative for general weakness Psych mental status grossly normal Skin Skin Narrative: Erythema of the right lower extremity extending from the midfoot up to just inferior to the knee. It is not circumferential but does go around most of the leg. There is associated warmth. No crepitus appreciated. No associated fluctuance or drainage. MDM MDM MDM Narrative Medical decision making narrative: Patient evaluated for worsening redness, warmth and pain to his right lower extremity. Was diagnosed with cellulitis 4 days ago and has been on Keflex since. Patient states has been compliant with it. Upon arrival patient is a low-grade temperature of 99.3 is mildly tachycardic with a heart rate of 103. He does not report any systemic symptoms. Clinically does have cellulitis of the right lower extremity. Physical exam not consistent with abscess or necrotizing fasciitis. He overall is well-appearing. CBC and BMP are normal. ESR is normal. CRP mildly elevated 14.9. His lactate is normal. Given the patient is chronically anticoagulated on Eliquis and has been compliant with his medication of the low suspicion for DVT. Patient is on IV vancomycin. Outpatient failed outpatient antibiotics and given the rapid progression despite being on oral antibiotics I think he would benefit from admission for IV antibiotics. He is agreeable this plan of care. Case discussed with admitting physician, Dr. Lopez. Lab Data Attestation: I reviewed the patient's lab results. Labs: Laboratory Results - last 24 hr 02/14/24 13:30 WBC 8.6 RBC 4.58 L Hgb 13.6 Hct 40.7 MCV 88.9 MCH 29.7 MCHC 33.4 RDW Std Deviation 47.0 H RDW Coeff of Sol 14.5 Plt Count 153 MPV 10.1 Immature Gran % (Auto) 0.300 Neut % (Auto) 64.9 Lymph % (Auto) 24.7 [place] % (Auto) 8.4 Eos % (Auto) 1.2 Baso % (Auto) 0.5 Absolute Neuts (auto) 5.6 Absolute Lymphs (auto) 2.13 Nucleated RBC % 0 ESR 19 Sodium 138 Potassium 3.6 Chloride 105 Carbon Dioxide 27.0 Anion Gap 7 BUN 17 Creatinine 0.95 Estim Creat Clear Calc 93.51 Est GFR (MDRD) Af Amer 101 Est GFR (MDRD) Non-Af 83 BUN/Creatinine Ratio 17.8 Glucose 92 Lactic Acid 1.7 Calcium 9.0 C-React Prot Ext Range 14.90 H Discharge Plan Triage Chief Complaint: Cellulitis ED Provider: Génesis Diaz Dx/Rx/DC Orders Prescriptions: No Action omeprazole 40 mg capsule,delayed release(DR/EC) 40 mg PO QDAY nitroglycerin [Nitrostat] 0.4 mg tablet, sublingual 0.4 mg SUBLINGUAL Q5-15M PRN (Reason: chst levine) Qty: 25 6RF Rx Instructions: do not not exceed 3 doses at one episode allopurinol 100 mg tablet 100 mg PO BID topiramate 25 MG tablet 25 mg PO QHS latanoprost 1 DROP bottle 1 drp RIGHT EYE QHS aspirin 81 MG tablet,delayed release (DR/EC) 81 mg PO DAILY ascorbic acid (vitamin C) 500 MG tablet 500 mg PO DAILY@0800 vitamin E 400 UNIT capsule 800 unit PO DAILY sildenafil 50 mg tablet 25 mg PO DAILY PRN (Reason: erectile dysfunction) brimonidine 0.2 % drops 1 drp ophthalmic (eye) BID dorzolamide-timolol 22.3-6.8 mg/mL drops 1 drp ophthalmic (eye) BID Eliquis 5 mg Tablet 5 mg PO BID Qty: 60 2RF cephalexin 500 mg capsule 500 mg PO Q6 Qty: 40 0RF hydrochlorothiazide 25 mg tablet 25 mg PO DAILY Qty: 90 3RF metoprolol tartrate 25 mg tablet 25 mg PO BID Qty: 180 4RF atorvastatin 40 mg tablet 40 mg PO QHS Qty: 90 3RF Primary Care Provider: Manjit Steele Referrals: Manjit Steele MD [Primary Care Provider] - Print Language: Vietnamese
[2024-02-14 13:46] LABS: Erythrocyte Sedimentation Rate 19 mm/hr (0-20)
[2024-02-14 13:48] LABS: Absolute Lymphocyte Count 2.13 X10^3/uL (0.83-4.51); Absolute Neutrophil Count 5.6 X10^3/uL (2.0-7.7); Basophil# 0.04 X10^3/uL; Basophil% 0.5 % (0-1); Eosinophils% 1.2 % (0-5); Hematocrit 40.7 % (40-54); Hemoglobin 13.6 g/dL (13.0-16.5); Lymphocyte # 2.13 X10^3/ul (0.83-4.51); Lymphocyte % 24.7 % (19-41); Mean Corp Hgb Conc 33.4 g/dL (32-36); Mean Corpuscular Hgb 29.7 pg (27.0-32.0); Mean Corpuscular Volume 88.9 fL (80-94); Mean Platelet Vol. 10.1 fl (6.2-12.0); Monocyte# 0.72 X10^3/uL; Monocyte% 8.4 % (0-10); NRBC Flagged by Analyzer 0 % (0-5); Neutrophil % 64.9 % (47-70); Platelet Count 153 K/mm3 (150-450); RBC Distribution Width CV 14.5 % (11.6-14.6); Red Blood Count 4.58 M/mm3 (4.6-6.2); White Blood Count 8.6 K/mm3 (4.4-11.0)
[2024-02-14 13:59] LABS: Anion Gap 7 (5-15); BUN 17 mg/dL (7-18); BUN/Creat Ratio 17.8 RATIO (10-20); Chloride 105 mmol/L (98-107); Creatinine, Serum 0.95 mg/dL (0.70-1.30); EST Glomerular Filtration Rate 83 mL/min (>60); Est Glom Filt Rate - Afr Amer 101 mL/min (>60); Estimated Creatinine Clearance 93.51 ml/min; Glucose 92 mg/dL (74-106); Potassium 3.6 mmol/L (3.5-5.1); Sodium Level 138 mmol/L (136-145)
[2024-02-14 14:12] LABS: Lactic Acid 1.7 mmol/L (0.4-1.9)
--- NOTE | 2024-02-14 15:03 | PCM.HP.STD ---
HPI - General General Date of Admission: 02/14/24 Date of Service: 02/14/24 Chief Complaint: Worsening right lower extremity cellulitis HPI Narrative HARINDER WRIGHT, is a 68-year-old male history of CAD, CHF, A-fib on Eliquis, migraines, GERD, hypertension, gout presented to [facility] ED 02/14/2024 with worsening right lower extremity cellulitis. Seen in ED Monday night diagnosed with cellulitis and placed on Keflex however over the past 24 hours redness has doubled in size and he has had a lot of tightness and discomfort in the leg. No fevers or chills or associated drainage but Re-presented with worsening redness and swelling. Has been compliant with Eliquis. Given patient failed outpatient antibiotics hospitalist contacted for admission. Patient evaluated at bedside, symptoms started several days ago and last night when he went to bed it was not significantly swollen but was still erythematous but when he woke up today despite having legs up all night in bed he had more swelling causing a tight feeling in his ankle and up towards his knee more so on the medial side where his cellulitis is, erythema is also gone outside of the previously drawn lines. Patient has not had any fevers or chills, ROS otherwise completely negative. 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) Severe headache Obesity (BMI 35.0-39.9 without comorbidity) Atherosclerosis of coronary artery without angina pectoris Non-STEMI (non-ST elevated myocardial infarction) (07/27/17) Paroxysmal atrial fibrillation Hyperlipidemia Ischemic cardiomyopathy Left ventricular apical thrombus following [place] Home Medications ?Medication ?Instructions ?Recorded ?Last Taken ?Type ascorbic acid (vitamin C) 500 mg 500 mg PO DAILY@0800 suppliment 10/21/15 Unknown History tablet aspirin 81 mg tablet,delayed 81 mg PO DAILY prevention 10/21/15 Unknown History release latanoprost 0.005 % eye drops 1 drp RIGHT EYE QHS drops 10/21/15 Unknown History topiramate 25 mg tablet 25 mg PO QHS migraine prevention 10/21/15 Unknown History vitamin E 268 mg (400 unit) capsule 800 unit PO DAILY suppliment 10/21/15 Unknown History omeprazole 40 mg capsule,delayed 40 mg PO QDAY reflux 07/11/17 Unknown History release nitroglycerin 0.4 mg sublingual 0.4 mg sublingual Q5-15M PRN chst 06/23/20 Unknown Rx tablet (Nitrostat) levine #25 tabs allopurinol 100 mg tablet 100 mg PO BID gout 06/29/23 Unknown History hydrochlorothiazide 25 mg tablet 25 mg PO DAILY bp #90 tabs 07/17/23 Unknown Rx atorvastatin 40 mg tablet 40 mg PO QHS cholesterol #90 tabs 11/24/23 Unknown Rx metoprolol tartrate 25 mg tablet 25 mg PO BID heart #180 tabs 11/24/23 Unknown Rx brimonidine 0.2 % 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 01/22/24 Unknown History dorzolamide 22.3 mg-timolol 6.8 1 drp ophthalmic (eye) BID eye 01/22/24 Unknown History mg/mL eye drops health sildenafil 50 mg tablet 25 mg PO DAILY PRN erectile 01/22/24 Unknown History dysfunction apixaban 5 mg tablet (Eliquis) 5 mg PO BID #60 tabs 01/23/24 Unknown Rx cephalexin 500 mg capsule 500 mg PO Q6 #40 CAPSULES 02/10/24 Unknown Rx Allergy/AdvReac Type Severity Reaction Status Date / Time No Known Allergies Allergy Verified 02/14/24 12:16 Family History Father CAD (coronary artery disease) Myocardial infarction Surgical History History of total hip arthroplasty (10/2020) History of left heart catheterization (07/27/17) H/O coronary artery bypass surgery (09/11/15) Social History housing: house Smoking Status: Never smoker alcohol intake: never substance use type: does not use caffeine: Yes Type: coffee Number of servings: 1 ROS ROS Narrative General: Denies fever/chills HENT: Denies headache, denies stuffy nose, denies sore throat EYES: Denies changes in vision Resp: Denies cough, denies shortness of breath Cardiac: Denies chest pain GI: Denies abdominal pain, denies changes in bowel, denies nausea/vomiting : Denies changes in urination Extremity: Some swelling in right lower extremity causing a tight feeling MSK: Denies weakness Neuro: Denies any numbness/tingling Heme: Denies any bleeding or bruising Skin: Worsening erythema in right lower extremity Psychiatric: No complaints voiced Vital Signs Vital Signs Vital Signs: 02/14/24 12:14 02/14/24 12:16 02/14/24 13:16 Temperature 99.3 F H 99.3 F H 98.3 F Temperature Source Oral Oral Temporal Pulse Rate 103 H 104 H 62 Respiratory Rate 16 16 17 Blood Pressure 119/80 119/66 123/71 H Blood Pressure Mean 93 83 88 Pulse Ox 99 95 Oxygen Delivery Method Room Air Room Air Room Air 02/14/24 14:16 Temperature 98.3 F Temperature Source Temporal Pulse Rate 58 L Respiratory Rate 19 H Blood Pressure 123/71 H Blood Pressure Mean 88 Pulse Ox 94 Oxygen Delivery Method Room Air Weight Weight: 105.687 kg Body Mass Index (BMI) 31.6 Physical Exam Narrative General: Alert, oriented, no apparent distress HEENT: Atraumatic, normocephalic Eyes: Anicteric, normal conjunctiva, extraocular movements grossly intact Neck: Supple Respiratory: Clear to auscultation bilaterally, normal respiratory effort Cardiovascular: Regular rate GI: Soft, nontender, nondistended Extremities: Some swelling in ankle extending up towards knee but more so in lateral aspect Musculoskeletal: Moving all extremities Neuro: No overt focal neurological deficits Skin: Erythema on lateral aspect of right ankle and joyce extending onto dorsal aspect of foot and up towards knee, little bit tender to palpation diffusely but not significantly so, is erythematous and warm Psych: Cooperative Results Lab / Micro Data 02/14/24 13:30 02/14/24 13:30 Labs: Laboratory Results - last 24 hr 02/14/24 13:30: WBC 8.6, RBC 4.58 L, Hgb 13.6, Hct 40.7, MCV 88.9, MCH 29.7, MCHC 33.4, RDW Std Deviation 47.0 H, RDW Coeff of Sol 14.5, Plt Count 153, MPV 10.1, Immature Gran % (Auto) 0.300, Neut % (Auto) 64.9, Lymph % (Auto) 24.7, [place] % (Auto) 8.4, Eos % (Auto) 1.2, Baso % (Auto) 0.5, Absolute Neuts (auto) 5.6, Absolute Lymphs (auto) 2.13, Nucleated RBC % 0, ESR 19, Sodium 138, Potassium 3.6, Chloride 105, Carbon Dioxide 27.0, Anion Gap 7, BUN 17, Creatinine 0.95, Estim Creat Clear Calc 93.51, Est GFR (MDRD) Af Amer 101, Est GFR (MDRD) Non-Af 83, BUN/Creatinine Ratio 17.8, Glucose 92, Lactic Acid 1.7, Calcium 9.0, C-React Prot Ext Range 14.90 H Assessment & Plan Assessment/Plan (1) Cellulitis: PLAN: Plan # Right lower extremity cellulitis refractory to outpatient treatment -ESR within normal limits and CRP 14, minimally elevated but patient failed outpatient treatment and has had progression of erythema, swelling, warmth -Will place on IV Unasyn -IV fluids -Elevate extremity -Pain control #Recent TIA -Discharge 01/22 -Patient with history of paroxysmal atrial fibrillation and was restarted on Eliquis, discharge summary and neurology notes reviewed # A-fib -Recently started on Eliquis, reports compliance -Continue metoprolol #GERD -Continue PPI # History of gout -Continue allopurinol # History of migraines -Continue Topamax for migraine prevention # History of chronic heart failure -Per history -Reviewed echo report, 01/22 had an EF of 50% but mild segmental systolic dysfunction and akinetic apex, in 2020 also had comment of stage I diastolic dysfunction -Daily weights, I's and O's -Will be judicious with fluids # History of coronary artery disease and CABG -CABG 8 years ago -Patient on aspirin and statin as well as Eliquis #Hx HTN -BP 123/71- continue metoprolol -Hold HCTZ in short term- pt on IVF #DVT ppx: Continue Eliquis Bree Lopez MD Charges/Coding Visit Charges Inpatient E&M: 24734 Init Hosp L2
[2024-02-14] MEDS: Vancomycin HCl 1,500 MG in 0.9% Normal Saline (500mL Bag) 500 ML 250 MG IV (15:05)
[2024-02-14] MEDS: 0.9% Normal Saline (1000mL) 1,000 ML 50 ML IV (17:17)
[2024-02-14] MEDS: Ampicillin/Sulbactam 3 GM in 0.9% Normal Saline (100mL MB+) 100 ML IV ×2 (17:17→23:56)
[2024-02-14] MEDS: APIXABAN 5 MG TABLET PO (22:01)
[2024-02-14] MEDS: Allopurinol 100 MG Tablet PO (22:02)
[2024-02-14] MEDS: Metoprolol Tartrate 25 MG Tablet PO (22:02)
[2024-02-14] MEDS: Topiramate 25 MG Tablet PO (22:02)
[2024-02-14] MEDS: Atorvastatin Calcium 40 MG Tablet PO (22:02)
[2024-02-14] MEDS: Dorzolamide HCL/Timolol 10 ml Bottle 1 DRP OPHTHALMIC (22:03)
[2024-02-14] MEDS: Acetaminophen 325 MG Tablet 650 MG PO (22:06)
[2024-02-15 05:45] VITALS: BP 126/76; PULSE 56; RESP 16; TEMP 36.4; O2SAT 96
[2024-02-15] MEDS: Ampicillin/Sulbactam 3 GM in 0.9% Normal Saline (100mL MB+) 100 ML IV (05:46)
[2024-02-15] MEDS: Acetaminophen 325 MG Tablet 650 MG PO (06:01)
[2024-02-15 07:00] LABS: Absolute Lymphocyte Count 1.99 X10^3/uL (0.83-4.51); Absolute Neutrophil Count 3.6 X10^3/uL (2.0-7.7); Basophil# 0.05 X10^3/uL; Basophil% 0.8 % (0-1); Eosinophil# 0.11 X10^3/uL; Eosinophils% 1.7 % (0-5); Hematocrit 39.7 % (40-54); Hemoglobin 13.1 g/dL (13.0-16.5); Lymphocyte # 1.99 X10^3/ul (0.83-4.51); Lymphocyte % 31.1 % (19-41); Mean Corpuscular Hgb 29.7 pg (27.0-32.0); Monocyte# 0.57 X10^3/uL; Monocyte% 8.9 % (0-10); NRBC Flagged by Analyzer 0 % (0-5); Neutrophil # 3.64 X10^3/uL (2.7-7.7); Platelet Count 138 K/mm3 (150-450); RBC Distribution Width CV 14.7 % (11.6-14.6); RBC Distribution Width SD 48.1 fl (35.1-43.9); Red Blood Count 4.41 M/mm3 (4.6-6.2); White Blood Count 6.4 K/mm3 (4.4-11.0)
[2024-02-15 07:20] LABS: ALB/GLOB Ratio 0.9 RATIO (0.9-2.4); AST(SGOT) 13 U/L (15-37); Alanine Aminotransfer ALT/SGPT 15 U/L (16-61); Albumin, Serum 3.2 g/dL (3.2-5.0); Alkaline Phosphatase 126 U/L (45-117); Anion Gap 6 (5-15); BUN 14 mg/dL (7-18); BUN/Creat Ratio 15.1 RATIO (10-20); Calcium,Total 8.9 mg/dL (8.5-10.1); Chloride 110 mmol/L (98-107); Creatinine, Serum 0.93 mg/dL (0.70-1.30); EST Glomerular Filtration Rate 86 mL/min (>60); Est Glom Filt Rate - Afr Amer 104 mL/min (>60); Estimated Creatinine Clearance 95.48 ml/min; Globulin 3.4 g/dL (2.2-4.2); Glucose 100 mg/dL (74-106); Potassium 3.7 mmol/L (3.5-5.1); Protein, Total 6.6 g/dL (6.4-8.2); Sodium Level 140 mmol/L (136-145)
[2024-02-15 07:47] VITALS: BMI 31.1
[2024-02-15] MEDS: Aspirin E.C. 81 MG Tablet PO (07:51)
[2024-02-15 08:00] VITALS: BP 114/75; PULSE 58; RESP 18; TEMP 36.2; O2SAT 96
--- NOTE | 2024-02-15 09:50 | CASEMGMT ---
MIR SAPP Assessment: Face to Face with pt for initial transition planning/care coordination assessment. MIR SAPP introduced self and role at [facility], pt voices understanding and consents to assessment. Pt is A&O x4 and answers all questions appropriately at this time. Pt sitting up in bed in no distress. Friend sitting at bedside, pt agreeable to answering questions with friend present. Care providers, pharmacy, and demographics verified/updated. Strata: 3 Admitting Dx: Cellulitis PCP: Cedric Specialists: Raúl, Breastfeeding Peer Counselor Preferred Pharmacy: [facility]. Insurance: Find That File. Prescription Benefit: yes LNOK: Daughter, Tiki; Son, JAY. Living Arrangements: Pt lives with Son in a 2 story home with no steps to enter. ADLs: Pt states I at home with ADLs and IADLs. Transportation: Pt drives self and denies concerns with transportation. DME: Grab bars, High rise toilet. HHC/SNF: Denies Hx of SNF. States previously used HHC services but does not recall what agency. Pt states no concerns with going home at time of dc. Pt reports family support at home, son and daughter able to assist with dressing changes if ordered at time of DC. Pt states no further concerns/needs. CM to follow. Advised pt to ask CM if any further question/concerns/needs arise, voices understanding. Pt Goal: Home Plan: Home with family support, follow plan of care. Sage HESTER CM
--- NOTE | 2024-02-15 10:05 | PCM.RX.CS ---
Consult Antibiotic Management Pharmacy has been consulted to manage selected antibiotic: Vancomycin Type of Intervention Type of Consult: New start Suspected Infection Suspected Infection: Skin/Soft tissue Labs Labs: Sodium 140 mmol/L (136-145) 02/15/24 06:44 Potassium 3.7 mmol/L (3.5-5.1) 02/15/24 06:44 Chloride 110 mmol/L (98-107) H 02/15/24 06:44 Carbon Dioxide 24.0 mmol/L (21.0-32.0) 02/15/24 06:44 Anion Gap 6 (5-15) 02/15/24 06:44 BUN 14 mg/dL (7-18) 02/15/24 06:44 Creatinine 0.93 mg/dL (0.70-1.30) 02/15/24 06:44 Est GFR (MDRD) Af Amer 104 mL/min (>60) 02/15/24 06:44 Est GFR (MDRD) Non-Af 86 mL/min (>60) 02/15/24 06:44 BUN/Creatinine Ratio 15.1 RATIO (10-20) 02/15/24 06:44 Glucose 100 mg/dL (74-106) 02/15/24 06:44 Goal Trough Goal Trough: 15-20 mcg/mL Pharmacy Plan for Drug Dosing Pharmacy Plan for Drug Dosing: NEW START IV VANCOMYCIN Consulting Physician: Dr. Marj Mejía Indication: SSTI Goal Trough: 15-20 SrCr: 0.93 CrCl: 95 mL/min Comments: Patient had a dose of 1500mg IV x1 in the ED 02/13 @1505 Vancomycin Dose: 2000mg IV Q12hr to start 02/15/24 @1000 Pending Level: 02/16/24 @2130. Note: Timing trough prior to 4th scheduled dose of vancomycin since patient qualifies for Q12hr dosing, and dose of vancomycin in ED yesterday was ~19hrs from start of new dosing schedule. Pharmacy Service will continue to monitor and adjust dosing as required.
[2024-02-15] MEDS: Dorzolamide HCL/Timolol 10 ml Bottle 1 DRP OPHTHALMIC ×2 (10:23→21:31)
[2024-02-15 10:24] VITALS: PULSE 58
[2024-02-15] MEDS: APIXABAN 5 MG TABLET PO ×2 (10:24→21:31)
[2024-02-15] MEDS: Metoprolol Tartrate 25 MG Tablet PO ×2 (10:24→21:32)
[2024-02-15] MEDS: Pantoprazole Sodium 40 MG Tablet PO (10:24)
[2024-02-15] MEDS: Allopurinol 100 MG Tablet PO ×2 (10:25→21:31)
[2024-02-15] MEDS: levoFLOXacin IV 750 MG/150 ML BAG 100 MG IV (10:27)
[2024-02-15] MEDS: FLU VACCINE **HIGH DOSE** TV 24-25 180 MCG/0.5 ML SYRINGE IM (10:28)
[2024-02-15] MEDS: Vancomycin HCl 2,000 MG in 0.9% Normal Saline (500mL Bag) 500 ML 250 MG IV ×2 (11:48→21:32)
--- NOTE | 2024-02-15 14:13 | CASEMGMT ---
Social Work- Pt confirms he has completed a living will and health care POA naming dtr Tiki.? Pt notified that documents are not on file at [facility] and SW requested they be brought in for scanning into the EMR. JESSE Mensah
--- NOTE | 2024-02-15 15:56 | PCM.PN.HOSP ---
Reason for Visit Reason for Visit: Right lower extremity redness and swelling Subjective Subjective Patient states his leg still feels pretty tight and swollen. Per discussion with nursing staff the erythema has extended beyond the outlined area on admission. I did discuss with the patient given that fact that we would broaden his antibiotic coverage some and reevaluate things tomorrow. Patient voiced understanding. States he is not having considerable amount of pain just that the leg feels tight. Objective Data Objective Data Vital Signs: Vital Signs Temp Pulse Resp BP Pulse Ox O2 Del Method 97.2 F L 58 L 18 114/75 96 Room Air 02/15/24 08:00 02/15/24 10:24 02/15/24 08:00 02/15/24 08:00 02/15/24 08:00 02/15/24 09:34 Oxygen Delivery Method Room Air Weight: 104.326 kg Body Mass Index (BMI) 31.1 Intake & Output: Intake and Output for Last 24 Hours 02/13/24 02/14/24 02/15/24 23:59 23:59 23:59 Intake Total 1142 / 1142 2013 Balance 1142 / 1142 2013 Lab / Micro Data 02/15/24 06:44 02/15/24 06:44 Labs: Laboratory Results - last 24 hr 02/15/24 06:44: WBC 6.4, RBC 4.41 L, Hgb 13.1, Hct 39.7 L, MCV 90.0, MCH 29.7, MCHC 33.0, RDW Std Deviation 48.1 H, RDW Coeff of Sol 14.7 H, Plt Count 138 L, MPV 10.0, Immature Gran % (Auto) 0.500, Neut % (Auto) 57.0, Lymph % (Auto) 31.1, [place] % (Auto) 8.9, Eos % (Auto) 1.7, Baso % (Auto) 0.8, Absolute Neuts (auto) 3.6, Absolute Lymphs (auto) 1.99, Nucleated RBC % 0, Sodium 140, Potassium 3.7, Chloride 110 H, Carbon Dioxide 24.0, Anion Gap 6, BUN 14, Creatinine 0.93, Estim Creat Clear Calc 95.48, Est GFR (MDRD) Af Amer 104, Est GFR (MDRD) Non-Af 86, BUN/Creatinine Ratio 15.1, Glucose 100, Calcium 8.9, Total Bilirubin 0.80, AST 13 L, ALT 15 L, Alkaline Phosphatase 126 H, Total Protein 6.6, Albumin 3.2, Globulin 3.4, Albumin/Globulin Ratio 0.9 Physical Exam Const alert, oriented x3, no apparent distress and well nourished Constitutional Narrative: Obese, upper middle-aged, white male, sitting up in bed, appears comfortable, nontoxic HEENT head/scalp atraumatic and moist oral mucous membranes Head and Scalp: normocephalic Resp normal respiratory effort, no retractions, no use of accessory muscles and clear to auscultation bilaterally Auscultation: Negative for rales, rhonchi or wheezes Cardio regular rate, regular rhythm, S1 normal heart sound, S2 normal heart sound, no murmurs, no rub, no gallops and no clicks GI normal to inspection, nondistended, normoactive bowel sounds, soft to palpation and non-tender Extremity Extremity Narrative: Right lower extremity edema and mild tenderness from distal lower leg into midfoot region, area of erythema has extended out beyond previous demarcated area, no significant wounds noted, no clubbing or cyanosis, left lower extremity within normal limits Neuro oriented x3, moves all extremities and no focal motor deficits Speech: speech normal Psych affect normal Psych Narrative: Very pleasant, interacts appropriately, answers all questions Assessment & Plan Assessment/Plan (1) Cellulitis: PLAN: Plan Right lower extremity cellulitis -Failed outpatient treatment with oral Keflex -Inflammatory markers are not markedly elevated -No wounds -Nidus unclear -Patient denies previous history -Has been on Unasyn but with spreading erythema will discontinue Unasyn and transition to Levaquin and vancomycin for now -If improves with this regimen will likely discharge on Levaquin and doxycycline -Keep leg elevated -Reassess in a.m. History of TIA -Hospitalized in early January with discharge on 01/23/2024 -History of paroxysmal atrial fibrillation and we started Eliquis at discharge Atrial fibrillation -Continue home metoprolol -Continue home Eliquis GERD -Continue home PPI Gout -Continue home allopurinol History of migraines -Continue home Topamax for prevention Chronic HFpEF -Echo from 01/23/2024 showed an EF of 50% with mild segmental systolic dysfunction and an akinetic apex noted in 2020 as well as stage I diastolic dysfunction -Monitor volume status closely CAD/essential HTN/HPL -CABG 8 years ago -Continue aspirin -Continue statin -Continue metoprolol -Hold HCTZ for now and consider restarting tomorrow ED -Hold sildenafil DVT prophylaxis -Continue home Eliquis CODE STATUS -Full code Charges/Coding Visit Charges Inpatient E&M: 98128 Subs Hosp L2
[2024-02-15 16:28] VITALS: BP 142/88; PULSE 62; RESP 18; TEMP 36.5; O2SAT 96
[2024-02-15 21:01] VITALS: BP 113/76; PULSE 61; RESP 16; TEMP 36.7; O2SAT 97
[2024-02-15] MEDS: Topiramate 25 MG Tablet PO (21:31)
[2024-02-15] MEDS: Atorvastatin Calcium 40 MG Tablet PO (21:31)
[2024-02-15 21:32] VITALS: PULSE 61
[2024-02-16 00:34] VITALS: BP 104/69; PULSE 57; RESP 16; TEMP 36.5; O2SAT 98
[2024-02-16 05:33] VITALS: BP 113/78; PULSE 59; RESP 16; TEMP 36.5; O2SAT 94
[2024-02-16 05:53] VITALS: BMI 31.5
[2024-02-16 06:30] LABS: Anion Gap 5 (5-15); BUN 13 mg/dL (7-18); BUN/Creat Ratio 13.9 RATIO (10-20); Calcium,Total 8.9 mg/dL (8.5-10.1); Chloride 113 mmol/L (98-107); Creatinine, Serum 0.93 mg/dL (0.70-1.30); EST Glomerular Filtration Rate 85 mL/min (>60); Est Glom Filt Rate - Afr Amer 103 mL/min (>60); Estimated Creatinine Clearance 95.48 ml/min; Glucose 101 mg/dL (74-106); Potassium 4.1 mmol/L (3.5-5.1); Sodium Level 139 mmol/L (136-145)
[2024-02-16 08:40] VITALS: BP 141/84; PULSE 64; RESP 16; TEMP 36.8; O2SAT 96
[2024-02-16] MEDS: Aspirin E.C. 81 MG Tablet PO (08:43)
[2024-02-16 08:44] VITALS: PULSE 66
[2024-02-16] MEDS: Allopurinol 100 MG Tablet PO (08:44)
[2024-02-16] MEDS: Pantoprazole Sodium 40 MG Tablet PO (08:44)
[2024-02-16] MEDS: Metoprolol Tartrate 25 MG Tablet PO (08:44)
[2024-02-16] MEDS: APIXABAN 5 MG TABLET PO (08:44)
[2024-02-16] MEDS: Dorzolamide HCL/Timolol 10 ml Bottle 1 DRP OPHTHALMIC (08:45)
[2024-02-16] MEDS: levoFLOXacin IV 750 MG/150 ML BAG 100 MG IV (10:46)
--- NOTE | 2024-02-16 11:28 | DS.PCM_ITS ---
Providers Date of Admission: 02/14/24 Date of Discharge: 02/16/24 Primary Care Physician: Dr. Manjit Steele MD Reason For Visit: CELLULITIS Diagnosis Discharge Diagnosis (1) Cellulitis: Status: Acute Code(s): L03.90 - Cellulitis, unspecified Medications at Discharge Home Medications ascorbic acid (vitamin C) 500 mg tablet 500 mg PO DAILY@0800 suppliment 10/21/15 aspirin 81 mg tablet,delayed release 81 mg PO DAILY prevention 10/21/15 latanoprost 0.005 % eye drops 1 drp RIGHT EYE QHS drops 10/21/15 topiramate 25 mg tablet 25 mg PO QHS migraine prevention 10/21/15 vitamin E 268 mg (400 unit) capsule 800 unit PO DAILY suppliment 10/21/15 omeprazole 40 mg capsule,delayed release 40 mg PO QDAY reflux 07/11/17 nitroglycerin 0.4 mg sublingual tablet (Nitrostat) 0.4 mg sublingual Q5-15M PRN chst levine #25 tabs 06/23/20 allopurinol 100 mg tablet 100 mg PO BID gout 06/29/23 hydrochlorothiazide 25 mg tablet 25 mg PO DAILY bp #90 tabs 07/17/23 atorvastatin 40 mg tablet 40 mg PO QHS cholesterol #90 tabs 11/24/23 metoprolol tartrate 25 mg tablet 25 mg PO BID heart #180 tabs 11/24/23 brimonidine 0.2 % 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 01/22/24 dorzolamide 22.3 mg-timolol 6.8 mg/mL eye drops 1 drp ophthalmic (eye) BID eye health 01/22/24 sildenafil 50 mg tablet 25 mg PO DAILY PRN erectile dysfunction 01/22/24 apixaban 5 mg tablet (Eliquis) 5 mg PO BID #60 tabs 01/23/24 cephalexin 500 mg capsule 500 mg PO Q6 #40 CAPSULES 02/10/24 doxycycline hyclate 100 mg tablet 100 mg PO BID #20 tabs 02/16/24 levofloxacin 750 mg tablet 750 mg PO Q24H #10 tabs 02/16/24 Hospital Course Operations None Procedures None Summary of Care Provided Minutes Spent on Discharge: 30 Hospital Course: Mr. Reaves is a 68-year-old white male who presented to the emergency department at [facility] on 02/14/2024 with a chief complaint of worsening right lower extremity cellulitis. He had presented to the emergency department on 02/10/2024 with redness and swelling in his right lower extremity and was placed on Keflex. He went home and took medication as instructed however for the 24 hours prior to presentation the redness and swelling has increased and he had a lot of tightness and discomfort in his lower leg. He denied any systemic symptoms including fever or chills or any wounds/drainage but stated his swelling was definitely worse and the erythema had spread significantly in that time period. He has never had cellulitis before and is unclear with the nidus for this infection would be. His vital signs were unremarkable. His CBC was unremarkable. His chemistry panel was unremarkable. Blood cultures were obtained and he had no growth at 48 hours. He was initially admitted to the medical surgical floor and placed on Unasyn. After 24 hours of Unasyn his erythema and swelling had actually worsened so we transitioned his antibiotics to Levaquin and vancomycin. After another 24 hours of antibiotics with vancomycin and Levaquin, his erythema and edema had dramatically improved. Given this, we will plan on discharge on oral Levaquin for another 10 days combined with oral doxycycline 100 mg p.o. twice daily for another 10 days. He was advised to drink a full glass of water and sit upright for 30 minutes after taking the doxycycline to avoid pill esophagitis. I also advised him to take with food. Prescriptions for these were sent to his local pharmacy. I have asked him to follow-up with his primary care physician within the next week and if his erythema or swelling again worsen on oral antibiotics to represent the emergency department. He was discharged home in stable condition on 02/16/2024. Discharge diagnoses: Right lower extremity cellulitis History of TIA Atrial fibrillation GERD Gout History of migraines Chronic HFpEF CAD Essential hypertension Hyperlipidemia ED Physical Exam Narrative Patient states the swelling feels much better and he feels that the erythema significantly improved, no tenderness today. Anxious to go home. Const alert, oriented x3, no apparent distress, no limitations, healthy appearing and well nourished Constitutional Narrative: Obese, upper middle-aged, white male, sitting up in bed, appears comfortable, nontoxic General Appearance: cooperative, comfortable, well kempt and well developed Exam Limitations: no limitations Nutritional Appearance: obese HEENT normocephalic, head/scalp atraumatic, hearing grossly normal bilaterally and moist oral mucous membranes HEENT Narrative: Mallampati 2, no thrush Resp normal respiratory effort, no retractions, no use of accessory muscles and clear to auscultation bilaterally Auscultation: Negative for rales, rhonchi or wheezes Cardio regular rate, regular rhythm, S1 normal heart sound, S2 normal heart sound, no murmurs, no rub, no gallops and no clicks GI normal to inspection, nondistended, normoactive bowel sounds, soft to palpation and non-tender Extremity Extremity Narrative: Trace right lower extremity edema with no tenderness today, erythema is significantly retracted from outlined area and patient is overall feeling much better, no cyanosis or clubbing, left lower extremity within normal limits Skin Skin Narrative: See under extremity Neuro oriented x3, moves all extremities and no focal motor deficits Speech: speech normal Psych affect normal Psych Narrative: Very pleasant, interacts appropriately, answers all questions Weight / BMI Weight Weight: 105.6 kg Body Mass Index (BMI) 31.5 ABG / Lab / Microbiology Data 02/15/24 06:44 02/16/24 05:48 Laboratory: Laboratory Results - last 24 hr 02/16/24 05:48: Sodium 139, Potassium 4.1, Chloride 113 H, Carbon Dioxide 22.0, Anion Gap 5, BUN 13, Creatinine 0.93, Estim Creat Clear Calc 95.48, Est GFR (MDRD) Af Amer 103, Est GFR (MDRD) Non-Af 85, BUN/Creatinine Ratio 13.9, Glucose 101, Calcium 8.9 Microbiology: Microbiology 02/14/24 13:30 Blood Culture (Wb) - Anticubital Right Blood Culture - Preliminary No growth in 48 hours. D/C Instructions Discharge Diet: Low fat / Low cholesterol Discharge Activity: Return to Normal Activity Return to work on: 02/19/24 Meaningful Use Info Meaningful Use Meaningful Use Diagnoses (Choose all that apply): None applicable Ischemic Stroke Statin Dosing Therapy Reference: STATIN DOSE THERAPY REFERENCE: * Patients > 75 years receive moderate or high dose statin therapy. * Patients 75 years or YOUNGER should receive HIGH intensity statin dose unless contraindicated. You will be required to document reason for non-treatment if statin daily dose does not meet guidelines. HIGH DOSE STATIN THERAPY DAILY Atorvastatin > than or = to 40 mg Rosuvastatin > than or = to 20 mg Amlodipine + Atorvastatin > than or = to 2.5/40 mg Ezetimibe + Simvastatin 10/80 mg Simvastatin 80mg Discharge Plan Admission Admit Date/Time: 02/14/24 15:03 Primary Reason for Your Visit: Right lower extremity cellulitis Attending Provider: Taryn Mejía Primary Care Provider: Manjit Steele Consulting Providers: Bree Lopez Instructions Additional Instructions / Restrictions: 1. Please complete the entire course of antibiotics 2. Please take doxycycline with at least 6 to 8 ounces of water and sit up for at least 30 minutes following 3. Keep right lower extremity elevated is much as possible Discharge Orders/Prescriptions Prescriptions: New levofloxacin 750 mg tablet 750 mg PO Q24H Qty: 10 0RF Rx Instructions: Take next dose on 02/17/2024 doxycycline hyclate 100 mg tablet 100 mg PO BID Qty: 20 0RF Continued omeprazole 40 mg capsule,delayed release(DR/EC) 40 mg PO QDAY nitroglycerin [Nitrostat] 0.4 mg tablet, sublingual 0.4 mg SUBLINGUAL Q5-15M PRN (Reason: chst levine) Qty: 25 6RF Rx Instructions: do not not exceed 3 doses at one episode allopurinol 100 mg tablet 100 mg PO BID topiramate 25 MG tablet 25 mg PO QHS latanoprost 1 DROP bottle 1 drp RIGHT EYE QHS aspirin 81 MG tablet,delayed release (DR/EC) 81 mg PO DAILY ascorbic acid (vitamin C) 500 MG tablet 500 mg PO DAILY@0800 vitamin E 400 UNIT capsule 800 unit PO DAILY sildenafil 50 mg tablet 25 mg PO DAILY PRN (Reason: erectile dysfunction) brimonidine 0.2 % drops 1 drp ophthalmic (eye) BID dorzolamide-timolol 22.3-6.8 mg/mL drops 1 drp ophthalmic (eye) BID Eliquis 5 mg Tablet 5 mg PO BID Qty: 60 2RF cephalexin 500 mg capsule 500 mg PO Q6 Qty: 40 0RF hydrochlorothiazide 25 mg tablet 25 mg PO DAILY Qty: 90 3RF metoprolol tartrate 25 mg tablet 25 mg PO BID Qty: 180 4RF atorvastatin 40 mg tablet 40 mg PO QHS Qty: 90 3RF Referrals / Follow Up: Manjit Steele MD [Primary Care Provider] - Within 1 Week Disposition Disposition (needs filled in before D/C Order can be placed): Home, Self Care Charges/Coding Visit Charges Inpatient E&M: 47037 Disch Hosp
[2024-02-16 13:00] VITALS: BP 110/73; PULSE 57; RESP 18; TEMP 36.7; O2SAT 97
== END 2024-02-16 13:14 | disposition home or self-care (01) | DRG 603 ==
LOC: ED 13:43 → MS3 15:42
PROVIDERS: Admitting Provider Internal Medicine; Emergency Provider Emergency Medicine; PCP Family Medicine; Visit Provider Internal Medicine
DX: L03.115 Cellulitis of right lower limb (principal); I50.32 Chronic diastolic (congestive) heart failure; I11.0 Hypertensive heart disease with heart failure; E78.5 Hyperlipidemia, unspecified; I48.0 Paroxysmal atrial fibrillation; I25.10 Atherosclerotic heart disease of native coronary artery without angina pectoris; K21.9 Gastro-esophageal reflux disease without esophagitis; M10.9 Gout, unspecified; I25.2 Old myocardial infarction; Z95.1 Presence of aortocoronary bypass graft; Z79.01 Long term (current) use of anticoagulants; Z79.82 Long term (current) use of aspirin; Z79.899 Other long term (current) drug therapy; Z86.73 Personal history of transient ischemic attack (TIA), and cerebral infarction without residual deficits; Z23 Encounter for immunization
CPT/HCPCS: 36415; 80048; 80053; 83605; 85025; 85652; 86140; 87040; 90662; 99284; J7030; J7040; J0295

== ENCOUNTER 2024-03-22 09:37 | Outpatient (RCR) | payer MEDICARE, OTHER, SELFPAY ==
[2024-03-22 10:48] LABS: International Normalized Ratio 1.8; Prothrombin Time (Protime)PT. 20.5 SECONDS (11.7-14.9)
== END 2024-04-20 18:00 | disposition home or self-care (01) ==
LOC: LAB 09:37
PROVIDERS: PCP Family Medicine; Referring Provider Nurse Practitioner Family; Visit Provider Nurse Practitioner Family
DX: I48.0 Paroxysmal atrial fibrillation (principal)
CPT/HCPCS: 36415; 85610

== ENCOUNTER 2025-01-30 18:10 | Emergency (ER) | payer MEDICARE, OTHER, SELFPAY ==
[2025-01-30 18:11] VITALS: BP 139/78; PULSE 61; RESP 16; TEMP 36.9; O2SAT 98; BMI 30.3
--- NOTE | 2025-01-30 18:52 | ED.RN ---
pt states he would have pain fifteen minutes after urinating, relieved by drinking water. pain has gotten progressively worse since monday. pt states they drank 10 bottles of water to relieve pain today.
--- NOTE | 2025-01-30 18:55 | CT_ITS ---
PROCEDURE: PELVIS WITH IV CONTRAST 01/30/2025 REASON FOR EXAM: PAINFUL PALPABLE RIGHT INGUINAL MASS TECHNIQUE: Procedure Code: CTPELW Modality: CT Procedure: PELVIS WITH IV CONTRAST CONTRAST: Isovue-300 VOLUME: 100 mL RADIATION DOSE SUMMARY: DLP: 1544.76 mGycm COMPARISON: None available. FINDINGS: Bladder: The urinary bladder is distended and unremarkable. Ureters: Within normal limits Prostate: Prostatomegaly Bowel: Extensive sigmoid diverticulosis without evidence of diverticulitis. Appendix: Not definitively visualized. No secondary signs for acute appendicitis. Lymph nodes: Nonspecific mesenteric shotty lymph nodes. No lymphadenopathy. Vasculature: No abdominal aortic aneurysm of the visualized abdominal aorta. Atherosclerotic calcification of the abdominal aorta and branching iliac arteries. Peritoneum / Retroperitoneum: Bilateral fat containing inguinal hernias. Tiny fat containing umbilical hernia. Bones: Right hip arthroplasty with intact appearing hardware. Streak artifact limits evaluation of adjacent structures. Degenerative changes of the visualized lumbar spine. CT/Pelvis WITH IV Contrast IMPRESSION: 1. Colonic diverticulosis without evidence of diverticulitis. 2. Bilateral fat containing inguinal hernias. 3. Prostatomegaly. Reading Location: [id number]
--- NOTE | 2025-01-30 18:58 | EDS_ITS ---
HPI History of Present Illness Chief Complaint: Other, Pain/Inj Detail of Chief Complaint: Intermittent right inguinal pain since January 25 Informant: patient and friend Onset/Context/Timing Onset: Days Context: Sudden Onset Timing: Intermittent Quality: Pain, sharp Location: Right inguinal area Current Severity: Mild Maximum Severity: Severe Worsened by: When he drinks water Relieved by: Nothing Associated Symptoms Associated Symptoms: None Narrative Narrative: Patient is a 69-year-old male. He has history of cardiac disease, kidney stone, atrial fibs on apixaban who presents with pain in the right inguinal area. He is uncertain whether this may be a kidney stone since he had pain similar to this when he had a kidney stone in the past. He denies dysuria, frequency, urgency or hematuria. He denies testicular pain or swelling. He denies penile lesion or discharge. 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) Severe headache Obesity (BMI 35.0-39.9 without comorbidity) Atherosclerosis of coronary artery without angina pectoris Non-STEMI (non-ST elevated myocardial infarction) (07/27/17) Hyperlipidemia Ischemic cardiomyopathy Left ventricular apical thrombus following OR Home Medications ?Medication ?Instructions ?Recorded ?Last Taken ?Type ascorbic acid (vitamin C) 500 mg 500 mg PO DAILY@0800 suppliment 10/21/15 Unknown History tablet aspirin 81 mg tablet,delayed 81 mg PO DAILY prevention 10/21/15 Unknown History release latanoprost 0.005 % eye drops 1 drp RIGHT EYE QHS drop s 10/21/15 Unknown History topiramate 25 mg tablet 25 mg PO QHS migraine preven tion 10/21/15 Unknown History vitamin E 268 mg (400 unit) capsule 800 unit PO DAILY suppliment 10/21/15 Unknown History omeprazole 40 mg capsule,delayed 40 mg PO QDAY reflux 07/11/17 Unknown History release nitroglycerin 0.4 mg sublingual 0.4 mg sublingual Q5-1 5M PRN chst 06/23/20 Unkno wn Rx tablet (Nitrostat) levine #25 tabs allopurinol 100 mg tablet 100 mg PO BID gout 06/29/23 Unknown History brimonidine 0.2 % 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 01/22/24 Unknown History dorzolamide 22.3 mg-timolol 6.8 1 drp ophthalmic (eye) BID eye 01/22/24 Unknown History mg/mL eye drops health sildenafil 50 mg tablet 25 mg PO DAILY PRN erectile 01/22/24 Unknown History dysfunction apixaban 5 mg tablet (Eliquis) 5 mg PO BID #200 tabs 1 Unknown Rx hydrochlorothiazide 25 mg tablet 25 mg PO DAILY bp #90 tabs 07/15/24 Unknown Rx atorvastatin 40 mg tablet 40 mg PO QHS cholesterol #90 tabs 11/25/24 Unknown Rx metoprolol tartrate 25 mg tablet 25 mg PO BID heart #1 80 tabs 11/25/24 Unknown Rx Allergy/AdvReac Type Severity Reaction Status Date / Time No Known Allergies Allergy Verified 08/15/24 09:55 Family History Father CAD (coronary artery disease) Myocardial infarction Surgical History History of total hip arthroplasty (10/2020) History of left heart catheterization (07/27/17) H/O coronary artery bypass surgery (09/11/15) Social History housing: house Smoking Status: Never smoker alcohol intake: never substance use type: does not use caffeine: Yes Type: coffee Number of servings: 1 ROS ROS ED Constitutional Constitutional ED: Denies chills, fever(s), subjective or sweats Gastrointestinal Gastrointestinal: Denies abdominal pain, constipation, diarrhea, nausea or vomiting Genitourinary Genitourinary ED: Denies dysuria, hematuria or urinary frequency Musculoskeletal Musculoskeletal: Denies back pain Integumentary Denies rash EXAM Physical Exam Const Vital Signs: 01/30/25 18:11 01/30/25 18:49 Temperature 98.5 F Temperature Source Oral Pulse Rate 61 Respiratory Rate 16 Respiratory Effort Normal Respiratory Pattern Normal Blood Pressure 139/78 H Blood Pressure Mean 98 Pulse Ox 98 Oxygen Delivery Method Room Air Positive well nourished and well developed General Appearance ED: well developed and NAD; Negative for pallor HEENT Reports moist mucous membranes HEENT Narrative: Head is atraumatic and normocephalic. Ears normal. Nares patent Eyes PERRL Eyes Narrative: Patient wears glasses. Resp normal respiratory effort and clear to auscultation bilaterally Cardio regular rate, regular rhythm, S1 normal heart sound, S2 normal heart sound and no murmurs GI normal to inspection, nondistended, normoactive bowel sounds, non-tender, non- distended and no masses; Negative for hepatosplenomegaly Narrative: Suspect patient has an incarcerated right inguinal hernia. Testes ascended bilaterally. There is normal lie. There is no testicular pain or swelling. He is circumcised. There is no penile lesion or discharge noted. There is no inguinal lymphadenopathy. Suspect patient has a direct hernia. Since I am unable to reduce it CT of the pelvis with IV contrast was obtained to determine if this is omentum or if bowel is their blood flow or not. Extremity normal to inspection Neuro oriented x3 and CN's II-XII intact bilaterally Sensorium / Orientation: alert Psych mental status grossly normal Skin no rashes or lesions noted, no wounds and skin turgor normal General Skin Exam: Negative for jaundice or pallor MDM MDM MDM Narrative Medical decision making narrative: Differential diagnosis is inguinal mass, hernia nonreducible, doubt strangulated, benign tumor, lymphadenopathy unlikely, history and physical is not consistent with obstructing stone. Radiography Diagnostic Testing: Clinical Impression(s) from Imaging Studies Pelvis CT 01/30/25 18:55 IMPRESSION: 1. Colonic diverticulosis without evidence of diverticulitis. 2. Bilateral fat containing inguinal hernias. 3. Prostatomegaly. Reading Location: [facility] The interpretation of radiologist was reviewed. Patient was discharged home with follow-up with Dr. Doyle. Discharge Plan Triage Chief Complaint: Other, Pain/Inj ED Provider: Pearce,Aries Dx/Rx/DC Orders Clinical Impression: Irreducible right inguinal hernia, Hernia, inguinal, left, Diverticulosis Instructions: ED Hernia (Adult) Prescriptions: No Action omeprazole 40 mg capsule,delayed release(DR/EC) 40 mg PO QDAY nitroglycerin [Nitrostat] 0.4 mg tablet, sublingual 0.4 mg SUBLINGUAL Q5-15M PRN (Reason: chst levine) Qty: 25 6RF Rx Instructions: do not not exceed 3 doses at one episode allopurinol 100 mg tablet 100 mg PO BID topiramate 25 MG tablet 25 mg PO QHS latanoprost 1 DROP bottle 1 drp RIGHT EYE QHS aspirin 81 MG tablet,delayed release (DR/EC) 81 mg PO DAILY ascorbic acid (vitamin C) 500 MG tablet 500 mg PO DAILY@0800 vitamin E 400 UNIT capsule 800 unit PO DAILY sildenafil 50 mg tablet 25 mg PO DAILY PRN (Reason: erectile dysfunction) brimonidine 0.2 % drops 1 drp ophthalmic (eye) BID dorzolamide-timolol 22.3-6.8 mg/mL drops 1 drp ophthalmic (eye) BID Eliquis 5 mg tablet 5 mg PO BID Qty: 200 4RF hydrochlorothiazide 25 mg tablet 25 mg PO DAILY Qty: 90 3RF atorvastatin 40 mg tablet 40 mg PO QHS Qty: 90 3RF metoprolol tartrate 25 mg tablet 25 mg PO BID Qty: 180 3RF Primary Care Provider: Manjit Steele Referrals: Manjit Steele MD [Primary Care Provider] - Venancio Doyle MD [Med Staff - Active Staff] - As soon as possible Activity Restrictions/Additional Instructions: 1. Return if you have nausea and vomiting, severe pain, develop a mass in your right groin Print Language: Irish Disposition Disposition: Home, Self Care
[2025-01-30 20:11] VITALS: BP 120/70; PULSE 54; RESP 16; O2SAT 98
[2025-01-30 20:59] VITALS: BP 120/70; PULSE 54; RESP 16; TEMP 36.6; O2SAT 98
== END 2025-01-30 21:00 | disposition home or self-care (01) ==
PROVIDERS: Emergency Provider Emergency Medicine; PCP Family Medicine; Visit Provider Emergency Medicine
DX: K40.30 Unilateral inguinal hernia, with obstruction, without gangrene, not specified as recurrent (principal); I50.22 Chronic systolic (congestive) heart failure; K57.30 Diverticulosis of large intestine without perforation or abscess without bleeding; I25.10 Atherosclerotic heart disease of native coronary artery without angina pectoris; I25.2 Old myocardial infarction; Z95.1 Presence of aortocoronary bypass graft
CPT/HCPCS: 72193; 99283; Q9967; A4216

== ENCOUNTER → 2025-02-12 | Outpatient (CLI) | payer MEDICARE, OTHER, SELFPAY | END | disposition home or self-care (01) | LOC: LABSPEC 15:24 | PROVIDERS: PCP Family Medicine; Referring Provider Surgery; Visit Provider Surgery | DX: Z01.818 Encounter for other preprocedural examination (principal) | CPT/HCPCS: 87081 ==

== ENCOUNTER 2025-02-24 10:15 | Day surgery (SDC) | payer MEDICARE, OTHER, SELFPAY ==
--- NOTE | 2025-02-19 09:10 | EKG12_ITS ---
Test Reason : PRE OP Blood Pressure : */* mmHG Vent. Rate : 50 BPM Atrial Rate : 50 BPM P-R Int : 142 ms QRS Dur : 84 ms QT Int : 452 ms P-R-T Axes : 49 23 68 degrees QTcB Int : 412 ms Sinus bradycardia Septal infarct (cited on or before 16-Jan-2016) Abnormal ECG Confirmed by Venancio Scott ([id number]), general expeditor LORI TEMPLE ([id number]) on 02/20/2025 7:16:36 AM Referred By: Venancio Doyle Confirmed By: Venancio Scott
[2025-02-19 10:25] LABS: Hematocrit 46.7 % (40-54); Hemoglobin 15.7 g/dL (13.0-16.5); Immature Granulocytes Count 0.030 X10^3/uL (0.0-0.0); Mean Corp Hgb Conc 33.6 g/dL (32-36); Mean Corpuscular Volume 91.0 fL (80-94); Mean Platelet Vol. 10.5 fl (6.2-12.0); NRBC Flagged by Analyzer 0 % (0-5); Platelet Count 145 K/mm3 (150-450); RBC Distribution Width CV 14.6 % (11.6-14.6); RBC Distribution Width SD 48.5 fl (35.1-43.9); Red Blood Count 5.13 M/mm3 (4.6-6.2); White Blood Count 7.3 K/mm3 (4.4-11.0)
[2025-02-19 10:59] LABS: Anion Gap 12 (5-15); BUN 20 mg/dL (4-19); BUN/Creat Ratio 20.0 RATIO (10-20); Calcium,Total 9.4 mg/dL (7.6-11.0); Carbon Dioxide 24.5 mmol/L (21.0-32.0); Chloride 102 mmol/L (98-108); Glucose 87 mg/dL (70-99); Potassium 4.0 mmol/L (3.3-5.1)
--- NOTE | 2025-02-19 12:02 | PAT.ANE_ITS ---
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 When Was Last Pacemaker Check QUESTION #4 FULL TEXT: You/Your Family Experience fever (hyperthermia) with Anesthesia Last Oral Intake Last Oral intake: Last Oral Intake NPO since Meds taken in AM with sips of water? Meds patient instructed to take am of surgery PONV PONV - mobile product manager: PONV - mobile product manager Female No 02/18/25 15:10 HX of Motion Sickness Yes 02/18/25 15:10 HX of N/V After Surgery No 02/18/25 15:10 Non-Smoker Yes 02/18/25 15:10 Duration of Surgery greater Yes 02/18/25 15:10 than 60 minutes Number of Risk Factors 3 02/18/25 15:10 PONV Score Moderate Risk 02/18/25 15:10 Height & Weight Height & Weight: Anesthesia: Height & Weight Height 6 ft 02/12/25 14:37 Respiratory Assessment Respiratory Assessment - mobile product manager: Respiratory Tract Infection Hx - mobile product manager Hx Respiratory Tract Infection No 02/18/25 15:10 STOP Sleep Apnea STOP Sleep Apnea - mobile product manager: STOP Sleep Apnea - mobile product manager Hx Hypertension Yes: CONTROLLED WITH MEDS 02/18/25 15:10 Hx Sleep Apnea No 02/18/25 15:10 CPAP No 01/22/24 15:54 BIPAP No 01/22/24 15:54 Do you snore loudly (louder No 02/18/25 15:10 than talking or can be heard Do you often feel tired/ No 02/18/25 15:10 fatigued/ sleepy during daytime? Has anyone observed you stop No 02/18/25 15:10 breathing during sleep? STOP Results Negative 02/18/25 15:10 QUESTION #5 FULL TEXT : Do you snore loudly (louder than talking or can be heard through closed doors)? Tobacco Use History Tobacco Use History - mobile product manager: Tobacco Use History - mobile product manager Tobacco Use Smoking Status Never smoker 02/18/25 15:10 Hx Tobacco Use No 02/18/25 15:10 Years Smoking Packs Smoked per Day Smoking Cessation Date was within the last 15 years Hx Smoking Cessation Date Hx Smoking Cessation No 02/18/25 15:10 Counseling Hematologic Medial History Hematologic Hx - mobile product manager: Hematologic Medical Hx - child support specialist Hx of Blood Transfusion No 02/18/25 15:10 Hx of Transfusion in last 3 No 02/18/25 15:10 Months Date of Last Transfusion (if within last 3 months) Ever experience any problems No 02/18/25 15:10 with transfusion(s)? Specify any problems Hx of Preganancy in last 3 N/A 02/18/25 15:10 Months Nurse Filling Out Transfusion [email or web address] 02/18/25 15:10 & Questions: Date: 02/18/25 02/18/25 15:10 Time: 15:16 02/18/25 15:10 Patient unable to answer at this time (ie. confused, unrespo /Reproduction History /Reproductive History - mobile product manager: /Reproductive Hx- mobile product manager Hx Now Gestational Age (in weeks): EDC: Hx Hx Para Hx Section SAB PFSH Medical History Wears dentures Gout Migraine headache Gastric reflux Non-smoker History of echocardiogram History of stress test Cardiology follow-up encounter Pre-op testing Paroxysmal atrial fibrillation Constipation Encounter for screening for COVID-19 Acute bronchitis, unspecified Acute sinusitis Lobar pneumonia Chronic systolic (congestive) heart failure Atrial fibrillation with rapid ventricular response (07/26/17) Postoperative atrial fibrillation (09/13/15) 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) Severe headache Obesity (BMI 35.0-39.9 without comorbidity) Atherosclerosis of coronary artery without angina pectoris Non-STEMI (non-ST elevated myocardial infarction) (07/27/17) Hyperlipidemia Ischemic cardiomyopathy Left ventricular apical thrombus following [place] Home Medications ?Medication ?Instructions ?Recorded ?Last Taken ?Type ascorbic acid (vitamin C) 500 mg 500 mg PO DAILY@0800 suppliment 10/21/15 Unknown History tablet aspirin 81 mg tablet,delayed 81 mg PO DAILY prevention 10/21/15 Unknown History release latanoprost 0.005 % eye drops 1 drp RIGHT EYE QHS drop s 10/21/15 Unknown History topiramate 25 mg tablet 25 mg PO QHS migraine preven tion 10/21/15 Unknown History vitamin E 268 mg (400 unit) capsule 800 unit PO DAILY suppliment 10/21/15 Unknown History omeprazole 40 mg capsule,delayed 40 mg PO QHS reflux 0 07/11/17 Unknown History release nitroglycerin 0.4 mg sublingual 0.4 mg sublingual Q5-1 5M PRN chst 06/23/20 Unknown Rx tablet (Nitrostat) levine #25 tabs allopurinol 100 mg tablet 100 mg PO BID gout 06/29/23 Unknown History brimonidine 0.2 % 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 01/22/24 Unknown History dorzolamide 22.3 mg-timolol 6.8 1 drp ophthalmic (eye) BID eye 01/22/24 Unknown History mg/mL eye drops health sildenafil 50 mg tablet 25 mg PO DAILY PRN erectile 01/22/24 Unknown History dysfunction apixaban 5 mg tablet (Eliquis) 5 mg PO BID #200 tabs 1 Unknown Rx hydrochlorothiazide 25 mg tablet 25 mg PO DAILY bp #90 tabs 07/15/24 Unknown Rx atorvastatin 40 mg tablet 40 mg PO QHS cholesterol #90 tabs 11/25/24 Unknown Rx metoprolol tartrate 25 mg tablet 25 mg PO BID heart #1 80 tabs 11/25/24 Unknown Rx Allergy/AdvReac Type Severity Reaction Status Date / Time No Known Allergies Allergy Verified 02/18/25 15:06 Family History Father CAD (coronary artery disease) Myocardial infarction Surgical History H/O eye surgery S/P laparoscopic cholecystectomy History of total hip arthroplasty (10/2020) History of left heart catheterization (07/27/17) H/O coronary artery bypass surgery (09/11/15) Social History housing: house Smoking Status: Never smoker alcohol intake: never substance use type: does not use caffeine: Yes Type: coffee Number of servings: 1
--- NOTE | 2025-02-19 12:03 | PAT.ANE_ITS ---
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 02/18/25 15:10 Any Problems With Anesthesia Yes: AFTER HIP SURGERY PT 02/18/25 15:10 ADMITTED TO ICU Cholinesterase deficiency No 02/18/25 15:10 You/Your Family Experience No 02/18/25 15:10 fever (hyperthermia) with Relationship Recent Exposure to Contagious Disease Does patient have nerve No 02/18/25 15:10 stimulator Patient instructed to have device shut off --Does patient have Pacemaker or ICD? When Was Last Pacemaker Check QUESTION #4 FULL TEXT: You/Your Family Experience fever (hyperthermia) with Anesthesia Last Oral Intake Last Oral intake: Last Oral Intake NPO since Meds taken in AM with sips of water? Meds patient instructed to take am of surgery PONV PONV - video game engineer: PONV - video game engineer Female No 02/18/25 15:10 HX of Motion Sickness Yes 02/18/25 15:10 HX of N/V After Surgery No 02/18/25 15:10 Non-Smoker Yes 02/18/25 15:10 Duration of Surgery greater Yes 02/18/25 15:10 than 60 minutes Number of Risk Factors 3 02/18/25 15:10 PONV Score Moderate Risk 02/18/25 15:10 Height & Weight Height & Weight: Anesthesia: Height & Weight Height 6 ft 02/12/25 14:37 Respiratory Assessment Respiratory Assessment - video game engineer: Respiratory Tract Infection Hx - video game engineer Hx Respiratory Tract Infection No 02/18/25 15:10 STOP Sleep Apnea STOP Sleep Apnea - video game engineer: STOP Sleep Apnea - video game engineer Hx Hypertension Yes: CONTROLLED WITH MEDS 02/18/25 15:10 Hx Sleep Apnea No 02/18/25 15:10 CPAP No 01/22/24 15:54 BIPAP No 01/22/24 15:54 Do you snore loudly (louder No 02/18/25 15:10 than talking or can be heard Do you often feel tired/ No 02/18/25 15:10 fatigued/ sleepy during daytime? Has anyone observed you stop No 02/18/25 15:10 breathing during sleep? STOP Results Negative 02/18/25 15:10 QUESTION #5 FULL TEXT : Do you snore loudly (louder than talking or can be heard through closed doors)? 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 Specify any problems Hx of Preganancy in last 3 N/A 02/18/25 15:10 Months Nurse Filling Out Transfusion [email or web address] 02/18/25 15:10 & Questions: Date: 02/18/25 02/18/25 15:10 Time: 15:16 02/18/25 15:10 Patient unable to answer at this time (ie. confused, unrespo /Reproduction History /Reproductive History - video game engineer: /Reproductive Hx- video game engineer Hx Now Gestational Age (in weeks): EDC: Hx Hx Para Hx Section SAB PFSH Medical History Wears dentures Gout Migraine headache Gastric reflux Non-smoker History of echocardiogram History of stress test Cardiology follow-up encounter Pre-op testing Paroxysmal atrial fibrillation Constipation Encounter for screening for COVID-19 Acute bronchitis, unspecified Acute sinusitis Lobar pneumonia Chronic systolic (congestive) heart failure Atrial fibrillation with rapid ventricular response (07/26/17) Postoperative atrial fibrillation (09/13/15) 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) Severe headache Obesity (BMI 35.0-39.9 without comorbidity) Atherosclerosis of coronary artery without angina pectoris Non-STEMI (non-ST elevated myocardial infarction) (07/27/17) Hyperlipidemia Ischemic cardiomyopathy Left ventricular apical thrombus following [place] Home Medications ?Medication ?Instructions ?Recorded ?Last Taken ?Type ascorbic acid (vitamin C) 500 mg 500 mg PO DAILY@0800 suppliment 10/21/15 Unknown History tablet aspirin 81 mg tablet,delayed 81 mg PO DAILY prevention 10/21/15 Unknown History release latanoprost 0.005 % eye drops 1 drp RIGHT EYE QHS drop s 10/21/15 Unknown History topiramate 25 mg tablet 25 mg PO QHS migraine preven tion 10/21/15 Unknown History vitamin E 268 mg (400 unit) capsule 800 unit PO DAILY suppliment 10/21/15 Unknown History omeprazole 40 mg capsule,delayed 40 mg PO QHS reflux 0 07/11/17 Unknown History release nitroglycerin 0.4 mg sublingual 0.4 mg sublingual Q5-1 5M PRN chst 06/23/20 Unknown Rx tablet (Nitrostat) levine #25 tabs allopurinol 100 mg tablet 100 mg PO BID gout 06/29/23 Unknown History brimonidine 0.2 % 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 01/22/24 Unknown History dorzolamide 22.3 mg-timolol 6.8 1 drp ophthalmic (eye) BID eye 01/22/24 Unknown History mg/mL eye drops health sildenafil 50 mg tablet 25 mg PO DAILY PRN erectile 01/22/24 Unknown History dysfunction apixaban 5 mg tablet (Eliquis) 5 mg PO BID #200 tabs 1 Unknown Rx hydrochlorothiazide 25 mg tablet 25 mg PO DAILY bp #90 tabs 07/15/24 Unknown Rx atorvastatin 40 mg tablet 40 mg PO QHS cholesterol #90 tabs 11/25/24 Unknown Rx metoprolol tartrate 25 mg tablet 25 mg PO BID heart #1 80 tabs 11/25/24 Unknown Rx Allergy/AdvReac Type Severity Reaction Status Date / Time No Known Allergies Allergy Verified 02/18/25 15:06 Family History Father CAD (coronary artery disease) Myocardial infarction Surgical History H/O eye surgery S/P laparoscopic cholecystectomy History of total hip arthroplasty (10/2020) History of left heart catheterization (07/27/17) H/O coronary artery bypass surgery (09/11/15) Social History housing: house Smoking Status: Never smoker alcohol intake: never substance use type: does not use caffeine: Yes Type: coffee Number of servings: 1 Prior Cardiac Testing/Procedures Prior Cardiac Testing/Procedures: Echocardiogram (EF 50%) Addt'l Information Additional Findings: >4 METS; No recent EKG hx of afib Recommendation Anesthesia Recommendation Anesthesia recommendation: OPTIMIZED for anesthesia (EKG day of surgery)
[2025-02-24] VITALS (9 sets, daily range): BP systolic 121–133; BP diastolic 67–81; PULSE 56–71; RESP 14–20; TEMP 36.1–36.5; O2SAT 92–100; BMI 29.0
[2025-02-24] MEDS: Lactated Ringers 1,000 ML 15 ML IV (10:45)
--- NOTE | 2025-02-24 11:14 | PCM.PRE.AN2 ---
ASA Classification* ASA Classification ASA Classification: 3 Assessment & Plan Anesthesia* Anesthesia Assessment Anesthesia Assessment: Discussed sedation and/or anesthesia options, risks, benefits, and alternatives with patient/parents/legal guardian/POA. Questions invited. The patient/parents/legal guardian/POA seems to understand and agrees to proceed with anesthesia plan. Reviewed the physical assessment, medical history, allergy history and patient home medications list prior to surgery/procedure/anesthetic and documented any changes. Performed airway and anesthesia risk assessments. Anesthesia Type Anesthesia Type: General History Source History Obtained from:: Patient and Chart Anesthesia Focused Assessment* Temperature: 97.7 F Pulse Rate: 56 Blood Pressure: 124/75 Respiratory Rate: 16 Pulse Ox: 100 Oxygen Delivery Method: Room Air Airway Assessment Mouth opens: >3 cm Mallampati Score: III Teeth Condition: Dentures (Upper dentures are out.) and Missing (Patient is missing couple teeth on the bottom. Rest are tight.) Neck Range of motion (ROM): Limited ROM (Somewhat Decreased) Labs Anesthesia Preop lab: CBC WBC, (4.4-11.0) 7.3 K/mm3 02/19/25, : RBC, (4.6-6.2) 5.13 M/mm3 02/19/25, : Hgb, (13.0-16.5) 15.7 g/dL 02/19/25, : Hct, (40-54) 46.7 % 02/19/25, : Plt Count, (150-450) 145 K/mm3 L 02/19/25, : CHEMISTRY Potassium, (3.3-5.1) 4.0 mmol/L 02/19/25, : Sodium, (133-145) 138 mmol/L 02/19/25, : BUN, (4-19) 20 mg/dL H 02/19/25, : Creatinine, (0.70-1.20) 0.97 mg/dL 02/19/25, : Glucose, (70-99) 87 mg/dL 02/19/25, :28 COAG PT, (11.7-14.9) 20.5 SECONDS H 03/22/24, 09:45 Pre-Assessment Diagnosis/Proposed Procedure Planned Operative Procedure(s): ROBOTIC BILATERAL HERNIA WITH MESH Anesthesia History 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 When Was Last Pacemaker Check QUESTION #4 FULL TEXT: You/Your Family Experience fever (hyperthermia) with Anesthesia Last Oral Intake Last Oral intake: Last Oral Intake NPO since 18:30 02/24/25 10:35 Meds taken in AM with sips of Yes 02/24/25 10:35 water? Meds patient instructed to 0715 metoprolol 02/24/25 10:35 take am of surgery Any additional information?: Yes Meds taken in AM with sips of water?: Yes PONV PONV - stockroom attendant: PONV - stockroom attendant Female No 02/18/25 15:10 HX of Motion Sickness Yes 02/18/25 15:10 HX of N/V After Surgery No 02/18/25 15:10 Non-Smoker Yes 02/18/25 15:10 Duration of Surgery greater Yes 02/18/25 15:10 than 60 minutes Number of Risk Factors 3 02/18/25 15:10 PONV Score Moderate Risk 02/18/25 15:10 Height & Weight Height & Weight: Anesthesia: Height & Weight Height 6 ft 02/24/25 10:35 Weight: 97 kg 02/24/25 10:35 Body Mass Index (BMI) 29.0 02/24/25 10:35 Respiratory Assessment Respiratory Assessment - stockroom attendant: Respiratory Tract Infection Hx - stockroom attendant Hx Respiratory Tract Infection No 02/18/25 15:10 STOP Sleep Apnea STOP Sleep Apnea - stockroom attendant: STOP Sleep Apnea - stockroom attendant Hx Hypertension Yes: CONTROLLED WITH MEDS 02/18/25 15:10 Hx Sleep Apnea No 02/18/25 15:10 CPAP No 01/22/24 15:54 BIPAP No 01/22/24 15:54 Do you snore loudly (louder No 02/18/25 15:10 than talking or can be heard Do you often feel tired/ No 02/18/25 15:10 fatigued/ sleepy during daytime? Has anyone observed you stop No 02/18/25 15:10 breathing during sleep? STOP Results Negative 02/18/25 15:10 QUESTION #5 FULL TEXT : Do you snore loudly (louder than talking or can be heard through closed doors)? Tobacco Use History Tobacco Use History - stockroom attendant: Tobacco Use History - stockroom attendant Tobacco Use Smoking Status Never smoker 02/18/25 15:10 Hx Tobacco Use No 02/18/25 15:10 Years Smoking Packs Smoked per Day Smoking Cessation Date was within the last 15 years Hx Smoking Cessation Date Hx Smoking Cessation No 02/18/25 15:10 Counseling Hematologic Medial History Hematologic Hx - stockroom attendant: Hematologic Medical Hx - homebirth midwife Hx of Blood Transfusion No 02/18/25 15:10 Hx of Transfusion in last 3 No 02/18/25 15:10 Months Date of Last Transfusion (if within last 3 months) Ever experience any problems No 02/18/25 15:10 with transfusion(s)? Specify any problems Hx of Preganancy in last 3 N/A 02/18/25 15:10 Months Nurse Filling Out Transfusion [email or web address] 02/18/25 15:10 & Questions: Date: 02/18/25 02/18/25 15:10 Time: 15:16 02/18/25 15:10 Patient unable to answer at this time (ie. confused, unrespo /Reproduction History /Reproductive History - stockroom attendant: /Reproductive Hx- stockroom attendant Hx Now Gestational Age (in weeks): EDC: Hx Hx Para Hx Section SAB Active Medications Active Medications: Current Medications Generic Name Dose Route Start Last Admin Trade Name Freq PRN Reason Stop Dose Admin Cefazolin Sodium 2 gm/ Sodium 110 mls @ 200 mls/hr 02/24/25 12:00 Chloride IV 02/24/25 12:32 INTRAOP ONE Lactated Ringer's 1,000 mls @ 15 mls/hr 02/24/25 10:30 02/24/25 10:45 IV 15 mls/hr .Q48H ALBA Administration PFSH Medical History Wears dentures Gout Migraine headache Gastric reflux Non-smoker History of echocardiogram History of stress test Cardiology follow-up encounter Pre-op testing Paroxysmal atrial fibrillation Constipation Encounter for screening for COVID-19 Acute bronchitis, unspecified Acute sinusitis Lobar pneumonia Chronic systolic (congestive) heart failure Atrial fibrillation with rapid ventricular response (07/26/17) Postoperative atrial fibrillation (09/13/15) 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) Severe headache Obesity (BMI 35.0-39.9 without comorbidity) Atherosclerosis of coronary artery without angina pectoris Non-STEMI (non-ST elevated myocardial infarction) (07/27/17) Hyperlipidemia Ischemic cardiomyopathy Left ventricular apical thrombus following [place] Home Medications ?Medication ?Instructions ?Recorded ?Last Taken ?Type ascorbic acid (vitamin C) 500 mg 500 mg PO DAILY@0800 suppliment 10/21/15 02/23/25 History tablet aspirin 81 mg tablet,delayed 81 mg PO DAILY prevention 10/21/15 02/23/25 History release latanoprost 0.005 % eye drops 1 drp RIGHT EYE QHS drops 10/21/15 02/23/25 History topiramate 25 mg tablet 25 mg PO QHS migraine prevention 10/21/15 02/23/25 History vitamin E 268 mg (400 unit) capsule 800 unit PO DAILY suppliment 10/21/15 02/23/25 History omeprazole 40 mg capsule,delayed 40 mg PO QHS reflux 07/11/17 02/23/25 History release nitroglycerin 0.4 mg sublingual 0.4 mg sublingual Q5-15M PRN chst 06/23/20 Unknown Rx tablet (Nitrostat) levine #25 tabs allopurinol 100 mg tablet 100 mg PO BID gout 06/29/23 02/23/25 History brimonidine 0.2 % 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 01/22/24 02/23/25 History dorzolamide 22.3 mg-timolol 6.8 1 drp ophthalmic (eye) BID eye 01/22/24 02/23/25 History mg/mL eye drops health sildenafil 50 mg tablet 25 mg PO DAILY PRN erectile 01/22/24 02/23/25 History dysfunction apixaban 5 mg tablet (Eliquis) 5 mg PO BID #200 tabs 03/21/24 02/21/25 Rx hydrochlorothiazide 25 mg tablet 25 mg PO DAILY bp #90 tabs 07/15/24 02/23/25 Rx atorvastatin 40 mg tablet 40 mg PO QHS cholesterol #90 tabs 11/25/24 02/23/25 Rx metoprolol tartrate 25 mg tablet 25 mg PO BID heart #180 tabs 11/25/24 02/24/25 07:20 Rx Allergy/AdvReac Type Severity Reaction Status Date / Time No Known Allergies Allergy Verified 02/18/25 15:06 Family History Father CAD (coronary artery disease) Myocardial infarction Surgical History H/O eye surgery S/P laparoscopic cholecystectomy History of total hip arthroplasty (10/2020) History of left heart catheterization (07/27/17) H/O coronary artery bypass surgery (09/11/15) Social History housing: house Smoking Status: Never smoker alcohol intake: never substance use type: does not use caffeine: Yes Type: coffee Number of servings: 1 Review of Systems (Anesthesia) ROS Narrative System reviewed and no additional complaints, except as documented.
[2025-02-24] MEDS: Bupiv/Epi 0.25% 30 ML Vial ×2 (11:21→16:13)
--- NOTE | 2025-02-24 11:35 | PCM.HP.BLA ---
History and Physical MR#: [id number] Acct: [id number] Name: HARINDER REAVES [place] Rep #: [id number] : 1955 Provider: Dr. 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 Is patient in pain?: Yes (right groin pain) Allergies No Known Allergies Allergy (Verified 02/12/25 14:38) Medications ?Medication ?Instructions ?Recorded ?Confirmed ?Type ascorbic acid (vitamin C) 500 mg 500 mg PO DAILY@0800 suppliment 10/21/15 02/12/25 History tablet aspirin 81 mg tablet,delayed 81 mg PO DAILY prevention 10/21/15 02/12/25 History release latanoprost 0.005 % eye drops 1 drp RIGHT EYE QHS drops 10/21/15 02/12/25 History topiramate 25 mg tablet 25 mg PO QHS migraine prevention 10/21/15 02/12/25 History vitamin E 268 mg (400 unit) capsule 800 unit PO DAILY suppliment 10/21/15 02/12/25 History omeprazole 40 mg capsule,delayed 40 mg PO QDAY reflux 07/11/17 02/12/25 History release nitroglycerin 0.4 mg sublingual 0.4 mg sublingual Q5-15M PRN chst 06/23/20 02/12/25 Rx tablet (Nitrostat) levine #25 tabs allopurinol 100 mg tablet 100 mg PO BID gout 06/29/23 02/12/25 History brimonidine 0.2 % 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 01/22/24 02/12/25 History dorzolamide 22.3 mg-timolol 6.8 1 drp ophthalmic (eye) BID eye 01/22/24 02/12/25 History mg/mL eye drops health sildenafil 50 mg tablet 25 mg PO DAILY PRN erectile 01/22/24 02/12/25 History dysfunction apixaban 5 mg tablet (Eliquis) 5 mg PO BID #200 tabs 03/21/24 02/12/25 Rx hydrochlorothiazide 25 mg tablet 25 mg PO DAILY bp #90 tabs 07/15/24 02/12/25 Rx atorvastatin 40 mg tablet 40 mg PO QHS cholesterol #90 tabs 11/25/24 02/12/25 Rx metoprolol tartrate 25 mg tablet 25 mg PO BID heart #180 tabs 11/25/24 02/12/25 Rx Have you fallen in the past year?: No PFSH Medical History (Updated 02/12/25 @ 18:[address] 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) Severe headache Obesity (BMI 35.0-39.9 without comorbidity) Atherosclerosis of coronary artery without angina pectoris Non-STEMI (non-ST elevated myocardial infarction) (07/27/17) Hyperlipidemia Ischemic cardiomyopathy Left ventricular apical thrombus following DC Surgical History (Updated 02/12/25 @ 14:41 by Sarah Mao) S/P laparoscopic cholecystectomy History of total hip arthroplasty (10/2020) History of left heart catheterization (07/27/17) H/O coronary artery bypass surgery (09/11/15) Family History Father CAD (coronary artery disease) Myocardial infarction Social History housing: house Smoking Status: Never smoker alcohol intake: never substance use type: does not use caffeine: Yes Type: coffee Number of servings: 1 HPI HPI HPI: Patient is a 69-year-old male who presents for complaint of new right groin pain and newly diagnosed right inguinal hernia following an ER visit on 01/30/[address] imaging. This finding was first noticed by patient earlier this month. He states that he was working in [facility] and for 3 of the 6 days of his assignment he felt terrific pain such that he could barely stand and brought him almost to tears. Patient is not able to recall how this occurred. He does confirm that his symptoms are better with sitting. Symptoms are worse when bending forward. He also shares that initially he was convinced this discomfort represented a kidney stone and he drank a full 10 bottles of water to try to flush the stone through but without relief. He has continued activity restriction of lifting no more than 5 pounds as recommended by emergency department. However, Mr. 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 Mr. Reaves denies any regular experience of constipation and shares if anything he more regularly experiences diarrhea especially after his gallbladder removal 2 years ago. In addition to above Mr. Reaves has a history of unintentional weight loss over the last year. He estimates that he has lost 25 pounds. He does note that he is eating less. He completed a colonoscopy in the last year through [facility] but denies any significant findings. Patient has a history of right lower extremity cellulitis which required treatment with IV antibiotics approximately a year ago. Pertinent surgical history includes: Laparoscopic cholecystectomy with Dr. Jenkins in 2022. Additionally Mr. Reaves underwent 6 vessel CABG in 2016. ROS General General: No weight change, appetite, fatigue, colon cancer, breast cancer or weakness HEENT HEENT: Yes eye injury and eye surgery; No difficulty swallowing, swollen glands or hoarseness Endo Endocrine: No thyroid disease, diabetes mellitus, thyroid cancer, Hair loss, heat intolerance or cold intolerance Skin Skin: No rash or changing moles Breast Breast: No left breast lump, right breast lump, nipple discharge, breast pain, abnormal mammogram, abnormal US or breast enlargement Musc Musculoskeletal: No back problems, arthritis, rheumatoid arthritis, gout or joint pain Cardio Cardiovascular: Yes heart disease, high blood pressure and heart attack; No murmur, pacemaker, atrial fibrillation, heart stent, palpitations, shortness of breath with exertion or chest pain Psych Psychiatric: No depression, anxiety or hearing voices Resp Respiratory: No shortness of breath, No sleep apnea, No cough, No COPD, No asthma, No emphysema and No wheezing Gastro Gastrointestinal: Yes abdominal pain, No nausea or vomiting, Yes diarrhea, No constipation, No blood in stool, Yes acid reflux, No hemorrhoids, No ulcers, No gallbladder problem and No black,tarry stools Marcelino Hematologic: Yes blood thinners, No blood disorders, No bleeding, No anemia and No blood clots Neuro Neurologic: No system reviewed and no additional complaints, except as documented, No as per HPI, No abnormal gait, No abnormal hearing, No abnormal movements, No abnormal speech, No behavioral changes, No burning sensations, No confusion, No convulsions, No disequilibrium, No dizziness, No localized weakness, No frequent falls, No headache(s), No lack of coordination, No loss of vision, No memory loss, No numbness, No other visual disturbances, No radicular pain, No restless legs, No sensory deficit, No syncope, No tingling, No tremor(s), No weakness and No other Exam Const General: cooperative, comfortable and no acute distress Orientation: alert, awake and oriented x3 Resp Effort & Inspection: normal respiratory effort GI Other: Mildly overweight, subtle umbilical hernia is nontender, nondistended, soft, nontender to palpation x 4 quadrants Other: Bilaterally descended testes. Bilateral indirect hernia defects right greater than left with tenderness particularly on palpation of the right side Assessment and Plan Assessment and Plan (1) Bilateral inguinal hernia without obstruction or gangrene: Status: Chronic Comment: Patient is 69-year-old male with recently diagnosed bilateral inguinal hernias. The right hernia has become quite symptomatic and activity?limiting. There is no inciting event, however, patient maintains a fairly active lifestyle through his volunteer activity. CT imaging was completed at his recent ER visit and shows evidence of bilateral fat-containing hernias. In my review of his past abdominal and pelvis CTs there was evidence of these hernias at that time. I shared with him that although they were present then it is now recommended given his development of symptoms. I proceeded with an explanation of a bilateral hernia repair with mesh using robotic platform. I also discussed postoperative activity restrictions. Patient and his daughter had the opportunity to ask questions. Plan: ? Robot-assisted bilateral inguinal hernia repair with mesh ? MRSA swab of the nares ? Cardiac clearance and permission to hold anticoagulation 48 hours pre and post procedure I have examined the patient and the H&P has been reviewed. There are no clinical changes since date of exam. Patient confirms that he has held his anticoagulation for 48 hours. Neither he nor his daughter offer any further questions. Postprocedure activity restrictions and wound care instructions were reviewed. Proceed to the OR for robot-assisted bilateral inguinal hernia pair with mesh placement.
[2025-02-24] MEDS: Midazolam 2 MG/2 ML Syringe IV (11:47)
[2025-02-24] MEDS: Lidocaine 1% (5 ml sdv) 5 ML Vial IV (11:52)
[2025-02-24] MEDS: Cefazolin 1 GM/5 ML Vial 2 GM IV (11:52)
--- NOTE | 2025-02-24 12:00 | HERN_PTH ---
PATIENT: HARINDER WRIGHT [place] [facility] [place][id number] AGE/SX: 69/M ROOM: RE02/24/[address]: Dr. Venancio Doyle MD : 1955 BED: DIS: 02/24/2025 SPEC #: [id number] RECD: 02/25/25 12:00 STATUS: BELA FLORENCE #: [id number] MAYCO: 02/24/25 12:[address]: Venancio Doyle DEPT: SURGICAL PATHOLOGY RECD BY: Alek Mckenzie ENTERED: 02/25/25 09:53 SP TYPE: Hernia OTHR DR: Dr. Manjit Steele MD Tissues: A - LIPOMA OF CORD Procedures: Surgery Specimen Level III HEADER OPERATION: Laparoscopic robotic inguinal hernia with mesh PRE-OP DIAGNOSIS: Bilateral inguinal hernia without obstruction or gangrene TISSUE SUBMITTED: A- Lipoma of left cord and retroperitoneal fat MICROSCOPIC DIAGNOSIS A. Soft tissue, inguinal hernia repair: * Mature adipose tissue consistent with lipoma MICROSCOPIC DESCRIPTION Slides are reviewed. GROSS DESCRIPTION A. Received in formalin labeled with the patient's name and date of . Designated as lipoma of the left cord and retroperitoneal fat is a 15.4 x 3.5 x 1.9 cm elongated portion of qureshi-yellow, congested and lobulated soft tissue. Sectioning reveals qureshi-yellow, congested, homogenous cut surfaces. Allergy Physician sections are submitted in 3 cassettes. IN 02/25/2025 CPT:07351
[2025-02-24] MEDS: fentaNYL 100 MCG/2 ML Ampul 200 MCG IV (12:31)
[2025-02-24] MEDS: Lactated Ringers 2,000 ML 2000 ML IV (13:00)
--- NOTE | 2025-02-24 16:17 | OP.PCM_ITS ---
Operative Report (Standard) Operative Information Date of Procedure: 02/24/25 Pre-Operative Diagnosis: Bilateral inguinal hernias Post-Operative Diagnosis: Bilateral indirect inguinal hernias with associated cord lipomas Surgery/Procedure Performed: Robot-assisted bilateral inguinal hernia repair with mesh placement x 2 director of supply chain: Yes Network Support Administrator: Deborah Stinson Tasks completed by first breaker feeder: Opening and Other (Material and instrument insertion) Additional first assistant manager?: Yes Additional Legal Financial Specialist #2: Angelina Acosta Tasks completed by first assistant manager #2: Closing Type of Anesthesia: General/Supplemental RN Documented Start/Stop Times: Operation Date: 02/24/25 12:00 Case Time Into Pre-Op 02/24/25 10:21 Out of Pre-Op 02/24/25 11:43 Anesthesia Start 02/24/25 11:47 Into Room 02/24/25 11:47 Procedure Start 02/24/25 12:20 Procedure End 02/24/25 16:14 Anesthesia End 02/24/25 16:19 Out of Room 02/24/25 16:19 Into Recovery 02/24/25 16:21 Into Phase II Recovery 02/24/25 16:59 Out of Recovery 02/24/25 16:59 Out of Phase II 02/24/25 19:20 Procedure Start Time: 12:20 Procedure Stop Time: 16:14 Select all DRAINS/GRAFTS/IMPLANTS that apply: Prosthetic device (3D max mid anatomic mesh size large) Prosthetic device details: Right reference [id number], Lot [id number], left reference [id number], Lot [id number] Estimated Blood Loss: 30 Specimen collected: Yes Description of specimen(s) removed: Cord lipoma and retroperitoneal fat Description of surgery: After appropriate identification the preoperative holding area the patient was brought to the operating room where he was positioned supine on the operating table. Preoperative antibiotics were completed and the patient was administered a general anesthetic. Patient's abdomen was then prepped and draped in usual sterile fashion. Formal timeout followed to confirm patient and procedure. Procedure was begun with an optical entry facilitated by Veress insufflation at Westfall's point. Once pneumoperitoneum reached a set point pressure of 12 mmHg a left paramedian incision was made and a 8 mm robotic trocar was placed with a careful Optiview technique. Follow-up laparoscopic investigation revealed no inadvertent injury to the viscera below. A second port was placed through the right upper quadrant and laparoscopic visualization. A final port was placed th rough the epigastric position also under laparoscopic visualization handsbreadth to the left of the second port. Patient was positioned in slight Trendelenburg and I performed a local block of the ilioinguinal nerves bilaterally using 12 mL local anesthetic under laparoscopic visualization. The robot was docked in standard fashion. In this positioning I could visualize indirect hernia defects bilaterally. Robotically, a peritoneal flap was created on the right extending from the medial umbilical ligament to the level of the ASIS (external) and was bluntly dissected to expose the medial parietal and lateral visceral compartments. I carried this dissection inferiorly until laterally I came down onto the indirect hernia defect and placed traction over the cremasteric fibers in the patient's hernia sac. With gradual division of the cremasteric fibers I was able to reduce the hernia sac completely as I carried the dissection posteriorly keeping in view of the structures of the spermatic cord inferiorly. Medially I also identified the vas deferens splaying from the spermatic cord structures. I tried to continue my dissection inferiorly medially, however, there appeared to be scarring in the space of Retzius such that it did not open easily. I did not want to have an inadvertent vascular injury given my need for going on the left side on the account of patient's contralateral defect anyhow attention was turned to dissection and repair of patient's left-sided indirect inguinal hernia. Once again a peritoneal flap was created on this side and dissection was carried down to the indirect hernia sac laterally which was reduced through selective electrocautery burst and constant traction of the hernia sac. Once the leading edge of the hernia sac was identified it was peeled posteriorly off the inferior spermatic cord structures while simultaneously identifying the vas medially. Laterally there was clear evidence of a cord lipoma which was grasped and carefully retracted out of the deep ring. Again, bursts of electrocautery were used to free this from the canalway. As the dissection proceeded posteriorly it was apparent that this cord lipoma was a derivative of some retroperitoneal fat so this was taken well back over the psoas muscle and then carefully amputated free of both the spermatic cord structures and the vas deferens medially. It was set aside for later retrieval. Medially, this time I was able to more easily developed the space of Retzius and identified the pubic tubercle. I allowed my dissection to continue rightward until I had opened into the dissection from the contralateral side. After confirming that I had parietalized the medial aspect of the vas deferens on the left I returned to the right side. On the right side I further developed my medial dissection in the parietal compartment until I could see the medial aspect of the iliac vessels and the medial aspect of the vas deferens. Intervening tissue was divided with electrocautery. Then 2 Bard 3D max, size large, mid weight meshes were placed into the abdomen along with suture. Each mesh was positioned within its respective preperitoneal pocket so that there was good medial and inferior overlap of the defects as well as the meshes medially. The overlap of the meshes was tacked to the admuniculum of the linea alba just superior to the pubic tubercle and laterally in a partial-thickness bite of the abdominal wall using a 3-0 Vicryl suture. Each peritoneal flap was then closed with a running 3-0 V-Loc suture. With the formal portion of the operation complete the needles were sequentially removed from the peritoneal cavity. Lastly in the cord lipoma was removed and the Endo Catch bag. Upon confirming a correct needle count, the pneumoperitoneum was evacuated before removing the trocars. The port sites were closed at the skin with running 4-0 Monocryl in a subcuticular fashion. Steri-Strips and OpSite's were used as dressings. Patient's testicles were confirmed within the scrotum. Patient was then awoken from anesthetic and transferred to PACU for ongoing recovery. Surgical Findings: ? Bilateral indirect defects ? Bilateral retroperitoneal fat contributing to cord lipoma with left slightly greater than right ? Apparent scarring through the space of Retzius making opening of the space more challenging than usual on the right Complications Complications: No Admit VTE Documentation VTE Mechan Device Prophylaxis: SCD's
--- NOTE | 2025-02-24 16:19 | DCINST_ITS ---
Discharge Instructions Diet Discharge Diet: No restrictions Activity Discharge Activity: May Not Drive (While taking narcotic pain medication) and May Shower May shower in (days): 2 Ice area for (Minutes): 20 Lifting Restrictions: No lifting greater than 10 pounds for the next 5 weeks Dressing / Incision Call your doctor if your incision/area has: Continuous Slow Oozing, Increased Pain/ Swelling, Increased Redness, Foul Smelling Discharge and Swelling at the incision site Call your doctor if you observe: Fever of 101 or Higher, Inability to urinate and Inability to have a bowel movement Change Dressing in: 2 days (Please leave Steri-Strips intact until they fall off spontaneously or are taken off at your follow-up visit) Remove Dressing in: 2 days Cleanse incision/area with: Soap & Water and Keep Dressing Clean & Dry Follow Up Care Please Follow Up With: Venancio Doyle MD When: 1 week postop Test Results: Test results from this visit will be discussed in further detail at your follow- up appointment, if applicable. Discharge Plan Admission Primary Reason for Your Visit: Inguinal hernia repair (bilateral) Attending Provider: Venancio Doyle Primary Care Provider: Manjit Steele Instructions Additional Instructions / Restrictions: Please resume anticoagulation 48 hours postop Print Language: Prydeinig Discharge Orders/Prescriptions Prescriptions: New oxycodone 5 mg tablet 5 mg PO Q6H PRN (Reason: pain) 5 Days Qty: 10 0RF Continued omeprazole 40 mg capsule,delayed release(DR/EC) 40 mg PO QHS nitroglycerin [Nitrostat] 0.4 mg tablet, sublingual 0.4 mg SUBLINGUAL Q5-15M PRN (Reason: chst levine) Qty: 25 6RF Rx Instructions: do not not exceed 3 doses at one episode allopurinol 100 mg tablet 100 mg PO BID topiramate 25 MG tablet 25 mg PO QHS latanoprost 1 DROP bottle 1 drp RIGHT EYE QHS aspirin 81 MG tablet,delayed release (DR/EC) 81 mg PO DAILY ascorbic acid (vitamin C) 500 MG tablet 500 mg PO DAILY@0800 vitamin E 400 UNIT capsule 800 unit PO DAILY sildenafil 50 mg tablet 25 mg PO DAILY PRN (Reason: erectile dysfunction) brimonidine 0.2 % drops 1 drp ophthalmic (eye) BID dorzolamide-timolol 22.3-6.8 mg/mL drops 1 drp ophthalmic (eye) BID Eliquis 5 mg tablet 5 mg PO BID Qty: 200 4RF hydrochlorothiazide 25 mg tablet 25 mg PO DAILY Qty: 90 3RF atorvastatin 40 mg tablet 40 mg PO QHS Qty: 90 3RF metoprolol tartrate 25 mg tablet 25 mg PO BID Qty: 180 3RF Referrals / Follow Up: Manjit Steele MD [Primary Care Provider, Family Practice] Disposition Disposition (needs filled in before D/C Order can be placed): Home, Self Care
--- NOTE | 2025-02-24 16:25 | PCM.POST.ANE ---
Anesthesia: Postop Eval I Current Vital Signs Temperature: 97.0 F Pulse Rate: 68 Blood Pressure: 133/78 Respiratory Rate: 20 Pulse Ox: 95 Oxygen Delivery Method: Room Air Assessment Airway patent: Yes Spontaneous unlabored respirations: Yes Mental status: Awake and Calm nausea: No Vomiting: No Anesthesia Complication: No Fluid Hydration Crystalloid volume administer (ml): 1,700 Total IV fluid infused: 1,700 Progress Note Anesthesia document: Postop Eval 1 completed: Yes
--- NOTE | 2025-02-24 17:10 | POSTOPAN2_ITS ---
Anesthesia Postop Eval I Sum Postop Eval Completion status Anesthesia document: Postop Eval 1 completed: Yes Anesthesia Postop Eval I Summary Anesthesia Postop Eval I Summary: Anesthesia Postop Eval I: Assessment Summary Airway patent Yes 02/24/25 16:26 [email or web address] Spontaneous unlabored Yes 02/24/25 16:26 [email or web address] respirations Mental status Awake,Calm 02/24/25 16:26 [email or web address] nausea No 02/24/25 16:26 [email or web address] Vomiting No 02/24/25 16:26 [email or web address] Anesthesia Postop Eval I: Fluid Summary Crystalloid volume administer 1,700 02/24/25 16:26 [email or web address] (ml) Colloids volume administered ( ml) Blood Product volume administered (ml) Total IV fluid infused 1,700 02/24/25 16:26 [email or web address] Anesthesia Postop Eval I: Summary Notes Anesthesia Complication No 02/24/25 16:26 [email or web address] Anesthesia Complication Comment: Post-operative progress note Anesthesia: Postop Eval II Evaluation Mental status: Awake and Calm Pain Level: 1 nausea: No Vomiting: No Complications Anesthesia Complication: No
--- NOTE | 2025-02-24 17:10 | PCM.POSTANE2 ---
Anesthesia Postop Eval I Sum Postop Eval Completion status Anesthesia document: Postop Eval 1 completed: Yes Anesthesia Postop Eval I Summary Anesthesia Postop Eval I Summary: Anesthesia Postop Eval I: Assessment Summary Airway patent Yes 02/24/25 16:26 [email or web address] [email or web address] Spontaneous unlabored Yes 02/24/25 16:26 CADD [email or web address] respirations Mental status Awake,Calm 02/24/25 16:26 [email or web address] nausea No 02/24/25 16:26 [email or web address] [email or web address] Vomiting No 02/24/25 16:26 [email or web address] Anesthesia Postop Eval I: Fluid Summary Crystalloid volume administer 1,700 02/24/25 16:26 [email or web address] (ml) Colloids volume administered ( ml) Blood Product volume administered (ml) Total IV fluid infused 1,700 02/24/25 16:26 [email or web address] Anesthesia Postop Eval I: Summary Notes Anesthesia Complication No 02/24/25 16:26 [email or web address] Anesthesia Complication Comment: Post-operative progress note Anesthesia: Postop Eval II Evaluation Mental status: Awake and Calm Pain Level: 1 nausea: No Vomiting: No Complications Anesthesia Complication: No
== END 2025-02-24 19:20 | disposition home or self-care (01) ==
LOC: SDC 10:17 → AC 10:17
PROVIDERS: Anesthesiology; PCP Family Medicine; Referring Provider Surgery; Visit Provider Surgery
PROC: (CPT 49650; principal; 2025-02-24 11:40)
DX: K40.20 Bilateral inguinal hernia, without obstruction or gangrene, not specified as recurrent (principal); I50.22 Chronic systolic (congestive) heart failure; I11.0 Hypertensive heart disease with heart failure; I48.0 Paroxysmal atrial fibrillation; E78.5 Hyperlipidemia, unspecified; I25.10 Atherosclerotic heart disease of native coronary artery without angina pectoris; Z79.01 Long term (current) use of anticoagulants; D17.6 Benign lipomatous neoplasm of spermatic cord; K21.9 Gastro-esophageal reflux disease without esophagitis; Z79.899 Other long term (current) drug therapy
CPT/HCPCS: 49650; S2900; 00840; 36415; 80048; 85025; 88304; 93005; A4216; J2405

== ENCOUNTER 2025-03-10 08:23 | Emergency (ER) | payer MEDICARE, OTHER, SELFPAY ==
[2025-03-10 08:24] VITALS: BP 107/62; PULSE 53; RESP 16; TEMP 36.5; O2SAT 99; BMI 29.1
[2025-03-10 09:37] VITALS: BP 94/61; PULSE 69; RESP 15; TEMP 36.6; O2SAT 100
== END 2025-03-10 09:39 | disposition home or self-care (01) ==
PROVIDERS: Emergency Provider Emergency Medicine; PCP Family Medicine; Visit Provider Emergency Medicine
DX: M75.21 Bicipital tendinitis, right shoulder (principal); I50.22 Chronic systolic (congestive) heart failure; I48.0 Paroxysmal atrial fibrillation; M25.521 Pain in right elbow; I25.5 Ischemic cardiomyopathy; I25.10 Atherosclerotic heart disease of native coronary artery without angina pectoris; E78.5 Hyperlipidemia, unspecified; R00.1 Bradycardia, unspecified; Z79.82 Long term (current) use of aspirin; Z79.01 Long term (current) use of anticoagulants; Z79.899 Other long term (current) drug therapy; I25.2 Old myocardial infarction
CPT/HCPCS: 73030; 99282